=== PATIENT | female | born 1965 | race African-American/Black ===

== ENCOUNTER 2016-04-26 12:46 | Inpatient (IN) | payer BC ==
[2016-04-26 13:29] VITALS: BMI 21.2
--- NOTE | 2016-04-26 14:55 | HP ---
Admission ROS [facility] Chief Complaint: i need help for rehab from alcohol and cocaine Allergies/Adverse Reactions: Allergies Allergy/AdvReac Type Severity Reaction Status Date / Time Latex, Natural Rubber Allergy Intermediate Rash Verified 01/30/16 12:49 Penicillins AdvReac Severe Swelling Verified 01/30/16 12:49 morphine AdvReac Intermediate HALLUCINATI Verified 01/30/16 12:49 ON History of Present Illness: this 50 years old female with alcohol and cocaine dependence,for rehab,last treatment last treatment 01/30/16 to 02/03/16 [facility] asthma,copd weight loss nicotine dependence aortic and mitral valve regurgitation sle ptsd Exam Limitations: No Limitations - Ebola screening Have you traveled outside of the country in the last 21 days: No Have you been sick,other than usual withdrawal symptoms: No - Review of Systems Constitutional: No Symptoms Reported EENT: reports: No Symptoms Reported Respiratory: reports: No Symptoms reported Cardiac: reports: No Symptoms Reported, Other (aortic and mitral valve regurgitation) GI: reports: No Symptoms Reported : reports: No Symptoms Reported Musculoskeletal: reports: No Symptoms Reported Integumentary: reports: No Symptoms Reported Neuro: reports: No Symptoms reported Endocrine: reports: No Symptoms Reported Hematology: reports: No Symptoms Reported Psychiatric: reports: other (ptsd) Patient History - Patient Medical History Hx Anemia: Yes (IRON AND B12 TAKEN IN PAST, patient received vitamin b12 shot monthly, last) Hx Asthma: Yes (on albuterol inhaler) Hx Chronic Obstructive Pulmonary Disease (COPD): Yes Hx Cancer: No Hx Cardiac Disorders: Yes (mitral and aortic valve regurgitation) Hx Congestive Heart Failure: No Hx Hypertension: No Hx Hypercholesterolemia: No Hx Pacemaker: No HX Cerebrovascular Accident: No Hx Seizures: No Hx Dementia: No Hx Diabetes: No Hx Gastrointestinal Disorders: No Hx Liver Disease: No Hx Genitourinary Disorders: No Hx Sexually Transmitted Disorders: Yes (gonorrhea,SYPHILLIS TREATED) Hx Renal Disease (ESRD): No Hx Thyroid Disease: No Hx Human Immunodeficiency Virus (HIV): No (last 10/29 negative) Hx Hepatitis C: No Hx Depression: No Hx Suicide Attempt: No Hx Bipolar Disorder: Yes (PTSD, seroquel) Hx Schizophrenia: Yes (SCHIOAFFECTIVE DISORDER) Other Medical History: sle,no suicidal,no homicidal - Patient Surgical History Past Surgical History: Yes Hx Neurologic Surgery: No Hx Cataract Extraction: No Hx Cardiac Surgery: No Hx Lung Surgery: No Hx Breast Surgery: No Hx Breast Biopsy: No Hx Abdominal Surgery: No Hx Appendectomy: No Hx Cholecystectomy: No Hx Genitourinary Surgery: No Hx Section: Yes (5, patient has 10 children) Hx Orthopedic Surgery: No Hx Hysterectomy: No Other Surgical History: Kidney stones removal 1995 BY LITHOTRIPSY Anesthesia Reaction: No - PPD History Previous Implant?: Yes Documented Results: Negative w/proof Date: 10/29/15 Results: 0 MM PPD to be Administered?: No - Reproductive History Last Menstrual Period: 01/27/16 - Smoking Cessation Smoking history: Current every day smoker Have you smoked in the past 12 months: Yes Aproximately how many cigarettes per day: 5 Cigars Per Day: 0 Hx Chewing Tobacco Use: No Initiated information on smoking cessation: Yes 'Breaking Loose' booklet given: 04/26/16 - Substance & Tx. History Hx Alcohol Use: Yes Hx Substance Use: Yes Substance Use Type: Alcohol, Cocaine Hx Substance Use Treatment: Yes ([facility] 01/29 to 02/03/16) - Substances Abused Alcohol Route: Oral Frequency: 3-6 times per week Amount used: 1 pint rum Age of first use: 33 Date of Last Use: 04/24/16 Cocaine Route: Inhalation Frequency: 3-6 times per week Amount used: 4 bags Age of first use: 33 Date of Last Use: 04/22/16 Family Disease History - Family Disease History Family Disease History: CA: Mother (BLADDER), Other: Father (HEP c, hiv, HEROIN ADDICTION, ) Admission Physical Exam S - Vital Signs Vital Signs: Vital Signs - 24 hr 04/26/16 13:27 Temperature 97.3 F L Pulse Rate 110 H Respiratory 18 Rate Blood Pressure 104/66 - Physical General Appearance: Yes: Within Normal Limits HEENTM: Yes: Within Normal Limits Respiratory: Yes: Lungs Clear Neck: Yes: Within Normal Limits Breast: Yes: Within Normal Limits Cardiology: Yes: Regular Rhythm, Regular Rate, S1, S2, Murmur Abdominal: Yes: Within Normal Limits, Normal Bowel Sounds, Flat, Soft Genitourinary: Yes: Within Normal Limits Back: Yes: Within Normal Limits Musculoskeletal: Yes: Within Normal Limits Extremities: Yes: Within Normal Limits Neurological: Yes: rn delivery II-XII NML intact, Fully Oriented, Alert, Motor Strength 5/5 Integumentary: Yes: Within Normal Limits Lymphatic: Yes: Within Normal Limits - Diagnostic (1) Alcohol dependence Current Visit: No Status: Chronic Qualifiers: Substance use status: uncomplicated Qualified Code(s): F10.20 - Alcohol dependence, uncomplicated (2) Anemia Current Visit: No Status: Chronic Qualifiers: Other causes of anemia: other cause, not classified (3) Asthma Current Visit: No Status: Chronic Qualifiers: Asthma severity: mild intermittent Asthma complication type: uncomplicated Qualified Code(s): J45.20 - Mild intermittent asthma, uncomplicated (4) COPD (chronic obstructive pulmonary disease) Current Visit: No Status: Chronic Qualifiers: COPD type: unspecified COPD Qualified Code(s): J44.9 - Chronic obstructive pulmonary disease, unspecified (5) Cocaine dependence Current Visit: No Status: Chronic (6) Hepatitis C Current Visit: No Status: Chronic Qualifiers: Viral hepatitis chronicity: chronic Hepatic coma status: without hepatic coma Qualified Code(s): B18.2 - Chronic viral hepatitis C (7) Lupus (systemic lupus erythematosus) Current Visit: No Status: Chronic (8) Nicotine dependence Current Visit: No Status: Chronic Qualifiers: Nicotine product type: cigarettes Substance use status: uncomplicated Qualified Code(s): F17.210 - Nicotine dependence, cigarettes, uncomplicated (9) Post traumatic stress disorder (PTSD) Current Visit: No Status: Chronic (10) Schizoaffective disorder Current Visit: No Status: Chronic (11) Weight loss Current Visit: Yes Status: Acute (12) Mitral valve regurgitation Current Visit: Yes Status: Acute (13) Aortic valve regurgitation Current Visit: Yes Status: Acute Cleared for Admission [facility] - Detox or Rehab Claeared for Rehab Admission: Yes (for rehab as protocol) [facility] Breath Alcohol Content Breath Alcohol Content: 0 Urine Pregancy Test - Result Urine Test Results: Negative- NO Line Present Urine Drug Screen - Results Drug Screen Negative: No Urine Drug Screen Results: KAYLI-Cocaine
[2016-04-26] MEDS ORDERED: MAG HYDROX/AL HYDROX/SIMETH 30 ML UNIT-DOSE CUP PO PRN (15:08)
[2016-04-26] MEDS ORDERED: P-EPHED 60MG/TRIPROLIDI 2.5MG TABLET PO PRN (15:08)
[2016-04-26] MEDS ORDERED: hydrOXYzine PAMOATE 25 MG CAPSULE (FP) PO PRN (15:08)
[2016-04-26] MEDS ORDERED: MAGNESIUM HYDROX 2400MG/30ML ORAL SUSPENSION 30 ML CUP PO PRN (15:08)
[2016-04-26] MEDS ORDERED: MENTHOL/PHENOL 1 EACH UD MM PRN (15:08)
[2016-04-26] MEDS ORDERED: MAGNESIUM CITRATE 300 ML BOTTLE PO PRN (15:08)
[2016-04-26] MEDS ORDERED: LOPERAMIDE HCL 2 MG CAPSULE PO PRN (15:08)
[2016-04-26 16:33] LABS: MCH 28.9 pg (25.7-33.7); MEAN CELL VOLUME 90.4 fl (80-96); MEAN PLT VOLUME 10.2 fl (7.5-11.1); PLATELET COUNT 385 K/MM3 (134-434); RDW 16.1 % (11.6-15.6)
[2016-04-26 16:44] LABS: ALBUMIN 3.4 g/dl (3.4-5.0); ANION GAP 5 (8-16); CALCIUM 9.3 mg/dL (8.5-10.1); CO2 31 mmol/L (21-32); GLUCOSE,RANDOM 100 mg/dL (74-106); SGPT/ALT 18 U/L (12-78)
[2016-04-26 16:47] LABS: ALK PHOS 72 U/L (45-117); BILIRUBIN,TOTAL 0.3 mg/dL (0.2-1.0); CREATININE 0.9 mg/dL (0.55-1.02); SGOT/AST 12 U/L (15-37); TOT PROT 7.6 g/dl (6.4-8.2)
[2016-04-26] MEDS: CYPROHEPTADINE HCL 4 MG TABLET PO SCH ×2 (17:10→21:59)
[2016-04-26] MEDS: predniSONE 20 MG TABLET (UD) PO SCH (17:10)
[2016-04-26] MEDS: IBUPROFEN 400 MG TABLET (FP) PO PRN (18:22)
[2016-04-26 19:50] LABS: PH,URINE 6.5 (5.0-8.0); URINE APPEARANCE CLEAR; URINE BILIRUBIN NEGATIVE (NEGATIVE); URINE BLOOD NEGATIVE (NEGATIVE); URINE COLOR LT. YELLOW; URINE GLUCOSE (UA) NEGATIVE (NEGATIVE); URINE KETONE NEGATIVE (NEGATIVE); URINE LEUK ESTERASE NEGATIVE (NEGATIVE); URINE NITRITE NEGATIVE (NEGATIVE); URINE PROTEIN NEGATIVE (NEGATIVE); URINE UROBILINOGEN 0.2 E.U/dl E.U./dl (0.2-1.0)
[2016-04-26] MEDS: THIAMINE HCL 100 MG TABLET (FP) PO SCH (22:00)
[2016-04-27] MEDS: CYPROHEPTADINE HCL 4 MG TABLET PO SCH ×3 (06:19→21:44)
[2016-04-27] MEDS: ASPIRIN COATED 81 MG TABLET.EC PO SCH (09:13)
[2016-04-27] MEDS: PRENATAL VITAMINS W/ FOLIC ACID TABLET (FP) PO SCH (09:13)
[2016-04-27] MEDS: guaiFENesin/D-METHORPHAN HB 10 ML UNIT-DOSE CUPS PO PRN (09:13)
[2016-04-27] MEDS: predniSONE 20 MG TABLET (UD) PO SCH (09:13)
[2016-04-27 11:10] LABS: HIV 1 & 2 AB NEGATIVE; HIV 1 AGp24 NEGATIVE
--- NOTE | 2016-04-27 16:34 | EKG ---
Test Reason : Blood Pressure : / mmHG Vent. Rate : 085 BPM Atrial Rate : 085 BPM P-R Int : 132 ms QRS Dur : 072 ms QT Int : 422 ms P-R-T Axes : 075 077 080 degrees QTc Int : 502 ms NORMAL SINUS RHYTHM VOLTAGE CRITERIA FOR LEFT VENTRICULAR HYPERTROPHY PROLONGED QT ABNORMAL ECG NO PREVIOUS ECGS AVAILABLE Confirmed by GIBRAN SOLIS MD ([id number]) on 04/27/2016 4:34:04 PM Referred By: Confirmed By:GIBRAN SOLIS MD
[2016-04-27] MEDS: IBUPROFEN 400 MG TABLET (FP) PO PRN (17:47)
[2016-04-27] MEDS: THIAMINE HCL 100 MG TABLET (FP) PO SCH (21:39)
[2016-04-27] MEDS: diphenhydrAMINE HCL 50 MG CAPSULE PO PRN (21:39)
[2016-04-28] MEDS: CYPROHEPTADINE HCL 4 MG TABLET PO SCH ×3 (06:54→21:40)
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
[2016-04-28] MEDS: ASPIRIN COATED 81 MG TABLET.EC PO SCH (10:28)
[2016-04-28] MEDS: PRENATAL VITAMINS W/ FOLIC ACID TABLET (FP) PO SCH (10:28)
[2016-04-28] MEDS: predniSONE 10 MG TABLET (UD) PO SCH (10:29)
[2016-04-28] MEDS: guaiFENesin/D-METHORPHAN HB 10 ML UNIT-DOSE CUPS PO PRN (10:30)
[2016-04-28] MEDS: ALBUTEROL SO4 6.7 GM HFA INHALER IH PRN (11:33)
[2016-04-28] MEDS: NICOTINE 7 MG/24 HOURS TOPICAL PATCH TD SCH (15:56)
[2016-04-28] MEDS: THIAMINE HCL 100 MG TABLET (FP) PO SCH (21:40)
[2016-04-28] MEDS: traZODone HCL 50 MG TABLET (FP) PO SCH (21:41)
[2016-04-29] MEDS: CYPROHEPTADINE HCL 4 MG TABLET PO SCH ×3 (06:28→21:30)
[2016-04-29] MEDS: ASPIRIN COATED 81 MG TABLET.EC PO SCH (09:00)
[2016-04-29] MEDS: predniSONE 10 MG TABLET (UD) PO SCH (09:00)
[2016-04-29] MEDS: NICOTINE 7 MG/24 HOURS TOPICAL PATCH TD SCH (09:00)
[2016-04-29] MEDS: PRENATAL VITAMINS W/ FOLIC ACID TABLET (FP) PO SCH (09:00)
[2016-04-29] MEDS: IBUPROFEN 400 MG TABLET (FP) PO PRN (09:01)
[2016-04-29] MEDS: THIAMINE HCL 100 MG TABLET (FP) PO SCH (21:30)
[2016-04-29] MEDS: traZODone HCL 50 MG TABLET (FP) PO SCH (21:30)
[2016-04-30] MEDS: CYPROHEPTADINE HCL 4 MG TABLET PO SCH ×3 (06:32→21:27)
[2016-04-30] MEDS: predniSONE 20 MG TABLET (UD) PO SCH (10:10)
[2016-04-30] MEDS: PRENATAL VITAMINS W/ FOLIC ACID TABLET (FP) PO SCH (10:10)
[2016-04-30] MEDS: ASPIRIN COATED 81 MG TABLET.EC PO SCH (10:10)
[2016-04-30] MEDS: NICOTINE 7 MG/24 HOURS TOPICAL PATCH TD SCH (10:11)
[2016-04-30] MEDS: guaiFENesin/D-METHORPHAN HB 10 ML UNIT-DOSE CUPS PO PRN (10:12)
[2016-04-30] MEDS: THIAMINE HCL 100 MG TABLET (FP) PO SCH (21:27)
[2016-04-30] MEDS: traZODone HCL 50 MG TABLET (FP) PO SCH (21:27)
[2016-05-01] MEDS: CYPROHEPTADINE HCL 4 MG TABLET PO SCH ×3 (05:55→21:42)
[2016-05-01] MEDS: IBUPROFEN 400 MG TABLET (FP) PO PRN (09:40)
[2016-05-01] MEDS: predniSONE 20 MG TABLET (UD) PO SCH (09:40)
[2016-05-01] MEDS: PRENATAL VITAMINS W/ FOLIC ACID TABLET (FP) PO SCH (09:40)
[2016-05-01] MEDS: ASPIRIN COATED 81 MG TABLET.EC PO SCH (09:42)
[2016-05-01] MEDS: NICOTINE 7 MG/24 HOURS TOPICAL PATCH TD SCH (09:43)
[2016-05-01] MEDS: THIAMINE HCL 100 MG TABLET (FP) PO SCH (21:42)
[2016-05-01] MEDS: traZODone HCL 50 MG TABLET (FP) PO SCH (21:42)
[2016-05-02] MEDS: CYPROHEPTADINE HCL 4 MG TABLET PO SCH ×3 (06:23→22:46)
[2016-05-02] MEDS: IBUPROFEN 400 MG TABLET (FP) PO PRN (10:27)
[2016-05-02] MEDS: ASPIRIN COATED 81 MG TABLET.EC PO SCH (10:28)
[2016-05-02] MEDS: predniSONE 10 MG TABLET (UD) PO SCH (10:28)
[2016-05-02] MEDS: PRENATAL VITAMINS W/ FOLIC ACID TABLET (FP) PO SCH (10:28)
[2016-05-02] MEDS: NICOTINE 7 MG/24 HOURS TOPICAL PATCH TD SCH (10:29)
[2016-05-02] MEDS: NICOTINE POLACRILEX 2 MG GUM BUC PRN (10:30)
--- NOTE | 2016-05-02 13:39 | PN ---
[facility] Progress Note Note: WHITISH VAGINAL D/C & TOOTH ACHE DX. : YEAST INFECTION P : MONISTAT 7,MOTRIN & VISCOUS LIDOCAINE
[2016-05-02] MEDS: MICONAZOLE NITRATE 2% VAGINAL CREAM 45 GM TUBE VG SCH (22:45)
[2016-05-02] MEDS: traZODone HCL 50 MG TABLET (FP) PO SCH (22:45)
[2016-05-02] MEDS: THIAMINE HCL 100 MG TABLET (FP) PO SCH (22:46)
[2016-05-02] MEDS: IBUPROFEN 600 MG TABLET (FP) PO PRN (22:46)
[2016-05-03] MEDS: CYPROHEPTADINE HCL 4 MG TABLET PO SCH ×3 (06:10→21:31)
[2016-05-03] MEDS: IBUPROFEN 600 MG TABLET (FP) PO PRN (07:25)
[2016-05-03] MEDS: ALBUTEROL SO4 6.7 GM HFA INHALER IH PRN (09:10)
[2016-05-03] MEDS: predniSONE 10 MG TABLET (UD) PO SCH (09:11)
[2016-05-03] MEDS: PRENATAL VITAMINS W/ FOLIC ACID TABLET (FP) PO SCH (09:11)
[2016-05-03] MEDS: ASPIRIN COATED 81 MG TABLET.EC PO SCH (09:11)
[2016-05-03] MEDS: NICOTINE 7 MG/24 HOURS TOPICAL PATCH TD SCH (09:12)
[2016-05-03] MEDS: NICOTINE POLACRILEX 2 MG GUM BUC PRN (09:12)
[2016-05-03] MEDS: LIDOCAINE VISCOUS 2% ORAL/TOP 20 ML UNIT-DOSE CUP MM PRN (10:23)
[2016-05-03] MEDS: IBUPROFEN 400 MG TABLET (FP) PO PRN (17:07)
[2016-05-03] MEDS: ACETAMINOPHEN 325 MG TABLET (FP) PO PRN (19:26)
[2016-05-03] MEDS: traZODone HCL 50 MG TABLET (FP) PO SCH (21:31)
[2016-05-03] MEDS: THIAMINE HCL 100 MG TABLET (FP) PO SCH (21:31)
[2016-05-03] MEDS: MICONAZOLE NITRATE 2% VAGINAL CREAM 45 GM TUBE VG SCH (21:32)
[2016-05-04] MEDS: IBUPROFEN 400 MG TABLET (FP) PO PRN ×2 (05:40→18:21)
[2016-05-04] MEDS: LIDOCAINE VISCOUS 2% ORAL/TOP 20 ML UNIT-DOSE CUP MM PRN ×2 (05:41→10:29)
[2016-05-04] MEDS: CYPROHEPTADINE HCL 4 MG TABLET PO SCH ×3 (05:41→21:26)
[2016-05-04] MEDS: ACETAMINOPHEN 325 MG TABLET (FP) PO PRN ×2 (08:21→21:27)
[2016-05-04] MEDS: PRENATAL VITAMINS W/ FOLIC ACID TABLET (FP) PO SCH (10:29)
[2016-05-04] MEDS: predniSONE 5 MG TABLET (UD) PO SCH (10:30)
[2016-05-04] MEDS: ASPIRIN COATED 81 MG TABLET.EC PO SCH (10:30)
[2016-05-04] MEDS: NICOTINE POLACRILEX 2 MG GUM BUC PRN (10:30)
[2016-05-04] MEDS: NICOTINE 7 MG/24 HOURS TOPICAL PATCH TD SCH (10:30)
[2016-05-04] MEDS: THIAMINE HCL 100 MG TABLET (FP) PO SCH (21:26)
[2016-05-04] MEDS: traZODone HCL 50 MG TABLET (FP) PO SCH (21:26)
[2016-05-04] MEDS: MICONAZOLE NITRATE 2% VAGINAL CREAM 45 GM TUBE VG SCH (21:55)
[2016-05-05] MEDS: IBUPROFEN 400 MG TABLET (FP) PO PRN ×2 (06:12→18:15)
[2016-05-05] MEDS: CYPROHEPTADINE HCL 4 MG TABLET PO SCH ×3 (06:12→21:26)
[2016-05-05] MEDS ORDERED: PT OWN MED DRAWER 7, Y5N ONE (08:41)
[2016-05-05] MEDS: ASPIRIN COATED 81 MG TABLET.EC PO SCH (10:12)
[2016-05-05] MEDS: PRENATAL VITAMINS W/ FOLIC ACID TABLET (FP) PO SCH (10:12)
[2016-05-05] MEDS: predniSONE 5 MG TABLET (UD) PO SCH (10:12)
[2016-05-05] MEDS: NICOTINE 7 MG/24 HOURS TOPICAL PATCH TD SCH (10:12)
[2016-05-05] MEDS: NICOTINE POLACRILEX 2 MG GUM BUC PRN (10:13)
[2016-05-05] MEDS: LIDOCAINE VISCOUS 2% ORAL/TOP 20 ML UNIT-DOSE CUP MM PRN (10:57)
[2016-05-05] MEDS: ACETAMINOPHEN 325 MG TABLET (FP) PO PRN ×2 (10:57→21:28)
[2016-05-05] MEDS ORDERED: AZITHROMYCIN 250 MG TABLET (FP) PO ONE (13:39)
[2016-05-05] MEDS: THIAMINE HCL 100 MG TABLET (FP) PO SCH (21:26)
[2016-05-05] MEDS: traZODone HCL 50 MG TABLET (FP) PO SCH (21:26)
[2016-05-05] MEDS: MICONAZOLE NITRATE 2% VAGINAL CREAM 45 GM TUBE VG SCH (21:27)
[2016-05-06] MEDS: CYPROHEPTADINE HCL 4 MG TABLET PO SCH ×3 (06:28→21:30)
[2016-05-06] MEDS: IBUPROFEN 400 MG TABLET (FP) PO PRN ×2 (08:12→19:00)
[2016-05-06] MEDS: PRENATAL VITAMINS W/ FOLIC ACID TABLET (FP) PO SCH (10:08)
[2016-05-06] MEDS: NICOTINE 7 MG/24 HOURS TOPICAL PATCH TD SCH (10:08)
[2016-05-06] MEDS: AZITHROMYCIN 250 MG TABLET (FP) PO SCH (10:09)
[2016-05-06] MEDS: ASPIRIN COATED 81 MG TABLET.EC PO SCH (10:09)
[2016-05-06] MEDS: ACETAMINOPHEN 325 MG TABLET (FP) PO PRN ×2 (10:10→21:33)
[2016-05-06] MEDS: NICOTINE POLACRILEX 2 MG GUM BUC PRN (10:11)
[2016-05-06] MEDS: THIAMINE HCL 100 MG TABLET (FP) PO SCH (21:30)
[2016-05-06] MEDS: traZODone HCL 50 MG TABLET (FP) PO SCH (21:30)
[2016-05-06] MEDS: diphenhydrAMINE HCL 50 MG CAPSULE PO PRN (21:30)
[2016-05-06] MEDS: MICONAZOLE NITRATE 2% VAGINAL CREAM 45 GM TUBE VG SCH (21:31)
[2016-05-07] MEDS: IBUPROFEN 400 MG TABLET (FP) PO PRN ×2 (06:53→21:19)
[2016-05-07] MEDS: CYPROHEPTADINE HCL 4 MG TABLET PO SCH ×3 (06:54→21:19)
[2016-05-07] MEDS: NICOTINE POLACRILEX 2 MG GUM BUC PRN (10:37)
[2016-05-07] MEDS: AZITHROMYCIN 250 MG TABLET (FP) PO SCH (10:37)
[2016-05-07] MEDS: PRENATAL VITAMINS W/ FOLIC ACID TABLET (FP) PO SCH (10:37)
[2016-05-07] MEDS: ASPIRIN COATED 81 MG TABLET.EC PO SCH (10:37)
[2016-05-07] MEDS: NICOTINE 7 MG/24 HOURS TOPICAL PATCH TD SCH (10:38)
[2016-05-07] MEDS: ACETAMINOPHEN 325 MG TABLET (FP) PO PRN (11:08)
[2016-05-07] MEDS: traZODone HCL 50 MG TABLET (FP) PO SCH (21:19)
[2016-05-07] MEDS: THIAMINE HCL 100 MG TABLET (FP) PO SCH (21:19)
[2016-05-07] MEDS: diphenhydrAMINE HCL 50 MG CAPSULE PO PRN (21:20)
[2016-05-07] MEDS ORDERED: PT OWN MED DRAWER 7, Y5N ONE (21:22)
[2016-05-07] MEDS: LIDOCAINE VISCOUS 2% ORAL/TOP 20 ML UNIT-DOSE CUP MM PRN (21:22)
[2016-05-07] MEDS: MICONAZOLE NITRATE 2% VAGINAL CREAM 45 GM TUBE VG SCH (22:31)
[2016-05-08] MEDS: IBUPROFEN 400 MG TABLET (FP) PO PRN (06:08)
[2016-05-08] MEDS: CYPROHEPTADINE HCL 4 MG TABLET PO SCH ×3 (06:08→21:40)
[2016-05-08] MEDS: ASPIRIN COATED 81 MG TABLET.EC PO SCH (10:18)
[2016-05-08] MEDS: PRENATAL VITAMINS W/ FOLIC ACID TABLET (FP) PO SCH (10:18)
[2016-05-08] MEDS: NICOTINE 7 MG/24 HOURS TOPICAL PATCH TD SCH (10:18)
[2016-05-08] MEDS: AZITHROMYCIN 250 MG TABLET (FP) PO SCH (10:18)
[2016-05-08] MEDS: NICOTINE POLACRILEX 2 MG GUM BUC PRN (10:19)
[2016-05-08] MEDS: ACETAMINOPHEN 325 MG TABLET (FP) PO PRN (11:31)
--- NOTE | 2016-05-08 11:59 | PN ---
[facility] Progress Note Note: Patient still c/o severe pain left lowermolar at back since admission, pain sharp stabbing radiating to head /, reported some blood from cracked tooth last night unrelievd by antibiotics , motrin, or lidocaine. o/e cracked left lower molar, patient clearly distressed a/p: d/c motrin cont lidocaine, add peridex bid start neurontin 100mg tid and elavil 50mg qHS first dose now for neuopathic pain. co plete course of antibiotics, emergency dental referral made.
[2016-05-08] MEDS ORDERED: AMITRIPTYLINE HCL 25 MG TABLET (FP) PO ONE (12:15)
[2016-05-08] MEDS: NAPROXEN 500 MG TABLET (FP) PO SCH ×2 (12:28→21:40)
[2016-05-08] MEDS: CHLORHEXIDINE GLUCONATE 0.12% 15ML CUP MM SCH ×2 (13:36→21:43)
[2016-05-08] MEDS: GABAPENTIN 100 MG CAPSULE (FP) PO SCH ×2 (13:43→21:40)
--- NOTE | 2016-05-08 16:29 | PN ---
Psychiatric Progress Note Vital Signs: Vital Signs Period Temp Pulse Resp BP Sys/Voss Pulse Ox Last 24 Hr 98.3 F 81 16-18 106/72 Date of Session: 05/08/16 Chief Complaint:: "Andrew still having some craving,anxious about discharge." HPI: Patient addressed Alcohol dependence comorbid with Schizoaffective disorder. ROS: Anemia,BA,Aortic,mitral valve regurgitation. Current Medications: Active Medications Generic Name Dose Route Start Last Admin Trade Name Freq PRN Reason Stop Dose Admin Acamprosate 666 mg 05/08/16 22:00 Campral - PO TID ASHLYN Acetaminophen 650 mg 04/26/16 15:08 05/08/16 11:31 Tylenol - PO 650 mg Q4H PRN Administration PAIN Al Hydroxide/Mg Hydroxide 30 ml 04/26/16 15:08 Mylanta Oral Suspension - PO Q6H PRN DYSPEPSIA Albuterol Sulfate 2 puff 04/26/16 15:11 05/03/16 09:10 Ventolin Hfa Inhaler - IH 2 puff Q4H PRN Administration ASTHMA Amitriptyline HCl 50 mg 05/08/16 22:00 Elavil - PO HS ASHLYN Aspirin 81 mg 04/27/16 10:00 05/08/16 10:18 Ecotrin - PO 81 mg DAILY ASHLYN Administration Azithromycin 250 mg 05/06/16 10:00 05/08/16 10:18 Zithromax - PO 05/09/16 23:00 250 mg DAILY ASHLYN Administration Chlorhexidine Gluconate 15 ml 05/08/16 12:00 05/08/16 13:36 Peridex - MM 15 ml BID ASHLYN Administration Cyproheptadine HCl 4 mg 04/26/16 15:15 05/08/16 13:36 Periactin - PO 4 mg TID ASHLYN Administration Diphenhydramine HCl 50 mg 04/26/16 15:08 05/07/16 21:20 Benadryl - PO 50 mg HSMR1 PRN Administration INSOMNIA Eucalyptus/Menthol/Phenol/Sorbitol 1 each 04/26/16 15:08 05/02/16 06:44 Cepastat Lozenge - MM 1 each Q4H PRN Administration SORE THROAT Gabapentin 100 mg 05/08/16 14:00 05/08/16 13:43 Neurontin - PO 100 mg TID ASHLYN Administration Guaifenesin 10 ml 04/26/16 15:08 04/30/16 10:12 Robitussin Dm - PO 10 ml Q6H PRN Administration COUGH Lidocaine HCl 20 ml 05/02/16 13:36 05/07/16 21:22 Xylocaine 2% Viscous Oral - MM 20 ml Q4HPO PRN Administration ORAL PAIN/MOUTH SORES Loperamide HCl 4 mg 04/26/16 15:08 Imodium - PO Q6H PRN DIARRHEA Magnesium Citrate 300 ml 04/26/16 15:08 Citroma - PO Q48H PRN CONSTIPATION Magnesium Hydroxide 30 ml 04/26/16 15:08 Milk Of Magnesia - PO DAILY PRN CONSTIPATION Miconazole Nitrate 1 applic 05/02/16 22:00 05/07/16 22:31 Monistat-7 Vaginal Cream - VG 05/08/16 22:01 1 applic HS ASHLYN Administration Naproxen 500 mg 05/08/16 12:00 05/08/16 12:28 Naprosyn - PO 500 mg BID ASHLYN Administration Nicotine 7 mg 04/28/16 15:30 05/08/16 10:18 Nicoderm Patch - TD Not Given DAILY ASHLYN Nicotine Polacrilex 2 mg 04/28/16 15:21 05/08/16 10:19 Nicorette Gum - BUC 2 mg Q2H PRN Administration NICOTINE REPLACEMENT RX Multivit/Folic Acid/Iron 1 tab 04/27/16 10:00 05/08/16 10:18 Vitamins (Sjr) - PO 1 tab DAILY ASHLYN Administration Pseudoephedrine/Triprolidine 1 combo 04/26/16 15:08 Actifed - PO TID PRN NASAL CONGESTION Thiamine HCl 100 mg 04/26/16 22:00 05/07/16 21:19 Vitamin B1 - PO 100 mg HS ASHLYN Administration Trazodone HCl 50 mg 04/28/16 22:00 05/07/16 21:19 Desyrel - PO 50 mg HS ASHLYN Administration Current Side Effect: No Lab tests ordered: No Lab tests reviewed: Yes Provider note:: PAtient was evaluated today due to continuois craving for alcohol.She states that she feels how difficult will be for her to stay abstinent when discharged from secure environment.Properties of Campral has been discussed with the patient including side effects and benefitrs.Campral 333 mg po 2 tab po tid will be started today. Supportive therapy provided. Total face to face time:: 30 Mental Status Exam - Mental Status Exam Alert and Oriented to: Time, Place, Person Cognitive Function: Grossly Intact Patient Appearance: Well Groomed Mood: Nervous Affect: Mood Congruent, Labile Patient Behavior: Cooperative Speech Pattern: Clear Voice Loudness: Normal Thought Process: Goal Oriented Thought Disorder: Being Controlled Hallucinations: Denies Suicidal Ideation: Denies Homicidal Ideation: Denies Insight/Judgement: Fair Sleep: Fair Appetite: Fair Muscle strength/Tone: Normal Gait/Station: Normal Psychiatric Treatment Plan - Problem List (1) Aortic valve regurgitation Current Visit: Yes (2) Mitral valve regurgitation Current Visit: Yes (3) Schizoaffective disorder, bipolar type Current Visit: Yes (4) Alcohol dependence Current Visit: Yes Qualifiers: Substance use status: uncomplicated Qualified Code(s): F10.20 - Alcohol dependence, uncomplicated (5) Anemia Current Visit: Yes Qualifiers: Other causes of anemia: other cause, not classified (6) Asthma Current Visit: Yes Qualifiers: Asthma severity: mild intermittent Asthma complication type: uncomplicated Qualified Code(s): J45.20 - Mild intermittent asthma, uncomplicated
[2016-05-08] MEDS: diphenhydrAMINE HCL 50 MG CAPSULE PO PRN (21:40)
[2016-05-08] MEDS: THIAMINE HCL 100 MG TABLET (FP) PO SCH (21:40)
[2016-05-08] MEDS: traZODone HCL 50 MG TABLET (FP) PO SCH (21:40)
[2016-05-08] MEDS: ACAMPROSATE CALCIUM 333 MG TABLET.DR PO SCH (21:42)
[2016-05-08] MEDS: AMITRIPTYLINE HCL 25 MG TABLET (FP) PO SCH (21:42)
[2016-05-08] MEDS: MICONAZOLE NITRATE 2% VAGINAL CREAM 45 GM TUBE VG SCH (21:43)
[2016-05-09] MEDS: GABAPENTIN 100 MG CAPSULE (FP) PO SCH ×3 (06:06→21:01)
[2016-05-09] MEDS: ACAMPROSATE CALCIUM 333 MG TABLET.DR PO SCH ×3 (06:06→21:01)
[2016-05-09] MEDS: CYPROHEPTADINE HCL 4 MG TABLET PO SCH ×3 (06:06→21:00)
[2016-05-09] MEDS: NAPROXEN 500 MG TABLET (FP) PO SCH ×2 (10:17→21:01)
[2016-05-09] MEDS: AZITHROMYCIN 250 MG TABLET (FP) PO SCH (10:17)
[2016-05-09] MEDS: NICOTINE 7 MG/24 HOURS TOPICAL PATCH TD SCH (10:18)
[2016-05-09] MEDS: PRENATAL VITAMINS W/ FOLIC ACID TABLET (FP) PO SCH (10:18)
[2016-05-09] MEDS: ASPIRIN COATED 81 MG TABLET.EC PO SCH (10:18)
[2016-05-09] MEDS: CHLORHEXIDINE GLUCONATE 0.12% 15ML CUP MM SCH ×2 (10:19→20:59)
[2016-05-09] MEDS ORDERED: PT OWN MED DRAWER 7, Y5N ONE ×2 (10:19→20:11)
[2016-05-09] MEDS: NICOTINE POLACRILEX 2 MG GUM BUC PRN (10:20)
[2016-05-09] MEDS: LIDOCAINE VISCOUS 2% ORAL/TOP 20 ML UNIT-DOSE CUP MM PRN (15:54)
[2016-05-09] MEDS: ACETAMINOPHEN 325 MG TABLET (FP) PO PRN (15:54)
[2016-05-09] MEDS: AMITRIPTYLINE HCL 25 MG TABLET (FP) PO SCH (21:00)
[2016-05-09] MEDS: THIAMINE HCL 100 MG TABLET (FP) PO SCH (21:01)
[2016-05-09] MEDS: traZODone HCL 50 MG TABLET (FP) PO SCH (21:01)
[2016-05-10] MEDS: GABAPENTIN 100 MG CAPSULE (FP) PO SCH ×3 (06:35→21:33)
[2016-05-10] MEDS: ACAMPROSATE CALCIUM 333 MG TABLET.DR PO SCH ×3 (06:35→21:33)
[2016-05-10] MEDS: CYPROHEPTADINE HCL 4 MG TABLET PO SCH ×3 (06:35→21:35)
[2016-05-10] MEDS: ACETAMINOPHEN 325 MG TABLET (FP) PO PRN ×3 (06:36→17:56)
[2016-05-10] MEDS: CHLORHEXIDINE GLUCONATE 0.12% 15ML CUP MM SCH ×2 (10:22→22:49)
[2016-05-10] MEDS: NAPROXEN 500 MG TABLET (FP) PO SCH ×2 (10:22→21:33)
[2016-05-10] MEDS: ASPIRIN COATED 81 MG TABLET.EC PO SCH (10:22)
[2016-05-10] MEDS ORDERED: PT OWN MED DRAWER 7, Y5N ONE ×2 (10:22→10:23)
[2016-05-10] MEDS: PRENATAL VITAMINS W/ FOLIC ACID TABLET (FP) PO SCH (10:22)
[2016-05-10] MEDS: ALBUTEROL SO4 6.7 GM HFA INHALER IH PRN (10:23)
[2016-05-10] MEDS: NICOTINE 7 MG/24 HOURS TOPICAL PATCH TD SCH (10:24)
[2016-05-10] MEDS: LIDOCAINE VISCOUS 2% ORAL/TOP 20 ML UNIT-DOSE CUP MM PRN (15:49)
[2016-05-10] MEDS: traZODone HCL 50 MG TABLET (FP) PO SCH (21:33)
[2016-05-10] MEDS: diphenhydrAMINE HCL 50 MG CAPSULE PO PRN (21:33)
[2016-05-10] MEDS: AMITRIPTYLINE HCL 25 MG TABLET (FP) PO SCH (21:33)
[2016-05-10] MEDS: THIAMINE HCL 100 MG TABLET (FP) PO SCH (21:35)
[2016-05-11] MEDS: CYPROHEPTADINE HCL 4 MG TABLET PO SCH ×3 (06:17→21:38)
[2016-05-11] MEDS: GABAPENTIN 100 MG CAPSULE (FP) PO SCH ×3 (06:17→21:38)
[2016-05-11] MEDS: ACETAMINOPHEN 325 MG TABLET (FP) PO PRN ×2 (06:17→18:43)
[2016-05-11] MEDS: ACAMPROSATE CALCIUM 333 MG TABLET.DR PO SCH ×3 (06:17→21:38)
[2016-05-11] MEDS: NICOTINE 7 MG/24 HOURS TOPICAL PATCH TD SCH (10:36)
[2016-05-11] MEDS: NAPROXEN 500 MG TABLET (FP) PO SCH ×2 (10:41→21:38)
[2016-05-11] MEDS: ASPIRIN COATED 81 MG TABLET.EC PO SCH (10:42)
[2016-05-11] MEDS: PRENATAL VITAMINS W/ FOLIC ACID TABLET (FP) PO SCH (10:42)
[2016-05-11] MEDS: CHLORHEXIDINE GLUCONATE 0.12% 15ML CUP MM SCH ×2 (10:42→21:40)
[2016-05-11] MEDS: AMITRIPTYLINE HCL 25 MG TABLET (FP) PO SCH (21:38)
[2016-05-11] MEDS: THIAMINE HCL 100 MG TABLET (FP) PO SCH (21:38)
[2016-05-11] MEDS: diphenhydrAMINE HCL 50 MG CAPSULE PO PRN (21:38)
[2016-05-11] MEDS: traZODone HCL 50 MG TABLET (FP) PO SCH (21:38)
[2016-05-12] MEDS: CYPROHEPTADINE HCL 4 MG TABLET PO SCH ×3 (06:22→21:34)
[2016-05-12] MEDS: ACAMPROSATE CALCIUM 333 MG TABLET.DR PO SCH ×3 (06:22→21:34)
[2016-05-12] MEDS: GABAPENTIN 100 MG CAPSULE (FP) PO SCH (06:23)
[2016-05-12] MEDS ORDERED: PT OWN MED DRAWER 7, Y5N ONE ×2 (08:20→18:58)
[2016-05-12] MEDS: CHLORHEXIDINE GLUCONATE 0.12% 15ML CUP MM SCH ×2 (10:37→22:23)
[2016-05-12] MEDS: ASPIRIN COATED 81 MG TABLET.EC PO SCH (10:38)
[2016-05-12] MEDS: PRENATAL VITAMINS W/ FOLIC ACID TABLET (FP) PO SCH (10:38)
[2016-05-12] MEDS: NAPROXEN 500 MG TABLET (FP) PO SCH ×2 (10:38→21:34)
[2016-05-12] MEDS: NICOTINE 7 MG/24 HOURS TOPICAL PATCH TD SCH (10:38)
--- NOTE | 2016-05-12 12:20 | PN ---
[facility] Progress Note Note: Patient still c/o nerve pain from tooth radiating to forehead temples, saw dentist who recommended clindamycin 300mg q6h x14 dasy and surgery when discharged. will start clindamycan as patient did not imporve after coruse of zithromax last week, increase neuronti and elavil for pain. kenia de dios
[2016-05-12] MEDS: GABAPENTIN 300 MG CAPSULE (FP) PO SCH ×2 (13:23→21:34)
[2016-05-12] MEDS: CLINDAMYCIN HCL 150 MG CAPSULE (FP) PO SCH ×2 (17:05→23:34)
[2016-05-12] MEDS: ACETAMINOPHEN 325 MG TABLET (FP) PO PRN (17:05)
[2016-05-12] MEDS: traZODone HCL 50 MG TABLET (FP) PO SCH (21:34)
[2016-05-12] MEDS: diphenhydrAMINE HCL 50 MG CAPSULE PO PRN (21:36)
[2016-05-12] MEDS: AMITRIPTYLINE HCL 25 MG TABLET (FP) PO SCH (21:37)
[2016-05-12] MEDS: THIAMINE HCL 100 MG TABLET (FP) PO SCH (21:38)
[2016-05-13] MEDS: ACAMPROSATE CALCIUM 333 MG TABLET.DR PO SCH ×3 (06:25→21:01)
[2016-05-13] MEDS: CLINDAMYCIN HCL 150 MG CAPSULE (FP) PO SCH ×4 (06:25→23:29)
[2016-05-13] MEDS: GABAPENTIN 300 MG CAPSULE (FP) PO SCH ×3 (06:26→21:03)
[2016-05-13] MEDS: CYPROHEPTADINE HCL 4 MG TABLET PO SCH ×3 (06:26→21:02)
[2016-05-13] MEDS: CHLORHEXIDINE GLUCONATE 0.12% 15ML CUP MM SCH ×2 (09:44→21:03)
[2016-05-13] MEDS: NAPROXEN 500 MG TABLET (FP) PO SCH ×2 (09:44→21:03)
[2016-05-13] MEDS: ASPIRIN COATED 81 MG TABLET.EC PO SCH (09:44)
[2016-05-13] MEDS: NICOTINE 7 MG/24 HOURS TOPICAL PATCH TD SCH (09:44)
[2016-05-13] MEDS: PRENATAL VITAMINS W/ FOLIC ACID TABLET (FP) PO SCH (09:44)
[2016-05-13] MEDS: ACETAMINOPHEN 325 MG TABLET (FP) PO PRN (17:20)
[2016-05-13] MEDS: LIDOCAINE VISCOUS 2% ORAL/TOP 20 ML UNIT-DOSE CUP MM PRN (17:21)
[2016-05-13] MEDS ORDERED: PT OWN MED DRAWER 7, Y5N ONE (20:23)
[2016-05-13] MEDS: THIAMINE HCL 100 MG TABLET (FP) PO SCH (21:02)
[2016-05-13] MEDS: AMITRIPTYLINE HCL 25 MG TABLET (FP) PO SCH (21:02)
[2016-05-13] MEDS: traZODone HCL 50 MG TABLET (FP) PO SCH (21:03)
[2016-05-14] MEDS: CLINDAMYCIN HCL 150 MG CAPSULE (FP) PO SCH ×4 (06:14→23:18)
[2016-05-14] MEDS: GABAPENTIN 300 MG CAPSULE (FP) PO SCH ×3 (06:14→21:22)
[2016-05-14] MEDS: CYPROHEPTADINE HCL 4 MG TABLET PO SCH ×3 (06:14→21:22)
[2016-05-14] MEDS: ACAMPROSATE CALCIUM 333 MG TABLET.DR PO SCH ×3 (06:14→21:21)
[2016-05-14] MEDS: NAPROXEN 500 MG TABLET (FP) PO SCH ×2 (10:17→21:22)
[2016-05-14] MEDS: PRENATAL VITAMINS W/ FOLIC ACID TABLET (FP) PO SCH (10:17)
[2016-05-14] MEDS: CHLORHEXIDINE GLUCONATE 0.12% 15ML CUP MM SCH ×2 (10:17→21:23)
[2016-05-14] MEDS: ASPIRIN COATED 81 MG TABLET.EC PO SCH (10:17)
[2016-05-14] MEDS: NICOTINE 7 MG/24 HOURS TOPICAL PATCH TD SCH (10:18)
[2016-05-14] MEDS: LIDOCAINE VISCOUS 2% ORAL/TOP 20 ML UNIT-DOSE CUP MM PRN (10:55)
[2016-05-14] MEDS: ACETAMINOPHEN 325 MG TABLET (FP) PO PRN ×2 (11:19→17:01)
[2016-05-14] MEDS: traZODone HCL 50 MG TABLET (FP) PO SCH (21:22)
[2016-05-14] MEDS: AMITRIPTYLINE HCL 25 MG TABLET (FP) PO SCH (21:22)
[2016-05-14] MEDS: THIAMINE HCL 100 MG TABLET (FP) PO SCH (21:23)
[2016-05-15] MEDS: CLINDAMYCIN HCL 150 MG CAPSULE (FP) PO SCH (06:20)
[2016-05-15] MEDS: ACAMPROSATE CALCIUM 333 MG TABLET.DR PO SCH (06:20)
[2016-05-15] MEDS: ACETAMINOPHEN 325 MG TABLET (FP) PO PRN (06:21)
[2016-05-15] MEDS: CYPROHEPTADINE HCL 4 MG TABLET PO SCH (06:21)
[2016-05-15] MEDS: GABAPENTIN 300 MG CAPSULE (FP) PO SCH (06:21)
[2016-05-15 07:42] VITALS: BP 106/76; PULSE 82; TEMP 98.2
--- NOTE | 2016-05-15 09:17 | PN ---
Psychiatric Progress Note Vital Signs: Vital Signs Period Temp Pulse Resp BP Sys/Voss Pulse Ox Last 24 Hr 98.2 F 82 16-18 106/76 Date of Session: 05/15/16 Chief Complaint:: Discharge note. HPI: Patient addressed Alcohol dependence comorbid with Schizoaffective disorder. ROS: Significant for BA,Anemia,Aortic,mitral valve regurgitation. Current Medications: Active Medications Generic Name Dose Route Start Last Admin Trade Name Freq PRN Reason Stop Dose Admin Acamprosate 666 mg 05/08/16 22:00 05/15/16 06:20 Campral - PO 666 mg TID ASHLYN Administration Acetaminophen 650 mg 04/26/16 15:08 05/15/16 06:21 Tylenol - PO 650 mg Q4H PRN Administration PAIN Al Hydroxide/Mg Hydroxide 30 ml 04/26/16 15:08 Mylanta Oral Suspension - PO Q6H PRN DYSPEPSIA Albuterol Sulfate 2 puff 04/26/16 15:11 05/10/16 10:23 Ventolin Hfa Inhaler - IH 2 puff Q4H PRN Administration ASTHMA Amitriptyline HCl 75 mg 05/12/16 22:00 05/14/16 21:22 Elavil - PO 75 mg HS ASHLYN Administration Aspirin 81 mg 04/27/16 10:00 05/14/16 10:17 Ecotrin - PO 81 mg DAILY ASHLYN Administration Chlorhexidine Gluconate 15 ml 05/08/16 12:00 05/14/16 21:23 Peridex - MM 15 ml BID ASHLYN Administration Clindamycin HCl 300 mg 05/12/16 18:00 05/15/16 06:20 Cleocin - PO 300 mg Q6HPO ASHLYN Administration Cyproheptadine HCl 4 mg 04/26/16 15:15 05/15/16 06:21 Periactin - PO 4 mg TID ASHLYN Administration Diphenhydramine HCl 50 mg 04/26/16 15:08 05/12/16 21:36 Benadryl - PO 50 mg HSMR1 PRN Administration INSOMNIA Eucalyptus/Menthol/Phenol/Sorbitol 1 each 04/26/16 15:08 05/02/16 06:44 Cepastat Lozenge - MM 1 each Q4H PRN Administration SORE THROAT Gabapentin 300 mg 05/12/16 14:00 05/15/16 06:21 Neurontin - PO 300 mg TID ASHLYN Administration Guaifenesin 10 ml 04/26/16 15:08 04/30/16 10:12 Robitussin Dm - PO 10 ml Q6H PRN Administration COUGH Lidocaine HCl 20 ml 05/02/16 13:36 05/14/16 10:55 Xylocaine 2% Viscous Oral - MM 20 ml Q4HPO PRN Administration ORAL PAIN/MOUTH SORES Loperamide HCl 4 mg 04/26/16 15:08 Imodium - PO Q6H PRN DIARRHEA Magnesium Citrate 300 ml 04/26/16 15:08 Citroma - PO Q48H PRN CONSTIPATION Magnesium Hydroxide 30 ml 04/26/16 15:08 Milk Of Magnesia - PO DAILY PRN CONSTIPATION Naproxen 500 mg 05/08/16 12:00 05/14/16 21:22 Naprosyn - PO 500 mg BID ASHLYN Administration Nicotine 7 mg 04/28/16 15:30 05/14/16 10:18 Nicoderm Patch - TD Not Given DAILY ASHLYN Nicotine Polacrilex 2 mg 04/28/16 15:21 05/09/16 10:20 Nicorette Gum - BUC 2 mg Q2H PRN Administration NICOTINE REPLACEMENT RX Multivit/Folic Acid/Iron 1 tab 04/27/16 10:00 05/14/16 10:17 Vitamins (Sjr) - PO 1 tab DAILY ASHLYN Administration Pseudoephedrine/Triprolidine 1 combo 04/26/16 15:08 Actifed - PO TID PRN NASAL CONGESTION Thiamine HCl 100 mg 04/26/16 22:00 05/14/16 21:23 Vitamin B1 - PO 100 mg HS ASHLYN Administration Trazodone HCl 50 mg 04/28/16 22:00 05/14/16 21:22 Desyrel - PO 50 mg HS ASHLYN Administration Current Side Effect: No Lab tests ordered: No Lab tests reviewed: Yes Provider note:: Patient completed this program today.She has met her treatment goals and will continue to address her issues on outpatient basis . Patient continues to find that TRazodone 100 mg po hs help to reduce her insomnia,some mood instability.Script for 30 days provided. Patient identifies areas of difficulties and ways ,behaviors she can utilze to reduce her anxiety,improve coping skills.Utilization of support system has been discussed with the patient as well. patient is stable for discharge today. Mental Status Exam - Mental Status Exam Alert and Oriented to: Time, Place, Person Cognitive Function: Grossly Intact Patient Appearance: Well Groomed Mood: Euthymic Affect: Mood Congruent Patient Behavior: Cooperative Speech Pattern: Clear Voice Loudness: Normal Thought Process: Goal Oriented Thought Disorder: Being Controlled Hallucinations: Denies Suicidal Ideation: Denies Homicidal Ideation: Denies Insight/Judgement: Fair Sleep: Fair Appetite: Good Muscle strength/Tone: Normal Gait/Station: Normal Psychiatric Treatment Plan - Problem List (1) Aortic valve regurgitation Current Visit: Yes (2) Mitral valve regurgitation Current Visit: Yes (3) Schizoaffective disorder, bipolar type Current Visit: Yes (4) Alcohol dependence Current Visit: Yes Qualifiers: Substance use status: uncomplicated Qualified Code(s): F10.20 - Alcohol dependence, uncomplicated (5) Anemia Current Visit: Yes Qualifiers: Other causes of anemia: other cause, not classified (6) Asthma Current Visit: Yes Qualifiers: Asthma severity: mild intermittent Asthma complication type: uncomplicated Qualified Code(s): J45.20 - Mild intermittent asthma, uncomplicated
[2016-05-15] MEDS: PRENATAL VITAMINS W/ FOLIC ACID TABLET (FP) PO SCH (09:46)
[2016-05-15] MEDS: NAPROXEN 500 MG TABLET (FP) PO SCH (09:46)
[2016-05-15] MEDS: ASPIRIN COATED 81 MG TABLET.EC PO SCH (09:46)
[2016-05-15] MEDS: NICOTINE 7 MG/24 HOURS TOPICAL PATCH TD SCH (09:47)
[2016-05-15] MEDS: CHLORHEXIDINE GLUCONATE 0.12% 15ML CUP MM SCH (09:47)
[2016-05-15] MEDS ORDERED: PT OWN MED DRAWER 7, Y5N ONE (09:47)
[2016-05-15] MEDS: NICOTINE POLACRILEX 2 MG GUM BUC PRN (10:10)
== END 2016-05-15 10:28 | disposition home or self-care (01) | DRG 772 ==
LOC: YASAS 12:46 → Y3E 15:13
PROVIDERS: ADMIT Psychiatry & Neurology Psychiatry; ATTEND Psychiatry & Neurology Psychiatry
PROC: HZ42ZZZ Group Counseling for Substance Abuse Treatment, Cognitive-Behavioral (ICD-10-PCS; principal; 2016-05-15)
DX: F10.20 Alcohol dependence, uncomplicated (principal); F25.9 Schizoaffective disorder, unspecified; D64.9 Anemia, unspecified; I34.0 Nonrheumatic mitral (valve) insufficiency; I35.1 Nonrheumatic aortic (valve) insufficiency
CPT/HCPCS: 36415; 80053; 81003; 85027; 86593; 86780; 87389; 93005; 93010; 93970-TC

== ENCOUNTER 2016-07-06 09:12 | Inpatient (IN) | payer BC ==
[2016-07-06 10:09] VITALS: BMI 22.8
--- NOTE | 2016-07-06 11:32 | HP ---
CIWA Score - CIWA Score Nausea/Vomitin Muscle Tremors: 4-Moderate,w/Arms Extend Anxiety: 4-Mod. Anxious/Guarded Agitation: 4-Moderately Restless Paroxysmal Sweats: No Perspiration Orientation: 0-Oriented Tacttile Disturbances: 2-Mild Itch/Numbness/Burn Auditory Disturbances: 0-None Visual Disturbances: 0-None Headache: 1-Very Mild CIWA-Ar Total Score: 18 Admission ROS BHS - HPI Chief Complaint: Withdrawal sx. Allergies/Adverse Reactions: Allergies Allergy/AdvReac Type Severity Reaction Status Date / Time Latex, Natural Rubber Allergy Intermediate Rash Verified 07/06/16 09:49 Penicillins AdvReac Severe Swelling Verified 07/06/16 09:49 morphine AdvReac Intermediate HALLUCINATI Verified 07/06/16 09:49 ON History of Present Illness: 51 y/o woman with a long hx. of alcoholism is admitted for detox. pt. has been in previous detox,reports 3 months sobriety. Exam Limitations: No Limitations - Ebola screening Have you traveled outside of the country in the last 21 days: No Have you had contact with anyone from an Ebola affected area: No Have you been sick,other than usual withdrawal symptoms: No Do you have a fever: No - Review of Systems Constitutional: No Symptoms Reported EENT: reports: No Symptoms Reported Respiratory: reports: No Symptoms reported Cardiac: reports: No Symptoms Reported GI: reports: Nausea, Abdominal cramping : reports: No Symptoms Reported Musculoskeletal: reports: Back Pain, Joint Pain Integumentary: reports: Sweating Endocrine: reports: No Symptoms Reported Hematology: reports: No Symptoms Reported Psychiatric: reports: No Sypmtoms Reported Other Systems: Reviewed and Negative Patient History - Patient Medical History Hx Anemia: Yes (IRON AND B12 TAKEN IN PAST, patient received vitamin b12 shot monthly, last) Hx Asthma: Yes Hx Chronic Obstructive Pulmonary Disease (COPD): Yes Hx Cancer: No Hx Cardiac Disorders: Yes (Aortic and mitral valve regurgitation..) Hx Congestive Heart Failure: No Hx Hypertension: No Hx Hypercholesterolemia: No Hx Pacemaker: No HX Cerebrovascular Accident: No Hx Seizures: No Hx Dementia: No Hx Diabetes: No Hx Gastrointestinal Disorders: No Hx Liver Disease: No Hx Genitourinary Disorders: No Hx Sexually Transmitted Disorders: Yes (syphllis at 8 y/o) Hx Renal Disease (ESRD): No Hx Thyroid Disease: No Hx Human Immunodeficiency Virus (HIV): No Hx Hepatitis C: No Hx Depression: Yes Hx Suicide Attempt: No Hx Bipolar Disorder: Yes (PTSD, seroquel) Hx Schizophrenia: No - Patient Surgical History Past Surgical History: Yes Hx Neurologic Surgery: No Hx Cataract Extraction: No Hx Cardiac Surgery: No Hx Lung Surgery: No Hx Breast Surgery: No Hx Breast Biopsy: No Hx Abdominal Surgery: No Hx Appendectomy: No Hx Cholecystectomy: No Hx Genitourinary Surgery: No Hx Section: Yes (5, patient has 10 children) Hx Orthopedic Surgery: No Hx Hysterectomy: No Other Surgical History: Kidney stones removal 1995 BY LITHOTRIPSY Anesthesia Reaction: No - PPD History Previous Implant?: Yes Documented Results: Negative w/proof Implanted On Prior [facility] Admission?: Yes Date: 10/29/15 Results: 0 MM PPD to be Administered?: No - Reproductive History Last Menstrual Period: 07/02/16 Patient : No - Smoking Cessation Smoking history: Current every day smoker Have you smoked in the past 12 months: Yes Aproximately how many cigarettes per day: 5 Cigars Per Day: 0 Hx Chewing Tobacco Use: No Initiated information on smoking cessation: Yes 'Breaking Loose' booklet given: 07/06/16 - Substance & Tx. History Hx Alcohol Use: Yes Hx Substance Use: Yes Substance Use Type: Alcohol, Cocaine Hx Substance Use Treatment: Yes (detox/rehab) - Substances Abused Alcohol Route: Oral Frequency: Daily Amount used: 2 PINTS RUM/4-5 BEERS Age of first use: 33 Date of Last Use: 07/05/16 Cocaine Route: Inhalation Frequency: Daily Amount used: $300 Age of first use: 33 Date of Last Use: 07/03/16 Family Disease History - Family Disease History Family Disease History: CA: Mother (BLADDER), Other: Father (HEP c, hiv, HEROIN ADDICTION, ) Admission Physical Exam BHS - Vital Signs Vital Signs: Vital Signs - 24 hr 07/06/16 09:45 Temperature 97.3 F L Pulse Rate 89 Respiratory 18 Rate Blood Pressure 113/67 - Physical General Appearance: Yes: Tremorous, Sweating, Anxious HEENTM: Yes: Within Normal Limits Respiratory: Yes: Chest Non-Tender, Lungs Clear, Normal Breath Sounds Neck: Yes: Supple Breast: Yes: Breast Exam Deferred Cardiology: Yes: Regular Rhythm, Regular Rate, S1, S2 Abdominal: Yes: Normal Bowel Sounds, Non Tender, Soft Genitourinary: Yes: Within Normal Limits Back: Yes: Within Normal Limits Musculoskeletal: Yes: Within Normal Limits Extremities: Yes: Tremors Neurological: Yes: Fully Oriented, Alert Integumentary: Yes: Diaphoresis Lymphatic: Yes: Within Normal Limits - Diagnostic (1) Alcohol dependence with uncomplicated withdrawal Current Visit: Yes Status: Chronic (2) Asthma Current Visit: Yes Status: Chronic Qualifiers: Asthma severity: mild intermittent Asthma complication type: uncomplicated Qualified Code(s): J45.20 - Mild intermittent asthma, uncomplicated (3) Cocaine dependence Current Visit: Yes Status: Chronic (4) Hepatitis C Current Visit: Yes Status: Chronic Qualifiers: Viral hepatitis chronicity: chronic Hepatic coma status: without hepatic coma Qualified Code(s): B18.2 - Chronic viral hepatitis C Cleared for Admission BHS - Detox or Rehab [facility] Level of Care: Medically Managed Detox Regimen/Protocol: Librium S Breath Alcohol Content Breath Alcohol Content: 0 Urine Pregancy Test - Result Urine Test Results: Negative- NO Line Present Urine Drug Screen - Results Drug Screen Negative: No Urine Drug Screen Results: KAYLI-Cocaine
[2016-07-06] MEDS ORDERED: LOPERAMIDE HCL 2 MG CAPSULE PO PRN (11:41)
[2016-07-06] MEDS ORDERED: hydrOXYzine PAMOATE 50 MG CAPSULE (FP) PO PRN (11:41)
[2016-07-06] MEDS ORDERED: guaiFENesin/D-METHORPHAN HB 10 ML UNIT-DOSE CUPS PO PRN (11:41)
[2016-07-06] MEDS ORDERED: diphenhydrAMINE HCL 50 MG CAPSULE PO PRN (11:41)
[2016-07-06] MEDS ORDERED: MAGNESIUM CITRATE 300 ML BOTTLE PO PRN (11:41)
[2016-07-06] MEDS ORDERED: MENTHOL/PHENOL 1 EACH UD MM PRN (11:41)
[2016-07-06] MEDS ORDERED: IBUPROFEN 400 MG TABLET (FP) PO PRN (11:41)
[2016-07-06] MEDS ORDERED: chlordiazePOXIDE HCL 25 MG CAPSULE PO PRN (11:41)
[2016-07-06] MEDS ORDERED: ACETAMINOPHEN 325 MG TABLET (FP) PO PRN (11:41)
[2016-07-06] MEDS ORDERED: MAGNESIUM HYDROX 2400MG/30ML ORAL SUSPENSION 30 ML CUP PO PRN (11:41)
[2016-07-06] MEDS ORDERED: MAG HYDROX/AL HYDROX/SIMETH 30 ML UNIT-DOSE CUP PO PRN (11:41)
[2016-07-06] MEDS ORDERED: P-EPHED 60MG/TRIPROLIDI 2.5MG TABLET PO PRN (11:41)
[2016-07-06] MEDS ORDERED: NICOTINE POLACRILEX 2 MG GUM BUC PRN (11:41)
[2016-07-06] MEDS ORDERED: ALBUTEROL SO4 6.7 GM HFA INHALER IH PRN (11:43)
[2016-07-06] MEDS ORDERED: chlordiazePOXIDE HCL 25 MG CAPSULE PO ONE (11:52)
[2016-07-06] MEDS: predniSONE 20 MG TABLET (UD) PO SCH (12:21)
[2016-07-06] MEDS: ASPIRIN COATED 81 MG TABLET.EC PO SCH (12:21)
[2016-07-06] MEDS: NICOTINE 14 MG/24 HOURS TOPICAL PATCH TD SCH (12:21)
--- NOTE | 2016-07-06 12:58 | CONSULT ---
[facility] Psychiatric Consult - Data Date of interview: 07/06/16 Admission source: [facility] Identifying data: This is 51 years old female with Schizophrenia intoxicayed with: Cocaine, Alcohol Substance Abuse History: - Smoking Cessation. Smoking history: Current every day smoker. Have you smoked in the past 12 months: Yes. Aproximately how many cigarettes per day: 5. Cigars Per Day: 0. Hx Chewing Tobacco Use: No. Initiated information on smoking cessation: Yes. 'Breaking Loose' booklet given : 07/06/16. - Substance & Tx. History. Hx Alcohol Use: Yes. Hx Substance Use : Yes. Substance Use Type: Alcohol, Cocaine. Hx Substance Use Treatment: Yes ( detox/rehab). - Substances Abused. Alcohol. Route: Oral. Frequency: Daily. Amount used: 2 PINTS RUM/4-5 BEERS. Age of first use: 33. Date of Last Use: 07/05/16. Cocaine. Route: Inhalation. Frequency: Daily. Amount used: $300. Age of first use: 33. Date of Last Use: 07/03/16 Medical History: Asthma, HepC+, Weight loss history, Anemia history, COPD, Lupus history Psychiatric History: Patient reports to carry Paranoid Schizophrenia with most recent psychiatric admission 3 months ago at [facility] due to psychiatic episode, currently reports insomnia, reports taking prior to admission:'. Trazodone 100mg po qhs Physical/Sexual Abuse/Trauma History: Denies Additional Comment: Trazodone 100mg po qhs Mental Status Exam - Mental Status Exam Alert and Oriented to: Person Cognitive Function: Fair Patient Appearance: Unkempt Mood: Anxious Affect: Labile Patient Behavior: Guarded, Impulsive, Talkative Speech Pattern: Excessive Voice Loudness: Mildly Loud Thought Process: Circumstantial Thought Disorder: Being Controlled Hallucinations: Denies Suicidal Ideation: Denies Homicidal Ideation: Denies Insight/Judgement: Fair Sleep: Difficulty falling asleep Appetite: Weight loss Muscle strength/Tone: Normal Gait/Station: Normal Additional Comments: Trazodone 100mg po qhs Psychiatric Findings - Problem List ([place] 1, 2,3) (1) Alcohol dependence with uncomplicated withdrawal Current Visit: Yes Status: Chronic (2) Cocaine dependence Current Visit: Yes Status: Chronic (3) Alcohol dependence Current Visit: No Status: Chronic Qualifiers: Substance use status: uncomplicated Qualified Code(s): F10.20 - Alcohol dependence, uncomplicated (4) Nicotine dependence Current Visit: No Status: Chronic Qualifiers: Nicotine product type: cigarettes Substance use status: uncomplicated Qualified Code(s): F17.210 - Nicotine dependence, cigarettes, uncomplicated (5) Schizoaffective disorder, bipolar type Current Visit: No Status: Chronic - Initial Treatment Plan Initial Treatment Plan: Trazodone 100mg po qhs
[2016-07-06] MEDS: CYPROHEPTADINE HCL 4 MG TABLET PO SCH ×2 (15:56→22:43)
[2016-07-06] MEDS: chlordiazePOXIDE HCL 25 MG CAPSULE PO SCH ×2 (17:35→22:43)
[2016-07-06] MEDS: THIAMINE HCL 100 MG TABLET (FP) PO SCH (22:42)
[2016-07-06] MEDS: traZODone HCL 100 MG TABLET (FP) PO SCH (22:43)
[2016-07-07] MEDS: chlordiazePOXIDE HCL 25 MG CAPSULE PO SCH ×4 (05:56→22:39)
[2016-07-07] MEDS: CYPROHEPTADINE HCL 4 MG TABLET PO SCH ×3 (07:18→22:40)
[2016-07-07 10:08] LABS: MCH 31.1 pg (25.7-33.7); MCHC 32.8 g/dl (32.0-36.0); MEAN CELL VOLUME 94.9 fl (80-96); MEAN PLT VOLUME 10.7 fl (7.5-11.1); PLATELET COUNT 235 K/MM3 (134-434); RDW 15.7 % (11.6-15.6); WHITE BLOOD COUNT 11.6 K/mm3 (4.0-10.0)
--- NOTE | 2016-07-07 10:26 | EKG ---
Test Reason : Blood Pressure : / mmHG Vent. Rate : 087 BPM Atrial Rate : 087 BPM P-R Int : 136 ms QRS Dur : 086 ms QT Int : 380 ms P-R-T Axes : 080 076 075 degrees QTc Int : 457 ms NORMAL SINUS RHYTHM MODERATE VOLTAGE CRITERIA FOR LVH, MAY BE NORMAL VARIANT WHEN COMPARED WITH ECG OF 26-APR-2016 21:09, NO SIGNIFICANT CHANGE WAS FOUND Confirmed by TONO MCCRACKEN, GENEVIEVE ([id number]) on 07/07/2016 10:25:51 AM Referred By: Afshin Lozano Confirmed By:GENEVIEVE POWER MD
[2016-07-07] MEDS: PRENATAL VITAMINS W/ FOLIC ACID TABLET (FP) PO SCH (10:46)
[2016-07-07] MEDS: NICOTINE 14 MG/24 HOURS TOPICAL PATCH TD SCH (10:46)
[2016-07-07] MEDS: ASPIRIN COATED 81 MG TABLET.EC PO SCH (10:46)
[2016-07-07] MEDS: predniSONE 20 MG TABLET (UD) PO SCH (10:46)
[2016-07-07] MEDS ORDERED: CYPROHEPTADINE HCL 4 MG TABLET PO ONE (11:00)
[2016-07-07 12:05] LABS: ALBUMIN 3.6 g/dl (3.4-5.0); ALK PHOS 61 U/L (45-117); ANION GAP 12 (8-16); BILIRUBIN,TOTAL 0.4 mg/dL (0.2-1.0); CALCIUM 9.3 mg/dL (8.5-10.1); CO2 27 mmol/L (21-32); CREATININE 0.8 mg/dL (0.55-1.02); GLUCOSE,RANDOM 84 mg/dL (74-106); SGOT/AST 10 U/L (15-37); SGPT/ALT 14 U/L (12-78); TOT PROT 6.6 g/dl (6.4-8.2)
[2016-07-07 12:09] LABS: HIV 1 & 2 AB NEGATIVE; HIV 1 AGp24 NEGATIVE
[2016-07-07] MEDS ORDERED: POTASSIUM CHLORIDE TABS 20 MEQ TABLET.ER (FP) PO ONE (14:49)
--- NOTE | 2016-07-07 14:49 | PN ---
[facility] CIWA - CIWA Score Nausea/Vomitin Muscle Tremors: 3 Anxiety: 3 Agitation: 2 Paroxysmal Sweats: 1-Minimal Palms Moist Orientation: 0-Oriented Tacttile Disturbances: 1-Very Mild Itch/Numbness Auditory Disturbances: 1-Very Mild Visual Disturbances: 1-Very Mild Sensitivity Headache: 2-Mild CIWA-Ar Total Score: 17 BHS Progress Note (SOAP) Subjective: ALERT,IRRITABLE,ANXIOUS,INTERRUPTED SLEEP,TREMOR,PAIN IN THE BODY Objective: 07/07/16 14:46 Vital Signs Temperature 97.2 F L 07/07/16 10:40 Pulse Rate 112 H 07/07/16 10:40 Respiratory Rate 16 07/07/16 10:40 Blood Pressure 102/64 07/07/16 10:40 O2 Sat by Pulse Oximetry (%) EKG NSR,LVH Laboratory Last Values WBC 11.6 K/mm3 (4.0-10.0) H D 07/07/16 06:00 RBC 3.97 M/mm3 (3.60-5.2) 07/07/16 06:00 Hgb 12.4 GM/dL (10.7-15.3) 07/07/16 06:00 Hct 37.7 % (32.4-45.2) 07/07/16 06:00 MCV 94.9 fl (80-96) 07/07/16 06:00 MCHC 32.8 g/dl (32.0-36.0) 07/07/16 06:00 RDW 15.7 % (11.6-15.6) H 07/07/16 06:00 Plt Count 235 K/MM3 (134-434) D 07/07/16 06:00 MPV 10.7 fl (7.5-11.1) 07/07/16 06:00 Sodium 144 mmol/L (136-145) 07/07/16 06:00 Potassium 3.4 mmol/L (3.5-5.1) L 07/07/16 06:00 Chloride 105 mmol/L (98-107) 07/07/16 06:00 Carbon Dioxide 27 mmol/L (21-32) 07/07/16 06:00 Anion Gap 12 (8-16) 07/07/16 06:00 BUN 10 mg/dL (7-18) D 07/07/16 06:00 Creatinine 0.8 mg/dL (0.55-1.02) 07/07/16 06:00 Creat Clearance w eGFR > 60 (>60) 07/07/16 06:00 Random Glucose 84 mg/dL (74-106) 07/07/16 06:00 Calcium 9.3 mg/dL (8.5-10.1) 07/07/16 06:00 Total Bilirubin 0.4 mg/dL (0.2-1.0) D 07/07/16 06:00 AST 10 U/L (15-37) L 07/07/16 06:00 ALT 14 U/L (12-78) D 07/07/16 06:00 Alkaline Phosphatase 61 U/L (45-117) 07/07/16 06:00 Total Protein 6.6 g/dl (6.4-8.2) 07/07/16 06:00 Albumin 3.6 g/dl (3.4-5.0) 07/07/16 06:00 RPR Titer Reactive 1:1 (NONREACTIVE) H D 07/07/16 06:00 HIV 1&2 Antibody Screen Negative 07/06/16 10:40 HIV P24 Antigen Negative 07/06/16 10:40 07/07/16 14:47 Assessment: 07/07/16 14:47 WITHDRAWAL SYMPTOM Plan: CONTINUE DETOX,ENCOURAGE ORAL FLUID,K DUR 20 MEQ PO NOW THEN DAILY,REPEAT CBC, CMP IN AM
[2016-07-07] MEDS: traZODone HCL 100 MG TABLET (FP) PO SCH (22:38)
[2016-07-07] MEDS: THIAMINE HCL 100 MG TABLET (FP) PO SCH (22:40)
[2016-07-08] MEDS: chlordiazePOXIDE HCL 25 MG CAPSULE PO SCH ×2 (05:41→10:59)
[2016-07-08] MEDS: CYPROHEPTADINE HCL 4 MG TABLET PO SCH ×3 (05:41→22:52)
[2016-07-08 10:35] LABS: MCH 30.2 pg (25.7-33.7); MCHC 32.2 g/dl (32.0-36.0); MEAN CELL VOLUME 93.7 fl (80-96); PLATELET COUNT 227 K/MM3 (134-434); RDW 15.7 % (11.6-15.6); WHITE BLOOD COUNT 12.1 K/mm3 (4.0-10.0)
[2016-07-08 10:45] LABS: ALBUMIN 3.1 g/dl (3.4-5.0); ALK PHOS 55 U/L (45-117); ANION GAP 8 (8-16); BILIRUBIN,TOTAL 0.2 mg/dL (0.2-1.0); CALCIUM 8.7 mg/dL (8.5-10.1); CO2 26 mmol/L (21-32); CREATININE 0.7 mg/dL (0.55-1.02); GLUCOSE,RANDOM 82 mg/dL (74-106); SGOT/AST 8 U/L (15-37); SGPT/ALT 14 U/L (12-78); TOT PROT 6.2 g/dl (6.4-8.2)
[2016-07-08] MEDS: PRENATAL VITAMINS W/ FOLIC ACID TABLET (FP) PO SCH (10:58)
[2016-07-08] MEDS: NICOTINE 14 MG/24 HOURS TOPICAL PATCH TD SCH (10:58)
[2016-07-08] MEDS: predniSONE 20 MG TABLET (UD) PO SCH (10:59)
[2016-07-08] MEDS: POTASSIUM CHLORIDE TABS 20 MEQ TABLET.ER (FP) PO SCH (10:59)
[2016-07-08] MEDS: ASPIRIN COATED 81 MG TABLET.EC PO SCH (10:59)
--- NOTE | 2016-07-08 13:33 | PN ---
[facility] CIWA - CIWA Score Nausea/Vomitin Muscle Tremors: 2 Anxiety: 3 Agitation: 3 Paroxysmal Sweats: 1-Minimal Palms Moist Orientation: 0-Oriented Tacttile Disturbances: 1-Very Mild Itch/Numbness Auditory Disturbances: 1-Very Mild Visual Disturbances: 1-Very Mild Sensitivity Headache: 2-Mild CIWA-Ar Total Score: 17 BHS Progress Note (SOAP) Subjective: ALERT,IRRITABLE,ANXIOUS,INTERRUPTED SLEEP,TREMOR,COUGHING UP YELLOWISH MUCOUS, WHEEZING Objective: 07/08/16 13:29 07/08/16 13:29 Vital Signs Temperature 98.2 F 07/08/16 10:57 Pulse Rate 104 H 07/08/16 10:57 Respiratory Rate 20 07/08/16 10:57 Blood Pressure 103/72 07/08/16 10:57 O2 Sat by Pulse Oximetry (%) Laboratory Last Values WBC 12.1 K/mm3 (4.0-10.0) H 07/08/16 08:00 RBC 3.88 M/mm3 (3.60-5.2) 07/08/16 08:00 Hgb 11.7 GM/dL (10.7-15.3) 07/08/16 08:00 Hct 36.4 % (32.4-45.2) 07/08/16 08:00 MCV 93.7 fl (80-96) 07/08/16 08:00 MCHC 32.2 g/dl (32.0-36.0) 07/08/16 08:00 RDW 15.7 % (11.6-15.6) H 07/08/16 08:00 Plt Count 227 K/MM3 (134-434) 07/08/16 08:00 MPV 10.0 fl (7.5-11.1) 07/08/16 08:00 Sodium 142 mmol/L (136-145) 07/08/16 08:00 Potassium 3.9 mmol/L (3.5-5.1) 07/08/16 08:00 Chloride 108 mmol/L (98-107) H 07/08/16 08:00 Carbon Dioxide 26 mmol/L (21-32) 07/08/16 08:00 Anion Gap 8 (8-16) 07/08/16 08:00 BUN 14 mg/dL (7-18) D 07/08/16 08:00 Creatinine 0.7 mg/dL (0.55-1.02) 07/08/16 08:00 Creat Clearance w eGFR > 60 (>60) 07/08/16 08:00 Random Glucose 82 mg/dL (74-106) 07/08/16 08:00 Calcium 8.7 mg/dL (8.5-10.1) 07/08/16 08:00 Total Bilirubin 0.2 mg/dL (0.2-1.0) D 07/08/16 08:00 AST 8 U/L (15-37) L 07/08/16 08:00 ALT 14 U/L (12-78) 07/08/16 08:00 Alkaline Phosphatase 55 U/L (45-117) 07/08/16 08:00 Total Protein 6.2 g/dl (6.4-8.2) L 07/08/16 08:00 Albumin 3.1 g/dl (3.4-5.0) L 07/08/16 08:00 RPR Titer Reactive 1:1 (NONREACTIVE) H D 07/07/16 06:00 T.pallidum Ab (MHA) Previously reactive (NONREACTIVE) 07/07/16 06:00 HIV 1&2 Antibody Screen Negative 07/06/16 10:40 HIV P24 Antigen Negative 07/06/16 10:40 PATIENT WAS TREATED FOR SYPHILIS IN THE PAST Assessment: 07/08/16 13:31 WITHDRAWAL SYMPTOM ACUTE BRONCHITIS ASTHMA Plan: CONTINUE DETOX,LEVAQUIN 500 MGS PO DAILY FOR 7 DAYS FOR BRONCHITIS,ALBUTEROL INHALER, DUONEB NEMBULIZER TREATMENT
[2016-07-08] MEDS ORDERED: LEVOFLOXACIN 500 MG TABLET (FP) PO ONE (13:45)
[2016-07-08] MEDS ORDERED: ALBUTEROL SO4 2.5/IPRATROPIUM 0.5 INH SOL 3 ML VIAL.NEB. NEB PRN (13:46)
[2016-07-08 15:10] LABS: URINE APPEARANCE SLCLOUDY; URINE BILIRUBIN NEGATIVE (NEGATIVE); URINE COLOR YELLOW; URINE GLUCOSE (UA) NEGATIVE (NEGATIVE); URINE KETONE NEGATIVE (NEGATIVE); URINE NITRITE NEGATIVE (NEGATIVE); URINE PROTEIN NEGATIVE (NEGATIVE); URINE UROBILINOGEN NEGATIVE E.U./dl (0.2-1.0)
[2016-07-08 15:13] LABS: URINE BLOOD 2+ (NEGATIVE); URINE LEUK ESTERASE 2+ (NEGATIVE)
[2016-07-08 15:14] LABS: URINE BACTERIA RARE /hpf (NONE SEEN); URINE MUCUS RARE; URINE RBC 4 /hpf (0-3); URINE WBC 27 /hpf (3-5); YEAST RARE
[2016-07-08] MEDS: chlordiazePOXIDE 5 MG CAPSULE PO SCH ×2 (16:59→22:48)
[2016-07-08] MEDS: THIAMINE HCL 100 MG TABLET (FP) PO SCH (22:48)
[2016-07-08] MEDS: traZODone HCL 100 MG TABLET (FP) PO SCH (22:48)
[2016-07-09] MEDS: LEVOFLOXACIN 500 MG TABLET (FP) PO SCH (06:15)
[2016-07-09] MEDS: CYPROHEPTADINE HCL 4 MG TABLET PO SCH ×3 (06:16→21:44)
[2016-07-09] MEDS: chlordiazePOXIDE 5 MG CAPSULE PO SCH ×2 (06:16→11:01)
[2016-07-09] MEDS: predniSONE 20 MG TABLET (UD) PO SCH (11:10)
[2016-07-09] MEDS: PRENATAL VITAMINS W/ FOLIC ACID TABLET (FP) PO SCH (11:11)
[2016-07-09] MEDS: POTASSIUM CHLORIDE TABS 20 MEQ TABLET.ER (FP) PO SCH (11:12)
[2016-07-09] MEDS: NICOTINE 14 MG/24 HOURS TOPICAL PATCH TD SCH (11:13)
[2016-07-09] MEDS: ASPIRIN COATED 81 MG TABLET.EC PO SCH (11:13)
--- NOTE | 2016-07-09 17:18 | PN ---
BHS Progress Note (SOAP) Subjective: Sweating, nausea, interrupted sleep; patient stated she only drank 3 cups of water and denies feeling anxious (c/o heart racing) Objective: 07/09/16 17:14 Last Vital Signs Temp Pulse Resp BP Pulse Ox 98.1 F 93 H 16 101/60 07/09/16 14:12 07/09/16 14:12 07/09/16 14:12 07/09/16 14:12 PE: Resp: lungs ctab/l, no adventitious breath sounds CV: S1S2+, apical rate 108 bpm, no m/g/r Skin: dry Laboratory Tests 07/06/16 07/07/16 07/07/16 10:40 06:00 06:00 WBC 11.6 H D RBC 3.97 Hgb 12.4 Hct 37.7 MCV 94.9 MCHC 32.8 RDW 15.7 H Plt Count 235 D MPV 10.7 Sodium 144 Potassium 3.4 L Chloride 105 Carbon Dioxide 27 Anion Gap 12 BUN 10 D Creatinine 0.8 Creat Clearance w eGFR > 60 Random Glucose 84 Calcium 9.3 Total Bilirubin 0.4 D AST 10 L ALT 14 D Alkaline Phosphatase 61 Total Protein 6.6 Albumin 3.6 Urine Color Urine Appearance Urine pH Ur Specific [place] Urine Protein Urine Glucose (UA) Urine Ketones Urine Blood Urine Nitrite Urine Bilirubin Urine Urobilinogen Ur Leukocyte Esterase Urine RBC Urine WBC Ur Epithelial Cells Urine Bacteria Urine Mucus Urine Yeast RPR Titer T.pallidum Ab (MHA) HIV 1&2 Antibody Screen Negative HIV P24 Antigen Negative 07/07/16 07/08/16 07/08/16 06:00 08:00 08:00 WBC 12.1 H RBC 3.88 Hgb 11.7 Hct 36.4 MCV 93.7 MCHC 32.2 RDW 15.7 H Plt Count 227 MPV 10.0 Sodium 142 Potassium 3.9 Chloride 108 H Carbon Dioxide 26 Anion Gap 8 BUN 14 D Creatinine 0.7 Creat Clearance w eGFR > 60 Random Glucose 82 Calcium 8.7 Total Bilirubin 0.2 D AST 8 L ALT 14 Alkaline Phosphatase 55 Total Protein 6.2 L Albumin 3.1 L Urine Color Urine Appearance Urine pH Ur Specific [place] Urine Protein Urine Glucose (UA) Urine Ketones Urine Blood Urine Nitrite Urine Bilirubin Urine Urobilinogen Ur Leukocyte Esterase Urine RBC Urine WBC Ur Epithelial Cells Urine Bacteria Urine Mucus Urine Yeast RPR Titer Reactive 1:1 H D T.pallidum Ab (MHA) Previously reactive HIV 1&2 Antibody Screen HIV P24 Antigen 07/08/16 12:30 WBC RBC Hgb Hct MCV MCHC RDW Plt Count MPV Sodium Potassium Chloride Carbon Dioxide Anion Gap BUN Creatinine Creat Clearance w eGFR Random Glucose Calcium Total Bilirubin AST ALT Alkaline Phosphatase Total Protein Albumin Urine Color Yellow Urine Appearance Slcloudy Urine pH 6.0 Ur Specific [place] 1.017 Urine Protein Negative Urine Glucose (UA) Negative Urine Ketones Negative Urine Blood 2+ H Urine Nitrite Negative Urine Bilirubin Negative Urine Urobilinogen Negative Ur Leukocyte Esterase 2+ H Urine RBC 4 Urine WBC 27 Ur Epithelial Cells Moderate Urine Bacteria Rare Urine Mucus Rare Urine Yeast Rare RPR Titer T.pallidum Ab (MHA) HIV 1&2 Antibody Screen HIV P24 Antigen Labs noted Noted with apical rate 108 bpm Assessment: 07/09/16 17:15 Withdrawal symptoms Noted with tachycardia (apical rate 108 bpm) and dry skin most likely r/t dehydration Plan: Continue detox Tachycardia and dry skin secondary to dehydration: encouraged to drink lots of water, continue to monitor
[2016-07-09] MEDS: chlordiazePOXIDE HCL 10 MG CAPSULE PO SCH ×2 (17:23→22:44)
[2016-07-09] MEDS: traZODone HCL 100 MG TABLET (FP) PO SCH (21:44)
[2016-07-09] MEDS: THIAMINE HCL 100 MG TABLET (FP) PO SCH (21:45)
[2016-07-09 22:20] VITALS: TEMP 97.9
[2016-07-10] MEDS: chlordiazePOXIDE HCL 10 MG CAPSULE PO SCH (05:56)
[2016-07-10] MEDS: CYPROHEPTADINE HCL 4 MG TABLET PO SCH (05:57)
[2016-07-10] MEDS: LEVOFLOXACIN 500 MG TABLET (FP) PO SCH (05:57)
[2016-07-10 06:17] VITALS: BP 106/66; PULSE 76
--- NOTE | 2016-07-10 08:49 | DS ---
[facility] Discharge Summary Admission Date: 07/06/16 - History Present History: Alcohol Dependence - Physical Exam Results Vital Signs: Vital Signs Temperature 97.9 F 07/10/16 06:00 Pulse Rate 76 07/10/16 06:00 Respiratory Rate 16 07/10/16 06:00 Blood Pressure 106/66 07/10/16 06:00 O2 Sat by Pulse Oximetry (%) - Treatment Hospital Course: Detox Protocol Followed, Detoxed Safely, Responded well, Discharged Condition Good - Medication Discharge Medications: Ambulatory Orders Cyproheptadine [Periactin -] 4 mg PO TID #90 tablet 02/03/16 Aspirin [Ecotrin] 81 mg PO DAILY #30 tablet. 05/15/16 Trazodone HCl [Desyrel -] 50 mg PO HS #30 tablet 05/15/16 Prednisone [Deltasone -] 60 mg PO DAILY 07/06/16 Trazodone HCl [Desyrel -] 100 mg PO HS #30 tablet 07/06/16 Albuterol Sulfate Inhaler - [Ventolin HFA Inhaler -] 2 inh PO Q4H PRN #1 inhaler 07/10/16 Aspirin Coated [Ecotrin -] 81 mg PO DAILY #30 mg 07/10/16 Cyproheptadine [Periactin -] 4 mg PO BID #30 tablet 07/10/16 Levofloxacin [Levaquin -] 500 mg PO DAILY@0600 #5 tablet 07/10/16 Methylprednisolone [Medrol Dose Jovi] 4 mg PO ASDIR #21 tablet 07/10/16
== END 2016-07-10 09:02 | disposition home or self-care (01) | DRG 774 ==
LOC: YASAS 09:12 → Y6N 10:53
PROVIDERS: ADMIT Internal Medicine Addiction Medicine; ATTEND Internal Medicine Addiction Medicine
PROC: HZ2ZZZZ Detoxification Services for Substance Abuse Treatment (ICD-10-PCS; principal; 2016-07-06)
DX: F10.230 Alcohol dependence with withdrawal, uncomplicated (principal); F14.20 Cocaine dependence, uncomplicated; F17.210 Nicotine dependence, cigarettes, uncomplicated; F25.0 Schizoaffective disorder, bipolar type; F43.10 Post-traumatic stress disorder, unspecified; R00.0 Tachycardia, unspecified; L98.8 Other specified disorders of the skin and subcutaneous tissue; J20.9 Acute bronchitis, unspecified; J45.909 Unspecified asthma, uncomplicated; J44.9 Chronic obstructive pulmonary disease, unspecified; F64.9 Gender identity disorder, unspecified; B18.2 Chronic viral hepatitis C; I08.0 Rheumatic disorders of both mitral and aortic valves; Z87.42 Personal history of other diseases of the female genital tract
CPT/HCPCS: 36415; 80053; 81003; 81015; 85027; 86593; 86780; 87389; 93005; 93010

== ENCOUNTER 2016-09-16 11:06 | Inpatient (IN) | payer BC ==
[2016-09-16 11:23] VITALS: BMI 22.0
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
[2016-09-16] MEDS ORDERED: hydrOXYzine PAMOATE 25 MG CAPSULE (FP) PO PRN (12:01)
[2016-09-16] MEDS ORDERED: MAGNESIUM CITRATE 300 ML BOTTLE PO PRN (12:01)
[2016-09-16] MEDS ORDERED: LOPERAMIDE HCL 2 MG CAPSULE PO PRN (12:01)
[2016-09-16] MEDS ORDERED: MAG HYDROX/AL HYDROX/SIMETH 30 ML UNIT-DOSE CUP PO PRN (12:01)
[2016-09-16] MEDS ORDERED: chlordiazePOXIDE HCL 25 MG CAPSULE PO PRN (12:01)
[2016-09-16] MEDS ORDERED: guaiFENesin/D-METHORPHAN HB 10 ML UNIT-DOSE CUPS PO PRN (12:01)
[2016-09-16] MEDS ORDERED: P-EPHED 60MG/TRIPROLIDI 2.5MG TABLET PO PRN (12:01)
[2016-09-16] MEDS ORDERED: MENTHOL/PHENOL 1 EACH UD MM PRN (12:01)
[2016-09-16] MEDS ORDERED: MAGNESIUM HYDROX 2400MG/30ML ORAL SUSPENSION 30 ML CUP PO PRN (12:01)
[2016-09-16] MEDS ORDERED: ALBUTEROL SO4 6.7 GM HFA INHALER IH PRN (12:04)
[2016-09-16] MEDS ORDERED: chlordiazePOXIDE HCL 25 MG CAPSULE PO ONE (12:30)
[2016-09-16] MEDS: ASPIRIN COATED 81 MG TABLET.EC PO SCH (13:41)
[2016-09-16] MEDS: predniSONE 20 MG TABLET (UD) PO SCH (13:41)
[2016-09-16] MEDS: PANTOPRAZOLE 40 MG TABLET (FP) PO SCH (13:41)
[2016-09-16] MEDS: AMMONIUM LACTATE 12% LOTION 225 GM BOTTLE TP SCH (13:41)
[2016-09-16] MEDS: CYPROHEPTADINE HCL 4 MG TABLET PO SCH ×2 (13:42→22:08)
[2016-09-16] MEDS: ACETAMINOPHEN 325 MG TABLET (FP) PO PRN (13:43)
[2016-09-16] MEDS: chlordiazePOXIDE HCL 25 MG CAPSULE PO SCH ×2 (17:50→22:08)
[2016-09-16 18:26] LABS: URINE APPEARANCE CLEAR; URINE BILIRUBIN NEGATIVE (NEGATIVE); URINE COLOR YELLOW; URINE GLUCOSE (UA) NEGATIVE (NEGATIVE); URINE KETONE 1+ (NEGATIVE); URINE LEUK ESTERASE NEGATIVE (NEGATIVE); URINE NITRITE NEGATIVE (NEGATIVE); URINE PROTEIN NEGATIVE (NEGATIVE); URINE UROBILINOGEN NEGATIVE E.U./dl (0.2-1.0)
[2016-09-16 18:30] LABS: URINE BLOOD 2+ (NEGATIVE)
[2016-09-16 18:32] LABS: URINE MUCUS FEW; URINE RBC <1 /hpf (0-3); URINE WBC 4 /hpf (3-5)
[2016-09-16] MEDS ORDERED: diphenhydrAMINE HCL 50 MG CAPSULE PO PRN (22:00)
[2016-09-16] MEDS: THIAMINE HCL 100 MG TABLET (FP) PO SCH (22:08)
[2016-09-17] MEDS ORDERED: chlordiazePOXIDE HCL 25 MG CAPSULE ONE (02:35)
[2016-09-17] MEDS: chlordiazePOXIDE HCL 25 MG CAPSULE PO SCH ×4 (06:55→22:14)
[2016-09-17] MEDS: ACETAMINOPHEN 325 MG TABLET (FP) PO PRN (06:57)
[2016-09-17] MEDS: CYPROHEPTADINE HCL 4 MG TABLET PO SCH ×3 (06:57→22:14)
[2016-09-17] MEDS: predniSONE 20 MG TABLET (UD) PO SCH (10:07)
[2016-09-17] MEDS: PANTOPRAZOLE 40 MG TABLET (FP) PO SCH (10:08)
[2016-09-17] MEDS: ASPIRIN COATED 81 MG TABLET.EC PO SCH (10:08)
[2016-09-17] MEDS: PRENATAL VITAMINS W/ FOLIC ACID TABLET (FP) PO SCH (10:08)
[2016-09-17] MEDS: AMMONIUM LACTATE 12% LOTION 225 GM BOTTLE TP SCH (10:10)
[2016-09-17 10:51] LABS: MCH 30.2 pg (25.7-33.7); MCHC 33.2 g/dl (32.0-36.0); MEAN CELL VOLUME 91.2 fl (80-96); MEAN PLT VOLUME 10.3 fl (7.5-11.1); PLATELET COUNT 211 K/MM3 (134-434); WHITE BLOOD COUNT 8.1 K/mm3 (4.0-10.0)
[2016-09-17 11:04] LABS: ALBUMIN 3.4 g/dl (3.4-5.0); ALK PHOS 68 U/L (45-117); ANION GAP 8 (8-16); BILIRUBIN,TOTAL 0.3 mg/dL (0.2-1.0); CO2 25 mmol/L (21-32); CREATININE 0.8 mg/dL (0.55-1.02); GLUCOSE,RANDOM 95 mg/dL (74-106); SGOT/AST 14 U/L (15-37); SGPT/ALT 15 U/L (12-78); TOT PROT 6.7 g/dl (6.4-8.2)
--- NOTE | 2016-09-17 11:06 | PN ---
S CIWA - CIWA Score Nausea/Vomitin-No Nausea/No Vomiting Muscle Tremors: 3 Anxiety: 4-Mod. Anxious/Guarded Agitation: 4-Moderately Restless Paroxysmal Sweats: 3 Orientation: 0-Oriented Tacttile Disturbances: 0-None Auditory Disturbances: 0-None Visual Disturbances: 0-None Headache: 0-None Present CIWA-Ar Total Score: 14 BHS Progress Note (SOAP) Subjective: Sweating,anxiety,tremors,interrupted sleep,restless Objective: 09/17/16 11:06 Vital Signs - 8 hr 09/17/16 09/17/16 09/17/16 04:23 06:00 09:44 Temperature 97.9 F 98.2 F Pulse Rate 50 L 69 Respiratory 18 16 16 Rate Blood Pressure 93/54 116/74 Laboratory Tests 09/16/16 09/17/16 09/17/16 17:55 07:45 07:45 WBC 8.1 D RBC 3.74 Hgb 11.3 Hct 34.1 MCV 91.2 MCHC 33.2 RDW 14.0 D Plt Count 211 MPV 10.3 Sodium 144 Potassium 3.5 Chloride 111 H Carbon Dioxide 25 Anion Gap 8 BUN 11 D Creatinine 0.8 Creat Clearance w eGFR > 60 Random Glucose 95 Calcium 9.0 Total Bilirubin 0.3 D AST 14 L D ALT 15 Alkaline Phosphatase 68 D Total Protein 6.7 Albumin 3.4 Urine Color Yellow Urine Appearance Clear Urine pH 5.0 Ur Specific [place] 1.025 Urine Protein Negative Urine Glucose (UA) Negative Urine Ketones 1+ H Urine Blood 2+ H Urine Nitrite Negative Urine Bilirubin Negative Urine Urobilinogen Negative Ur Leukocyte Esterase Negative Urine RBC <1 Urine WBC 4 Ur Epithelial Cells Rare Urine Mucus Few labs noted Assessment: 09/17/16 11:06 Withdrawal sx. Plan: Continue detox
--- NOTE | 2016-09-17 16:37 | EKG ---
Test Reason : Blood Pressure : / mmHG Vent. Rate : 070 BPM Atrial Rate : 070 BPM P-R Int : 140 ms QRS Dur : 082 ms QT Int : 472 ms P-R-T Axes : 078 074 081 degrees QTc Int : 509 ms NORMAL SINUS RHYTHM VOLTAGE CRITERIA FOR LEFT VENTRICULAR HYPERTROPHY PROLONGED QT ABNORMAL ECG WHEN COMPARED WITH ECG OF 06-JUL-2016 11:28, QT HAS LENGTHENED Confirmed by VITALIY MCCRACKEN, SARA ([id number]) on 09/17/2016 4:36:47 PM Referred By: Confirmed By:SARA BURKS MD
[2016-09-17] MEDS: THIAMINE HCL 100 MG TABLET (FP) PO SCH (22:14)
[2016-09-17] MEDS: NICOTINE POLACRILEX 4 MG GUM BUC PRN (22:14)
[2016-09-18] MEDS: chlordiazePOXIDE HCL 25 MG CAPSULE PO SCH ×2 (05:35→10:09)
[2016-09-18] MEDS: CYPROHEPTADINE HCL 4 MG TABLET PO SCH ×3 (06:58→22:07)
--- NOTE | 2016-09-18 09:02 | CONSULT ---
[facility] Psychiatric Consult - Data Date of interview: 09/18/16 Admission source: [facility] Identifying data: This is 51 years old [place] with psychiatric hospitalization history intoxicated with: Alcohol, Cocaine Substance Abuse History: - Smoking Cessation. Smoking history: Current every day smoker. Have you smoked in the past 12 months: Yes. Aproximately how many cigarettes per day: 5. Cigars Per Day: 0. Hx Chewing Tobacco Use: No. Initiated information on smoking cessation: Yes. 'Breaking Loose' booklet given : 09/16/16 (give on floor). - Substance & Tx. History. Hx Alcohol Use: Yes. Hx Substance Use: Yes. Substance Use Type: Alcohol, Cocaine. Hx Substance Use Treatment: Yes (detox, rehab). - Substances Abused. Alcohol. Route: Oral. Frequency: Daily. Amount used: three cases of beer, sometimes 1/5 vodka. Age of first use: 33. Date of Last Use: 09/16/16. Cocaine. Route: Inhalation. Frequency: Daily. Amount used: $150. Age of first use: 33. Date of Last Use: 09/15/16 Medical History: Weight loss, COPD, Syphilis hiodtory, History of Lupus Erimatosis, Asthma, Anemia history, Eating disorder history Psychiatric History: Patient reports history of Schizoaffective disorder, PTSD, DEPRESSION, REPORTS MOST RECENT PSYCHIATRIC ADMISSION ON 1 MONTH AGO AT [facility] DUE TO DEPRESSED MOOD, DENIES SUICIDAL HISTORY, REPORTS TAKIJNG PRIOR TO ADMISSION: Teazodone 50MG. Ambien 10mg po qhs Physical/Sexual Abuse/Trauma History: Denies Additional Comment: Teazodone 50MG. Ambien 10mg po qhs Mental Status Exam - Mental Status Exam Alert and Oriented to: Person Cognitive Function: Fair Patient Appearance: Unkempt Mood: Sad Affect: Mood Congruent Patient Behavior: Cooperative Speech Pattern: Delayed Voice Loudness: Mildly Soft/Quiet Thought Process: Goal Oriented Thought Disorder: Being Controlled Hallucinations: Denies Suicidal Ideation: Denies Homicidal Ideation: Denies Insight/Judgement: Fair Sleep: Difficulty falling asleep Appetite: Weight loss Muscle strength/Tone: Mild Hypotonicity Gait/Station: Shuffling Additional Comments: Teazodone 50MG. Ambien 10mg po qhs Psychiatric Findings - Problem List ([place] 1, 2,3) (1) Alcohol dependence with uncomplicated withdrawal Current Visit: Yes Status: Chronic (2) Nicotine dependence Current Visit: Yes Status: Chronic Qualifiers: Nicotine product type: cigarettes Substance use status: uncomplicated Qualified Code(s): F17.210 - Nicotine dependence, cigarettes, uncomplicated (3) Alcohol dependence Current Visit: No Status: Chronic Qualifiers: Substance use status: uncomplicated Qualified Code(s): F10.20 - Alcohol dependence, uncomplicated (4) Cocaine dependence Current Visit: No Status: Chronic (5) Eating disorder Current Visit: No Status: Chronic (6) Post traumatic stress disorder (PTSD) Current Visit: No Status: Chronic (7) Schizoaffective disorder Current Visit: No Status: Chronic (8) Schizoaffective disorder, depressive type Current Visit: No Status: Suspected - Initial Treatment Plan Initial Treatment Plan: Teazodone 50MG. Ambien 10mg po qhs
--- NOTE | 2016-09-18 09:07 | PN ---
[facility] CIWA - CIWA Score Nausea/Vomitin Muscle Tremors: 3 Anxiety: 3 Agitation: 2 Paroxysmal Sweats: 1-Minimal Palms Moist Orientation: 0-Oriented Tacttile Disturbances: 1-Very Mild Itch/Numbness Auditory Disturbances: 1-Very Mild Visual Disturbances: 1-Very Mild Sensitivity Headache: 2-Mild CIWA-Ar Total Score: 17 BHS Progress Note (SOAP) Subjective: ALERT,IRRITABLE,ANXIOUS,INTERRUPTED SLEEP,TREMOR Objective: 09/18/16 09:06 Vital Signs Temperature 97.7 F 09/18/16 06:33 Pulse Rate 61 09/18/16 06:33 Respiratory Rate 16 09/18/16 06:33 Blood Pressure 115/71 09/18/16 06:33 O2 Sat by Pulse Oximetry (%) Laboratory Last Values WBC 8.1 K/mm3 (4.0-10.0) D 09/17/16 07:45 RBC 3.74 M/mm3 (3.60-5.2) 09/17/16 07:45 Hgb 11.3 GM/dL (10.7-15.3) 09/17/16 07:45 Hct 34.1 % (32.4-45.2) 09/17/16 07:45 MCV 91.2 fl (80-96) 09/17/16 07:45 MCHC 33.2 g/dl (32.0-36.0) 09/17/16 07:45 RDW 14.0 % (11.6-15.6) D 09/17/16 07:45 Plt Count 211 K/MM3 (134-434) 09/17/16 07:45 MPV 10.3 fl (7.5-11.1) 09/17/16 07:45 Sodium 144 mmol/L (136-145) 09/17/16 07:45 Potassium 3.5 mmol/L (3.5-5.1) 09/17/16 07:45 Chloride 111 mmol/L (98-107) H 09/17/16 07:45 Carbon Dioxide 25 mmol/L (21-32) 09/17/16 07:45 Anion Gap 8 (8-16) 09/17/16 07:45 BUN 11 mg/dL (7-18) D 09/17/16 07:45 Creatinine 0.8 mg/dL (0.55-1.02) 09/17/16 07:45 Creat Clearance w eGFR > 60 (>60) 09/17/16 07:45 Random Glucose 95 mg/dL (74-106) 09/17/16 07:45 Calcium 9.0 mg/dL (8.5-10.1) 09/17/16 07:45 Total Bilirubin 0.3 mg/dL (0.2-1.0) D 09/17/16 07:45 AST 14 U/L (15-37) L D 09/17/16 07:45 ALT 15 U/L (12-78) 09/17/16 07:45 Alkaline Phosphatase 68 U/L (45-117) D 09/17/16 07:45 Total Protein 6.7 g/dl (6.4-8.2) 09/17/16 07:45 Albumin 3.4 g/dl (3.4-5.0) 09/17/16 07:45 Urine Color Yellow 09/16/16 17:55 Urine Appearance Clear 09/16/16 17:55 Urine pH 5.0 (5.0-8.0) 09/16/16 17:55 Ur Specific [place] 1.025 (1.005-1.025) 09/16/16 17:55 Urine Protein Negative (NEGATIVE) 09/16/16 17:55 Urine Glucose (UA) Negative (NEGATIVE) 09/16/16 17:55 Urine Ketones 1+ (NEGATIVE) H 09/16/16 17:55 Urine Blood 2+ (NEGATIVE) H 09/16/16 17:55 Urine Nitrite Negative (NEGATIVE) 09/16/16 17:55 Urine Bilirubin Negative (NEGATIVE) 09/16/16 17:55 Urine Urobilinogen Negative E.U./dl (0.2-1.0) 09/16/16 17:55 Ur Leukocyte Esterase Negative (NEGATIVE) 09/16/16 17:55 Urine RBC <1 /hpf (0-3) 09/16/16 17:55 Urine WBC 4 /hpf (3-5) 09/16/16 17:55 Ur Epithelial Cells Rare /hpf (FEW) 09/16/16 17:55 Urine Mucus Few 09/16/16 17:55 RPR Titer Reactive 1:1 (NONREACTIVE) H 09/17/16 07:45 T.pallidum Ab (MHA) Previously reactive (NONREACTIVE) 09/17/16 07:45 PREVIOUSLY TREATED FOR SYPHILIS IN THE PAST Assessment: 09/18/16 09:07 WITHDRAWAL SYMPTOM Plan: CONTINUE DETOX
[2016-09-18] MEDS: ASPIRIN COATED 81 MG TABLET.EC PO SCH (10:09)
[2016-09-18] MEDS: predniSONE 20 MG TABLET (UD) PO SCH (10:10)
[2016-09-18] MEDS: AMMONIUM LACTATE 12% LOTION 225 GM BOTTLE TP SCH (10:10)
[2016-09-18] MEDS: PRENATAL VITAMINS W/ FOLIC ACID TABLET (FP) PO SCH (10:12)
[2016-09-18] MEDS: PANTOPRAZOLE 40 MG TABLET (FP) PO SCH (10:13)
[2016-09-18] MEDS: chlordiazePOXIDE 5 MG CAPSULE PO SCH ×2 (17:03→22:07)
[2016-09-18] MEDS ORDERED: ZOLPIDEM TARTRATE 10 MG TABLET (PARK CARE ONLY) PO PRN (22:00)
[2016-09-18] MEDS: traZODone HCL 50 MG TABLET (FP) PO SCH (22:06)
[2016-09-18] MEDS: THIAMINE HCL 100 MG TABLET (FP) PO SCH (22:07)
[2016-09-19] MEDS: chlordiazePOXIDE 5 MG CAPSULE PO SCH ×2 (05:54→10:24)
[2016-09-19] MEDS: CYPROHEPTADINE HCL 4 MG TABLET PO SCH ×3 (07:10→23:40)
[2016-09-19] MEDS: ASPIRIN COATED 81 MG TABLET.EC PO SCH (10:24)
[2016-09-19] MEDS: PRENATAL VITAMINS W/ FOLIC ACID TABLET (FP) PO SCH (10:24)
[2016-09-19] MEDS: predniSONE 20 MG TABLET (UD) PO SCH (10:24)
[2016-09-19] MEDS: PANTOPRAZOLE 40 MG TABLET (FP) PO SCH (10:24)
[2016-09-19] MEDS: AMMONIUM LACTATE 12% LOTION 225 GM BOTTLE TP SCH (10:25)
[2016-09-19] MEDS: NICOTINE POLACRILEX 4 MG GUM BUC PRN (10:27)
--- NOTE | 2016-09-19 10:28 | PN ---
S Progress Note (SOAP) Subjective: ALERT,IRRITABLE,INTERRUPTED SLEEP Objective: 09/19/16 10:27 Vital Signs Temperature 98.2 F 09/19/16 06:22 Pulse Rate 59 L 09/19/16 06:22 Respiratory Rate 16 09/19/16 06:22 Blood Pressure 117/61 09/19/16 06:22 O2 Sat by Pulse Oximetry (%) Assessment: 09/19/16 10:27 WITHDRAWAL SYMPTOM Plan: CONTINUE DETOX,DISCHARGE IN AM
[2016-09-19] MEDS: chlordiazePOXIDE HCL 10 MG CAPSULE PO SCH ×2 (17:29→23:40)
[2016-09-19] MEDS: traZODone HCL 50 MG TABLET (FP) PO SCH (23:40)
[2016-09-19] MEDS: THIAMINE HCL 100 MG TABLET (FP) PO SCH (23:41)
[2016-09-20] MEDS: chlordiazePOXIDE HCL 10 MG CAPSULE PO SCH (05:45)
[2016-09-20] MEDS: CYPROHEPTADINE HCL 4 MG TABLET PO SCH (06:55)
[2016-09-20] MEDS: PRENATAL VITAMINS W/ FOLIC ACID TABLET (FP) PO SCH (08:59)
[2016-09-20] MEDS: PANTOPRAZOLE 40 MG TABLET (FP) PO SCH (08:59)
[2016-09-20] MEDS: AMMONIUM LACTATE 12% LOTION 225 GM BOTTLE TP SCH (08:59)
[2016-09-20] MEDS: ASPIRIN COATED 81 MG TABLET.EC PO SCH (08:59)
[2016-09-20] MEDS: predniSONE 20 MG TABLET (UD) PO SCH (08:59)
--- NOTE | 2016-09-20 09:11 | PN ---
S Progress Note (SOAP) Subjective: ALERT,INTERRUPTED SLEEP,PAIN IN THE BODY BACK Objective: 09/20/16 09:09 Vital Signs Temperature 97.7 F 09/20/16 06:00 Pulse Rate 56 L 09/20/16 06:00 Respiratory Rate 16 09/20/16 06:00 Blood Pressure 127/76 09/20/16 06:00 O2 Sat by Pulse Oximetry (%) Assessment: 09/20/16 09:09 DETOX COMPLETED NO WITHDRAWAL SYMPTOM Plan: DISCHARGE TODAY,FOLLOW UP WITH AFTER CARE PROGRAM [facility]RANGEMENT
[2016-09-20] MEDS ORDERED: CYCLOBENZAPRINE HCL 10 MG TABLET (FP) PO PRN (09:12)
--- NOTE | 2016-09-20 09:19 | DS ---
[facility] Detox Discharge Summary Admission Date: 09/16/16 Discharge Date: 09/20/16 - History Present History: Alcohol Dependence, Cocaine Dependence Additional Comments: FOLLOW UP WITH AFTER CARE PROGRAM [facility] AND PMD FOR MEDICAL PROBLEM Pertinent Past History: COPD AORTIC VALVE REGURGITATION SLE NICOTINE DEPENDENCE - Physical Exam Results Vital Signs: Vital Signs Temperature 97.7 F 09/20/16 06:00 Pulse Rate 56 L 09/20/16 06:00 Respiratory Rate 16 09/20/16 06:00 Blood Pressure 127/76 09/20/16 06:00 O2 Sat by Pulse Oximetry (%) Pertinent Admission Physical Exam Findings: WITHDRAWAL SYMPTOM - Treatment Hospital Course: Detox Protocol Followed, Detoxed Safely, Responded well, Discharged Condition Good, Rehab Referral Accepted Patient has Accepted a Rehab Referral to: [facility] - Medication Discharge Medications: Ambulatory Orders Cyproheptadine [Periactin -] 4 mg PO TID #90 tablet 02/03/16 Trazodone HCl [Desyrel -] 50 mg PO HS #30 tablet 05/15/16 Prednisone [Deltasone -] 60 mg PO DAILY 07/06/16 Albuterol Sulfate Inhaler - [Ventolin HFA Inhaler -] 2 inh PO Q4H PRN #1 inhaler 07/10/16 Aspirin Coated [Ecotrin -] 81 mg PO DAILY #30 mg 07/10/16 Pantoprazole Sodium [Protonix -] 40 mg PO DAILY 09/16/16 Trazodone HCl [Desyrel -] 50 mg PO HS #30 tablet 09/18/16 Zolpidem Tartrate [Ambien] 10 mg PO HS PRN #14 tablet MDD 10 09/18/16 - Diagnosis (1) Alcohol dependence with uncomplicated withdrawal Current Visit: Yes Status: Chronic (2) Aortic valve regurgitation Current Visit: Yes Status: Chronic Qualifiers: Cardiac valve disease etiology: etiology unspecified Qualified Code( s): I35.1 - Nonrheumatic aortic (valve) insufficiency (3) COPD (chronic obstructive pulmonary disease) Current Visit: Yes Status: Chronic Qualifiers: COPD type: unspecified COPD Qualified Code(s): J44.9 - Chronic obstructive pulmonary disease, unspecified (4) History of syphilis Current Visit: Yes Status: Chronic (5) Lupus (systemic lupus erythematosus) Current Visit: Yes Status: Chronic Qualifiers: Systemic lupus erythematosus type: unspecified Systemic lupus erythematosus organ involvement: unspecified Qualified Code(s): M32.9 - Systemic lupus erythematosus, unspecified (6) Mitral valve regurgitation Current Visit: Yes Status: Chronic Qualifiers: Cardiac valve disease etiology: etiology unspecified Qualified Code( s): I34.0 - Nonrheumatic mitral (valve) insufficiency (7) Nicotine dependence Current Visit: Yes Status: Chronic Qualifiers: Nicotine product type: cigarettes Substance use status: uncomplicated Qualified Code(s): F17.210 - Nicotine dependence, cigarettes, uncomplicated (8) Weight loss Current Visit: No Status: Acute (9) Cocaine dependence Current Visit: No Status: Chronic (10) Schizoaffective disorder Current Visit: No Status: Chronic - AMA Did Patient Leave Against Medical Advice: No
[2016-09-20 10:01] VITALS: BP 111/76; PULSE 72; TEMP 97.5
== END 2016-09-20 09:50 | disposition other institution (70) | DRG 774 ==
LOC: YASAS 11:06 → Y6N 12:11
PROVIDERS: ADMIT Internal Medicine; ATTEND Internal Medicine
PROC: HZ2ZZZZ Detoxification Services for Substance Abuse Treatment (ICD-10-PCS; principal; 2016-09-20)
DX: F10.230 Alcohol dependence with withdrawal, uncomplicated (principal); F14.20 Cocaine dependence, uncomplicated; F17.210 Nicotine dependence, cigarettes, uncomplicated; F25.9 Schizoaffective disorder, unspecified; I34.1 Nonrheumatic mitral (valve) prolapse; I35.1 Nonrheumatic aortic (valve) insufficiency; M32.9 Systemic lupus erythematosus, unspecified; J44.9 Chronic obstructive pulmonary disease, unspecified; Z87.42 Personal history of other diseases of the female genital tract; A53.9 Syphilis, unspecified
CPT/HCPCS: 36415; 80053; 81003; 81015; 85027; 86593; 86780; 93005; 93010

== ENCOUNTER 2016-09-20 09:51 | Inpatient (IN) | payer BC ==
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
[2016-09-20] MEDS ORDERED: guaiFENesin/D-METHORPHAN HB 10 ML UNIT-DOSE CUPS PO PRN (14:56)
[2016-09-20] MEDS ORDERED: MAG HYDROX/AL HYDROX/SIMETH 30 ML UNIT-DOSE CUP PO PRN (14:56)
[2016-09-20] MEDS ORDERED: LOPERAMIDE HCL 2 MG CAPSULE PO PRN (14:56)
[2016-09-20] MEDS ORDERED: MAGNESIUM HYDROX 2400MG/30ML ORAL SUSPENSION 30 ML CUP PO PRN (14:56)
[2016-09-20] MEDS ORDERED: ALBUTEROL SO4 6.7 GM HFA INHALER IH PRN (14:56)
[2016-09-20] MEDS ORDERED: MENTHOL/PHENOL 1 EACH UD MM PRN (14:56)
[2016-09-20] MEDS ORDERED: IBUPROFEN 400 MG TABLET (FP) PO PRN (14:56)
[2016-09-20] MEDS ORDERED: P-EPHED 60MG/TRIPROLIDI 2.5MG TABLET PO PRN (14:56)
[2016-09-20] MEDS ORDERED: MAGNESIUM CITRATE 300 ML BOTTLE PO PRN (14:56)
--- NOTE | 2016-09-20 14:56 | HP ---
MARYCHUY MCCRACKEN Rehab Assess/Revision - Admission History Admitted to Rehab from: [facility] Date of Admission to Rehab: 09/20/16 - Vital signs Vital Signs: Vital Signs Period Temp Pulse Resp BP Sys/Voss Pulse Ox Last 24 Hr 97.5 F 68 16 116/75 - Findings Detox History & Physical reviewed: Yes Concur with findings: Yes
[2016-09-20] MEDS: traZODone HCL 100 MG TABLET (FP) PO SCH (22:20)
[2016-09-20] MEDS: THIAMINE HCL 100 MG TABLET (FP) PO SCH (22:20)
[2016-09-20] MEDS: CYPROHEPTADINE HCL 4 MG TABLET PO SCH (22:20)
[2016-09-21] MEDS: CYPROHEPTADINE HCL 4 MG TABLET PO SCH ×3 (06:20→21:10)
[2016-09-21] MEDS ORDERED: PT OWN MED DRAWER 7, Y5N ONE (08:09)
[2016-09-21] MEDS: predniSONE 20 MG TABLET (UD) PO SCH (09:52)
[2016-09-21] MEDS: PRENATAL VITAMINS W/ FOLIC ACID TABLET (FP) PO SCH (09:52)
[2016-09-21] MEDS: ASPIRIN COATED 81 MG TABLET.EC PO SCH (09:52)
[2016-09-21] MEDS: NICOTINE 14 MG/24 HOURS TOPICAL PATCH TD SCH (09:53)
[2016-09-21] MEDS: PANTOPRAZOLE 40 MG TABLET (FP) PO SCH (09:53)
[2016-09-21] MEDS: NICOTINE POLACRILEX 2 MG GUM BUC PRN (09:54)
[2016-09-21] MEDS: traZODone HCL 100 MG TABLET (FP) PO SCH (21:10)
[2016-09-21] MEDS: THIAMINE HCL 100 MG TABLET (FP) PO SCH (21:11)
[2016-09-22] MEDS: CYPROHEPTADINE HCL 4 MG TABLET PO SCH ×2 (06:23→17:22)
[2016-09-22] MEDS ORDERED: PT OWN MED DRAWER 7, Y5N ONE (08:14)
[2016-09-22] MEDS: NICOTINE 14 MG/24 HOURS TOPICAL PATCH TD SCH (09:43)
[2016-09-22] MEDS: PANTOPRAZOLE 40 MG TABLET (FP) PO SCH (09:43)
[2016-09-22] MEDS: ASPIRIN COATED 81 MG TABLET.EC PO SCH (09:43)
[2016-09-22] MEDS: PRENATAL VITAMINS W/ FOLIC ACID TABLET (FP) PO SCH (09:43)
[2016-09-22] MEDS: predniSONE 20 MG TABLET (UD) PO SCH (09:43)
[2016-09-22] MEDS: NICOTINE POLACRILEX 2 MG GUM BUC PRN (09:44)
--- NOTE | 2016-09-22 11:45 | PN ---
BHS Progress Note Note: C/O feeling weak & blurry vision.Blurry vision has subsided, but still feels weak Vital Signs - 8 hr 09/22/16 09/22/16 06:48 09:06 Temperature 98.1 F 97.2 F L Pulse Rate 79 85 Respiratory 16 20 Rate Blood Pressure 105/73 106/75 Increase PO fluid
[2016-09-22] MEDS: traZODone HCL 100 MG TABLET (FP) PO SCH (21:21)
[2016-09-22] MEDS: THIAMINE HCL 100 MG TABLET (FP) PO SCH (21:22)
[2016-09-23] MEDS: CYPROHEPTADINE HCL 4 MG TABLET PO SCH ×2 (07:08→18:15)
[2016-09-23] MEDS: PANTOPRAZOLE 40 MG TABLET (FP) PO SCH (09:38)
[2016-09-23] MEDS: ASPIRIN COATED 81 MG TABLET.EC PO SCH (09:38)
[2016-09-23] MEDS: PRENATAL VITAMINS W/ FOLIC ACID TABLET (FP) PO SCH (09:38)
[2016-09-23] MEDS: predniSONE 10 MG TABLET (UD) PO SCH (09:38)
[2016-09-23] MEDS: NICOTINE 14 MG/24 HOURS TOPICAL PATCH TD SCH (09:39)
[2016-09-23] MEDS: NICOTINE POLACRILEX 2 MG GUM BUC PRN (09:40)
[2016-09-23] MEDS: diphenhydrAMINE HCL 50 MG CAPSULE PO PRN (21:15)
[2016-09-23] MEDS: traZODone HCL 100 MG TABLET (FP) PO SCH (21:15)
[2016-09-23] MEDS: THIAMINE HCL 100 MG TABLET (FP) PO SCH (21:15)
[2016-09-24] MEDS: CYPROHEPTADINE HCL 4 MG TABLET PO SCH ×2 (07:16→18:20)
[2016-09-24] MEDS: predniSONE 10 MG TABLET (UD) PO SCH (09:47)
[2016-09-24] MEDS: NICOTINE 14 MG/24 HOURS TOPICAL PATCH TD SCH (09:48)
[2016-09-24] MEDS: PRENATAL VITAMINS W/ FOLIC ACID TABLET (FP) PO SCH (09:48)
[2016-09-24] MEDS: PANTOPRAZOLE 40 MG TABLET (FP) PO SCH (09:48)
[2016-09-24] MEDS: ASPIRIN COATED 81 MG TABLET.EC PO SCH (09:48)
[2016-09-24] MEDS: traZODone HCL 100 MG TABLET (FP) PO SCH (21:12)
[2016-09-24] MEDS: diphenhydrAMINE HCL 50 MG CAPSULE PO PRN (21:12)
[2016-09-24] MEDS: THIAMINE HCL 100 MG TABLET (FP) PO SCH (21:12)
[2016-09-25] MEDS: CYPROHEPTADINE HCL 4 MG TABLET PO SCH ×2 (07:17→18:25)
[2016-09-25] MEDS: PRENATAL VITAMINS W/ FOLIC ACID TABLET (FP) PO SCH (10:15)
[2016-09-25] MEDS: PANTOPRAZOLE 40 MG TABLET (FP) PO SCH (10:15)
[2016-09-25] MEDS: NICOTINE 14 MG/24 HOURS TOPICAL PATCH TD SCH (10:15)
[2016-09-25] MEDS: predniSONE 10 MG TABLET (UD) PO SCH (10:15)
[2016-09-25] MEDS: ASPIRIN COATED 81 MG TABLET.EC PO SCH (10:15)
[2016-09-25] MEDS: THIAMINE HCL 100 MG TABLET (FP) PO SCH (21:15)
[2016-09-25] MEDS: diphenhydrAMINE HCL 50 MG CAPSULE PO PRN (21:15)
[2016-09-25] MEDS: traZODone HCL 50 MG TABLET (FP) PO SCH (21:16)
[2016-09-26] MEDS: CYPROHEPTADINE HCL 4 MG TABLET PO SCH ×2 (07:02→17:30)
[2016-09-26] MEDS: ASPIRIN COATED 81 MG TABLET.EC PO SCH (10:11)
[2016-09-26] MEDS: PANTOPRAZOLE 40 MG TABLET (FP) PO SCH (10:11)
[2016-09-26] MEDS: predniSONE 10 MG TABLET (UD) PO SCH (10:11)
[2016-09-26] MEDS: PRENATAL VITAMINS W/ FOLIC ACID TABLET (FP) PO SCH (10:11)
[2016-09-26] MEDS: NICOTINE 14 MG/24 HOURS TOPICAL PATCH TD SCH (10:12)
[2016-09-26] MEDS: NICOTINE POLACRILEX 2 MG GUM BUC PRN ×2 (10:13→21:17)
[2016-09-26] MEDS: traZODone HCL 50 MG TABLET (FP) PO SCH (21:15)
[2016-09-26] MEDS: THIAMINE HCL 100 MG TABLET (FP) PO SCH (21:15)
[2016-09-27] MEDS: CYPROHEPTADINE HCL 4 MG TABLET PO SCH ×2 (07:53→17:40)
[2016-09-27] MEDS: PRENATAL VITAMINS W/ FOLIC ACID TABLET (FP) PO SCH (10:06)
[2016-09-27] MEDS: NICOTINE 14 MG/24 HOURS TOPICAL PATCH TD SCH (10:06)
[2016-09-27] MEDS: PANTOPRAZOLE 40 MG TABLET (FP) PO SCH (10:06)
[2016-09-27] MEDS: ASPIRIN COATED 81 MG TABLET.EC PO SCH (10:06)
[2016-09-27] MEDS: predniSONE 10 MG TABLET (UD) PO SCH (10:06)
[2016-09-27] MEDS ORDERED: ALBUTEROL SO4 2.5/IPRATROPIUM 0.5 INH SOL 3 ML VIAL.NEB. NEB PRN (14:42)
--- NOTE | 2016-09-27 14:45 | PN ---
BHS Progress Note Note: Lungs : Clear to A&P P : taper prednisone add duoneb bid prn
[2016-09-27] MEDS: ALBUTEROL SO4 2.5/IPRATROPIUM 0.5 INH SOL 3 ML VIAL.NEB. NEB SCH (18:30)
[2016-09-27] MEDS: traZODone HCL 50 MG TABLET (FP) PO SCH (21:08)
[2016-09-27] MEDS: THIAMINE HCL 100 MG TABLET (FP) PO SCH (21:09)
[2016-09-27] MEDS: diphenhydrAMINE HCL 50 MG CAPSULE PO PRN (21:09)
[2016-09-27] MEDS ORDERED: PT OWN MED DRAWER 7, Y5N ONE (22:13)
[2016-09-28] MEDS: CYPROHEPTADINE HCL 4 MG TABLET PO SCH ×2 (07:59→17:30)
[2016-09-28] MEDS: PANTOPRAZOLE 40 MG TABLET (FP) PO SCH (10:04)
[2016-09-28] MEDS: PRENATAL VITAMINS W/ FOLIC ACID TABLET (FP) PO SCH (10:04)
[2016-09-28] MEDS: ALBUTEROL SO4 2.5/IPRATROPIUM 0.5 INH SOL 3 ML VIAL.NEB. NEB SCH ×2 (10:05→18:13)
[2016-09-28] MEDS: predniSONE 10 MG TABLET (UD) PO SCH (10:05)
[2016-09-28] MEDS: ASPIRIN COATED 81 MG TABLET.EC PO SCH (10:05)
[2016-09-28] MEDS: NICOTINE POLACRILEX 2 MG GUM BUC PRN (10:07)
[2016-09-28] MEDS: NICOTINE 14 MG/24 HOURS TOPICAL PATCH TD SCH (10:07)
[2016-09-28] MEDS: diphenhydrAMINE HCL 50 MG CAPSULE PO PRN (21:12)
[2016-09-28] MEDS: traZODone HCL 50 MG TABLET (FP) PO SCH (21:12)
[2016-09-28] MEDS: THIAMINE HCL 100 MG TABLET (FP) PO SCH (21:12)
[2016-09-29] MEDS: CYPROHEPTADINE HCL 4 MG TABLET PO SCH ×2 (07:27→18:06)
[2016-09-29] MEDS: PANTOPRAZOLE 40 MG TABLET (FP) PO SCH (10:11)
[2016-09-29] MEDS: PRENATAL VITAMINS W/ FOLIC ACID TABLET (FP) PO SCH (10:11)
[2016-09-29] MEDS: ASPIRIN COATED 81 MG TABLET.EC PO SCH (10:11)
[2016-09-29] MEDS: predniSONE 10 MG TABLET (UD) PO SCH (10:11)
[2016-09-29] MEDS: NICOTINE 14 MG/24 HOURS TOPICAL PATCH TD SCH (10:12)
[2016-09-29] MEDS: ALBUTEROL SO4 2.5/IPRATROPIUM 0.5 INH SOL 3 ML VIAL.NEB. NEB SCH ×2 (10:12→21:16)
[2016-09-29] MEDS: NICOTINE POLACRILEX 2 MG GUM BUC PRN (10:13)
[2016-09-29] MEDS: THIAMINE HCL 100 MG TABLET (FP) PO SCH (21:15)
[2016-09-29] MEDS: traZODone HCL 50 MG TABLET (FP) PO SCH (21:15)
[2016-09-29] MEDS: diphenhydrAMINE HCL 50 MG CAPSULE PO PRN (21:15)
[2016-09-30] MEDS: CYPROHEPTADINE HCL 4 MG TABLET PO SCH ×2 (09:00→17:01)
[2016-09-30] MEDS: predniSONE 10 MG TABLET (UD) PO SCH (09:20)
[2016-09-30] MEDS: ALBUTEROL SO4 2.5/IPRATROPIUM 0.5 INH SOL 3 ML VIAL.NEB. NEB SCH ×2 (09:20→19:55)
[2016-09-30] MEDS: PRENATAL VITAMINS W/ FOLIC ACID TABLET (FP) PO SCH (09:20)
[2016-09-30] MEDS: ASPIRIN COATED 81 MG TABLET.EC PO SCH (09:20)
[2016-09-30] MEDS: PANTOPRAZOLE 40 MG TABLET (FP) PO SCH (09:21)
[2016-09-30] MEDS: NICOTINE 14 MG/24 HOURS TOPICAL PATCH TD SCH (09:21)
[2016-09-30] MEDS: diphenhydrAMINE HCL 50 MG CAPSULE PO PRN (21:08)
[2016-09-30] MEDS: THIAMINE HCL 100 MG TABLET (FP) PO SCH (21:08)
[2016-09-30] MEDS: traZODone HCL 50 MG TABLET (FP) PO SCH (21:08)
[2016-09-30] MEDS: NICOTINE POLACRILEX 2 MG GUM BUC PRN (21:10)
[2016-10-01] MEDS: CYPROHEPTADINE HCL 4 MG TABLET PO SCH ×2 (07:54→17:01)
[2016-10-01] MEDS: ALBUTEROL SO4 2.5/IPRATROPIUM 0.5 INH SOL 3 ML VIAL.NEB. NEB SCH ×2 (09:55→17:23)
[2016-10-01] MEDS: PANTOPRAZOLE 40 MG TABLET (FP) PO SCH (09:56)
[2016-10-01] MEDS: PRENATAL VITAMINS W/ FOLIC ACID TABLET (FP) PO SCH (09:56)
[2016-10-01] MEDS: predniSONE 10 MG TABLET (UD) PO SCH (09:56)
[2016-10-01] MEDS: NICOTINE 14 MG/24 HOURS TOPICAL PATCH TD SCH (09:57)
[2016-10-01] MEDS: NICOTINE POLACRILEX 2 MG GUM BUC PRN ×2 (09:57→21:14)
[2016-10-01] MEDS: ASPIRIN COATED 81 MG TABLET.EC PO SCH (09:57)
[2016-10-01] MEDS: traZODone HCL 50 MG TABLET (FP) PO SCH (21:13)
[2016-10-01] MEDS: diphenhydrAMINE HCL 50 MG CAPSULE PO PRN (21:14)
[2016-10-01] MEDS: THIAMINE HCL 100 MG TABLET (FP) PO SCH (21:14)
[2016-10-02] MEDS: CYPROHEPTADINE HCL 4 MG TABLET PO SCH ×2 (07:13→16:57)
[2016-10-02] MEDS: predniSONE 10 MG TABLET (UD) PO SCH (09:54)
[2016-10-02] MEDS: ASPIRIN COATED 81 MG TABLET.EC PO SCH (09:54)
[2016-10-02] MEDS: PANTOPRAZOLE 40 MG TABLET (FP) PO SCH (09:54)
[2016-10-02] MEDS: PRENATAL VITAMINS W/ FOLIC ACID TABLET (FP) PO SCH (09:54)
[2016-10-02] MEDS: NICOTINE 14 MG/24 HOURS TOPICAL PATCH TD SCH (09:55)
[2016-10-02] MEDS: ALBUTEROL SO4 2.5/IPRATROPIUM 0.5 INH SOL 3 ML VIAL.NEB. NEB SCH ×2 (09:56→18:30)
[2016-10-02] MEDS: NICOTINE POLACRILEX 2 MG GUM BUC PRN ×2 (09:57→21:17)
[2016-10-02] MEDS: ACETAMINOPHEN 325 MG TABLET (FP) PO PRN (09:58)
[2016-10-02] MEDS ORDERED: COLLOIDAL OATMEAL 1 BAR EACH TP PRN (10:29)
[2016-10-02] MEDS: BACITRACIN 0.9 GM PACKET TP SCH ×2 (10:40→21:14)
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
[2016-10-02] MEDS: CLINDAMYCIN HCL 150 MG CAPSULE (FP) PO SCH ×2 (13:21→21:14)
[2016-10-02] MEDS: diphenhydrAMINE HCL 50 MG CAPSULE PO PRN (21:13)
[2016-10-02] MEDS: traZODone HCL 50 MG TABLET (FP) PO SCH (21:13)
[2016-10-02] MEDS: THIAMINE HCL 100 MG TABLET (FP) PO SCH (21:13)
[2016-10-03] MEDS: CLINDAMYCIN HCL 150 MG CAPSULE (FP) PO SCH ×3 (07:43→21:16)
[2016-10-03] MEDS: CYPROHEPTADINE HCL 4 MG TABLET PO SCH ×2 (07:43→16:43)
[2016-10-03] MEDS: BACITRACIN 0.9 GM PACKET TP SCH ×2 (09:44→21:17)
[2016-10-03] MEDS: predniSONE 5 MG TABLET (UD) PO SCH (09:44)
[2016-10-03] MEDS: PANTOPRAZOLE 40 MG TABLET (FP) PO SCH (09:45)
[2016-10-03] MEDS: ASPIRIN COATED 81 MG TABLET.EC PO SCH (09:45)
[2016-10-03] MEDS: PRENATAL VITAMINS W/ FOLIC ACID TABLET (FP) PO SCH (09:45)
[2016-10-03] MEDS: NICOTINE 14 MG/24 HOURS TOPICAL PATCH TD SCH (09:46)
[2016-10-03] MEDS: ALBUTEROL SO4 2.5/IPRATROPIUM 0.5 INH SOL 3 ML VIAL.NEB. NEB SCH ×2 (09:46→18:30)
[2016-10-03] MEDS: NICOTINE POLACRILEX 2 MG GUM BUC PRN ×2 (09:46→13:10)
[2016-10-03] MEDS ORDERED: PT OWN MED DRAWER 7, Y5N ONE (21:13)
[2016-10-03] MEDS: THIAMINE HCL 100 MG TABLET (FP) PO SCH (21:14)
[2016-10-03] MEDS: traZODone HCL 50 MG TABLET (FP) PO SCH (21:15)
[2016-10-03] MEDS: diphenhydrAMINE HCL 50 MG CAPSULE PO PRN (21:16)
[2016-10-04 07:10] VITALS: BP 99/65; PULSE 76; TEMP 97.7
[2016-10-04] MEDS: CYPROHEPTADINE HCL 4 MG TABLET PO SCH (07:31)
[2016-10-04] MEDS: CLINDAMYCIN HCL 150 MG CAPSULE (FP) PO SCH (07:32)
[2016-10-04] MEDS: ACETAMINOPHEN 325 MG TABLET (FP) PO PRN (07:35)
[2016-10-04] MEDS ORDERED: ACETAMINOPHEN 325 MG TABLET (FP) ONE (07:35)
[2016-10-04] MEDS ORDERED: PT OWN MED DRAWER 7, Y5N ONE (09:06)
[2016-10-04] MEDS: ALBUTEROL SO4 2.5/IPRATROPIUM 0.5 INH SOL 3 ML VIAL.NEB. NEB SCH (09:30)
[2016-10-04] MEDS: NICOTINE 14 MG/24 HOURS TOPICAL PATCH TD SCH (09:30)
[2016-10-04] MEDS: PRENATAL VITAMINS W/ FOLIC ACID TABLET (FP) PO SCH (09:30)
[2016-10-04] MEDS: predniSONE 5 MG TABLET (UD) PO SCH (09:30)
[2016-10-04] MEDS: BACITRACIN 0.9 GM PACKET TP SCH (09:31)
[2016-10-04] MEDS: PANTOPRAZOLE 40 MG TABLET (FP) PO SCH (09:31)
[2016-10-04] MEDS: ASPIRIN COATED 81 MG TABLET.EC PO SCH (09:31)
[2016-10-04] MEDS: NICOTINE POLACRILEX 2 MG GUM BUC PRN (09:32)
--- NOTE | 2016-10-04 09:35 | PN ---
Psychiatric Progress Note Vital Signs: Vital Signs Period Temp Pulse Resp BP Sys/Voss Pulse Ox Last 24 Hr 97.7 F 76 18-18 99/65 Date of Session: 10/04/16 Chief Complaint:: Discharge visit HPI: Patient addressed Alcohol dependence comorbid with Schizoaffective dosorder ,PTSD,Alcohol induced mood disorder. ROS: Significant for Aortic valve regurgitation,BA,COPD,Lupus erythematosis, Anemia,. Current Medications: Active Medications Generic Name Dose Route Start Last Admin Trade Name Freq PRN Reason Stop Dose Admin Acetaminophen 650 mg 09/20/16 14:56 10/04/16 07:35 Tylenol - PO 650 mg Q4H PRN Administration FEVER OR PAIN Al Hydroxide/Mg Hydroxide 30 ml 09/20/16 14:56 09/24/16 18:44 Mylanta Oral Suspension - PO 30 ml Q6H PRN Administration DYSPEPSIA Albuterol Sulfate 2 puff 09/20/16 14:56 Ventolin Hfa Inhaler - IH Q4H PRN ASTHMA Albuterol/Ipratropium 1 amp 09/27/16 14:42 Duoneb - NEB Q4H PRN SHORTNESS OF BREATH Albuterol/Ipratropium 1 amp 09/27/16 18:00 10/03/16 18:30 Duoneb - NEB Not Given BID@1000,1800 ASHLYN Aspirin 81 mg 09/21/16 10:00 10/03/16 09:45 Ecotrin - PO 81 mg DAILY ASHLYN Administration Bacitracin 0.9 gm 10/02/16 10:30 10/03/16 21:17 Bacitracin - TP 0.9 gm BID ASHLYN Administration Clindamycin HCl 300 mg 10/02/16 14:00 10/04/16 07:32 Cleocin - PO 300 mg TID ASHLYN Administration Colloidal Oatmeal 1 applic 10/02/16 10:29 10/02/16 10:40 Aveeno Soap - TP 1 applic DAILY PRN Administration HYGEINE Cyproheptadine HCl 4 mg 09/22/16 17:30 10/04/16 07:31 Periactin - PO 4 mg BIDWM ASHLYN Administration Diphenhydramine HCl 50 mg 09/20/16 14:56 10/03/16 21:16 Benadryl - PO 50 mg HSMR1 PRN Administration FOR ITCHING Eucalyptus/Menthol/Phenol/Sorbitol 1 each 09/20/16 14:56 Cepastat Lozenge - MM Q4H PRN SORE THROAT Guaifenesin 10 ml 09/20/16 14:56 Robitussin Dm - PO Q6H PRN COUGH Ibuprofen 400 mg 09/20/16 14:56 Motrin - PO Q6H PRN PAIN Loperamide HCl 4 mg 09/20/16 14:56 Imodium - PO Q6H PRN DIARRHEA Magnesium Hydroxide 30 ml 09/20/16 14:56 Milk Of Magnesia - PO DAILY PRN CONSTIPATION Nicotine 14 mg 09/21/16 10:00 10/03/16 09:46 Nicoderm Patch - TD Not Given DAILY ASHLYN Nicotine Polacrilex 2 mg 09/20/16 14:56 10/03/16 13:10 Nicorette Gum - BUC 2 mg Q2H PRN Administration NICOTINE REPLACEMENT RX Pantoprazole Sodium 40 mg 09/21/16 10:00 10/03/16 09:45 Protonix - PO 40 mg DAILY ASHLYN Administration Prednisone 10 mg 10/06/16 10:00 Deltasone - PO 10/09/16 09:59 DAILY ASHLYN Prednisone 5 mg 10/09/16 10:00 Deltasone - PO 10/12/16 09:59 DAILY ASHLYN Prednisone 15 mg 10/03/16 10:00 10/03/16 09:44 Deltasone - PO 10/06/16 09:59 15 mg DAILY ASHLYN Administration Multivit/Folic Acid/Iron 1 tab 09/21/16 10:00 10/03/16 09:45 Vitamins (Sjr) - PO 1 tab DAILY ASHLYN Administration Pseudoephedrine/Triprolidine 1 combo 09/20/16 14:56 Actifed - PO TID PRN NASAL CONGESTION Thiamine HCl 100 mg 09/20/16 22:00 10/03/16 21:14 Vitamin B1 - PO 100 mg HS ASHLYN Administration Trazodone HCl 150 mg 09/25/16 22:00 10/03/16 21:15 Desyrel - PO 150 mg HS ASHLYN Administration Current Side Effect: No Lab tests ordered: No Lab tests reviewed: Yes Provider note:: Patient completed this program today.She has met her treatment goals and will continue to address her issues on outpatient basis at [facility].Patient continues to find that TRazodone 150 mg po hs helps to cope with depressed mood,sleeping difficulties.Script for 30 days provided. Therapy provided focusing on coping skills ,support system utilization to maintain recovery. Patient is stable for discharge today. Total face to face time:: 25 Mental Status Exam - Mental Status Exam Alert and Oriented to: Time, Place, Person Cognitive Function: Grossly Intact Patient Appearance: Well Groomed Mood: Hopeful, Euthymic Affect: Appropriate, Mood Congruent Patient Behavior: Cooperative Speech Pattern: Clear Voice Loudness: Normal Thought Process: Goal Oriented Thought Disorder: Not Present Hallucinations: Denies Suicidal Ideation: Denies Homicidal Ideation: Denies Insight/Judgement: Fair Sleep: Fair Appetite: Good Muscle strength/Tone: Normal Gait/Station: Normal Psychiatric Treatment Plan - Problem List (1) Alcohol dependence Current Visit: Yes Qualifiers: (2) Anemia Current Visit: Yes (3) Aortic valve regurgitation Current Visit: Yes Qualifiers: (4) Asthma Current Visit: Yes Qualifiers: (5) COPD (chronic obstructive pulmonary disease) Current Visit: Yes Qualifiers: (6) Cocaine dependence Current Visit: Yes (7) Lupus (systemic lupus erythematosus) Current Visit: No Qualifiers: (8) Mitral valve regurgitation Current Visit: Yes Qualifiers: (9) Nicotine dependence Current Visit: Yes Qualifiers: (10) Post traumatic stress disorder (PTSD) Current Visit: Yes (11) Schizoaffective disorder, depressive type Current Visit: Yes (12) Lupus erythematosus Current Visit: Yes (13) Eating disorder Current Visit: Yes
[2016-10-06] MEDS ORDERED: predniSONE 10 MG TABLET (UD) PO SCH (10:00)
[2016-10-09] MEDS ORDERED: predniSONE 5 MG TABLET (UD) PO SCH (10:00)
== END 2016-10-04 10:15 | disposition home or self-care (01) | DRG 772 ==
LOC: YASAS 09:51 → Y3E 09:52
PROVIDERS: ADMIT Psychiatry & Neurology Psychiatry; ATTEND Psychiatry & Neurology Psychiatry
PROC: HZ42ZZZ Group Counseling for Substance Abuse Treatment, Cognitive-Behavioral (ICD-10-PCS; principal; 2016-09-30)
DX: F10.20 Alcohol dependence, uncomplicated (principal); F10.24 Alcohol dependence with alcohol-induced mood disorder; F25.9 Schizoaffective disorder, unspecified; F14.20 Cocaine dependence, uncomplicated; F43.10 Post-traumatic stress disorder, unspecified; I34.0 Nonrheumatic mitral (valve) insufficiency; J45.909 Unspecified asthma, uncomplicated; J44.9 Chronic obstructive pulmonary disease, unspecified; M32.9 Systemic lupus erythematosus, unspecified; D64.9 Anemia, unspecified; F50.9 Eating disorder, unspecified; S50.872A Other superficial bite of left forearm, initial encounter; W50.3XXA Accidental bite by another person, initial encounter; Y93.9 Activity, unspecified; Y92.239 Unspecified place in hospital as the place of occurrence of the external cause
CPT/HCPCS: 94640

== ENCOUNTER 2017-01-22 14:33 | Inpatient (IN) | payer BC ==
[2017-01-22 15:44] VITALS: BMI 23.2
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
[2017-01-22] MEDS ORDERED: MAGNESIUM CITRATE 300 ML BOTTLE PO PRN (19:22)
[2017-01-22] MEDS ORDERED: guaiFENesin/D-METHORPHAN HB 10 ML UNIT-DOSE CUPS PO PRN (19:22)
[2017-01-22] MEDS ORDERED: LOPERAMIDE HCL 2 MG CAPSULE PO PRN (19:22)
[2017-01-22] MEDS ORDERED: hydrOXYzine PAMOATE 50 MG CAPSULE (FP) PO PRN (19:22)
[2017-01-22] MEDS ORDERED: NICOTINE 14 MG/24 HOURS TOPICAL PATCH TD PRN (19:22)
[2017-01-22] MEDS ORDERED: diphenhydrAMINE HCL 50 MG CAPSULE PO PRN (19:22)
[2017-01-22] MEDS ORDERED: P-EPHED 60MG/TRIPROLIDI 2.5MG TABLET PO PRN (19:22)
[2017-01-22] MEDS ORDERED: MAG HYDROX/AL HYDROX/SIMETH 30 ML UNIT-DOSE CUP PO PRN (19:22)
[2017-01-22] MEDS ORDERED: MAGNESIUM HYDROX 2400MG/30ML ORAL SUSPENSION 30 ML CUP PO PRN (19:22)
[2017-01-22] MEDS ORDERED: ACETAMINOPHEN 325 MG TABLET (FP) PO PRN (19:22)
[2017-01-22] MEDS ORDERED: chlordiazePOXIDE HCL 25 MG CAPSULE PO PRN (19:22)
[2017-01-22] MEDS ORDERED: MENTHOL/PHENOL 1 EACH UD MM PRN (19:22)
[2017-01-22] MEDS ORDERED: ALBUTEROL SO4 18 GM HFA INHALER IH PRN (19:24)
[2017-01-22] MEDS ORDERED: ALBUTEROL SO4 2.5/IPRATROPIUM 0.5 INH SOL 3 ML VIAL.NEB. NEB PRN (19:24)
[2017-01-22] MEDS ORDERED: NAPROXEN 500 MG TABLET (FP) PO PRN (19:25)
[2017-01-22] MEDS ORDERED: predniSONE 20 MG TABLET (UD) PO ONE (19:26)
[2017-01-22] MEDS: CYPROHEPTADINE HCL 4 MG TABLET PO SCH (21:29)
[2017-01-22] MEDS: THIAMINE HCL 100 MG TABLET (FP) PO SCH (21:31)
[2017-01-22] MEDS: AMMONIUM LACTATE 12% LOTION 225 GM BOTTLE TP SCH (22:51)
[2017-01-22] MEDS: chlordiazePOXIDE HCL 25 MG CAPSULE PO SCH (22:51)
[2017-01-22 23:10] LABS: URINE APPEARANCE SLCLOUDY; URINE BILIRUBIN NEGATIVE (NEGATIVE); URINE BLOOD NEGATIVE (NEGATIVE); URINE COLOR YELLOW; URINE GLUCOSE (UA) NEGATIVE (NEGATIVE); URINE KETONE NEGATIVE (NEGATIVE); URINE NITRITE NEGATIVE (NEGATIVE); URINE PROTEIN NEGATIVE (NEGATIVE); URINE UROBILINOGEN NEGATIVE mg/dL (0.2-1.0)
[2017-01-23] MEDS: CYPROHEPTADINE HCL 4 MG TABLET PO SCH ×3 (08:02→22:11)
[2017-01-23] MEDS: chlordiazePOXIDE HCL 25 MG CAPSULE PO SCH ×4 (08:40→22:11)
[2017-01-23] MEDS ORDERED: predniSONE 20 MG TABLET (UD) PO ONE (10:00)
[2017-01-23 10:01] LABS: URINE LEUK ESTERASE Negative (NEGATIVE)
[2017-01-23 10:14] LABS: MCH 29.3 pg (25.7-33.7); MCHC 32.2 g/dl (32.0-36.0); MEAN CELL VOLUME 91.2 fl (80-96); MEAN PLT VOLUME 10.5 fl (7.5-11.1); PLATELET COUNT 231 K/MM3 (134-434); RDW 15.5 % (11.6-15.6); WHITE BLOOD COUNT 8.5 K/mm3 (4.0-10.0)
[2017-01-23 10:29] LABS: ALBUMIN 3.5 g/dl (3.4-5.0); ALK PHOS 70 U/L (45-117); ANION GAP 6 (8-16); BILIRUBIN,TOTAL 0.2 mg/dL (0.2-1.0); CALCIUM 9.4 mg/dL (8.5-10.1); CO2 29 mmol/L (21-32); CREATININE 0.6 mg/dL (0.55-1.02); GLUCOSE,RANDOM 120 mg/dL (74-106); SGOT/AST 7 U/L (15-37); SGPT/ALT 19 U/L (12-78)
[2017-01-23] MEDS: PRENATAL VITAMINS W/ FOLIC ACID TABLET (FP) PO SCH (10:31)
[2017-01-23] MEDS: AMMONIUM LACTATE 12% LOTION 225 GM BOTTLE TP SCH ×2 (10:31→22:46)
[2017-01-23] MEDS: ASPIRIN 81 MG CHEWABLE TABLETS PO SCH (10:31)
--- NOTE | 2017-01-23 11:36 | PN ---
S CIWA - CIWA Score Nausea/Vomitin-No Nausea/No Vomiting Muscle Tremors: 4-Moderate,w/Arms Extend Anxiety: 4-Mod. Anxious/Guarded Agitation: 3 Paroxysmal Sweats: 3 Orientation: 0-Oriented Tacttile Disturbances: 2-Mild Itch/Numbness/Burn Auditory Disturbances: 0-None Visual Disturbances: 2-Mild Sensitivity Headache: 2-Mild CIWA-Ar Total Score: 20 BHS Progress Note (SOAP) Subjective: Shakes anxiety Interrupted sleep agitation body aches- h/o lupus Objective: 01/23/17 11:39 Vital Signs Temperature 97.7 F 01/23/17 09:35 Pulse Rate 84 01/23/17 10:37 Respiratory Rate 16 01/23/17 09:35 Blood Pressure 119/64 01/23/17 10:37 O2 Sat by Pulse Oximetry (%) Laboratory Last Values WBC 8.5 K/mm3 (4.0-10.0) 01/23/17 07:00 RBC 4.33 M/mm3 (3.60-5.2) 01/23/17 07:00 Hgb 12.7 GM/dL (10.7-15.3) D 01/23/17 07:00 Hct 39.5 % (32.4-45.2) D 01/23/17 07:00 MCV 91.2 fl (80-96) 01/23/17 07:00 MCH 29.3 pg (25.7-33.7) 01/23/17 07:00 MCHC 32.2 g/dl (32.0-36.0) 01/23/17 07:00 RDW 15.5 % (11.6-15.6) D 01/23/17 07:00 Plt Count 231 K/MM3 (134-434) 01/23/17 07:00 MPV 10.5 fl (7.5-11.1) 01/23/17 07:00 Sodium 142 mmol/L (136-145) 01/23/17 07:00 Potassium 4.4 mmol/L (3.5-5.1) D 01/23/17 07:00 Chloride 107 mmol/L (98-107) 01/23/17 07:00 Carbon Dioxide 29 mmol/L (21-32) 01/23/17 07:00 Anion Gap 6 (8-16) L 01/23/17 07:00 BUN 18 mg/dL (7-18) D 01/23/17 07:00 Creatinine 0.6 mg/dL (0.55-1.02) D 01/23/17 07:00 Creat Clearance w eGFR > 60 (>60) 01/23/17 07:00 Random Glucose 120 mg/dL (74-106) H D 01/23/17 07:00 Calcium 9.4 mg/dL (8.5-10.1) 01/23/17 07:00 Total Bilirubin 0.2 mg/dL (0.2-1.0) D 01/23/17 07:00 AST 7 U/L (15-37) L D 01/23/17 07:00 ALT 19 U/L (12-78) D 01/23/17 07:00 Alkaline Phosphatase 70 U/L (45-117) 01/23/17 07:00 Total Protein 7.0 g/dl (6.4-8.2) 01/23/17 07:00 Albumin 3.5 g/dl (3.4-5.0) 01/23/17 07:00 Urine Color Yellow 01/22/17 23:00 Urine Appearance Slcloudy 01/22/17 23:00 Urine pH 5.0 (5.0-8.0) 01/22/17 23:00 Ur Specific [place] 1.025 (1.005-1.025) 01/22/17 23:00 Urine Protein Negative (NEGATIVE) 01/22/17 23:00 Urine Glucose (UA) Negative (NEGATIVE) 01/22/17 23:00 Urine Ketones Negative (NEGATIVE) 01/22/17 23:00 Urine Blood Negative (NEGATIVE) 01/22/17 23:00 Urine Nitrite Negative (NEGATIVE) 01/22/17 23:00 Urine Bilirubin Negative (NEGATIVE) 01/22/17 23:00 Urine Urobilinogen Negative mg/dL (0.2-1.0) 01/22/17 23:00 Ur Leukocyte Esterase Negative (NEGATIVE) 01/22/17 23:00 Labs noted Assessment: 01/23/17 11:41 Withdrawal sx Plan: Continue detox Naprosyn prn for body aches
[2017-01-23] MEDS ORDERED: NAPROXEN 500 MG TABLET (FP) PO ONE (11:53)
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
[2017-01-23] MEDS ORDERED: NAPROXEN 500 MG TABLET (FP) PO SCH (22:00)
[2017-01-23] MEDS: THIAMINE HCL 100 MG TABLET (FP) PO SCH (22:11)
[2017-01-23] MEDS: NAPROXEN 500 MG TABLET (FP) PO PRN (22:11)
[2017-01-23] MEDS: OLANZapine 10 MG TABLET PO SCH (22:47)
[2017-01-24] MEDS: chlordiazePOXIDE HCL 25 MG CAPSULE PO SCH ×3 (05:49→17:38)
[2017-01-24] MEDS: CYPROHEPTADINE HCL 4 MG TABLET PO SCH ×3 (05:49→22:06)
--- NOTE | 2017-01-24 09:41 | PN ---
[facility] CIWA - CIWA Score Nausea/Vomitin-No Nausea/No Vomiting Muscle Tremors: 4-Moderate,w/Arms Extend Anxiety: 3 Agitation: 2 Paroxysmal Sweats: 2 Orientation: 1-Uncertain about Date Tacttile Disturbances: 0-None Auditory Disturbances: 0-None Visual Disturbances: 1-Very Mild Sensitivity Headache: 2-Mild CIWA-Ar Total Score: 15 S Progress Note (SOAP) Subjective: Anxiety, Tremors, interrupted sleep, restless, muscle aches Objective: 01/24/17 09:38 Vital Signs Vital Signs Temperature 97.0 F L 01/24/17 06:29 Pulse Rate 62 01/24/17 06:29 Respiratory Rate 18 01/24/17 06:29 Blood Pressure 99/67 01/24/17 06:29 O2 Sat by Pulse Oximetry (%) Laboratory Last Values WBC 8.5 K/mm3 (4.0-10.0) 01/23/17 07:00 RBC 4.33 M/mm3 (3.60-5.2) 01/23/17 07:00 Hgb 12.7 GM/dL (10.7-15.3) D 01/23/17 07:00 Hct 39.5 % (32.4-45.2) D 01/23/17 07:00 MCV 91.2 fl (80-96) 01/23/17 07:00 MCH 29.3 pg (25.7-33.7) 01/23/17 07:00 MCHC 32.2 g/dl (32.0-36.0) 01/23/17 07:00 RDW 15.5 % (11.6-15.6) D 01/23/17 07:00 Plt Count 231 K/MM3 (134-434) 01/23/17 07:00 MPV 10.5 fl (7.5-11.1) 01/23/17 07:00 Sodium 142 mmol/L (136-145) 01/23/17 07:00 Potassium 4.4 mmol/L (3.5-5.1) D 01/23/17 07:00 Chloride 107 mmol/L (98-107) 01/23/17 07:00 Carbon Dioxide 29 mmol/L (21-32) 01/23/17 07:00 Anion Gap 6 (8-16) L 01/23/17 07:00 BUN 18 mg/dL (7-18) D 01/23/17 07:00 Creatinine 0.6 mg/dL (0.55-1.02) D 01/23/17 07:00 Creat Clearance w eGFR > 60 (>60) 01/23/17 07:00 Random Glucose 120 mg/dL (74-106) H D 01/23/17 07:00 Calcium 9.4 mg/dL (8.5-10.1) 01/23/17 07:00 Total Bilirubin 0.2 mg/dL (0.2-1.0) D 01/23/17 07:00 AST 7 U/L (15-37) L D 01/23/17 07:00 ALT 19 U/L (12-78) D 01/23/17 07:00 Alkaline Phosphatase 70 U/L (45-117) 01/23/17 07:00 Total Protein 7.0 g/dl (6.4-8.2) 01/23/17 07:00 Albumin 3.5 g/dl (3.4-5.0) 01/23/17 07:00 Urine Color Yellow 01/22/17 23:00 Urine Appearance Slcloudy 01/22/17 23:00 Urine pH 5.0 (5.0-8.0) 01/22/17 23:00 Ur Specific [place] 1.025 (1.005-1.025) 01/22/17 23:00 Urine Protein Negative (NEGATIVE) 01/22/17 23:00 Urine Glucose (UA) Negative (NEGATIVE) 01/22/17 23:00 Urine Ketones Negative (NEGATIVE) 01/22/17 23:00 Urine Blood Negative (NEGATIVE) 01/22/17 23:00 Urine Nitrite Negative (NEGATIVE) 01/22/17 23:00 Urine Bilirubin Negative (NEGATIVE) 01/22/17 23:00 Urine Urobilinogen Negative mg/dL (0.2-1.0) 01/22/17 23:00 Ur Leukocyte Esterase Negative (NEGATIVE) 01/22/17 23:00 RPR Titer Reactive 1:4 (NONREACTIVE) H D 01/23/17 07:00 T.pallidum Ab (MHA) Previously reactive (NONREACTIVE) 01/23/17 07:00 Hepatitis C Antibody <0.1 s/co ratio (0.0-0.9) 01/22/17 07:00 Labs noted. Random glucose 120mg/dl, pt on prednisone therapy. Assessment: 01/24/17 09:43 Withdrawal sx Plan: Continue therapy
[2017-01-24] MEDS ORDERED: predniSONE 20 MG TABLET (UD) PO ONE (10:00)
[2017-01-24] MEDS: PRENATAL VITAMINS W/ FOLIC ACID TABLET (FP) PO SCH (11:03)
[2017-01-24] MEDS: ASPIRIN 81 MG CHEWABLE TABLETS PO SCH (11:03)
[2017-01-24] MEDS: AMMONIUM LACTATE 12% LOTION 225 GM BOTTLE TP SCH ×2 (11:05→23:05)
--- NOTE | 2017-01-24 13:17 | EKG ---
Test Reason : Blood Pressure : / mmHG Vent. Rate : 082 BPM Atrial Rate : 082 BPM P-R Int : 138 ms QRS Dur : 082 ms QT Int : 398 ms P-R-T Axes : 075 076 079 degrees QTc Int : 464 ms NORMAL SINUS RHYTHM VOLTAGE CRITERIA FOR LEFT VENTRICULAR HYPERTROPHY ABNORMAL ECG WHEN COMPARED WITH ECG OF 16-SEP-2016 11:55, T WAVE INVERSION NO LONGER EVIDENT IN ANTERIOR LEADS Confirmed by WINSOME MCCRACKEN, RADHA ([id number]) on 01/24/2017 1:16:31 PM Referred By: Confirmed By:RADHA SCHUMACHER MD
[2017-01-24] MEDS: chlordiazePOXIDE 5 MG CAPSULE PO SCH (22:06)
[2017-01-24] MEDS: THIAMINE HCL 100 MG TABLET (FP) PO SCH (22:06)
[2017-01-24] MEDS: NAPROXEN 500 MG TABLET (FP) PO PRN (22:06)
[2017-01-24] MEDS: NICOTINE POLACRILEX 2 MG GUM BC PRN (22:08)
[2017-01-25] MEDS: CYPROHEPTADINE HCL 4 MG TABLET PO SCH ×3 (05:54→22:17)
[2017-01-25] MEDS: chlordiazePOXIDE 5 MG CAPSULE PO SCH ×3 (07:49→16:34)
[2017-01-25] MEDS ORDERED: predniSONE 20 MG TABLET (UD) PO ONE (10:00)
--- NOTE | 2017-01-25 10:38 | PN ---
BHS Progress Note (SOAP) Subjective: groggy sweats Objective: 01/25/17 10:34 Vital Signs Temperature 97.5 F L 01/25/17 06:00 Pulse Rate 58 L 01/25/17 06:00 Respiratory Rate 18 01/25/17 06:00 Blood Pressure 113/72 01/25/17 06:00 O2 Sat by Pulse Oximetry (%) aaox3 lying in bed no acute distress Assessment: 01/25/17 10:36 withdrawal sx Plan: hold sedating medication increase fluids d/c in am
[2017-01-25] MEDS: PRENATAL VITAMINS W/ FOLIC ACID TABLET (FP) PO SCH (11:00)
[2017-01-25] MEDS: ASPIRIN 81 MG CHEWABLE TABLETS PO SCH (11:00)
[2017-01-25] MEDS: AMMONIUM LACTATE 12% LOTION 225 GM BOTTLE TP SCH ×2 (11:02→22:19)
[2017-01-25] MEDS: NICOTINE POLACRILEX 2 MG GUM BC PRN ×2 (11:42→16:35)
[2017-01-25] MEDS: NAPROXEN 500 MG TABLET (FP) PO PRN (22:16)
[2017-01-25] MEDS: chlordiazePOXIDE HCL 10 MG CAPSULE PO SCH (22:17)
[2017-01-25] MEDS: THIAMINE HCL 100 MG TABLET (FP) PO SCH (22:17)
[2017-01-25] MEDS: OLANZapine 10 MG TABLET PO SCH (22:17)
[2017-01-26] MEDS: CYPROHEPTADINE HCL 4 MG TABLET PO SCH (06:43)
[2017-01-26] MEDS: chlordiazePOXIDE HCL 10 MG CAPSULE PO SCH (06:43)
[2017-01-26] MEDS: ASPIRIN 81 MG CHEWABLE TABLETS PO SCH (09:21)
[2017-01-26] MEDS: AMMONIUM LACTATE 12% LOTION 225 GM BOTTLE TP SCH (09:21)
[2017-01-26] MEDS: PRENATAL VITAMINS W/ FOLIC ACID TABLET (FP) PO SCH (09:22)
--- NOTE | 2017-01-26 09:40 | DS ---
[facility] Detox Discharge Summary Admission Date: 01/22/17 Discharge Date: 01/26/17 - History Present History: Alcohol Dependence, Cocaine Dependence - Physical Exam Results Vital Signs: Vital Signs Temperature 96.8 F L 01/26/17 06:46 Pulse Rate 63 01/26/17 06:46 Respiratory Rate 18 01/26/17 06:46 Blood Pressure 125/72 01/26/17 06:46 O2 Sat by Pulse Oximetry (%) - Treatment Hospital Course: Detox Protocol Followed, Detoxed Safely, Responded well, Discharged Condition Good, Rehab Referral Accepted - Medication Discharge Medications: Ambulatory Orders Cyproheptadine [Periactin -] 4 mg PO TID #90 tablet 02/03/16 Prednisone [Deltasone -] 60 mg PO DAILY 07/06/16 Albuterol Sulfate Inhaler - [Ventolin HFA Inhaler -] 2 inh PO Q4H PRN #1 inhaler 07/10/16 Pantoprazole Sodium [Protonix -] 40 mg PO DAILY 09/16/16 Trazodone HCl [Desyrel -] 50 mg PO HS #30 tablet 09/18/16 Zolpidem Tartrate [Ambien] 10 mg PO HS PRN #14 tablet MDD 10 09/18/16 Ammonium Lactate Lotion [Lac-Hydrin 12] 1 applic TP DAILY 09/20/16 Aspirin Coated [Ecotrin -] 81 mg PO DAILY #30 mg 10/03/16 Clindamycin [Cleocin -] 300 mg PO TID #30 mg 10/03/16 Prednisone [Deltasone -] 5 mg PO DAILY #20 tablet 10/03/16 Trazodone HCl [Desyrel -] 150 mg PO HS #90 tablet 10/04/16 Albuterol Sulfate Inhaler - [Ventolin HFA Inhaler -] 2 puff IH Q4H PRN #100 inhaler 01/26/17 Cyproheptadine [Periactin -] 4 mg PO TID #90 tablet 01/26/17 Methylprednisolone [Medrol Dose Jovi] 4 mg PO ASDIR #21 tablet 01/26/17 - Diagnosis (1) Alcohol dependence with uncomplicated withdrawal Current Visit: Yes Status: Chronic (2) Cocaine dependence Current Visit: Yes Status: Chronic (3) Nicotine dependence Current Visit: Yes Status: Chronic Qualifiers: Nicotine product type: cigarettes Substance use status: uncomplicated Qualified Code(s): F17.210 - Nicotine dependence, cigarettes, uncomplicated; F17.210 - Nicotine dependence, cigarettes, uncomplicated (4) Asthma Current Visit: Yes Status: Chronic Qualifiers: Asthma severity: moderate Asthma persistence: persistent Asthma complication type: with status asthmaticus Qualified Code(s): J45.42 - Moderate persistent asthma with status asthmaticus; J45.42 - Moderate persistent asthma with status asthmaticus; J45.42 - Moderate persistent asthma with status asthmaticus - AMA Did Patient Leave Against Medical Advice: No
[2017-01-26 09:41] VITALS: BP 115/62; PULSE 88; TEMP 97.9
[2017-01-26] MEDS ORDERED: predniSONE 20 MG TABLET (UD) PO ONE (10:00)
== END 2017-01-26 09:51 | disposition home or self-care (01) | DRG 774 ==
LOC: YASAS 14:33 → Y6N 19:23
PROVIDERS: ADMIT Internal Medicine; ATTEND Internal Medicine
PROC: HZ2ZZZZ Detoxification Services for Substance Abuse Treatment (ICD-10-PCS; principal; 2017-01-22)
DX: F10.230 Alcohol dependence with withdrawal, uncomplicated (principal); F14.20 Cocaine dependence, uncomplicated; F17.210 Nicotine dependence, cigarettes, uncomplicated; F25.1 Schizoaffective disorder, depressive type; F43.10 Post-traumatic stress disorder, unspecified; J45.42 Moderate persistent asthma with status asthmaticus; J43.0 Unilateral pulmonary 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]; D51.9 Vitamin B12 deficiency anemia, unspecified; M32.9 Systemic lupus erythematosus, unspecified; I35.1 Nonrheumatic aortic (valve) insufficiency; I34.0 Nonrheumatic mitral (valve) insufficiency; Z87.42 Personal history of other diseases of the female genital tract; Z87.442 Personal history of urinary calculi; Z88.0 Allergy status to penicillin; Z88.6 Allergy status to analgesic agent; Z87.898 Personal history of other specified conditions; Z91.040 Latex allergy status; Z91.5 Personal history of self-harm
CPT/HCPCS: 36415; 80053; 81003; 85027; 86593; 86780; 86803; 93005; 93010; 94640

== ENCOUNTER 2017-04-22 10:08 | Inpatient (IN) | payer BC ==
[2017-04-22 10:21] VITALS: BMI 25.0
--- NOTE | 2017-04-22 10:30 | HP ---
CIWA Score - CIWA Score Nausea/Vomitin Muscle Tremors: 3 Anxiety: 3 Agitation: 3 Paroxysmal Sweats: 1-Minimal Palms Moist Orientation: 0-Oriented Tacttile Disturbances: 2-Mild Itch/Numbness/Burn Auditory Disturbances: 2-Mild Harshness/Frighten Visual Disturbances: 0-None Headache: 2-Mild CIWA-Ar Total Score: 19 Admission ROS BHS - HPI Chief Complaint: i need help to stop drinking alcohol and cocaine Allergies/Adverse Reactions: Allergies Allergy/AdvReac Type Severity Reaction Status Date / Time Penicillins Allergy Severe Swelling Verified 01/23/17 13:50 Latex, Natural Rubber Allergy Intermediate Rash Verified 01/22/17 17:45 morphine AdvReac Intermediate HALLUCINATI Verified 01/22/17 17:45 ON History of Present Illness: this 51 years old black female with alcohol and cocaine dependence,seeking detox ,last treatment in 01/22/17 to 01/26/17 [facility] sle longest period of sobriety 4 years vaginal discharge for 3 days Exam Limitations: No Limitations - Ebola screening Have you traveled outside of the country in the last 21 days: No Have you had contact with anyone from an Ebola affected area: No Have you been sick,other than usual withdrawal symptoms: No Do you have a fever: No - Review of Systems Constitutional: Loss of Appetite, Malaise, Night Sweats, Changes in sleep, Weakness EENT: reports: Nose Congestion Respiratory: reports: No Symptoms reported Cardiac: reports: Palpitations GI: reports: Diarrhea, Nausea, Poor Appetite, Vomiting : reports: No Symptoms Reported Musculoskeletal: reports: Back Pain, Muscle Pain Integumentary: reports: Dryness Neuro: reports: Headache, Tremors Endocrine: reports: Other (bo[place]lined dm) Hematology: reports: No Symptoms Reported, Other (sle) Psychiatric: reports: other (ptsd,insomnia) Patient History - Patient Medical History Hx Anemia: Yes (IRON AND B12 TAKEN IN PAST, patient received vitamin b12 shot monthly, last) Hx Asthma: Yes (on albuteril inhaler) Hx Chronic Obstructive Pulmonary Disease (COPD): Yes (on albuterol inhaler) Hx Cancer: No Hx Cardiac Disorders: Yes (Aortic and mitral valve regurgitation..) Hx Congestive Heart Failure: No Hx Hypertension: No Hx Hypercholesterolemia: No Hx Pacemaker: No HX Cerebrovascular Accident: No Hx Seizures: No Hx Dementia: No Hx Diabetes: No Hx Gastrointestinal Disorders: No Hx Liver Disease: No Hx Genitourinary Disorders: No Hx Sexually Transmitted Disorders: Yes (treated x 2 - oral meds (pcn allergic) treated for syphilis) Hx Renal Disease (ESRD): No Hx Thyroid Disease: No Hx Human Immunodeficiency Virus (HIV): No Hx Hepatitis C: No Hx Depression: Yes Hx Suicide Attempt: Yes (2014 oversode due to the pain from lupus) Hx Bipolar Disorder: No (PTSD, seroquel) Hx Schizophrenia: No Other Medical History: no suicidal,no homiidal - Patient Surgical History Past Surgical History: Yes Hx Neurologic Surgery: No Hx Cataract Extraction: No Hx Cardiac Surgery: No Hx Lung Surgery: No Hx Breast Surgery: No Hx Breast Biopsy: No Hx Abdominal Surgery: No Hx Appendectomy: No Hx Cholecystectomy: No Hx Genitourinary Surgery: No Hx Section: Yes (5, patient has 10 children) Hx Orthopedic Surgery: No Hx Hysterectomy: No Other Surgical History: Kidney stones removal 1995 BY LITHOTRIPSY Anesthesia Reaction: No - PPD History Previous Implant?: Yes Documented Results: Negative w/proof Date: 01/24/17 Results: 0 MM PPD to be Administered?: No - Reproductive History Patient is a Female of Child Bearing Age (11 -55 yrs old): Yes Last Menstrual Period: 11/22/16 Patient : No - Smoking Cessation Smoking history: Current every day smoker Have you smoked in the past 12 months: Yes Aproximately how many cigarettes per day: 5 Cigars Per Day: 0 Hx Chewing Tobacco Use: No Initiated information on smoking cessation: Yes 'Breaking Loose' booklet given: 04/22/17 - Substance & Tx. History Hx Alcohol Use: Yes Hx Substance Use: Yes Substance Use Type: Alcohol, Cocaine Hx Substance Use Treatment: Yes ([facility] 01/22/17 01/26/17 [facility]) - Substances Abused Alcohol Route: Oral Frequency: Daily Amount used: 1/2 pint of bacardi/3 of 6 packs of 12 ozs of beer Age of first use: 33 Date of Last Use: 04/21/17 Cocaine Route: Inhalation Frequency: Daily Amount used: 200$ Age of first use: 33 Date of Last Use: 04/20/17 Family Disease History - Family Disease History Family Disease History: [place]: Mother (, lupus, bladder cancer, ), Sister ( two alive, one sister with breast cancer), Other: Father (, IDU, AIDS), Brother (two alive, no problems), Sister, Son (five - no medical problems), Daughter (five - no problems) Admission Physical Exam [facility] - Vital Signs Vital Signs: Vital Signs - 24 hr 04/22/17 10:18 Temperature 95.5 F L Pulse Rate 89 Respiratory 18 Rate Blood Pressure 131/81 - Physical General Appearance: Yes: Moderate Distress, Tremorous, Irritable, Sweating, Anxious HEENTM: Yes: Normal ENT Inspection, JEFF, Pharynx Normal Respiratory: Yes: No Respiratory Distress (asthma,copd), Wheezing Breast: Yes: Breast Exam Deferred Cardiology: Yes: Within Normal Limits, Regular Rhythm, Regular Rate, S1, S2 Abdominal: Yes: Within Normal Limits, Normal Bowel Sounds, Non Tender, Flat, Soft Genitourinary: Yes: Within Normal Limits, Vaginal Discharge Back: Yes: Muscle Spasm Musculoskeletal: Yes: full range of Motion, Back pain, Muscle Pain Extremities: Yes: Tremors Neurological: Yes: dry cleaner hand II-XII NML intact, Fully Oriented, Alert, Motor Strength 5/5 Integumentary: Yes: Dry Lymphatic: Yes: Within Normal Limits - Diagnostic (1) Alcohol dependence with uncomplicated withdrawal Current Visit: No Status: Chronic (2) Post traumatic stress disorder (PTSD) Current Visit: No Status: Acute (3) Anemia Current Visit: No Status: Chronic (4) Aortic valve regurgitation Current Visit: No Status: Chronic (5) Asthma Current Visit: No Status: Chronic Qualifiers: Asthma severity: moderate Asthma persistence: persistent Asthma complication type: with status asthmaticus Qualified Code(s): J45.42 - Moderate persistent asthma with status asthmaticus (6) COPD (chronic obstructive pulmonary disease) Current Visit: No Status: Chronic Qualifiers: COPD type: emphysema Emphysema type: unilateral Qualified Code(s): J43.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] (7) Cocaine dependence Current Visit: No Status: Chronic (8) History of syphilis Current Visit: No Status: Chronic Comment: treated in past with oral antibiotics (PCN allergic) (9) Insomnia Current Visit: No Status: Chronic (10) Lupus (systemic lupus erythematosus) Current Visit: No Status: Chronic Qualifiers: (11) Nicotine dependence Current Visit: No Status: Chronic Qualifiers: Nicotine product type: cigarettes Substance use status: uncomplicated Qualified Code(s): F17.210 - Nicotine dependence, cigarettes, uncomplicated (12) Schizoaffective disorder Current Visit: No Status: Chronic (13) Weight loss Current Visit: No Status: Chronic (14) Vaginitis Current Visit: Yes Status: Acute Cleared for Admission [facility] - Detox or Rehab [facility] Level of Care: Medically Managed Detox Regimen/Protocol: Librium S Breath Alcohol Content Breath Alcohol Content: 0.018 Urine Pregancy Test - Result Urine Test Results: Negative- NO Line Present Urine Drug Screen - Results Drug Screen Negative: No Urine Drug Screen Results: KAYLI-Cocaine
[2017-04-22] MEDS ORDERED: MAGNESIUM HYDROX 2400MG/30ML ORAL SUSPENSION 30 ML CUP PO PRN (10:48)
[2017-04-22] MEDS ORDERED: MAGNESIUM CITRATE 300 ML BOTTLE PO PRN (10:48)
[2017-04-22] MEDS ORDERED: P-EPHED 60MG/TRIPROLIDI 2.5MG TABLET PO PRN (10:48)
[2017-04-22] MEDS ORDERED: MAG HYDROX/AL HYDROX/SIMETH 30 ML UNIT-DOSE CUP PO PRN (10:48)
[2017-04-22] MEDS ORDERED: LOPERAMIDE HCL 2 MG CAPSULE PO PRN (10:48)
[2017-04-22] MEDS ORDERED: hydrOXYzine PAMOATE 50 MG CAPSULE (FP) PO PRN (10:48)
[2017-04-22] MEDS ORDERED: chlordiazePOXIDE HCL 25 MG CAPSULE PO ONE (10:48)
[2017-04-22] MEDS ORDERED: ACETAMINOPHEN 325 MG TABLET (FP) PO PRN (10:48)
[2017-04-22] MEDS ORDERED: guaiFENesin/D-METHORPHAN HB 10 ML UNIT-DOSE CUPS PO PRN (10:48)
[2017-04-22] MEDS ORDERED: chlordiazePOXIDE HCL 25 MG CAPSULE PO PRN (10:48)
[2017-04-22] MEDS ORDERED: NICOTINE POLACRILEX 2 MG GUM BUC PRN (10:48)
[2017-04-22] MEDS ORDERED: MENTHOL/PHENOL 1 EACH UD MM PRN (10:48)
[2017-04-22] MEDS ORDERED: ALBUTEROL SO4 18 GM HFA INHALER IH PRN (12:17)
[2017-04-22] MEDS ORDERED: FLUCONAZOLE 50 MG TABLET PO ONE (12:18)
[2017-04-22] MEDS: CYPROHEPTADINE HCL 4 MG TABLET PO SCH ×2 (14:37→22:14)
[2017-04-22] MEDS: metroNIDAZOLE 250 MG TABLET PO SCH ×2 (14:37→22:14)
[2017-04-22] MEDS: IBUPROFEN 400 MG TABLET (FP) PO PRN (14:40)
[2017-04-22] MEDS ORDERED: chlordiazePOXIDE HCL 25 MG CAPSULE ONE (14:40)
[2017-04-22] MEDS: chlordiazePOXIDE HCL 25 MG CAPSULE PO SCH ×3 (14:43→22:16)
[2017-04-22 16:23] LABS: URINE APPEARANCE SLCLOUDY; URINE BILIRUBIN NEGATIVE (NEGATIVE); URINE BLOOD NEGATIVE (NEGATIVE); URINE COLOR STRAW; URINE GLUCOSE (UA) NEGATIVE (NEGATIVE); URINE KETONE NEGATIVE (NEGATIVE); URINE LEUK ESTERASE NEGATIVE (NEGATIVE); URINE NITRITE NEGATIVE (NEGATIVE); URINE PROTEIN NEGATIVE (NEGATIVE); URINE UROBILINOGEN NEGATIVE mg/dL (0.2-1.0)
[2017-04-22] MEDS ORDERED: FLUCONAZOLE 150 MG TABLET PO ONE (19:00)
[2017-04-22] MEDS: THIAMINE HCL 100 MG TABLET (FP) PO SCH (22:14)
[2017-04-23] MEDS: chlordiazePOXIDE HCL 25 MG CAPSULE PO SCH (06:31)
[2017-04-23] MEDS: CYPROHEPTADINE HCL 4 MG TABLET PO SCH ×3 (06:32→22:17)
[2017-04-23] MEDS: metroNIDAZOLE 250 MG TABLET PO SCH ×3 (06:38→22:17)
--- NOTE | 2017-04-23 07:50 | CONSULT ---
[facility] Psychiatric Consult - Data Date of interview: 04/23/17 Admission source: [facility] Identifying data: This is 51 years old female with history of Schizoaffectiv e disorder , psychiatiroc hospitalization hbistory, intoixicated with Alcohol, Cocaine and Nicotine Substance Abuse History: Smoking history: Current every day smoker. Have you smoked in the past 12 months: Yes. Aproximately how many cigarettes per day: 5. Cigars Per Day: 0. Hx Chewing Tobacco Use: No. Initiated information on smoking cessation: Yes. 'Breaking Loose' booklet given: 04/22/17. - Substance & Tx. History. Hx Alcohol Use: Yes. Hx Substance Use: Yes. Substance Use Type : Alcohol, Cocaine. Hx Substance Use Treatment: Yes ([facility] 01/22/17 01/26/17 [facility]). - Substances Abused. Alcohol. Route: Oral. Frequency: Daily. Amount used: 1/2 pint of bacardi/3 of 6 packs of 12 ozs of beer. Age of first use: 33. Date of Last Use: 04/21/17. Cocaine. Route: Inhalation. Frequency: Daily. Amount used: 200$. Age of first use: 33. Date of Last Use: 04/20/17 Medical History: Anemia, Aortic regurgitation history, Asthma, COPD,M Hisotury of Syphilis, SLE, Weight loss history, Psychiatric History: [id number] reports history of PTSD, Schizoaffective disorder with most recemt psychiatric admission on [facility] with auditory hallucinations, reports taking prior,to admission: Zyprexa 10mg ppoqhs. Trazodone 50mg po qhs. Amb ien 10mg po qhs Physical/Sexual Abuse/Trauma History: Denies Additional Comment: Zyprexa 10mg ppoqhs. Trazodone 50mg po qhs. Amb ien 10mg po qhs Psychiatric Findings - Problem List ([place] 1, 2,3) (1) Post traumatic stress disorder (PTSD) Current Visit: No Status: Acute (2) Schizoaffective disorder, depressive type Current Visit: No Status: Acute Comment: Long standing history. (3) Alcohol dependence Current Visit: No Status: Chronic Qualifiers: (4) Alcohol dependence with uncomplicated withdrawal Current Visit: No Status: Chronic (5) Cocaine dependence Current Visit: No Status: Chronic (6) Lupus (systemic lupus erythematosus) Current Visit: No Status: Chronic Qualifiers: (7) Nicotine dependence Current Visit: No Status: Chronic Qualifiers: Nicotine product type: cigarettes Substance use status: uncomplicated Qualified Code(s): F17.210 - Nicotine dependence, cigarettes, uncomplicated (8) Schizoaffective disorder Current Visit: No Status: Chronic (9) Schizoaffective disorder, bipolar type Current Visit: No Status: Chronic (10) Weight loss Current Visit: No Status: Chronic - Initial Treatment Plan Initial Treatment Plan: Zyprexa 10mg ppoqhs. Trazodone 50mg po qhs. Amb ien 10mg po qhs
[2017-04-23] MEDS ORDERED: ZOLPIDEM TARTRATE 10 MG TABLET (PARK CARE ONLY) PO PRN (08:21)
--- NOTE | 2017-04-23 09:19 | PN ---
S CIWA - CIWA Score Nausea/Vomitin Muscle Tremors: 3 Anxiety: 3 Agitation: 3 Paroxysmal Sweats: 1-Minimal Palms Moist Orientation: 0-Oriented Tacttile Disturbances: 1-Very Mild Itch/Numbness Auditory Disturbances: 1-Very Mild Visual Disturbances: 1-Very Mild Sensitivity Headache: 2-Mild CIWA-Ar Total Score: 18 BHS Progress Note (SOAP) Subjective: ALERT,IRRITABLE,ANXIOUS,INTERRUPTED SLEEP,TREMOR, Objective: 04/23/17 09:16 Vital Signs Temperature 98.1 F 04/23/17 06:00 Pulse Rate 62 04/23/17 06:00 Respiratory Rate 16 04/23/17 06:00 Blood Pressure 116/73 04/23/17 06:00 O2 Sat by Pulse Oximetry (%) EKG NSR,LVH NO CHEST PAIN,NO SOB,NO DIZZINESS Laboratory Last Values POC Glucometer 100 UNITS (80-120) 04/23/17 06:20 Urine Color Straw 04/22/17 15:30 Urine Appearance Slcloudy 04/22/17 15:30 Urine pH 5.0 (5.0-8.0) 04/22/17 15:30 Ur Specific [place] 1.014 (1.001-1.035) 04/22/17 15:30 Urine Protein Negative (NEGATIVE) 04/22/17 15:30 Urine Glucose (UA) Negative (NEGATIVE) 04/22/17 15:30 Urine Ketones Negative (NEGATIVE) 04/22/17 15:30 Urine Blood Negative (NEGATIVE) 04/22/17 15:30 Urine Nitrite Negative (NEGATIVE) 04/22/17 15:30 Urine Bilirubin Negative (NEGATIVE) 04/22/17 15:30 Urine Urobilinogen Negative mg/dL (0.2-1.0) 04/22/17 15:30 Ur Leukocyte Esterase Negative (NEGATIVE) 04/22/17 15:30 LABS PENDING Assessment: 04/23/17 09:17 WITHDRAWAL SYMPTOM Plan: CONTINUE DETOX,PATIENT WOULD LIKE REGIMENS TO BE CHANGED TO VALIUM INSTEAD OF LIBRIUM, BGM MONITORING
[2017-04-23] MEDS ORDERED: diazePAM 5 MG TABLET PO PRN (09:20)
[2017-04-23] MEDS ORDERED: diazePAM 5 MG TABLET PO ONE (09:45)
[2017-04-23] MEDS: predniSONE 20 MG TABLET (UD) PO SCH (10:09)
[2017-04-23] MEDS: ASPIRIN COATED 81 MG TABLET.EC PO SCH (10:09)
[2017-04-23] MEDS: PRENATAL VITAMINS W/ FOLIC ACID TABLET (FP) PO SCH (10:09)
[2017-04-23] MEDS: PANTOPRAZOLE 40 MG TABLET (FP) PO SCH (10:09)
[2017-04-23 10:12] LABS: CHLORIDE 106 mmol/L (98-107); SODIUM 139 mmol/L (136-145)
[2017-04-23 10:14] LABS: HEMATOCRIT 40.7 % (32.4-45.2); MCHC 31.9 g/dl (32.0-36.0); MEAN CELL VOLUME 90.8 fl (80-96); MEAN PLT VOLUME 9.5 fl (7.5-11.1); PLATELET COUNT 276 K/MM3 (134-434); RBC 4.48 M/mm3 (3.60-5.2); RDW 15.1 % (11.6-15.6)
[2017-04-23 10:17] LABS: ALBUMIN 3.4 g/dl (3.4-5.0); ALK PHOS 77 U/L (45-117); ANION GAP 5 (8-16); BILIRUBIN,TOTAL 0.3 mg/dL (0.2-1.0); BLOOD UREA NITROGEN 15 mg/dL (7-18); CALCIUM 9.1 mg/dL (8.5-10.1); CO2 28 mmol/L (21-32); CREATININE 0.8 mg/dL (0.55-1.02); GLUCOSE,RANDOM 76 mg/dL (74-106); SGOT/AST 12 U/L (15-37); SGPT/ALT 18 U/L (12-78); TOT PROT 7.4 g/dl (6.4-8.2)
[2017-04-23 12:06] LABS: RPR REACTIVE 1:2 (NONREACTIVE)
[2017-04-23 12:07] LABS: TREPONEMA ANTIBODY PREVIOUSLY REACTIVE (NONREACTIVE)
--- NOTE | 2017-04-23 12:46 | EKG ---
Test Reason : Blood Pressure : / mmHG Vent. Rate : 071 BPM Atrial Rate : 071 BPM P-R Int : 150 ms QRS Dur : 076 ms QT Int : 436 ms P-R-T Axes : 074 076 073 degrees QTc Int : 473 ms NORMAL SINUS RHYTHM POSSIBLE LEFT ATRIAL ENLARGEMENT LEFT VENTRICULAR HYPERTROPHY ABNORMAL ECG WHEN COMPARED WITH ECG OF 22-JAN-2017 20:38, NO SIGNIFICANT CHANGE WAS FOUND Confirmed by ADDIE MCCRACKEN, OVIDIO ([id number]) on 04/23/2017 12:46:06 PM Referred By: Confirmed By:OVIDIO REAL MD
[2017-04-23] MEDS: diazePAM 5 MG TABLET PO SCH ×2 (14:04→22:17)
[2017-04-23] MEDS ORDERED: chlordiazePOXIDE HCL 25 MG CAPSULE PO SCH (17:00)
[2017-04-23] MEDS: THIAMINE HCL 100 MG TABLET (FP) PO SCH (22:16)
[2017-04-23] MEDS: OLANZapine 10 MG TABLET PO SCH (22:17)
[2017-04-23] MEDS: traZODone HCL 50 MG TABLET (FP) PO SCH (22:17)
[2017-04-23] MEDS: IBUPROFEN 400 MG TABLET (FP) PO PRN (23:31)
[2017-04-24] MEDS: CYPROHEPTADINE HCL 4 MG TABLET PO SCH ×3 (06:27→22:17)
[2017-04-24] MEDS: diazePAM 5 MG TABLET PO SCH ×3 (06:27→23:33)
[2017-04-24] MEDS: metroNIDAZOLE 250 MG TABLET PO SCH ×3 (06:27→22:17)
[2017-04-24] MEDS: IBUPROFEN 400 MG TABLET (FP) PO PRN ×3 (06:27→22:18)
[2017-04-24] MEDS ORDERED: LIDOCAINE VISCOUS 2% ORAL/TOP 20 ML UNIT-DOSE CUP MM PRN (09:15)
--- NOTE | 2017-04-24 09:22 | PN ---
S CIWA - CIWA Score Nausea/Vomitin Muscle Tremors: 3 Anxiety: 3 Agitation: 2 Paroxysmal Sweats: 1-Minimal Palms Moist Orientation: 0-Oriented Tacttile Disturbances: 1-Very Mild Itch/Numbness Auditory Disturbances: 1-Very Mild Visual Disturbances: 0-None Headache: 2-Mild CIWA-Ar Total Score: 16 BHS Progress Note (SOAP) Subjective: ALERT,IRRITABLE,ANXIOUS,INTERRUPTED SLEEP,TREMOR,TOOTHACHE LEFT LOWER MOLAR WITH CAVITY Objective: 04/24/17 09:19 Vital Signs Temperature 97.7 F 04/24/17 06:00 Pulse Rate 61 04/24/17 06:00 Respiratory Rate 16 04/24/17 06:00 Blood Pressure 111/67 04/24/17 06:00 O2 Sat by Pulse Oximetry (%) Laboratory Last Values WBC 5.0 K/mm3 (4.0-10.0) D 04/23/17 07:00 RBC 4.48 M/mm3 (3.60-5.2) 04/23/17 07:00 Hgb 13.0 GM/dL (10.7-15.3) 04/23/17 07:00 Hct 40.7 % (32.4-45.2) 04/23/17 07:00 MCV 90.8 fl (80-96) 04/23/17 07:00 MCH 29.0 pg (25.7-33.7) 04/23/17 07:00 MCHC 31.9 g/dl (32.0-36.0) L 04/23/17 07:00 RDW 15.1 % (11.6-15.6) 04/23/17 07:00 Plt Count 276 K/MM3 (134-434) 04/23/17 07:00 MPV 9.5 fl (7.5-11.1) 04/23/17 07:00 Sodium 139 mmol/L (136-145) 04/23/17 07:00 Potassium 4.0 mmol/L (3.5-5.1) 04/23/17 07:00 Chloride 106 mmol/L (98-107) 04/23/17 07:00 Carbon Dioxide 28 mmol/L (21-32) 04/23/17 07:00 Anion Gap 5 (8-16) L 04/23/17 07:00 BUN 15 mg/dL (7-18) 04/23/17 07:00 Creatinine 0.8 mg/dL (0.55-1.02) D 04/23/17 07:00 Creat Clearance w eGFR > 60 (>60) 04/23/17 07:00 POC Glucometer 102 UNITS (80-120) 04/24/17 06:25 Random Glucose 76 mg/dL (74-106) D 04/23/17 07:00 Calcium 9.1 mg/dL (8.5-10.1) 04/23/17 07:00 Total Bilirubin 0.3 mg/dL (0.2-1.0) D 04/23/17 07:00 AST 12 U/L (15-37) L D 04/23/17 07:00 ALT 18 U/L (12-78) 04/23/17 07:00 Alkaline Phosphatase 77 U/L (45-117) 04/23/17 07:00 Total Protein 7.4 g/dl (6.4-8.2) 04/23/17 07:00 Albumin 3.4 g/dl (3.4-5.0) 04/23/17 07:00 Urine Color Straw 04/22/17 15:30 Urine Appearance Slcloudy 04/22/17 15:30 Urine pH 5.0 (5.0-8.0) 04/22/17 15:30 Ur Specific [place] 1.014 (1.001-1.035) 04/22/17 15:30 Urine Protein Negative (NEGATIVE) 04/22/17 15:30 Urine Glucose (UA) Negative (NEGATIVE) 04/22/17 15:30 Urine Ketones Negative (NEGATIVE) 04/22/17 15:30 Urine Blood Negative (NEGATIVE) 04/22/17 15:30 Urine Nitrite Negative (NEGATIVE) 04/22/17 15:30 Urine Bilirubin Negative (NEGATIVE) 04/22/17 15:30 Urine Urobilinogen Negative mg/dL (0.2-1.0) 04/22/17 15:30 Ur Leukocyte Esterase Negative (NEGATIVE) 04/22/17 15:30 RPR Titer Reactive 1:2 (NONREACTIVE) H D 04/23/17 07:00 T.pallidum Ab (MHA) Previously reactive (NONREACTIVE) 04/23/17 07:00 HIV 1&2 Antibody Screen Negative 04/23/17 07:00 HIV P24 Antigen Negative 04/23/17 07:00 TREATED FOR SYPHILIS IN THE PAST Assessment: 04/24/17 09:20 WITHDRAWAL SYMPTOM Plan: CONTINUE DETOX,XYLOCAINE VISCOUS FOR TOOTHACHE
[2017-04-24] MEDS: PANTOPRAZOLE 40 MG TABLET (FP) PO SCH (11:00)
[2017-04-24] MEDS: PRENATAL VITAMINS W/ FOLIC ACID TABLET (FP) PO SCH (11:00)
[2017-04-24] MEDS: ASPIRIN COATED 81 MG TABLET.EC PO SCH (11:00)
[2017-04-24] MEDS: predniSONE 20 MG TABLET (UD) PO SCH (11:00)
[2017-04-24] MEDS ORDERED: chlordiazePOXIDE 5 MG CAPSULE PO SCH (17:00)
[2017-04-24] MEDS: THIAMINE HCL 100 MG TABLET (FP) PO SCH (22:17)
[2017-04-24] MEDS: OLANZapine 10 MG TABLET PO SCH (22:17)
[2017-04-24] MEDS: traZODone HCL 50 MG TABLET (FP) PO SCH (22:17)
[2017-04-25] MEDS: metroNIDAZOLE 250 MG TABLET PO SCH ×3 (06:00→22:18)
[2017-04-25] MEDS: CYPROHEPTADINE HCL 4 MG TABLET PO SCH ×3 (06:01→22:18)
--- NOTE | 2017-04-25 09:37 | PN ---
BHS Progress Note (SOAP) Subjective: ALERT,IRRITABLE,ANXIOUS,INTERRUPTED SLEEP,TOOTHACHE Objective: 04/25/17 09:36 Vital Signs Temperature 98.1 F 04/25/17 06:15 Pulse Rate 60 04/25/17 06:15 Respiratory Rate 16 04/25/17 06:15 Blood Pressure 103/59 04/25/17 06:15 O2 Sat by Pulse Oximetry (%) 04/25/17 09:36 BG 114 Assessment: 04/25/17 09:36 WITHDRAWAL SYMPTOM Plan: CONTINUE DETOX,MOTRIN 600 MGS PO Q 6 HRS PRN FOR PAIN,DISCHARGE IN AM
[2017-04-25] MEDS: PRENATAL VITAMINS W/ FOLIC ACID TABLET (FP) PO SCH (10:06)
[2017-04-25] MEDS: predniSONE 20 MG TABLET (UD) PO SCH (10:07)
[2017-04-25] MEDS: ASPIRIN COATED 81 MG TABLET.EC PO SCH (10:07)
[2017-04-25] MEDS: PANTOPRAZOLE 40 MG TABLET (FP) PO SCH (10:07)
[2017-04-25] MEDS: diazePAM 5 MG TABLET PO SCH ×2 (10:07→22:21)
[2017-04-25] MEDS: IBUPROFEN 600 MG TABLET (FP) PO PRN ×2 (10:10→22:22)
[2017-04-25] MEDS ORDERED: chlordiazePOXIDE HCL 10 MG CAPSULE PO SCH (17:00)
[2017-04-25] MEDS: THIAMINE HCL 100 MG TABLET (FP) PO SCH (22:18)
[2017-04-25] MEDS: OLANZapine 10 MG TABLET PO SCH (22:19)
[2017-04-25] MEDS: traZODone HCL 50 MG TABLET (FP) PO SCH (22:19)
[2017-04-26] MEDS: metroNIDAZOLE 250 MG TABLET PO SCH (05:51)
[2017-04-26] MEDS: CYPROHEPTADINE HCL 4 MG TABLET PO SCH (05:52)
--- NOTE | 2017-04-26 08:32 | DS ---
[facility] Detox Discharge Summary Admission Date: 04/22/17 Discharge Date: 04/26/17 - History Present History: Alcohol Dependence, Cocaine Dependence Additional Comments: follow up with after care program as arrangement Pertinent Past History: asthma aortic valve regurgitation copd asthma sle nicotine dependence schizoaffective disorder weight loss vaginitis [place] diabetes mellitus - Physical Exam Results Vital Signs: Vital Signs Temperature 96.8 F L 04/26/17 06:04 Pulse Rate 68 04/26/17 06:04 Respiratory Rate 16 04/26/17 06:04 Blood Pressure 111/70 04/26/17 06:04 O2 Sat by Pulse Oximetry (%) - Treatment Hospital Course: Detox Protocol Followed, Detoxed Safely, Responded well, Discharged Condition Good, Rehab Referral Accepted Patient has Accepted [facility] Referral [facility] - Medication Discharge Medications: Ambulatory Orders Cyproheptadine [Periactin -] 4 mg PO TID #90 tablet 02/03/16 Prednisone [Deltasone -] 60 mg PO DAILY 07/06/16 Albuterol Sulfate Inhaler - [Ventolin HFA Inhaler -] 2 inh PO Q4H PRN #1 inhaler 07/10/16 Pantoprazole Sodium [Protonix -] 40 mg PO DAILY 09/16/16 Zolpidem Tartrate [Ambien] 10 mg PO HS PRN #14 tablet MDD 10 09/18/16 Aspirin Coated [Ecotrin -] 81 mg PO DAILY #30 mg 10/03/16 Clindamycin [Cleocin -] 300 mg PO TID #30 mg 10/03/16 Olanzapine [ZyPREXA -] 10 mg PO HS #30 tablet 04/23/17 Trazodone HCl [Desyrel -] 50 mg PO HS #30 tablet 04/23/17 - Diagnosis (1) Alcohol dependence with uncomplicated withdrawal Current Visit: No Status: Chronic (2) Post traumatic stress disorder (PTSD) Current Visit: No Status: Acute (3) Anemia Current Visit: No Status: Chronic (4) Aortic valve regurgitation Current Visit: No Status: Chronic (5) Asthma Current Visit: No Status: Chronic Qualifiers: Asthma severity: moderate Asthma persistence: persistent Asthma complication type: with status asthmaticus Qualified Code(s): J45.42 - Moderate persistent asthma with status asthmaticus (6) COPD (chronic obstructive pulmonary disease) Current Visit: No Status: Chronic Qualifiers: COPD type: emphysema Emphysema type: unilateral Qualified Code(s): J43.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] (7) Cocaine dependence Current Visit: No Status: Chronic (8) History of syphilis Current Visit: No Status: Chronic (9) Insomnia Current Visit: No Status: Chronic (10) Lupus (systemic lupus erythematosus) Current Visit: No Status: Chronic Qualifiers: (11) Nicotine dependence Current Visit: No Status: Chronic Qualifiers: Nicotine product type: cigarettes Substance use status: uncomplicated Qualified Code(s): F17.210 - Nicotine dependence, cigarettes, uncomplicated (12) Schizoaffective disorder Current Visit: No Status: Chronic (13) Weight loss Current Visit: No Status: Chronic (14) Vaginitis Current Visit: Yes Status: Acute (15) Tooth ache Current Visit: Yes Status: Acute - AMA Did Patient Leave Against Medical Advice: No
[2017-04-26 09:58] VITALS: BP 102/63; PULSE 100; TEMP 98.2
[2017-04-26] MEDS: diazePAM 5 MG TABLET PO SCH (10:16)
[2017-04-26] MEDS: ASPIRIN COATED 81 MG TABLET.EC PO SCH (10:16)
[2017-04-26] MEDS: predniSONE 20 MG TABLET (UD) PO SCH (10:16)
[2017-04-26] MEDS: PRENATAL VITAMINS W/ FOLIC ACID TABLET (FP) PO SCH (10:16)
[2017-04-26] MEDS: PANTOPRAZOLE 40 MG TABLET (FP) PO SCH (10:16)
[2017-04-27] MEDS ORDERED: diazePAM 5 MG TABLET PO SCH (10:00)
== END 2017-04-26 13:36 | disposition home or self-care (01) | DRG 774 ==
LOC: YASAS 10:08 → Y6N 12:18
PROVIDERS: ADMIT Internal Medicine; ATTEND Internal Medicine
PROC: HZ2ZZZZ Detoxification Services for Substance Abuse Treatment (ICD-10-PCS; principal; 2017-04-22)
DX: F10.230 Alcohol dependence with withdrawal, uncomplicated (principal); F14.20 Cocaine dependence, uncomplicated; F17.210 Nicotine dependence, cigarettes, uncomplicated; F25.0 Schizoaffective disorder, bipolar type; F43.10 Post-traumatic stress disorder, unspecified; G47.00 Insomnia, unspecified; I34.0 Nonrheumatic mitral (valve) insufficiency; J44.9 Chronic obstructive pulmonary disease, unspecified; J45.42 Moderate persistent asthma with status asthmaticus; K08.89 Other specified disorders of teeth and supporting structures; D64.9 Anemia, unspecified; M32.8 Other forms of systemic lupus erythematosus; R63.4 Abnormal weight loss; Z68.25 Body mass index [BMI] 25.0-25.9, adult; Z86.19 Personal history of other infectious and parasitic diseases; Z91.5 Personal history of self-harm
CPT/HCPCS: 36415; 80053; 81003; 82962; 85027; 86593; 86780; 87389; 93005; 93010

== ENCOUNTER 2017-05-26 11:10 | Inpatient (IN) | payer BC ==
[2017-05-26 11:49] VITALS: BMI 24.2
--- NOTE | 2017-05-26 12:35 | HP ---
CIWA Score - CIWA Score Nausea/Vomitin-Mild Nausea/No Vomiting Muscle Tremors: 4-Moderate,w/Arms Extend Anxiety: 4-Mod. Anxious/Guarded Agitation: 1-Slight > Activity Paroxysmal Sweats: 1-Minimal Palms Moist Orientation: 0-Oriented Tacttile Disturbances: 1-Very Mild Itch/Numbness Auditory Disturbances: 1-Very Mild Visual Disturbances: 1-Very Mild Sensitivity Headache: 2-Mild CIWA-Ar Total Score: 16 Admission ROS BHS - HPI Chief Complaint: I relapsed, I need detox, I'm tired of using Allergies/Adverse Reactions: Allergies Allergy/AdvReac Type Severity Reaction Status Date / Time Penicillins Allergy Severe Swelling Verified 01/23/17 13:50 Latex, Natural Rubber Allergy Intermediate Rash Verified 01/22/17 17:45 morphine AdvReac Intermediate HALLUCINATI Verified 01/22/17 17:45 ON History of Present Illness: 52 yo woman here for detox from alcohol - no seizures but does have black outs. History of suicide attempt. Exam Limitations: Clinical Condition - Ebola screening Have you traveled outside of the country in the last 21 days: No (N) Have you had contact with anyone from an Ebola affected area: No Have you been sick,other than usual withdrawal symptoms: No Do you have a fever: No - Review of Systems Constitutional: Loss of Appetite, Malaise, Changes in sleep, Weakness EENT: reports: Blurred Vision, Nose Congestion Respiratory: reports: Cough Cardiac: reports: No Symptoms Reported GI: reports: Nausea, Poor Appetite : reports: Frequency Musculoskeletal: reports: Back Pain, Muscle Pain Integumentary: reports: Dryness Neuro: reports: Headache Endocrine: reports: No Symptoms Reported Hematology: reports: No Symptoms Reported Psychiatric: reports: Judgement Intact, Mood/Affect Appropiate, Orientated x3, Anxious Other Systems: Reviewed and Negative (c/o vaginal discharge - thick, white,) Patient History - Patient Medical History Hx Anemia: Yes (history - none now) Hx Asthma: Yes (on albuteril inhaler) Hx Chronic Obstructive Pulmonary Disease (COPD): Yes (on albuterol inhaler) Hx Cancer: No Hx Cardiac Disorders: Yes (Aortic and mitral valve regurgitation..) Hx Congestive Heart Failure: No Hx Hypertension: No Hx Hypercholesterolemia: No Hx Pacemaker: No HX Cerebrovascular Accident: No Hx Seizures: No Hx Dementia: No Hx Diabetes: No Hx Gastrointestinal Disorders: No Hx Liver Disease: No Hx Genitourinary Disorders: No Hx Sexually Transmitted Disorders: Yes (treated with PCN) Hx Renal Disease (ESRD): No Hx Thyroid Disease: No Hx Human Immunodeficiency Virus (HIV): No Hx Hepatitis C: No Hx Depression: Yes (5 months ago hospitalized [facility] x 9 days) Hx Suicide Attempt: Yes (2014 overdose ) Hx Bipolar Disorder: Yes (PTSD, seroquel) Hx Schizophrenia: No Other Medical History: lupus - Patient Surgical History Past Surgical History: Yes Hx Neurologic Surgery: No Hx Cataract Extraction: No Hx Cardiac Surgery: No Hx Lung Surgery: No Hx Breast Surgery: No Hx Breast Biopsy: No Hx Abdominal Surgery: No Hx Appendectomy: No Hx Cholecystectomy: No Hx Genitourinary Surgery: Yes (lithotripsy for renal calculi 1995) Hx Section: Yes (5, patient has 10 children) Hx Orthopedic Surgery: No Hx Hysterectomy: No Anesthesia Reaction: No - PPD History Previous Implant?: Yes Documented Results: Negative w/proof Implanted On Prior [facility] Admission?: Yes Date: 01/24/17 Results: 0 MM PPD to be Administered?: No - Reproductive History Patient is a Female of Child Bearing Age (11 -55 yrs old): Yes Last Menstrual Period: 11/22/16 - Smoking Cessation Smoking history: Current every day smoker Have you smoked in the past 12 months: Yes Aproximately how many cigarettes per day: 4 Cigars Per Day: 0 Hx Chewing Tobacco Use: No Initiated information on smoking cessation: Yes 'Breaking Loose' booklet given: 05/26/17 (give on floor) - Substance & Tx. History Hx Alcohol Use: Yes Hx Substance Use: Yes Substance Use Type: Alcohol, Cocaine Hx Substance Use Treatment: Yes (detox, rehab) - Substances Abused Alcohol Route: Oral Frequency: Daily Amount used: 1/2 rum , 1 case 12 oz beer Age of first use: 33 Date of Last Use: 05/25/17 cocaine Route: Inhalation Frequency: Daily Amount used: $100 Age of first use: 33 Date of Last Use: 05/25/17 Family Disease History - Family Disease History Family Disease History: CA: Mother (, lupus, bladder cancer, ), Sister ( two alive, one sister with breast cancer), Other: Father (, IDU, AIDS), Brother (two alive, no problems), Sister, Son (five - no medical problems), Daughter (five - no problems) Admission Physical Exam BHS - Vital Signs Vital Signs: Vital Signs - 24 hr 05/26/17 11:46 Temperature 96.4 F L Pulse Rate 97 H Respiratory 16 Rate Blood Pressure 123/82 - Physical General Appearance: Yes: Nourished, Appropriately Dressed, Moderate Distress, Thin, Anxious HEENTM: Yes: EOMI, Hearing grossly Normal, Normocephalic, Normal Voice, Pharynx Normal Respiratory: Yes: Normal Breath Sounds, No Respiratory Distress Neck: Yes: No masses,lesions,Nodules, Supple Breast: Yes: Breast Exam Deferred Cardiology: Yes: Regular Rhythm, Regular Rate Abdominal: Yes: Non Tender, Flat, Soft Genitourinary: Yes: Frequency Back: Yes: Normal Inspection Musculoskeletal: Yes: full range of Motion, Gait Steady, Back pain, Muscle Pain Extremities: Yes: Normal Inspection, Non-Tender, Tremors Neurological: Yes: Fully Oriented, Alert, Normal Mood/Affect, Normal Response Integumentary: Yes: Normal Color, Warm Lymphatic: Yes: Within Normal Limits - Diagnostic (1) Alcohol dependence with uncomplicated withdrawal Current Visit: Yes Status: Chronic (2) Cocaine dependence Current Visit: Yes Status: Chronic (3) Vaginal jacqueline Current Visit: Yes Status: Acute (4) Aortic valve regurgitation Current Visit: Yes Status: Chronic Qualifiers: Cardiac valve disease etiology: etiology unspecified Qualified Code(s): I35.1 - Nonrheumatic aortic (valve) insufficiency (5) Asthma Current Visit: Yes Status: Chronic Qualifiers: Asthma severity: moderate Asthma persistence: persistent Asthma complication type: with status asthmaticus Qualified Code(s): J45.42 - Moderate persistent asthma with status asthmaticus (6) COPD (chronic obstructive pulmonary disease) Current Visit: Yes Status: Chronic Qualifiers: COPD type: emphysema Emphysema type: unilateral Qualified Code(s): J43.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] (7) Lupus (systemic lupus erythematosus) Current Visit: Yes Status: Chronic Qualifiers: Systemic lupus erythematosus type: other Systemic lupus erythematosus organ involvement: other Qualified Code(s): M32.19 - Other organ or system involvement in systemic lupus erythematosus (8) Nicotine dependence Current Visit: Yes Status: Chronic Qualifiers: Nicotine product type: cigarettes Substance use status: uncomplicated Qualified Code(s): F17.210 - Nicotine dependence, cigarettes, uncomplicated Cleared for Admission [facility] - Detox or Rehab [facility] Level of Care: Medically Managed Detox Regimen/Protocol: Librium [facility] Breath Alcohol Content Breath Alcohol Content: 0 Urine Pregancy Test - Result Urine Test Results: Negative- NO Line Present Urine Drug Screen - Results Drug Screen Negative: No Urine Drug Screen Results: KAYLI-Cocaine, TCA-Tricyclic Antidepress
[2017-05-26] MEDS ORDERED: MAGNESIUM HYDROX 2400MG/30ML ORAL SUSPENSION 30 ML CUP PO PRN (12:46)
[2017-05-26] MEDS ORDERED: MAGNESIUM CITRATE 300 ML BOTTLE PO PRN (12:46)
[2017-05-26] MEDS ORDERED: LOPERAMIDE HCL 2 MG CAPSULE PO PRN (12:46)
[2017-05-26] MEDS ORDERED: MAG HYDROX/AL HYDROX/SIMETH 30 ML UNIT-DOSE CUP PO PRN (12:46)
[2017-05-26] MEDS ORDERED: guaiFENesin/D-METHORPHAN HB 10 ML UNIT-DOSE CUPS PO PRN (12:46)
[2017-05-26] MEDS ORDERED: MENTHOL/PHENOL 1 EACH UD MM PRN (12:46)
[2017-05-26] MEDS ORDERED: ACETAMINOPHEN 325 MG TABLET (FP) PO PRN (12:46)
[2017-05-26] MEDS ORDERED: chlordiazePOXIDE HCL 25 MG CAPSULE PO PRN (12:46)
[2017-05-26] MEDS ORDERED: P-EPHED 60MG/TRIPROLIDI 2.5MG TABLET PO PRN (12:46)
[2017-05-26] MEDS ORDERED: ALBUTEROL SO4 18 GM HFA INHALER IH PRN ×2 (12:47→22:02)
[2017-05-26] MEDS ORDERED: FLUCONAZOLE 50 MG TABLET PO ONE (13:15)
[2017-05-26] MEDS: predniSONE 20 MG TABLET (UD) PO SCH (13:46)
[2017-05-26] MEDS: CYPROHEPTADINE HCL 4 MG TABLET PO SCH ×2 (13:46→22:39)
[2017-05-26] MEDS: PANTOPRAZOLE 40 MG TABLET (FP) PO SCH (13:46)
[2017-05-26 18:24] LABS: URINE APPEARANCE TURBID; URINE BILIRUBIN NEGATIVE (NEGATIVE); URINE BLOOD 1+ (NEGATIVE); URINE COLOR YELLOW; URINE GLUCOSE (UA) NEGATIVE (NEGATIVE); URINE KETONE 1+ (NEGATIVE); URINE NITRITE NEGATIVE (NEGATIVE); URINE PROTEIN NEGATIVE (NEGATIVE)
[2017-05-26 18:33] LABS: URINE LEUK ESTERASE 1+ (NEGATIVE)
[2017-05-26 18:36] LABS: EPI CELLS FEW /HPF (FEW); URINE BACTERIA FEW /hpf (NONE SEEN); URINE MUCUS MANY
[2017-05-26 18:38] LABS: AMORP URATES MANY /hpf (NONE SEEN)
[2017-05-26] MEDS: chlordiazePOXIDE HCL 25 MG CAPSULE PO SCH ×2 (20:03→22:39)
[2017-05-26] MEDS: THIAMINE HCL 100 MG TABLET (FP) PO SCH (22:38)
[2017-05-27] MEDS: chlordiazePOXIDE HCL 25 MG CAPSULE PO SCH ×4 (06:41→22:19)
[2017-05-27] MEDS: CYPROHEPTADINE HCL 4 MG TABLET PO SCH ×3 (06:42→22:17)
--- NOTE | 2017-05-27 08:39 | EKG ---
Test Reason : Blood Pressure : / mmHG Vent. Rate : 085 BPM Atrial Rate : 085 BPM P-R Int : 138 ms QRS Dur : 078 ms QT Int : 414 ms P-R-T Axes : 076 073 073 degrees QTc Int : 492 ms NORMAL SINUS RHYTHM POSSIBLE LEFT ATRIAL ENLARGEMENT LEFT VENTRICULAR HYPERTROPHY PROLONGED QT ABNORMAL ECG WHEN COMPARED WITH ECG OF 22-APR-2017 13:16, NO SIGNIFICANT CHANGE WAS FOUND Confirmed by WINSOME MCCRACKEN, RADHA ([id number]) on 05/27/2017 8:39:07 AM Referred By: Confirmed By:RADHA SCHUMACHER MD
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
[2017-05-27 10:14] LABS: HEMATOCRIT 35.3 % (32.4-45.2); HEMOGLOBIN 11.5 GM/dL (10.7-15.3); MCH 29.2 pg (25.7-33.7); MCHC 32.5 g/dl (32.0-36.0); MEAN PLT VOLUME 9.8 fl (7.5-11.1); PLATELET COUNT 330 K/MM3 (134-434); RBC 3.93 M/mm3 (3.60-5.2); RDW 15.2 % (11.6-15.6); WHITE BLOOD COUNT 10.8 K/mm3 (4.0-10.0)
[2017-05-27] MEDS: PRENATAL VITAMINS W/ FOLIC ACID TABLET (FP) PO SCH (10:52)
[2017-05-27] MEDS: ASPIRIN COATED 81 MG TABLET.EC PO SCH (10:53)
[2017-05-27] MEDS: predniSONE 20 MG TABLET (UD) PO SCH (10:53)
[2017-05-27] MEDS: NICOTINE POLACRILEX 4 MG GUM BUC PRN (10:53)
[2017-05-27] MEDS: PANTOPRAZOLE 40 MG TABLET (FP) PO SCH (10:53)
[2017-05-27 11:34] LABS: CHLORIDE 111 mmol/L (98-107); POTASSIUM 3.5 mmol/L (3.5-5.1); SODIUM 141 mmol/L (136-145)
[2017-05-27 11:41] LABS: ALBUMIN 3.4 g/dl (3.4-5.0); ALK PHOS 76 U/L (45-117); ANION GAP 6 (8-16); BILIRUBIN,TOTAL 0.2 mg/dL (0.2-1.0); BLOOD UREA NITROGEN 11 mg/dL (7-18); CALCIUM 8.5 mg/dL (8.5-10.1); CO2 24 mmol/L (21-32); CREATININE 0.7 mg/dL (0.55-1.02); GLUCOSE,RANDOM 85 mg/dL (74-106); SGOT/AST 13 U/L (15-37); SGPT/ALT 25 U/L (12-78)
--- NOTE | 2017-05-27 11:50 | PN ---
[facility] CIWA - CIWA Score Nausea/Vomitin-Mild Nausea/No Vomiting Muscle Tremors: 4-Moderate,w/Arms Extend Anxiety: 4-Mod. Anxious/Guarded Agitation: 4-Moderately Restless Paroxysmal Sweats: 1-Minimal Palms Moist Orientation: 0-Oriented Tacttile Disturbances: 0-None Auditory Disturbances: 0-None Visual Disturbances: 0-None Headache: 0-None Present CIWA-Ar Total Score: 14 BHS Progress Note (SOAP) Subjective: sweat irritable agitation tremor anxiety Objective: 05/27/17 11:49 Vital Signs Temperature 98.2 F 05/27/17 10:01 Pulse Rate 82 05/27/17 10:01 Respiratory Rate 16 05/27/17 10:01 Blood Pressure 116/76 05/27/17 10:01 O2 Sat by Pulse Oximetry (%) Laboratory Last Values WBC 10.8 K/mm3 (4.0-10.0) H D 05/27/17 08:00 RBC 3.93 M/mm3 (3.60-5.2) 05/27/17 08:00 Hgb 11.5 GM/dL (10.7-15.3) D 05/27/17 08:00 Hct 35.3 % (32.4-45.2) 05/27/17 08:00 MCV 90.0 fl (80-96) 05/27/17 08:00 MCH 29.2 pg (25.7-33.7) 05/27/17 08:00 MCHC 32.5 g/dl (32.0-36.0) 05/27/17 08:00 RDW 15.2 % (11.6-15.6) 05/27/17 08:00 Plt Count 330 K/MM3 (134-434) 05/27/17 08:00 MPV 9.8 fl (7.5-11.1) 05/27/17 08:00 Sodium 141 mmol/L (136-145) 05/27/17 08:00 Potassium 3.5 mmol/L (3.5-5.1) 05/27/17 08:00 Chloride 111 mmol/L (98-107) H 05/27/17 08:00 Carbon Dioxide 24 mmol/L (21-32) 05/27/17 08:00 Anion Gap 6 (8-16) L 05/27/17 08:00 BUN 11 mg/dL (7-18) 05/27/17 08:00 Creatinine 0.7 mg/dL (0.55-1.02) 05/27/17 08:00 Creat Clearance w eGFR > 60 (>60) 05/27/17 08:00 Random Glucose 85 mg/dL (74-106) 05/27/17 08:00 Calcium 8.5 mg/dL (8.5-10.1) 05/27/17 08:00 Total Bilirubin 0.2 mg/dL (0.2-1.0) D 05/27/17 08:00 AST 13 U/L (15-37) L 05/27/17 08:00 ALT 25 U/L (12-78) 05/27/17 08:00 Alkaline Phosphatase 76 U/L (45-117) 05/27/17 08:00 Total Protein 7.0 g/dl (6.4-8.2) 05/27/17 08:00 Albumin 3.4 g/dl (3.4-5.0) 05/27/17 08:00 Urine Color Yellow 05/26/17 13:45 Urine Appearance Turbid 05/26/17 13:45 Urine pH 5.0 (5.0-8.0) 05/26/17 13:45 Ur Specific [place] 1.021 (1.001-1.035) 05/26/17 13:45 Urine Protein Negative (NEGATIVE) 05/26/17 13:45 Urine Glucose (UA) Negative (NEGATIVE) 05/26/17 13:45 Urine Ketones 1+ (NEGATIVE) H 05/26/17 13:45 Urine Blood 1+ (NEGATIVE) H 05/26/17 13:45 Urine Nitrite Negative (NEGATIVE) 05/26/17 13:45 Urine Bilirubin Negative (NEGATIVE) 05/26/17 13:45 Urine Urobilinogen 2.0 mg/dL (0.2-1.0) H 05/26/17 13:45 Ur Leukocyte Esterase 1+ (NEGATIVE) H 05/26/17 13:45 Urine WBC (Auto) 3 /hpf (3-5) 05/26/17 13:45 Urine RBC (Auto) 3 /hpf (0-3) 05/26/17 13:45 Ur Epithelial Cells Few /HPF (FEW) 05/26/17 13:45 Amorphous Urates Many /hpf (NONE SEEN) 05/26/17 13:45 Urine Bacteria Few /hpf (NONE SEEN) 05/26/17 13:45 Urine Mucus Many 05/26/17 13:45 HIV 1&2 Antibody Screen Negative 05/27/17 08:00 HIV P24 Antigen Negative 05/27/17 08:00 lab noted Assessment: 05/27/17 11:49 withdrawal sx Plan: continue detox
[2017-05-27 13:35] LABS: RPR REACTIVE 1:2 (NONREACTIVE)
[2017-05-27 13:37] LABS: TREPONEMA ANTIBODY PREVIOUSLY REACTIVE (NONREACTIVE)
[2017-05-27] MEDS ORDERED: ZOLPIDEM TARTRATE 5 MG TABLET PO PRN (22:00)
[2017-05-27] MEDS: THIAMINE HCL 100 MG TABLET (FP) PO SCH (22:17)
[2017-05-27] MEDS: traZODone HCL 50 MG TABLET (FP) PO SCH (22:19)
[2017-05-27] MEDS: OLANZapine 10 MG TABLET PO SCH (22:19)
[2017-05-28] MEDS: CYPROHEPTADINE HCL 4 MG TABLET PO SCH ×3 (06:36→22:14)
[2017-05-28] MEDS: chlordiazePOXIDE HCL 25 MG CAPSULE PO SCH ×2 (06:36→10:25)
[2017-05-28] MEDS: ASPIRIN COATED 81 MG TABLET.EC PO SCH (10:25)
[2017-05-28] MEDS: predniSONE 20 MG TABLET (UD) PO SCH (10:25)
[2017-05-28] MEDS: PANTOPRAZOLE 40 MG TABLET (FP) PO SCH (10:25)
[2017-05-28] MEDS: PRENATAL VITAMINS W/ FOLIC ACID TABLET (FP) PO SCH (10:25)
[2017-05-28] MEDS: NICOTINE POLACRILEX 4 MG GUM BUC PRN (10:25)
--- NOTE | 2017-05-28 10:35 | PN ---
S CIWA - CIWA Score Nausea/Vomitin Muscle Tremors: 3 Anxiety: 3 Agitation: 2 Paroxysmal Sweats: 1-Minimal Palms Moist Orientation: 0-Oriented Tacttile Disturbances: 1-Very Mild Itch/Numbness Auditory Disturbances: 1-Very Mild Visual Disturbances: 0-None Headache: 2-Mild CIWA-Ar Total Score: 16 BHS Progress Note (SOAP) Subjective: ALERT,IRRITABLE,ANXIOUS,INTERRUPTED SLEEP,TREMOR Objective: 05/28/17 10:34 Vital Signs Temperature 97.9 F 05/28/17 06:15 Pulse Rate 70 05/28/17 06:15 Respiratory Rate 18 05/28/17 06:15 Blood Pressure 123/64 05/28/17 06:15 O2 Sat by Pulse Oximetry (%) Laboratory Last Values WBC 10.8 K/mm3 (4.0-10.0) H D 05/27/17 08:00 RBC 3.93 M/mm3 (3.60-5.2) 05/27/17 08:00 Hgb 11.5 GM/dL (10.7-15.3) D 05/27/17 08:00 Hct 35.3 % (32.4-45.2) 05/27/17 08:00 MCV 90.0 fl (80-96) 05/27/17 08:00 MCH 29.2 pg (25.7-33.7) 05/27/17 08:00 MCHC 32.5 g/dl (32.0-36.0) 05/27/17 08:00 RDW 15.2 % (11.6-15.6) 05/27/17 08:00 Plt Count 330 K/MM3 (134-434) 05/27/17 08:00 MPV 9.8 fl (7.5-11.1) 05/27/17 08:00 Sodium 141 mmol/L (136-145) 05/27/17 08:00 Potassium 3.5 mmol/L (3.5-5.1) 05/27/17 08:00 Chloride 111 mmol/L (98-107) H 05/27/17 08:00 Carbon Dioxide 24 mmol/L (21-32) 05/27/17 08:00 Anion Gap 6 (8-16) L 05/27/17 08:00 BUN 11 mg/dL (7-18) 05/27/17 08:00 Creatinine 0.7 mg/dL (0.55-1.02) 05/27/17 08:00 Creat Clearance w eGFR > 60 (>60) 05/27/17 08:00 Random Glucose 85 mg/dL (74-106) 05/27/17 08:00 Calcium 8.5 mg/dL (8.5-10.1) 05/27/17 08:00 Total Bilirubin 0.2 mg/dL (0.2-1.0) D 05/27/17 08:00 AST 13 U/L (15-37) L 05/27/17 08:00 ALT 25 U/L (12-78) 05/27/17 08:00 Alkaline Phosphatase 76 U/L (45-117) 05/27/17 08:00 Total Protein 7.0 g/dl (6.4-8.2) 05/27/17 08:00 Albumin 3.4 g/dl (3.4-5.0) 05/27/17 08:00 Urine Color Yellow 05/26/17 13:45 Urine Appearance Turbid 05/26/17 13:45 Urine pH 5.0 (5.0-8.0) 05/26/17 13:45 Ur Specific [place] 1.021 (1.001-1.035) 05/26/17 13:45 Urine Protein Negative (NEGATIVE) 05/26/17 13:45 Urine Glucose (UA) Negative (NEGATIVE) 05/26/17 13:45 Urine Ketones 1+ (NEGATIVE) H 05/26/17 13:45 Urine Blood 1+ (NEGATIVE) H 05/26/17 13:45 Urine Nitrite Negative (NEGATIVE) 05/26/17 13:45 Urine Bilirubin Negative (NEGATIVE) 05/26/17 13:45 Urine Urobilinogen 2.0 mg/dL (0.2-1.0) H 05/26/17 13:45 Ur Leukocyte Esterase 1+ (NEGATIVE) H 05/26/17 13:45 Urine WBC (Auto) 3 /hpf (3-5) 05/26/17 13:45 Urine RBC (Auto) 3 /hpf (0-3) 05/26/17 13:45 Ur Epithelial Cells Few /HPF (FEW) 05/26/17 13:45 Amorphous Urates Many /hpf (NONE SEEN) 05/26/17 13:45 Urine Bacteria Few /hpf (NONE SEEN) 05/26/17 13:45 Urine Mucus Many 05/26/17 13:45 RPR Titer Reactive 1:2 (NONREACTIVE) H 05/27/17 08:00 T.pallidum Ab (MHA) Previously reactive (NONREACTIVE) 05/27/17 08:00 HIV 1&2 Antibody Screen Negative 05/27/17 08:00 HIV P24 Antigen Negative 05/27/17 08:00 05/28/17 10:34 PREVIOUSLY TRETED FOR SYPHILIS BEFORE Assessment: 05/28/17 10:35 WITHDRAWAL SYMPTOM Plan: CONTINUE DETOX
[2017-05-28] MEDS: chlordiazePOXIDE 5 MG CAPSULE PO SCH ×2 (18:41→22:27)
[2017-05-28] MEDS: THIAMINE HCL 100 MG TABLET (FP) PO SCH (22:13)
[2017-05-28] MEDS: OLANZapine 10 MG TABLET PO SCH (22:14)
[2017-05-28] MEDS: traZODone HCL 50 MG TABLET (FP) PO SCH (22:26)
[2017-05-29] MEDS: CYPROHEPTADINE HCL 4 MG TABLET PO SCH ×3 (05:32→22:46)
[2017-05-29] MEDS: chlordiazePOXIDE 5 MG CAPSULE PO SCH ×2 (05:33→10:29)
--- NOTE | 2017-05-29 09:32 | PN ---
S Progress Note (SOAP) Subjective: ALERT,IRRITABLE,INTERRUPTED SLEEP Objective: 05/29/17 09:31 Vital Signs Temperature 97.9 F 05/29/17 06:15 Pulse Rate 76 05/29/17 06:15 Respiratory Rate 16 05/29/17 06:15 Blood Pressure 106/69 05/29/17 06:15 O2 Sat by Pulse Oximetry (%) Assessment: 05/29/17 09:31 WITHDRAWAL SYMPTOM Plan: CONTINUE DETOX,DISCHARGE IN AM
[2017-05-29] MEDS: ASPIRIN COATED 81 MG TABLET.EC PO SCH (10:26)
[2017-05-29] MEDS: PRENATAL VITAMINS W/ FOLIC ACID TABLET (FP) PO SCH (10:26)
[2017-05-29] MEDS: PANTOPRAZOLE 40 MG TABLET (FP) PO SCH (10:27)
[2017-05-29] MEDS: predniSONE 20 MG TABLET (UD) PO SCH (10:27)
[2017-05-29] MEDS: chlordiazePOXIDE HCL 10 MG CAPSULE PO SCH ×2 (18:03→22:45)
[2017-05-29] MEDS: traZODone HCL 50 MG TABLET (FP) PO SCH (22:45)
[2017-05-29] MEDS: OLANZapine 10 MG TABLET PO SCH (22:46)
[2017-05-29] MEDS: THIAMINE HCL 100 MG TABLET (FP) PO SCH (22:46)
[2017-05-30] MEDS: chlordiazePOXIDE HCL 10 MG CAPSULE PO SCH ×2 (06:42→11:39)
[2017-05-30] MEDS: CYPROHEPTADINE HCL 4 MG TABLET PO SCH (06:42)
--- NOTE | 2017-05-30 08:20 | DS ---
[facility] Detox Discharge Summary Admission Date: 05/26/17 - History Present History: Alcohol Dependence, Cocaine Dependence Additional Comments: FOLLOW UP WITH AFTER CARE PROGRAM ARRANGEMENT Pertinent Past History: ASTHMA AORTIC VALVE REGURGITATION COPD SLE NICOTINE DEPENDENCE VAGINITIS - Physical Exam Results Vital Signs: Vital Signs Temperature 93.5 F L 05/30/17 06:58 Pulse Rate 68 05/30/17 06:58 Respiratory Rate 18 05/30/17 06:58 Blood Pressure 115/77 05/30/17 06:58 O2 Sat by Pulse Oximetry (%) Pertinent Admission Physical Exam Findings: WITHDRAWAL SYMPTOM AND FINDING - Treatment Hospital Course: Detox Protocol Followed, Detoxed Safely, Responded well, Discharged Condition Good, Rehab Referral Accepted Patient has Accepted a Rehab Referral to: [facility] - Medication Discharge Medications: Ambulatory Orders Cyproheptadine [Periactin -] 4 mg PO TID #90 tablet 02/03/16 predniSONE [Deltasone -] 60 mg PO DAILY 07/06/16 Albuterol Sulfate Inhaler - [Ventolin HFA Inhaler -] 2 inh PO Q4H PRN #1 inhaler 07/10/16 Zolpidem Tartrate [Ambien] 10 mg PO HS PRN #14 tablet MDD 10 09/18/16 Aspirin Coated [Ecotrin -] 81 mg PO DAILY #30 mg 10/03/16 Olanzapine [ZyPREXA -] 10 mg PO HS #30 tablet 04/23/17 traZODone HCL [Desyrel -] 50 mg PO HS #30 tablet 04/23/17 Pantoprazole Sodium [Protonix -] 40 mg PO DAILY tablet.ec 04/26/17 Olanzapine [ZyPREXA -] 10 mg PO HS #30 tablet 05/27/17 traZODone HCL [Desyrel -] 50 mg PO HS #30 tablet 05/27/17 - Diagnosis (1) Alcohol dependence with uncomplicated withdrawal Current Visit: Yes Status: Acute (2) Cocaine dependence Current Visit: Yes Status: Acute (3) Asthma Current Visit: Yes Status: Chronic Qualifiers: Asthma severity: moderate Asthma persistence: persistent Asthma complication type: with status asthmaticus Qualified Code(s): J45.42 - Moderate persistent asthma with status asthmaticus (4) COPD (chronic obstructive pulmonary disease) Current Visit: Yes Status: Chronic Qualifiers: COPD type: emphysema Emphysema type: unilateral Qualified Code(s): J43.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] (5) Insomnia Current Visit: Yes Status: Chronic (6) Lupus (systemic lupus erythematosus) Current Visit: Yes Status: Chronic Qualifiers: Systemic lupus erythematosus type: other Systemic lupus erythematosus organ involvement: other Qualified Code(s): M32.19 - Other organ or system involvement in systemic lupus erythematosus (7) Nicotine dependence Current Visit: Yes Status: Chronic Qualifiers: Nicotine product type: cigarettes Substance use status: uncomplicated Qualified Code(s): F17.210 - Nicotine dependence, cigarettes, uncomplicated (8) Vaginitis Current Visit: No Status: Acute (9) Substance induced mood disorder Current Visit: Yes Status: Acute (10) Substance-induced sleep disorder Current Visit: Yes Status: Acute (11) Post traumatic stress disorder (PTSD) Current Visit: No Status: Acute (12) History of syphilis Current Visit: No Status: Chronic (13) Schizoaffective disorder, bipolar type Current Visit: No Status: Chronic - AMA Did Patient Leave Against Medical Advice: No
[2017-05-30 10:21] VITALS: BP 114/75; PULSE 95; TEMP 97.1
[2017-05-30] MEDS: ASPIRIN COATED 81 MG TABLET.EC PO SCH (10:49)
[2017-05-30] MEDS: PANTOPRAZOLE 40 MG TABLET (FP) PO SCH (10:49)
[2017-05-30] MEDS: predniSONE 20 MG TABLET (UD) PO SCH (10:49)
[2017-05-30] MEDS: PRENATAL VITAMINS W/ FOLIC ACID TABLET (FP) PO SCH (10:49)
== END 2017-05-30 12:15 | disposition home or self-care (01) | DRG 774 ==
LOC: YASAS 11:10 → Y6N 12:45
PROVIDERS: ADMIT Internal Medicine; ATTEND Internal Medicine
PROC: HZ2ZZZZ Detoxification Services for Substance Abuse Treatment (ICD-10-PCS; principal; 2017-05-26)
DX: F14.20 Cocaine dependence, uncomplicated (principal); F17.210 Nicotine dependence, cigarettes, uncomplicated; F19.24 Other psychoactive substance dependence with psychoactive substance-induced mood disorder; F19.282 Other psychoactive substance dependence with psychoactive substance-induced sleep disorder; F25.0 Schizoaffective disorder, bipolar type; F43.10 Post-traumatic stress disorder, unspecified; M32.19 Other organ or system involvement in systemic lupus erythematosus; J43.0 Unilateral pulmonary 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]; N76.0 Acute vaginitis; B37.3 Candidiasis of vulva and vagina; I35.1 Nonrheumatic aortic (valve) insufficiency; Z86.19 Personal history of other infectious and parasitic diseases
CPT/HCPCS: 36415; 80053; 81003; 81015; 85027; 86593; 86780; 87389; 93005; 93010

== ENCOUNTER 2017-07-30 12:20 | Inpatient (IN) | payer BC ==
[2017-07-30 13:45] VITALS: BMI 24.6
--- NOTE | 2017-07-30 14:04 | HP ---
CIWA Score - CIWA Score Nausea/Vomitin Muscle Tremors: 3 Anxiety: 3 Agitation: 3 Paroxysmal Sweats: 1-Minimal Palms Moist Orientation: 0-Oriented Tacttile Disturbances: 2-Mild Itch/Numbness/Burn Auditory Disturbances: 2-Mild Harshness/Frighten Visual Disturbances: 1-Very Mild Sensitivity Headache: 2-Mild CIWA-Ar Total Score: 20 Admission ROS BHS - HPI Chief Complaint: i need help to stop drinking alcohol and cocaine Allergies/Adverse Reactions: Allergies Allergy/AdvReac Type Severity Reaction Status Date / Time carrot Allergy Severe Itching Verified 07/30/17 14:01 Penicillins Allergy Severe Swelling Verified 07/30/17 14:01 Latex, Natural Rubber Allergy Intermediate Rash Verified 07/30/17 14:01 morphine AdvReac Intermediate HALLUCINATI Verified 07/30/17 14:01 ON History of Present Illness: this 52 years old female with alcohol and cocaine dependence,seking detox, withdrawal symptom,last detox 05/26/17 to 05/30/17 syncope alcohol related sle,protein s deficiency,copd,asthma,mitral valve prolapse,dvt right stop coumadin 1 week ago uti on amoxicillin 500 mgs po tid longest period of sobriety 3 years nicotin dependence - Ebola screening Have you traveled outside of the country in the last 21 days: No Have you had contact with anyone from an Ebola affected area: No Have you been sick,other than usual withdrawal symptoms: No Do you have a fever: No - Review of Systems Constitutional: Loss of Appetite, Malaise, Night Sweats, Changes in sleep, Weakness, Unintentional Wgt. Loss EENT: reports: Nose Congestion Respiratory: reports: No Symptoms reported Cardiac: reports: No Symptoms Reported GI: reports: Nausea, Vomiting, Abdominal cramping : reports: No Symptoms Reported Musculoskeletal: reports: Back Pain, Muscle Pain Integumentary: reports: Dryness Neuro: reports: Headache, Tremors Endocrine: reports: No Symptoms Reported Hematology: reports: No Symptoms Reported, Other (sle) Psychiatric: reports: No Sypmtoms Reported, Judgement Intact, Mood/Affect Appropiate, Depressed, other (schizoaffective disorder) Patient History - Patient Medical History Hx Anemia: Yes (history - none now) Hx Asthma: Yes (on albuteril inhaler) Hx Chronic Obstructive Pulmonary Disease (COPD): Yes (on albuterol inhaler) Hx Cancer: No Hx Cardiac Disorders: Yes (Aortic and mitral valve regurgitation..) Hx Congestive Heart Failure: No Hx Hypertension: No Hx Hypercholesterolemia: No Hx Pacemaker: No HX Cerebrovascular Accident: No Hx Seizures: No Hx Dementia: No Hx Diabetes: No Hx Gastrointestinal Disorders: No Hx Liver Disease: No Hx Genitourinary Disorders: No Hx Sexually Transmitted Disorders: Yes (treated with PCN,syphilis) Hx Renal Disease (ESRD): No Hx Thyroid Disease: No Hx Human Immunodeficiency Virus (HIV): No Hx Hepatitis C: No Hx Depression: Yes (5 months ago hospitalized [place] x 9 days) Hx Suicide Attempt: Yes (2013 overdose ) Hx Bipolar Disorder: Yes (PTSD, seroquel) Hx Schizophrenia: No Other Medical History: no suicidal,no homicidal - Patient Surgical History Past Surgical History: Yes Hx Neurologic Surgery: No Hx Cataract Extraction: No Hx Cardiac Surgery: No Hx Lung Surgery: No Hx Breast Surgery: No Hx Breast Biopsy: No Hx Abdominal Surgery: No Hx Appendectomy: No Hx Cholecystectomy: No Hx Genitourinary Surgery: Yes (lithotripsy for renal calculi 1995) Hx Section: Yes (5, patient has 10 children) Hx Orthopedic Surgery: No Hx Hysterectomy: No Other Surgical History: Kidney stones removal 1995 BY LITHOTRIPSY Anesthesia Reaction: No - PPD History Previous Implant?: Yes Documented Results: Negative w/proof Date: 01/24/17 Results: 0 MM PPD to be Administered?: No - Reproductive History Patient is a Female of Child Bearing Age (11 -55 yrs old): Yes Last Menstrual Period: 06/26/17 Patient : No - Smoking Cessation Smoking history: Current every day smoker Have you smoked in the past 12 months: Yes Aproximately how many cigarettes per day: 4 Cigars Per Day: 0 Hx Chewing Tobacco Use: No Initiated information on smoking cessation: Yes 'Breaking Loose' booklet given: 07/30/17 - Substance & Tx. History Hx Alcohol Use: Yes Hx Substance Use: No Substance Use Type: Alcohol, Cocaine Hx Substance Use Treatment: Yes (last [facility] 05/26/17 to 05/30/17) - Substances Abused Alcohol Route: Oral Frequency: Daily Amount used: 1 PINT RUM/5 BEERS Age of first use: 33 Date of Last Use: 07/28/17 Cocaine Route: Inhalation Frequency: Daily Amount used: $100 Age of first use: 33 Date of Last Use: 07/28/17 Family Disease History - Family Disease History Family Disease History: [place]: Mother (, lupus, bladder cancer, ), Sister ( two alive, one sister with breast cancer), Other: Father (, IDU, AIDS), Brother (two alive, no problems), Sister, Son (five - no medical problems), Daughter (five - no problems) Admission Physical Exam [facility] - Vital Signs Vital Signs: Vital Signs - 24 hr 07/30/17 13:35 Temperature 96.2 F L Pulse Rate 98 H Respiratory 18 Rate Blood Pressure 105/71 - Physical General Appearance: Yes: Moderate Distress, Tremorous, Irritable, Sweating, Anxious HEENTM: Yes: Normal ENT Inspection, JEFF, Pharynx Normal Respiratory: Yes: Lungs Clear, Normal Breath Sounds, No Respiratory Distress Neck: Yes: Within Normal Limits, Supple, Trachea in good position Breast: Yes: Breast Exam Deferred Cardiology: Yes: Within Normal Limits, Regular Rhythm, Regular Rate, S1, S2 Abdominal: Yes: Within Normal Limits, Normal Bowel Sounds, Non Tender, Soft Genitourinary: Yes: Within Normal Limits Back: Yes: Normal Inspection, Muscle Spasm Musculoskeletal: Yes: full range of Motion, Back pain, Muscle Pain Extremities: Yes: Tremors Neurological: Yes: fermentologist II-XII NML intact, Fully Oriented, Alert, Motor Strength 5/5 Integumentary: Yes: Dry Lymphatic: Yes: Within Normal Limits - Diagnostic (1) Alcohol dependence with uncomplicated withdrawal Current Visit: No Status: Acute (2) Cocaine dependence Current Visit: No Status: Acute (3) Schizoaffective disorder, depressive type Current Visit: No Status: Acute Comment: Long standing history. (4) UTI (urinary tract infection) Current Visit: Yes Status: Acute (5) Weight loss Current Visit: Yes Status: Acute (6) Anemia Current Visit: No Status: Chronic (7) Asthma Current Visit: No Status: Chronic Qualifiers: Asthma severity: moderate Asthma persistence: persistent Asthma complication type: with status asthmaticus Qualified Code(s): J45.42 - Moderate persistent asthma with status asthmaticus (8) COPD (chronic obstructive pulmonary disease) Current Visit: No Status: Chronic Qualifiers: COPD type: emphysema Emphysema type: unilateral Qualified Code(s): J43.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] (9) History of syphilis Current Visit: No Status: Chronic Comment: treated in past with oral antibiotics (PCN allergic) (10) Lupus (systemic lupus erythematosus) Current Visit: No Status: Chronic Qualifiers: Systemic lupus erythematosus type: other Systemic lupus erythematosus organ involvement: other Qualified Code(s): M32.19 - Other organ or system involvement in systemic lupus erythematosus (11) Nicotine dependence Current Visit: No Status: Chronic Qualifiers: Nicotine product type: cigarettes Substance use status: uncomplicated Qualified Code(s): F17.210 - Nicotine dependence, cigarettes, uncomplicated (12) DVT of axillary vein, acute right Current Visit: Yes Status: Acute (13) DVT (deep venous thrombosis) Current Visit: Yes Status: Acute Cleared for Admission [facility] - Detox or Rehab [facility] Level of Care: Medically Managed Detox Regimen/Protocol: Librium [facility] Breath Alcohol Content Breath Alcohol Content: 0.004 Urine Pregancy Test - Result Urine Test Results: Negative- NO Line Present Urine Drug Screen - Results Drug Screen Negative: No Urine Drug Screen Results: KAYLI-Cocaine
[2017-07-30] MEDS ORDERED: MAG HYDROX/AL HYDROX/SIMETH 30 ML UNIT-DOSE CUP PO PRN (14:30)
[2017-07-30] MEDS ORDERED: ACETAMINOPHEN 325 MG TABLET (FP) PO PRN (14:30)
[2017-07-30] MEDS ORDERED: MENTHOL/PHENOL 1 EACH UD MM PRN (14:30)
[2017-07-30] MEDS ORDERED: LOPERAMIDE HCL 2 MG CAPSULE PO PRN (14:30)
[2017-07-30] MEDS ORDERED: guaiFENesin/D-METHORPHAN HB 10 ML UNIT-DOSE CUPS PO PRN (14:30)
[2017-07-30] MEDS ORDERED: chlordiazePOXIDE HCL 25 MG CAPSULE PO PRN (14:30)
[2017-07-30] MEDS ORDERED: hydrOXYzine PAMOATE 25 MG CAPSULE (FP) PO PRN (14:30)
[2017-07-30] MEDS ORDERED: MAGNESIUM CITRATE 300 ML BOTTLE PO PRN (14:30)
[2017-07-30] MEDS ORDERED: NICOTINE POLACRILEX 2 MG GUM BUC PRN (14:30)
[2017-07-30] MEDS ORDERED: MAGNESIUM HYDROX 2400MG/30ML ORAL SUSPENSION 30 ML CUP PO PRN (14:30)
[2017-07-30] MEDS ORDERED: P-EPHED 60MG/TRIPROLIDI 2.5MG TABLET PO PRN (14:30)
[2017-07-30] MEDS ORDERED: ALBUTEROL SO4 18 GM HFA INHALER IH PRN (14:36)
[2017-07-30] MEDS ORDERED: chlordiazePOXIDE HCL 25 MG CAPSULE PO ONE (14:55)
--- NOTE | 2017-07-30 15:14 | CONSULT ---
[facility] Psychiatric Consult - Data Date of interview: 07/30/17 Admission source: [facility] Identifying data: This is 52 years old AA female,single mother of five, homeless , unemployed, on SSI, with history of Schizoaffective disorder, PTSD, history of psychiatric hospitalizations, with [facility] medical problems, is here due to alcohol and cocaine dependence,seking detoxfication, reports withdrawal symptoms. Substance Abuse History: Smoking history: Current every day smoker. Have you smoked in the past 12 months: Yes. Aproximately how many cigarettes per day: 4. Cigars Per Day: 0. Hx Chewing Tobacco Use: No. Initiated information on smoking cessation: Yes. 'Breaking Loose' booklet given: 07/30/17. - Substance & Tx. History. Hx Alcohol Use: Yes. Hx Substance Use: No. Substance Use Type : Alcohol, Cocaine. Hx Substance Use Treatment: Yes (last [facility] 05/26/17 to ). - Substances Abused. Alcohol. Route: Oral. Frequency: Daily. Amount used: 1 PINT RUM/5 BEERS. Age of first use: 33. Date of Last Use: 07/28. Cocaine. Route: Inhalation. Frequency: Daily. Amount used: $100. Age of first use: 33. Date of Last Use: 07/28/17 Medical History: Patient reports history of SLE,protein s deficiency,COPD,Asthma ,Mitral valve prolapse,DVT right AXILAR ARERA, Anemia history, Weight loss history, , UTI history Psychiatric History: Patient reports history of Schizoaffective disorder with most recent psychiatric admission on 3 month ago at [facility], taking upon discharge: Zyprexa 10mg po qhs. Trazodone 50mg po qhs. Ambien 10mg po qhs. Patient reports history of suicidal ideations, selfmutilation acts, no scars, mild abrasions visible at this time on forearms, denies suicidal ideation and homicidal ideation at this time. Physical/Sexual Abuse/Trauma History: Denies, unclear Additional Comment: Zyprexa 10mg po qhs. Trazodone 50mg po qhs. Ambien 10mg po qhs Mental Status Exam - Mental Status Exam Alert and Oriented to: Place, Person Cognitive Function: Fair Patient Appearance: Unkempt Mood: Sad Affect: Constricted Patient Behavior: Guarded Speech Pattern: Delayed Voice Loudness: Mildly Soft/Quiet Thought Process: Circumstantial Thought Disorder: Being Controlled Hallucinations: Denies Suicidal Ideation: Denies Homicidal Ideation: Denies Insight/Judgement: Fair Sleep: Difficulty falling asleep Appetite: Weight loss Gait/Station: Normal Additional Comments: Zyprexa 10mg po qhs. Trazodone 50mg po qhs. Ambien 10mg po qhs Psychiatric Findings - Problem List ([place] 1, 2,3) (1) Alcohol dependence with uncomplicated withdrawal Current Visit: No Status: Acute (2) Cocaine dependence Current Visit: No Status: Acute (3) Post traumatic stress disorder (PTSD) Current Visit: No Status: Acute (4) Schizoaffective disorder, depressive type Current Visit: No Status: Acute Comment: Long standing history. (5) Substance induced mood disorder Current Visit: No Status: Acute (6) Substance-induced sleep disorder Current Visit: No Status: Acute (7) Alcohol dependence Current Visit: No Status: Chronic Qualifiers: (8) Nicotine dependence Current Visit: No Status: Chronic Qualifiers: Nicotine product type: cigarettes Substance use status: uncomplicated Qualified Code(s): F17.210 - Nicotine dependence, cigarettes, uncomplicated (9) PTSD (post-traumatic stress disorder) Current Visit: No Status: Chronic (10) Schizoaffective disorder Current Visit: No Status: Chronic (11) Schizoaffective disorder, bipolar type Current Visit: No Status: Chronic - Initial Treatment Plan Initial Treatment Plan: Zyprexa 10mg po qhs. Trazodone 50mg po qhs. Ambien 10mg po qhs
[2017-07-30] MEDS ORDERED: ZOLPIDEM TARTRATE 10 MG TABLET (PARK CARE ONLY) PO PRN (16:02)
[2017-07-30] MEDS: CYPROHEPTADINE HCL 4 MG TABLET PO SCH (17:00)
[2017-07-30] MEDS: chlordiazePOXIDE HCL 25 MG CAPSULE PO SCH ×2 (17:00→22:27)
[2017-07-30] MEDS ORDERED: MELATONIN 5 MG TABLETS PO PRN (22:00)
[2017-07-30] MEDS: OLANZapine 10 MG TABLET PO SCH (22:25)
[2017-07-30] MEDS: traZODone HCL 50 MG TABLET (FP) PO SCH (22:26)
[2017-07-30] MEDS: THIAMINE HCL 100 MG TABLET (FP) PO SCH (22:26)
[2017-07-31 00:32] LABS: URINE APPEARANCE CLOUDY; URINE BILIRUBIN NEGATIVE (<2.0 mg/dL); URINE BLOOD NEGATIVE (NEGATIVE); URINE COLOR YELLOW; URINE GLUCOSE (UA) NEGATIVE (NEGATIVE); URINE KETONE NEGATIVE (NEGATIVE); URINE LEUK ESTERASE TRACE (NEGATIVE); URINE NITRITE NEGATIVE (NEGATIVE); URINE PROTEIN NEGATIVE (NEGATIVE); URINE UROBILINOGEN NEGATIVE mg/dL (0.2-1.0)
[2017-07-31 00:59] LABS: CALCIUM OXALATE CRYSTALS RARE /hpf (NONE SEEN); EPI CELLS MANY /HPF (FEW); URINE BACTERIA RARE /hpf (NONE SEEN); URINE HYALINE CAST 4 /lpf; URINE MUCUS RARE
[2017-07-31] MEDS: chlordiazePOXIDE HCL 25 MG CAPSULE PO SCH ×4 (07:48→22:40)
[2017-07-31] MEDS: CYPROHEPTADINE HCL 4 MG TABLET PO SCH ×3 (08:51→17:46)
[2017-07-31 10:25] LABS: ALBUMIN 3.9 g/dl (3.4-5.0); ANION GAP 11 (8-16); BLOOD UREA NITROGEN 14 mg/dL (7-18); CALCIUM 9.4 mg/dL (8.5-10.1); CHLORIDE 107 mmol/L (98-107); CO2 26 mmol/L (21-32); GLUCOSE,RANDOM 126 mg/dL (74-106); POTASSIUM 3.6 mmol/L (3.5-5.1); SODIUM 144 mmol/L (136-145)
[2017-07-31] MEDS: predniSONE 20 MG TABLET (UD) PO SCH (10:26)
[2017-07-31] MEDS: PANTOPRAZOLE 40 MG TABLET (FP) PO SCH (10:26)
[2017-07-31] MEDS: ASPIRIN COATED 81 MG TABLET.EC PO SCH (10:26)
[2017-07-31] MEDS: PRENATAL VITAMINS W/ FOLIC ACID TABLET (FP) PO SCH (10:26)
[2017-07-31 10:29] LABS: ALK PHOS 69 U/L (45-117); BILIRUBIN,TOTAL 0.2 mg/dL (0.2-1.0); CREATININE 0.9 mg/dL (0.55-1.02); SGOT/AST 13 U/L (15-37); SGPT/ALT 15 U/L (12-78); TOT PROT 7.7 g/dl (6.4-8.2)
[2017-07-31 10:32] LABS: HEMOGLOBIN 13.3 GM/dL (10.7-15.3); MCH 30.3 pg (25.7-33.7); MCHC 33.3 g/dl (32.0-36.0); MEAN CELL VOLUME 90.8 fl (80-96); MEAN PLT VOLUME 10.9 fl (7.5-11.1); PLATELET COUNT 216 K/MM3 (134-434); RDW 15.4 % (11.6-15.6); WHITE BLOOD COUNT 8.8 K/mm3 (4.0-10.0)
--- NOTE | 2017-07-31 11:35 | PN ---
[facility] CIWA - CIWA Score Nausea/Vomitin-Mild Nausea/No Vomiting Muscle Tremors: 4-Moderate,w/Arms Extend Anxiety: 4-Mod. Anxious/Guarded Agitation: 4-Moderately Restless Paroxysmal Sweats: 1-Minimal Palms Moist Orientation: 0-Oriented Tacttile Disturbances: 1-Very Mild Itch/Numbness Auditory Disturbances: 0-None Visual Disturbances: 0-None Headache: 1-Very Mild CIWA-Ar Total Score: 16 BHS Progress Note (SOAP) Subjective: sweat tremor restlessness anxiety gi distress Objective: 07/31/17 11:34 Vital Signs Temperature 98.1 F 07/31/17 10:20 Pulse Rate 73 07/31/17 10:20 Respiratory Rate 16 07/31/17 10:20 Blood Pressure 108/70 07/31/17 10:20 O2 Sat by Pulse Oximetry (%) Laboratory Last Values WBC 8.8 K/mm3 (4.0-10.0) 07/31/17 06:00 RBC 4.40 M/mm3 (3.60-5.2) 07/31/17 06:00 Hgb 13.3 GM/dL (10.7-15.3) D 07/31/17 06:00 Hct 40.0 % (32.4-45.2) 07/31/17 06:00 MCV 90.8 fl (80-96) 07/31/17 06:00 MCH 30.3 pg (25.7-33.7) 07/31/17 06:00 MCHC 33.3 g/dl (32.0-36.0) 07/31/17 06:00 RDW 15.4 % (11.6-15.6) 07/31/17 06:00 Plt Count 216 K/MM3 (134-434) D 07/31/17 06:00 MPV 10.9 fl (7.5-11.1) D 07/31/17 06:00 Sodium 144 mmol/L (136-145) 07/31/17 06:00 Potassium 3.6 mmol/L (3.5-5.1) 07/31/17 06:00 Chloride 107 mmol/L (98-107) 07/31/17 06:00 Carbon Dioxide 26 mmol/L (21-32) 07/31/17 06:00 Anion Gap 11 (8-16) 07/31/17 06:00 BUN 14 mg/dL (7-18) 07/31/17 06:00 Creatinine 0.9 mg/dL (0.55-1.02) 07/31/17 06:00 Creat Clearance w eGFR > 60 (>60) 07/31/17 06:00 Random Glucose 126 mg/dL (74-106) H 07/31/17 06:00 Calcium 9.4 mg/dL (8.5-10.1) 07/31/17 06:00 Total Bilirubin 0.2 mg/dL (0.2-1.0) 07/31/17 06:00 AST 13 U/L (15-37) L 07/31/17 06:00 ALT 15 U/L (12-78) 07/31/17 06:00 Alkaline Phosphatase 69 U/L (45-117) 07/31/17 06:00 Total Protein 7.7 g/dl (6.4-8.2) 07/31/17 06:00 Albumin 3.9 g/dl (3.4-5.0) 07/31/17 06:00 Urine Color Yellow 07/30/17 00:00 Urine Appearance Cloudy 07/30/17 00:00 Urine pH 6.0 (5.0-8.0) 07/30/17 00:00 Ur Specific [place] 1.021 (1.001-1.035) 07/30/17 00:00 Urine Protein Negative (NEGATIVE) 07/30/17 00:00 Urine Glucose (UA) Negative (NEGATIVE) 07/30/17 00:00 Urine Ketones Negative (NEGATIVE) 07/30/17 00:00 Urine Blood Negative (NEGATIVE) 07/30/17 00:00 Urine Nitrite Negative (NEGATIVE) 07/30/17 00:00 Urine Bilirubin Negative (<2.0 mg/dL) 07/30/17 00:00 Urine Urobilinogen Negative mg/dL (0.2-1.0) 07/30/17 00:00 Ur Leukocyte Esterase Trace (NEGATIVE) 07/30/17 00:00 Urine WBC (Auto) 9 /hpf (3-5) 07/30/17 00:00 Urine RBC (Auto) 4 /hpf (0-3) 07/30/17 00:00 Ur Epithelial Cells Many /HPF (FEW) 07/30/17 00:00 Calcium Oxalate Crystal Rare /hpf (NONE SEEN) 07/30/17 00:00 Urine Bacteria Rare /hpf (NONE SEEN) 07/30/17 00:00 Hyaline Casts 4 /lpf 07/30/17 00:00 Urine Mucus Rare 07/30/17 00:00 lab noted Assessment: 07/31/17 11:35 withdrawal sx Plan: continue detox
[2017-07-31 12:03] LABS: RPR REACTIVE 1:1 (NONREACTIVE)
[2017-07-31 12:06] LABS: TREPONEMA ANTIBODY PREVIOUSLY REACTIVE (NONREACTIVE)
--- NOTE | 2017-07-31 17:00 | EKG ---
Test Reason : Blood Pressure : / mmHG Vent. Rate : 077 BPM Atrial Rate : 077 BPM P-R Int : 140 ms QRS Dur : 084 ms QT Int : 404 ms P-R-T Axes : 080 074 067 degrees QTc Int : 457 ms NORMAL SINUS RHYTHM POSSIBLE LEFT ATRIAL ENLARGEMENT LEFT VENTRICULAR HYPERTROPHY ABNORMAL ECG WHEN COMPARED WITH ECG OF 26-MAY-2017 13:50, NO SIGNIFICANT CHANGE WAS FOUND Confirmed by MD Daniel, Bharathi ([id number]) on 07/31/2017 5:00:18 PM Referred By: Confirmed By:Bharathi Sanchez MD
[2017-07-31] MEDS: traZODone HCL 50 MG TABLET (FP) PO SCH (22:40)
[2017-07-31] MEDS: THIAMINE HCL 100 MG TABLET (FP) PO SCH (22:40)
[2017-07-31] MEDS: OLANZapine 10 MG TABLET PO SCH (22:40)
[2017-08-01] MEDS: chlordiazePOXIDE HCL 25 MG CAPSULE PO SCH ×2 (05:30→11:12)
[2017-08-01] MEDS: CYPROHEPTADINE HCL 4 MG TABLET PO SCH ×3 (07:09→17:16)
[2017-08-01] MEDS: predniSONE 20 MG TABLET (UD) PO SCH (11:12)
[2017-08-01] MEDS: PRENATAL VITAMINS W/ FOLIC ACID TABLET (FP) PO SCH (11:12)
[2017-08-01] MEDS: PANTOPRAZOLE 40 MG TABLET (FP) PO SCH (11:12)
[2017-08-01] MEDS: ASPIRIN COATED 81 MG TABLET.EC PO SCH (11:12)
--- NOTE | 2017-08-01 11:58 | PN ---
[facility] CIWA - CIWA Score Nausea/Vomitin-No Nausea/No Vomiting Muscle Tremors: 4-Moderate,w/Arms Extend Anxiety: 3 Agitation: 3 Paroxysmal Sweats: 1-Minimal Palms Moist Orientation: 0-Oriented Tacttile Disturbances: 1-Very Mild Itch/Numbness Auditory Disturbances: 0-None Visual Disturbances: 0-None Headache: 1-Very Mild CIWA-Ar Total Score: 13 BHS Progress Note (SOAP) Subjective: sweat tremor anxiety restlessness irritable Objective: 08/01/17 11:59 Vital Signs Temperature 97.9 F 08/01/17 10:37 Pulse Rate 95 H 08/01/17 10:37 Respiratory Rate 18 08/01/17 10:37 Blood Pressure 112/65 08/01/17 10:37 O2 Sat by Pulse Oximetry (%) Laboratory Last Values WBC 8.8 K/mm3 (4.0-10.0) 07/31/17 06:00 RBC 4.40 M/mm3 (3.60-5.2) 07/31/17 06:00 Hgb 13.3 GM/dL (10.7-15.3) D 07/31/17 06:00 Hct 40.0 % (32.4-45.2) 07/31/17 06:00 MCV 90.8 fl (80-96) 07/31/17 06:00 MCH 30.3 pg (25.7-33.7) 07/31/17 06:00 MCHC 33.3 g/dl (32.0-36.0) 07/31/17 06:00 RDW 15.4 % (11.6-15.6) 07/31/17 06:00 Plt Count 216 K/MM3 (134-434) D 07/31/17 06:00 MPV 10.9 fl (7.5-11.1) D 07/31/17 06:00 Sodium 144 mmol/L (136-145) 07/31/17 06:00 Potassium 3.6 mmol/L (3.5-5.1) 07/31/17 06:00 Chloride 107 mmol/L (98-107) 07/31/17 06:00 Carbon Dioxide 26 mmol/L (21-32) 07/31/17 06:00 Anion Gap 11 (8-16) 07/31/17 06:00 BUN 14 mg/dL (7-18) 07/31/17 06:00 Creatinine 0.9 mg/dL (0.55-1.02) 07/31/17 06:00 Creat Clearance w eGFR > 60 (>60) 07/31/17 06:00 Random Glucose 126 mg/dL (74-106) H 07/31/17 06:00 Calcium 9.4 mg/dL (8.5-10.1) 07/31/17 06:00 Total Bilirubin 0.2 mg/dL (0.2-1.0) 07/31/17 06:00 AST 13 U/L (15-37) L 07/31/17 06:00 ALT 15 U/L (12-78) 07/31/17 06:00 Alkaline Phosphatase 69 U/L (45-117) 07/31/17 06:00 Total Protein 7.7 g/dl (6.4-8.2) 07/31/17 06:00 Albumin 3.9 g/dl (3.4-5.0) 07/31/17 06:00 Urine Color Yellow 07/30/17 00:00 Urine Appearance Cloudy 07/30/17 00:00 Urine pH 6.0 (5.0-8.0) 07/30/17 00:00 Ur Specific [place] 1.021 (1.001-1.035) 07/30/17 00:00 Urine Protein Negative (NEGATIVE) 07/30/17 00:00 Urine Glucose (UA) Negative (NEGATIVE) 07/30/17 00:00 Urine Ketones Negative (NEGATIVE) 07/30/17 00:00 Urine Blood Negative (NEGATIVE) 07/30/17 00:00 Urine Nitrite Negative (NEGATIVE) 07/30/17 00:00 Urine Bilirubin Negative (<2.0 mg/dL) 07/30/17 00:00 Urine Urobilinogen Negative mg/dL (0.2-1.0) 07/30/17 00:00 Ur Leukocyte Esterase Trace (NEGATIVE) 07/30/17 00:00 Urine WBC (Auto) 9 /hpf (3-5) 07/30/17 00:00 Urine RBC (Auto) 4 /hpf (0-3) 07/30/17 00:00 Ur Epithelial Cells Many /HPF (FEW) 07/30/17 00:00 Calcium Oxalate Crystal Rare /hpf (NONE SEEN) 07/30/17 00:00 Urine Bacteria Rare /hpf (NONE SEEN) 07/30/17 00:00 Hyaline Casts 4 /lpf 07/30/17 00:00 Urine Mucus Rare 07/30/17 00:00 RPR Titer Reactive 1:1 (NONREACTIVE) H D 07/31/17 06:00 T.pallidum Ab (MHA) Previously reactive (NONREACTIVE) 07/31/17 06:00 lab noted Assessment: 08/01/17 11:59 withdrawal sx Plan: continue detox
[2017-08-01] MEDS: IBUPROFEN 400 MG TABLET (FP) PO PRN (17:15)
[2017-08-01] MEDS: chlordiazePOXIDE 5 MG CAPSULE PO SCH ×2 (17:27→22:40)
[2017-08-01] MEDS: traZODone HCL 50 MG TABLET (FP) PO SCH (22:40)
[2017-08-01] MEDS: OLANZapine 10 MG TABLET PO SCH (22:40)
[2017-08-01] MEDS: THIAMINE HCL 100 MG TABLET (FP) PO SCH (22:40)
[2017-08-02] MEDS: chlordiazePOXIDE 5 MG CAPSULE PO SCH ×2 (06:09→10:44)
[2017-08-02] MEDS: CYPROHEPTADINE HCL 4 MG TABLET PO SCH ×3 (07:37→17:32)
[2017-08-02] MEDS: PANTOPRAZOLE 40 MG TABLET (FP) PO SCH (10:44)
[2017-08-02] MEDS: predniSONE 20 MG TABLET (UD) PO SCH (10:44)
[2017-08-02] MEDS: PRENATAL VITAMINS W/ FOLIC ACID TABLET (FP) PO SCH (10:45)
[2017-08-02] MEDS: ASPIRIN COATED 81 MG TABLET.EC PO SCH (10:45)
[2017-08-02] MEDS: IBUPROFEN 400 MG TABLET (FP) PO PRN (10:46)
--- NOTE | 2017-08-02 10:49 | PN ---
[facility] Progress Note (SOAP) Subjective: feeling better less alcohol withdrawal sx no tremor little sweat Objective: 08/02/17 10:47 Vital Signs Temperature 100.4 F H 08/02/17 09:58 Pulse Rate 102 H 08/02/17 09:58 Respiratory Rate 20 08/02/17 09:58 Blood Pressure 111/71 08/02/17 09:58 O2 Sat by Pulse Oximetry (%) Laboratory Last Values WBC 8.8 K/mm3 (4.0-10.0) 07/31/17 06:00 RBC 4.40 M/mm3 (3.60-5.2) 07/31/17 06:00 Hgb 13.3 GM/dL (10.7-15.3) D 07/31/17 06:00 Hct 40.0 % (32.4-45.2) 07/31/17 06:00 MCV 90.8 fl (80-96) 07/31/17 06:00 MCH 30.3 pg (25.7-33.7) 07/31/17 06:00 MCHC 33.3 g/dl (32.0-36.0) 07/31/17 06:00 RDW 15.4 % (11.6-15.6) 07/31/17 06:00 Plt Count 216 K/MM3 (134-434) D 07/31/17 06:00 MPV 10.9 fl (7.5-11.1) D 07/31/17 06:00 Sodium 144 mmol/L (136-145) 07/31/17 06:00 Potassium 3.6 mmol/L (3.5-5.1) 07/31/17 06:00 Chloride 107 mmol/L (98-107) 07/31/17 06:00 Carbon Dioxide 26 mmol/L (21-32) 07/31/17 06:00 Anion Gap 11 (8-16) 07/31/17 06:00 BUN 14 mg/dL (7-18) 07/31/17 06:00 Creatinine 0.9 mg/dL (0.55-1.02) 07/31/17 06:00 Creat Clearance w eGFR > 60 (>60) 07/31/17 06:00 Random Glucose 126 mg/dL (74-106) H 07/31/17 06:00 Calcium 9.4 mg/dL (8.5-10.1) 07/31/17 06:00 Total Bilirubin 0.2 mg/dL (0.2-1.0) 07/31/17 06:00 AST 13 U/L (15-37) L 07/31/17 06:00 ALT 15 U/L (12-78) 07/31/17 06:00 Alkaline Phosphatase 69 U/L (45-117) 07/31/17 06:00 Total Protein 7.7 g/dl (6.4-8.2) 07/31/17 06:00 Albumin 3.9 g/dl (3.4-5.0) 07/31/17 06:00 Urine Color Yellow 07/30/17 00:00 Urine Appearance Cloudy 07/30/17 00:00 Urine pH 6.0 (5.0-8.0) 07/30/17 00:00 Ur Specific [place] 1.021 (1.001-1.035) 07/30/17 00:00 Urine Protein Negative (NEGATIVE) 07/30/17 00:00 Urine Glucose (UA) Negative (NEGATIVE) 07/30/17 00:00 Urine Ketones Negative (NEGATIVE) 07/30/17 00:00 Urine Blood Negative (NEGATIVE) 07/30/17 00:00 Urine Nitrite Negative (NEGATIVE) 07/30/17 00:00 Urine Bilirubin Negative (<2.0 mg/dL) 07/30/17 00:00 Urine Urobilinogen Negative mg/dL (0.2-1.0) 07/30/17 00:00 Ur Leukocyte Esterase Trace (NEGATIVE) 07/30/17 00:00 Urine WBC (Auto) 9 /hpf (3-5) 07/30/17 00:00 Urine RBC (Auto) 4 /hpf (0-3) 07/30/17 00:00 Ur Epithelial Cells Many /HPF (FEW) 07/30/17 00:00 Calcium Oxalate Crystal Rare /hpf (NONE SEEN) 07/30/17 00:00 Urine Bacteria Rare /hpf (NONE SEEN) 07/30/17 00:00 Hyaline Casts 4 /lpf 07/30/17 00:00 Urine Mucus Rare 07/30/17 00:00 RPR Titer Reactive 1:1 (NONREACTIVE) H D 07/31/17 06:00 T.pallidum Ab (MHA) Previously reactive (NONREACTIVE) 07/31/17 06:00 lab noted treated for syphilis by history Assessment: 08/02/17 10:48 mild withdrawal sx Plan: medically supervised [facility] health teaching on safe sex
[2017-08-02] MEDS ORDERED: chlordiazePOXIDE HCL 10 MG CAPSULE PO SCH (17:00)
--- NOTE | 2017-08-02 18:17 | DS ---
[facility] Detox Discharge Summary Admission Date: 07/30/17 Discharge Date: 08/02/17 - History Present History: Alcohol Dependence, Cocaine Dependence Pertinent Past History: Schizophrenia UTI DVT Weight Loss Anemia Asthma Lupus COPD - Physical Exam Results Vital Signs: Vital Signs Temperature 97.5 F L 08/02/17 14:25 Pulse Rate 83 08/02/17 14:25 Respiratory Rate 18 08/02/17 14:25 Blood Pressure 120/72 08/02/17 14:25 O2 Sat by Pulse Oximetry (%) Pertinent Admission Physical Exam Findings: Vital Signs Temperature 97.5 F L 08/02/17 14:25 Pulse Rate 83 08/02/17 14:25 Respiratory Rate 18 08/02/17 14:25 Blood Pressure 120/72 08/02/17 14:25 O2 Sat by Pulse Oximetry (%) Laboratory Last Values WBC 8.8 K/mm3 (4.0-10.0) 07/31/17 06:00 RBC 4.40 M/mm3 (3.60-5.2) 07/31/17 06:00 Hgb 13.3 GM/dL (10.7-15.3) D 07/31/17 06:00 Hct 40.0 % (32.4-45.2) 07/31/17 06:00 MCV 90.8 fl (80-96) 07/31/17 06:00 MCH 30.3 pg (25.7-33.7) 07/31/17 06:00 MCHC 33.3 g/dl (32.0-36.0) 07/31/17 06:00 RDW 15.4 % (11.6-15.6) 07/31/17 06:00 Plt Count 216 K/MM3 (134-434) D 07/31/17 06:00 MPV 10.9 fl (7.5-11.1) D 07/31/17 06:00 Sodium 144 mmol/L (136-145) 07/31/17 06:00 Potassium 3.6 mmol/L (3.5-5.1) 07/31/17 06:00 Chloride 107 mmol/L (98-107) 07/31/17 06:00 Carbon Dioxide 26 mmol/L (21-32) 07/31/17 06:00 Anion Gap 11 (8-16) 07/31/17 06:00 BUN 14 mg/dL (7-18) 07/31/17 06:00 Creatinine 0.9 mg/dL (0.55-1.02) 07/31/17 06:00 Creat Clearance w eGFR > 60 (>60) 07/31/17 06:00 Random Glucose 126 mg/dL (74-106) H 07/31/17 06:00 Calcium 9.4 mg/dL (8.5-10.1) 07/31/17 06:00 Total Bilirubin 0.2 mg/dL (0.2-1.0) 07/31/17 06:00 AST 13 U/L (15-37) L 07/31/17 06:00 ALT 15 U/L (12-78) 07/31/17 06:00 Alkaline Phosphatase 69 U/L (45-117) 07/31/17 06:00 Total Protein 7.7 g/dl (6.4-8.2) 07/31/17 06:00 Albumin 3.9 g/dl (3.4-5.0) 07/31/17 06:00 Urine Color Yellow 07/30/17 00:00 Urine Appearance Cloudy 07/30/17 00:00 Urine pH 6.0 (5.0-8.0) 07/30/17 00:00 Ur Specific [place] 1.021 (1.001-1.035) 07/30/17 00:00 Urine Protein Negative (NEGATIVE) 07/30/17 00:00 Urine Glucose (UA) Negative (NEGATIVE) 07/30/17 00:00 Urine Ketones Negative (NEGATIVE) 07/30/17 00:00 Urine Blood Negative (NEGATIVE) 07/30/17 00:00 Urine Nitrite Negative (NEGATIVE) 07/30/17 00:00 Urine Bilirubin Negative (<2.0 mg/dL) 07/30/17 00:00 Urine Urobilinogen Negative mg/dL (0.2-1.0) 07/30/17 00:00 Ur Leukocyte Esterase Trace (NEGATIVE) 07/30/17 00:00 Urine WBC (Auto) 9 /hpf (3-5) 07/30/17 00:00 Urine RBC (Auto) 4 /hpf (0-3) 07/30/17 00:00 Ur Epithelial Cells Many /HPF (FEW) 07/30/17 00:00 Calcium Oxalate Crystal Rare /hpf (NONE SEEN) 07/30/17 00:00 Urine Bacteria Rare /hpf (NONE SEEN) 07/30/17 00:00 Hyaline Casts 4 /lpf 07/30/17 00:00 Urine Mucus Rare 07/30/17 00:00 RPR Titer Reactive 1:1 (NONREACTIVE) H D 07/31/17 06:00 T.pallidum Ab (MHA) Previously reactive (NONREACTIVE) 07/31/17 06:00 - Treatment Hospital Course: Detox Protocol Followed, Detoxed Safely, Responded well, Discharged Condition Good, Rehab Referral Accepted Patient has Accepted a Rehab Referral to: [facility] - Medication Discharge Medications: Ambulatory Orders Aspirin Coated [Ecotrin -] 81 mg PO DAILY #30 mg 05/30/17 Olanzapine [ZyPREXA -] 10 mg PO HS #30 tablet 07/30/17 Zolpidem Tartrate [Ambien] 10 mg PO HS PRN #14 tablet MDD 10 07/30/17 traZODone HCL [Desyrel -] 50 mg PO HS #30 tablet 07/30/17 Albuterol Sulfate Inhaler - [Ventolin HFA Inhaler -] 2 inh PO Q4H PRN #1 inhaler 08/02/17 Cyproheptadine [Periactin -] 4 mg PO TID #90 tablet 08/02/17 Pantoprazole Sodium [Protonix -] 40 mg PO DAILY #30 tablet.ec 08/02/17 predniSONE [Deltasone -] 40 mg PO DAILY #7 tablet 08/02/17 - Diagnosis (1) DVT (deep venous thrombosis) Current Visit: Yes Status: Acute (2) UTI (urinary tract infection) Current Visit: Yes Status: Acute (3) Alcohol dependence with uncomplicated withdrawal Current Visit: Yes Status: Acute (4) Cocaine dependence Current Visit: Yes Status: Acute (5) Schizoaffective disorder, depressive type Current Visit: Yes Status: Acute (6) Anemia Current Visit: Yes Status: Chronic (7) Asthma Current Visit: Yes Status: Chronic Qualifiers: Asthma severity: moderate Asthma persistence: persistent Asthma complication type: with status asthmaticus Qualified Code(s): J45.42 - Moderate persistent asthma with status asthmaticus (8) COPD (chronic obstructive pulmonary disease) Current Visit: Yes Status: Chronic Qualifiers: COPD type: emphysema Emphysema type: unilateral Qualified Code(s): J43.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] (9) Lupus (systemic lupus erythematosus) Current Visit: Yes Status: Chronic Qualifiers: Systemic lupus erythematosus type: other Systemic lupus erythematosus organ involvement: other Qualified Code(s): M32.19 - Other organ or system involvement in systemic lupus erythematosus (10) Nicotine dependence Current Visit: Yes Status: Chronic Qualifiers: Nicotine product type: cigarettes Substance use status: uncomplicated Qualified Code(s): F17.210 - Nicotine dependence, cigarettes, uncomplicated (11) Schizoaffective disorder Current Visit: Yes Status: Chronic (12) Weight loss Current Visit: Yes Status: Chronic - AMA Did Patient Leave Against Medical Advice: No
[2017-08-02 18:24] VITALS: BP 107/64; PULSE 76; TEMP 98.5
== END 2017-08-02 18:57 | disposition other institution (70) | DRG 774 ==
LOC: YASAS 12:20 → Y6N 14:53
PROVIDERS: ADMIT Internal Medicine; ATTEND Internal Medicine
PROC: HZ2ZZZZ Detoxification Services for Substance Abuse Treatment (ICD-10-PCS; principal; 2017-07-30)
DX: F10.230 Alcohol dependence with withdrawal, uncomplicated (principal); F14.20 Cocaine dependence, uncomplicated; F25.0 Schizoaffective disorder, bipolar type; F19.24 Other psychoactive substance dependence with psychoactive substance-induced mood disorder; F19.282 Other psychoactive substance dependence with psychoactive substance-induced sleep disorder; J45.42 Moderate persistent asthma with status asthmaticus; J43.0 Unilateral pulmonary 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]; M32.19 Other organ or system involvement in systemic lupus erythematosus; D64.9 Anemia, unspecified; N39.0 Urinary tract infection, site not specified; Z86.19 Personal history of other infectious and parasitic diseases; Z91.5 Personal history of self-harm; R63.4 Abnormal weight loss; Z68.24 Body mass index [BMI] 24.0-24.9, adult
CPT/HCPCS: 36415; 80053; 81003; 81015; 85027; 86593; 86780; 93005; 93010

== ENCOUNTER 2017-08-02 18:40 | Inpatient (IN) | payer BC ==
[2017-08-02] MEDS ORDERED: IBUPROFEN 400 MG TABLET (FP) PO PRN (19:01)
[2017-08-02] MEDS ORDERED: MAGNESIUM CITRATE 300 ML BOTTLE PO PRN (19:01)
[2017-08-02] MEDS ORDERED: MAG HYDROX/AL HYDROX/SIMETH 30 ML UNIT-DOSE CUP PO PRN (19:01)
[2017-08-02] MEDS ORDERED: P-EPHED 60MG/TRIPROLIDI 2.5MG TABLET PO PRN (19:01)
[2017-08-02] MEDS ORDERED: MAGNESIUM HYDROX 2400MG/30ML ORAL SUSPENSION 30 ML CUP PO PRN (19:01)
[2017-08-02] MEDS ORDERED: guaiFENesin/D-METHORPHAN HB 10 ML UNIT-DOSE CUPS PO PRN (19:01)
[2017-08-02] MEDS ORDERED: MENTHOL/PHENOL 1 EACH UD MM PRN (19:01)
[2017-08-02] MEDS ORDERED: hydrOXYzine PAMOATE 50 MG CAPSULE (FP) PO PRN (19:01)
[2017-08-02] MEDS ORDERED: LOPERAMIDE HCL 2 MG CAPSULE PO PRN (19:01)
[2017-08-02] MEDS ORDERED: ALBUTEROL SO4 18 GM HFA INHALER IH PRN (19:05)
--- NOTE | 2017-08-02 19:07 | HP ---
[facility] Rehab Assess/Revision - Admission History Admitted to Rehab from: [facility] [place] Date of Admission to Rehab: 08/02/17 - Findings Detox History & Physical reviewed: Yes Concur with findings: Yes Inpatient Rehab Admission - Initial Determination Are CD services needed?: Yes Free of communicable disease: Yes Not in need of hospitalization: Yes - Rehab Admission Criteria Previous failed treatment: Yes Poor recovery environment: Yes Comorbidities: Yes Lacks judgement: Yes Patient is meeting Inpatient Rehab admission criteria:: Yes
[2017-08-02] MEDS ORDERED: MELATONIN 5 MG TABLETS PO PRN (22:00)
--- NOTE | 2017-08-02 22:08 | PN ---
S Progress Note Note: As per nureing report patient started on:\Trazodon 50mg po qhs, Zyprexa 10mg po qhs, patient was on above madications during detos at [address] with good response
[2017-08-02] MEDS: traZODone HCL 50 MG TABLET (FP) PO SCH (22:52)
[2017-08-02] MEDS: OLANZapine 10 MG TABLET PO SCH (22:52)
[2017-08-02] MEDS: CYPROHEPTADINE HCL 4 MG TABLET PO SCH (22:52)
[2017-08-02] MEDS: THIAMINE HCL 100 MG TABLET (FP) PO SCH (22:52)
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
[2017-08-03] MEDS: CYPROHEPTADINE HCL 4 MG TABLET PO SCH ×3 (06:54→22:03)
[2017-08-03] MEDS: ASPIRIN COATED 81 MG TABLET.EC PO SCH (09:59)
[2017-08-03] MEDS: PANTOPRAZOLE 40 MG TABLET (FP) PO SCH (09:59)
[2017-08-03] MEDS: PRENATAL VITAMINS W/ FOLIC ACID TABLET (FP) PO SCH (09:59)
[2017-08-03] MEDS: NICOTINE 14 MG/24 HOURS TOPICAL PATCH TD SCH (09:59)
[2017-08-03] MEDS: ACETAMINOPHEN 325 MG TABLET (FP) PO PRN ×2 (11:13→18:37)
--- NOTE | 2017-08-03 12:04 | PN ---
[facility] Progress Note Note: Patient presents with complaint of low back pain. Also requesting Prednisone as she was being treated with medication in detox for Lupus. Pt states back and joint pain, throbbing and level 8/10. Vital Signs Temperature 97.3 F L 08/03/17 07:21 Pulse Rate 59 L 08/03/17 07:21 Respiratory Rate 18 08/03/17 07:21 Blood Pressure 123/82 08/03/17 07:21 O2 Sat by Pulse Oximetry (%) Obj: Skin warm and dry Car: S1S2. RRR Resp: CTA BL MS: + L spine tenderness upon palpation, ambulates without device. Ext without edema. A/P: Lupus LBP Pt treated with Prednisone 40mg daily at detox x 3 days, will start 20mg today daily x 3 days to begin titration off prednisone as medication history does not show recent community prescription. Will add BGM monitoring daily while on medication. Add flexeril 5mg TID prn for back pain and continue to monitor.
[2017-08-03] MEDS: CYCLOBENZAPRINE HCL 5 MG TABLET PO SCH ×2 (13:22→22:03)
[2017-08-03] MEDS: predniSONE 20 MG TABLET (UD) PO SCH (13:23)
[2017-08-03] MEDS: NICOTINE POLACRILEX 2 MG GUM BUC PRN (18:38)
[2017-08-03] MEDS ORDERED: traZODone HCL 50 MG TABLET (FP) PO SCH (22:00)
[2017-08-03] MEDS ORDERED: OLANZapine 10 MG TABLET PO SCH (22:00)
[2017-08-03] MEDS: traZODone HCL 50 MG TABLET (FP) PO SCH (22:03)
[2017-08-03] MEDS: THIAMINE HCL 100 MG TABLET (FP) PO SCH (22:04)
[2017-08-03] MEDS: OLANZapine 10 MG TABLET PO SCH (22:04)
[2017-08-04] MEDS: CYCLOBENZAPRINE HCL 5 MG TABLET PO SCH ×3 (06:46→21:30)
[2017-08-04] MEDS: CYPROHEPTADINE HCL 4 MG TABLET PO SCH ×3 (06:46→21:30)
[2017-08-04] MEDS: PANTOPRAZOLE 40 MG TABLET (FP) PO SCH (10:29)
[2017-08-04] MEDS: ASPIRIN COATED 81 MG TABLET.EC PO SCH (10:29)
[2017-08-04] MEDS: predniSONE 20 MG TABLET (UD) PO SCH (10:29)
[2017-08-04] MEDS: PRENATAL VITAMINS W/ FOLIC ACID TABLET (FP) PO SCH (10:29)
[2017-08-04] MEDS: NICOTINE POLACRILEX 2 MG GUM BUC PRN ×2 (10:30→21:32)
[2017-08-04] MEDS: NICOTINE 14 MG/24 HOURS TOPICAL PATCH TD SCH (10:30)
[2017-08-04] MEDS: traZODone HCL 50 MG TABLET (FP) PO SCH (21:30)
[2017-08-04] MEDS: OLANZapine 10 MG TABLET PO SCH (21:30)
[2017-08-04] MEDS: THIAMINE HCL 100 MG TABLET (FP) PO SCH (21:31)
[2017-08-05] MEDS: CYCLOBENZAPRINE HCL 5 MG TABLET PO SCH (07:25)
[2017-08-05] MEDS: CYPROHEPTADINE HCL 4 MG TABLET PO SCH ×4 (07:25→16:48)
[2017-08-05] MEDS: NICOTINE 14 MG/24 HOURS TOPICAL PATCH TD SCH (10:20)
[2017-08-05] MEDS: ASPIRIN COATED 81 MG TABLET.EC PO SCH (10:20)
[2017-08-05] MEDS: PANTOPRAZOLE 40 MG TABLET (FP) PO SCH (10:20)
[2017-08-05] MEDS: PRENATAL VITAMINS W/ FOLIC ACID TABLET (FP) PO SCH (10:20)
[2017-08-05] MEDS: predniSONE 20 MG TABLET (UD) PO SCH (10:20)
[2017-08-05] MEDS: CYCLOBENZAPRINE HCL 5 MG TABLET PO PRN ×2 (10:22→21:29)
[2017-08-05] MEDS: NICOTINE POLACRILEX 2 MG GUM BUC PRN ×2 (10:22→18:13)
[2017-08-05] MEDS: THIAMINE HCL 100 MG TABLET (FP) PO SCH (21:29)
[2017-08-05] MEDS: OLANZapine 10 MG TABLET PO SCH (21:29)
[2017-08-05] MEDS: traZODone HCL 50 MG TABLET (FP) PO SCH (21:30)
[2017-08-06] MEDS: CYPROHEPTADINE HCL 4 MG TABLET PO SCH ×3 (07:32→17:04)
[2017-08-06] MEDS: NICOTINE POLACRILEX 2 MG GUM BUC PRN ×2 (07:34→10:23)
[2017-08-06] MEDS: predniSONE 20 MG TABLET (UD) PO SCH (10:22)
[2017-08-06] MEDS: NICOTINE 14 MG/24 HOURS TOPICAL PATCH TD SCH (10:22)
[2017-08-06] MEDS: ASPIRIN COATED 81 MG TABLET.EC PO SCH (10:22)
[2017-08-06] MEDS: PRENATAL VITAMINS W/ FOLIC ACID TABLET (FP) PO SCH (10:22)
[2017-08-06] MEDS: PANTOPRAZOLE 40 MG TABLET (FP) PO SCH (10:22)
[2017-08-06] MEDS ORDERED: IBUPROFEN 600 MG TABLET (FP) PO PRN (11:59)
--- NOTE | 2017-08-06 12:15 | PN ---
[facility] Progress Note Note: Patient presents with complaint of pain and foul smelling vaginal discharge/ urine. Denies fever, dysuria and back pain. Upon admission, UA showed trace leukocytes. Laboratory Tests 08/04/17 08/05/17 06:45 07:49 POC Glucometer 79 117 Vital Signs Temperature 98.4 F 08/06/17 07:08 Pulse Rate 91 H 08/06/17 07:08 Respiratory Rate 18 08/06/17 07:08 Blood Pressure 103/71 08/06/17 07:08 O2 Sat by Pulse Oximetry (%) Obj; General: pt alert and oriented x 3. In no acute distress. Complains of generalized joint pain, level 5/10. Skin: warm and dry. GI/: Soft, no distention. No CVAT, no pelvic tenderness. Ext: no edema, full ROM. Ambulates within unit without difficulty/device. A/P: Lupus related pain Malodorous urine/vaginal discharge Will increase Ibuprofen to 600mg TID prn Continue Prednisone titration check UA and C/S continue to monitor clinically
[2017-08-06 17:58] LABS: URINE APPEARANCE SLCLOUDY; URINE BILIRUBIN NEGATIVE (<2.0 mg/dL); URINE BLOOD NEGATIVE (NEGATIVE); URINE COLOR LTYELLOW; URINE GLUCOSE (UA) NEGATIVE (NEGATIVE); URINE KETONE NEGATIVE (NEGATIVE); URINE LEUK ESTERASE NEGATIVE (NEGATIVE); URINE NITRITE NEGATIVE (NEGATIVE); URINE PROTEIN NEGATIVE (NEGATIVE); URINE UROBILINOGEN NEGATIVE mg/dL (0.2-1.0)
[2017-08-06] MEDS: OLANZapine 10 MG TABLET PO SCH (21:17)
[2017-08-06] MEDS: traZODone HCL 50 MG TABLET (FP) PO SCH (21:17)
[2017-08-06] MEDS: THIAMINE HCL 100 MG TABLET (FP) PO SCH (21:17)
[2017-08-07] MEDS: CYPROHEPTADINE HCL 4 MG TABLET PO SCH ×3 (06:53→16:45)
[2017-08-07] MEDS ORDERED: predniSONE 10 MG TABLET (UD) PO SCH (10:00)
[2017-08-07] MEDS: NICOTINE 14 MG/24 HOURS TOPICAL PATCH TD SCH (10:40)
[2017-08-07] MEDS: PANTOPRAZOLE 40 MG TABLET (FP) PO SCH (10:40)
[2017-08-07] MEDS: ASPIRIN COATED 81 MG TABLET.EC PO SCH (10:40)
[2017-08-07] MEDS: PRENATAL VITAMINS W/ FOLIC ACID TABLET (FP) PO SCH (10:40)
[2017-08-07] MEDS: NICOTINE POLACRILEX 2 MG GUM BUC PRN ×2 (10:42→19:26)
[2017-08-07 11:37] VITALS: BP 106/72; PULSE 85; TEMP 97.6
[2017-08-07] MEDS ORDERED: ALBUTEROL SO4 2.5/IPRATROPIUM 0.5 INH SOL 3 ML VIAL.NEB. NEB PRN (13:52)
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
[2017-08-07] MEDS: ACETAMINOPHEN 325 MG TABLET (FP) PO PRN (20:39)
== END 2017-08-07 20:45 | disposition left against medical advice (07) | DRG 770 ==
LOC: YASAS 18:40 → Y3E 18:41
PROVIDERS: ADMIT Psychiatry & Neurology Psychiatry; ATTEND Psychiatry & Neurology Psychiatry
PROC: HZ42ZZZ Group Counseling for Substance Abuse Treatment, Cognitive-Behavioral (ICD-10-PCS; principal; 2017-08-02)
DX: F10.20 Alcohol dependence, uncomplicated (principal); F14.20 Cocaine dependence, uncomplicated; F17.210 Nicotine dependence, cigarettes, uncomplicated; F43.10 Post-traumatic stress disorder, unspecified; F25.9 Schizoaffective disorder, unspecified; F19.24 Other psychoactive substance dependence with psychoactive substance-induced mood disorder; F19.282 Other psychoactive substance dependence with psychoactive substance-induced sleep disorder; M32.19 Other organ or system involvement in systemic lupus erythematosus; Z86.79 Personal history of other diseases of the circulatory system; R82.90 Unspecified abnormal findings in urine; Z86.19 Personal history of other infectious and parasitic diseases
CPT/HCPCS: 81003; 82962; 87086

== ENCOUNTER 2018-08-09 08:19 | Inpatient (IN) | payer BC ==
[2018-08-09 09:03] VITALS: BMI 22.2
--- NOTE | 2018-08-09 09:48 | HP ---
CIWA Score Nausea/Vomitin Muscle Tremors: 2 Anxiety: 2 Agitation: 2 Paroxysmal Sweats: 1-Minimal Palms Moist Orientation: 0-Oriented Tacttile Disturbances: 1-Very Mild Itch/Numbness Auditory Disturbances: 1-Very Mild Visual Disturbances: 0-None Headache: 2-Mild CIWA-Ar Total Score: 13 - Admission Criteria OASAS Guidelines: Admission for Medically Managed Detox: Requires at least one of the followin. CIWA greater than 12 2. Seizures within the past 24 hours 3. Delirium tremens within the past 24 hours 4. Hallucinations within the past 24 hours 5. Acute intervention needed for co occurring medical disorder 6. Acute intervention needed for co occurring psychiatric disorder 7. Severe withdrawal that cannot be handled at a lower level of care (continued vomiting, continued diarrhea, abnormal vital signs) requiring intravenous medication and/or fluids 8. Admission ROS [facility]HS - HPI Chief Complaint: i need help to stop drinking alcohol and cocaine Allergies/Adverse Reactions: Allergies Allergy/AdvReac Type Severity Reaction Status Date / Time carrot Allergy Severe Itching Verified 08/09/18 08:40 Penicillins Allergy Severe Swelling Verified 08/09/18 08:40 Latex, Natural Rubber Allergy Intermediate Rash Verified 08/09/18 08:40 morphine AdvReac Intermediate HALLUCINATI Verified 08/09/18 08:40 ON History of Present Illness: this 53 years old female with alcohol and cocine dependence,seeking detox, withdrawal symptom, multiple admissions in detox but keep relapsing withdrawal symptom last detox [facility] 11/28/17 to 12/02/17 history of sle on prednisone weight loss nicotine dependence 4 cigarette/day, requesting nicotine gum anxiety,depression,insomnia longest period of sobriety 3 years plan for rehab after detox also has copd Exam Limitations: No Limitations - Ebola screening Have you traveled outside of the country in the last 21 days: No Have you had contact with anyone from an Ebola affected area: No Do you have a fever: No - Review of Systems Constitutional: Loss of Appetite, Malaise, Night Sweats, Changes in sleep, Weakness, Unintentional Wgt. Loss EENT: reports: Nose Congestion Respiratory: reports: Other (copd) Cardiac: reports: No Symptoms Reported GI: reports: Diarrhea, Nausea, Poor Appetite, Abdominal cramping : reports: No Symptoms Reported Musculoskeletal: reports: Back Pain, Muscle Pain Integumentary: reports: Dryness Neuro: reports: Headache, Tremors Endocrine: reports: No Symptoms Reported Hematology: reports: No Symptoms Reported, Other (sle on prednisone) Psychiatric: reports: No Sypmtoms Reported, Judgement Intact, Mood/Affect Appropiate, Orientated x3, Agitated, Depressed, other (insomnia) Other Systems: Reviewed and Negative Patient History - Patient Medical History Hx Anemia: Yes (history - none now) Hx Asthma: Yes (ON MDI) Hx Chronic Obstructive Pulmonary Disease (COPD): Yes (on albuterol inhaler) Hx Cancer: No Hx Cardiac Disorders: No Hx Congestive Heart Failure: No Hx Hypertension: No Hx Hypercholesterolemia: No Hx Pacemaker: No HX Cerebrovascular Accident: No Hx Seizures: No Hx Dementia: No Hx Diabetes: No Hx Gastrointestinal Disorders: Yes (GERD) Hx Liver Disease: No Hx Genitourinary Disorders: No Hx Sexually Transmitted Disorders: No Hx Renal Disease (ESRD): Yes (RENAL CALCULI) Hx Thyroid Disease: No Hx Human Immunodeficiency Virus (HIV): No (2018 negative) Hx Hepatitis C: No Hx Depression: Yes Hx Suicide Attempt: Yes (try to jump from window) Hx Bipolar Disorder: Yes (PTSD, seroquel) Hx Schizophrenia: Yes Other Medical History: no suicidal,no homicidal,sle on prednisone - Patient Surgical History Past Surgical History: Yes Hx Neurologic Surgery: No Hx Cataract Extraction: No Hx Cardiac Surgery: No Hx Lung Surgery: No Hx Breast Surgery: No Hx Breast Biopsy: No Hx Abdominal Surgery: No Hx Appendectomy: No Hx Cholecystectomy: No Hx Genitourinary Surgery: Yes (lithotripsy for renal calculi 1995) Hx Section: Yes (5, patient has 10 children) Hx Orthopedic Surgery: No Hx Hysterectomy: No Other Surgical History: Kidney stones removal 1995 BY LITHOTRIPSY Anesthesia Reaction: No - PPD History Previous Implant?: Yes Documented Results: Negative w/o proof Date: 01/24/17 Results: 0MM PPD to be Administered?: Yes - Reproductive History Patient is a Female of Child Bearing Age (11 -55 yrs old): Yes Last Menstrual Period: 06/26/17 Patient : No - Smoking Cessation Smoking history: Current every day smoker Have you smoked in the past 12 months: Yes Aproximately how many cigarettes per day: 4 Cigars Per Day: 0 Hx Chewing Tobacco Use: No Initiated information on smoking cessation: Yes 'Breaking Loose' booklet given: 08/09/18 - Substance & Tx. History Hx Alcohol Use: Yes Hx Substance Use: Yes Substance Use Type: Alcohol, Cocaine Hx Substance Use Treatment: Yes ([facility] 11/28/17 to 12/02/17) - Substances abused Alcohol Substance route: Oral Frequency: Daily Amount used: 2 of 6 packs , half pint Bacardi Age of first use: 33 Date of last use: 08/08/18 Cocaine Substance route: Oral Frequency: 1-2 times per week Amount used: 150 dollars Age of first use: 33 Date of last use: 08/08/18 Family Disease History - Family Disease History Family Disease History: [place]: Mother (, lupus, bladder cancer, ), Sister ( two alive, one sister with breast cancer), Other: Father (, IDU, AIDS), Brother (two alive, no problems), Sister, Son (five - no medical problems), Daughter (five - no problems) Admission Physical Exam S - Vital Signs Vital Signs: Vital Signs - 24 hr 08/09/18 08/09/18 08/09/18 08:39 09:01 09:08 Temperature 98 F 98 F 98 F Pulse Rate 80 80 80 Respiratory 16 16 16 Rate Blood Pressure 89/58 L 89/58 L 89/58 L - Physical General Appearance: Yes: Moderate Distress, Tremorous, Irritable, Sweating, Anxious HEENTM: Yes: Normal ENT Inspection, JEFF, Pharynx Normal Respiratory: Yes: Within Normal Limits, Lungs Clear, Normal Breath Sounds Neck: Yes: Within Normal Limits, Supple, Trachea in good position Breast: Yes: Breast Exam Deferred Cardiology: Yes: Within Normal Limits, Regular Rhythm, Regular Rate, S1, S2 Abdominal: Yes: Within Normal Limits, Normal Bowel Sounds, Non Tender, Flat, Soft Genitourinary: Yes: Within Normal Limits Back: Yes: Muscle Spasm Musculoskeletal: Yes: Back pain, Muscle Pain Extremities: Yes: Tremors Neurological: Yes: quarrying manager II-XII NML intact, Fully Oriented, Alert, Motor Strength 5/5 Integumentary: Yes: Dry Lymphatic: Yes: Within Normal Limits - Diagnostic (1) History of deep venous thrombosis (DVT) of distal vein of right lower extremity Current Visit: Yes Status: Acute (2) Alcohol dependence with uncomplicated withdrawal Current Visit: No Status: Acute (3) Back pain Current Visit: No Status: Acute Qualifiers: Back pain location: low back pain Sciatica laterality: sciatica laterality unspecified (4) Weight loss Current Visit: No Status: Acute (5) Aortic valve regurgitation Current Visit: No Status: Chronic Qualifiers: Cardiac valve disease etiology: etiology unspecified Qualified Code(s): I35.1 - Nonrheumatic aortic (valve) insufficiency (6) Asthma Current Visit: No Status: Chronic Qualifiers: Asthma severity: moderate Asthma persistence: persistent Asthma complication type: with status asthmaticus Qualified Code(s): J45.42 - Moderate persistent asthma with status asthmaticus (7) COPD (chronic obstructive pulmonary disease) Current Visit: No Status: Chronic Qualifiers: COPD type: emphysema Emphysema type: unilateral Qualified Code(s): J43.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] (8) Cocaine dependence Current Visit: No Status: Chronic (9) Insomnia Current Visit: No Status: Chronic (10) Lupus (systemic lupus erythematosus) Current Visit: No Status: Chronic Qualifiers: Systemic lupus erythematosus type: other Systemic lupus erythematosus organ involvement: other Qualified Code(s): M32.19 - Other organ or system involvement in systemic lupus erythematosus (11) PTSD (post-traumatic stress disorder) Current Visit: No Status: Chronic (12) Post traumatic stress disorder (PTSD) Current Visit: No Status: Chronic (13) Weight loss Current Visit: No Status: Chronic (14) History of lithotripsy Current Visit: No Status: Resolved (15) History of syphilis Current Visit: No Status: Resolved Comment: treated in past with oral antibiotics (PCN allergic) (16) History of DVT of lower extremity Current Visit: Yes Status: Acute Cleared for Admission S - Detox or Rehab [facility] Level of Care: Medically Managed Detox Regimen/Protocol: Librium Breathalyzer - Breathalyzer Breathalyzer: 0 POC Urine test - Test device test lot number: [id number] Expiration date: 12/15/19 - Control test control: Yes - Result Urine Test Results: Negative - NO line present Urine Drug Screen - Test Device Lot number: [id number] Expiration date: 03/15/20 - Control Is test valid?: Yes - Results Drug screen NEGATIVE: No Urine drug screen results: KAYLI-Cocaine, MOP-Opiates Inpatient Rehab Admission - Rehab Decision to Admit Inpatient rehab admission?: No
[2018-08-09] MEDS ORDERED: MENTHOL/PHENOL 1 EACH UD MM PRN (10:00)
[2018-08-09] MEDS ORDERED: MAG HYDROX/AL HYDROX/SIMETH 30 ML UNIT-DOSE CUP PO PRN (10:00)
[2018-08-09] MEDS ORDERED: IBUPROFEN 400 MG TABLET (FP) PO PRN (10:00)
[2018-08-09] MEDS ORDERED: hydrOXYzine PAMOATE 25 MG CAPSULE (FP) PO PRN (10:00)
[2018-08-09] MEDS ORDERED: MAGNESIUM HYDROX 2400MG/30ML ORAL SUSPENSION 30 ML CUP PO PRN (10:00)
[2018-08-09] MEDS ORDERED: ACETAMINOPHEN 325 MG TABLET (FP) PO PRN ×2 (10:00)
[2018-08-09] MEDS ORDERED: METHOCARBAMOL 500 MG TABLET PO PRN (10:00)
[2018-08-09] MEDS ORDERED: chlordiazePOXIDE HCL 25 MG CAPSULE PO PRN (10:00)
[2018-08-09] MEDS ORDERED: MAGNESIUM CITRATE 300 ML BOTTLE PO PRN (10:00)
[2018-08-09] MEDS ORDERED: MELATONIN 5 MG TABLETS PO PRN (10:00)
[2018-08-09] MEDS ORDERED: BISMUTH SUBSALICYLATE 262 MG/15 ML BTL PO PRN (10:00)
[2018-08-09] MEDS: PRENATAL VITAMINS W/ FOLIC ACID TABLET (FP) PO SCH (11:05)
[2018-08-09] MEDS: chlordiazePOXIDE HCL 25 MG CAPSULE PO SCH ×3 (11:06→22:15)
[2018-08-09] MEDS: AMMONIUM LACTATE 12% LOTION 225 GM BOTTLE TP SCH ×2 (11:36→22:15)
[2018-08-09] MEDS: CYPROHEPTADINE HCL 4 MG TABLET PO SCH ×2 (11:36→16:38)
[2018-08-09 12:19] LABS: HEMATOCRIT 38.3 % (32.4-45.2); HEMOGLOBIN 12.7 GM/dL (10.7-15.3); MCH 30.2 pg (25.7-33.7); MCHC 33.3 g/dl (32.0-36.0); MEAN CELL VOLUME 90.9 fl (80-96); MEAN PLT VOLUME 10.2 fl (7.5-11.1); PLATELET COUNT 239 K/MM3 (134-434); RBC 4.21 M/mm3 (3.60-5.2); RDW 14.6 % (11.6-15.6); WHITE BLOOD COUNT 7.3 K/mm3 (4.0-10.0)
[2018-08-09 12:30] LABS: ALBUMIN 3.9 g/dl (3.4-5.0); ALK PHOS 136 U/L (45-117); ANION GAP 7 MMOL/L (8-16); BILIRUBIN,TOTAL 0.3 mg/dL (0.2-1); BLOOD UREA NITROGEN 20 mg/dL (7-18); CALCIUM 9.6 mg/dL (8.5-10.1); CHLORIDE 103 mmol/L (98-107); CO2 29 mmol/L (21-32); CREATININE 0.8 mg/dL (0.55-1.3); GLUCOSE,RANDOM 135 mg/dL (74-106); POTASSIUM 3.4 mmol/L (3.5-5.1); SGOT/AST 13 U/L (15-37); SGPT/ALT 16 U/L (13-61); SODIUM 138 mmol/L (136-145)
[2018-08-09 15:54] LABS: RPR REACTIVE 1:1 (NONREACTIVE)
[2018-08-09 15:55] LABS: TREPONEMA ANTIBODY PREVIOUSLY REACTIVE (NONREACTIVE)
[2018-08-09] MEDS: THIAMINE HCL 100 MG TABLET (FP) PO SCH (22:15)
[2018-08-10 00:05] LABS: PH,URINE 5.5 (5.0-8.0); URINE APPEARANCE CLEAR; URINE BILIRUBIN NEGATIVE (NEGATIVE); URINE COLOR YELLOW; URINE GLUCOSE (UA) NEGATIVE (NEGATIVE); URINE KETONE TRACE (NEGATIVE); URINE LEUK ESTERASE NEGATIVE (NEGATIVE); URINE NITRITE NEGATIVE (NEGATIVE); URINE PROTEIN NEGATIVE (NEGATIVE)
[2018-08-10] MEDS: chlordiazePOXIDE HCL 25 MG CAPSULE PO SCH ×4 (07:04→22:52)
[2018-08-10] MEDS: CYPROHEPTADINE HCL 4 MG TABLET PO SCH ×3 (07:05→17:27)
[2018-08-10] MEDS: ASPIRIN COATED 81 MG TABLET.EC PO SCH (10:19)
[2018-08-10] MEDS: PRENATAL VITAMINS W/ FOLIC ACID TABLET (FP) PO SCH (10:19)
[2018-08-10] MEDS: AMMONIUM LACTATE 12% LOTION 225 GM BOTTLE TP SCH ×2 (10:20→22:52)
[2018-08-10] MEDS: predniSONE 20 MG TABLET (UD) PO SCH (10:20)
--- NOTE | 2018-08-10 16:27 | PN ---
S CIWA - CIWA Score Nausea/Vomitin-No Nausea/No Vomiting Muscle Tremors: 2 Anxiety: 2 Agitation: 1-Slight > Activity Paroxysmal Sweats: 2 Orientation: 0-Oriented Tacttile Disturbances: 2-Mild Itch/Numbness/Burn Auditory Disturbances: 0-None Visual Disturbances: 2-Mild Sensitivity Headache: 3-Moderate CIWA-Ar Total Score: 14 [facility] Progress Note (SOAP) Subjective: Fatigue, Anxious, Tremors, Sweating, H/A. Objective: PATIENT A & O X 3. IN NO ACUTE DISTRESS. 08/10/18 16:27 Vital Signs Temperature 97.4 F L 08/10/18 10:38 Pulse Rate 96 H 08/10/18 10:38 Respiratory Rate 16 08/10/18 10:38 Blood Pressure 94/65 08/10/18 10:38 O2 Sat by Pulse Oximetry (%) Laboratory Tests 08/09/18 08/09/18 08/09/18 09:50 09:50 09:50 WBC 7.3 RBC 4.21 Hgb 12.7 Hct 38.3 MCV 90.9 MCH 30.2 MCHC 33.3 RDW 14.6 Plt Count 239 MPV 10.2 Sodium 138 Potassium 3.4 L Chloride 103 Carbon Dioxide 29 Anion Gap 7 L BUN 20 H Creatinine 0.8 Creat Clearance w eGFR 75.32 Random Glucose 135 H Calcium 9.6 Total Bilirubin 0.3 AST 13 L ALT 16 Alkaline Phosphatase 136 H Total Protein 8.0 Albumin 3.9 Urine Color Urine Appearance Urine pH Ur Specific [place] Urine Protein Urine Glucose (UA) Urine Ketones Urine Blood Urine Nitrite Urine Bilirubin Urine Urobilinogen Ur Leukocyte Esterase RPR Titer Reactive 1:1 H T.pallidum Ab (MHA) Previously reactive HIV 1&2 Antibody Screen HIV P24 Antigen 08/09/18 08/09/18 09:50 18:38 WBC RBC Hgb Hct MCV MCH MCHC RDW Plt Count MPV Sodium Potassium Chloride Carbon Dioxide Anion Gap BUN Creatinine Creat Clearance w eGFR Random Glucose Calcium Total Bilirubin AST ALT Alkaline Phosphatase Total Protein Albumin Urine Color Yellow Urine Appearance Clear Urine pH 5.5 Ur Specific [place] 1.026 Urine Protein Negative Urine Glucose (UA) Negative Urine Ketones Trace H Urine Blood Negative Urine Nitrite Negative Urine Bilirubin Negative Urine Urobilinogen 1.0 Ur Leukocyte Esterase Negative RPR Titer T.pallidum Ab (MHA) HIV 1&2 Antibody Screen Negative HIV P24 Antigen Negative LABS NOTED. ADMISSION RPR RESULT NOTED: REACTIVE 1:1; MHATP: PREVIOUSLY REACTIVE. PATIENT PREVIOUSLY REPORTED THAT SHE HAS COMPLETED A COURSE OF ANTIBIOTIC TREATMENT FOR SYPHILIS IN THE PAST. 08/10/18 16:30 Assessment: 08/10/18 16:30 WITHDRAWAL SYMPTOMS. HYPOKALEMIA. 08/10/18 16:32 Plan: CONTINUE DETOX. INCREAE DAILY PO FLUID INTAKE. K-DUR, 20 MEQ PO BID. RE-CHECK K LEVEL ON 08/12/2018.
[2018-08-10] MEDS: POTASSIUM CHLORIDE TABS 20 MEQ TABLET.ER (FP) PO SCH (17:27)
[2018-08-10] MEDS: ALBUTEROL SO4 8 GM HFA INHALER IH PRN ×2 (17:29→22:54)
[2018-08-10] MEDS: THIAMINE HCL 100 MG TABLET (FP) PO SCH (22:43)
[2018-08-11] MEDS: chlordiazePOXIDE HCL 25 MG CAPSULE PO SCH (06:29)
[2018-08-11] MEDS: CYPROHEPTADINE HCL 4 MG TABLET PO SCH ×3 (07:29→16:54)
[2018-08-11] MEDS: ASPIRIN COATED 81 MG TABLET.EC PO SCH (10:32)
[2018-08-11] MEDS: chlordiazePOXIDE HCL 10 MG CAPSULE PO SCH ×3 (10:33→22:21)
[2018-08-11] MEDS: AMMONIUM LACTATE 12% LOTION 225 GM BOTTLE TP SCH ×2 (10:33→22:21)
[2018-08-11] MEDS: predniSONE 20 MG TABLET (UD) PO SCH (10:33)
[2018-08-11] MEDS: POTASSIUM CHLORIDE TABS 20 MEQ TABLET.ER (FP) PO SCH ×2 (10:33→17:53)
[2018-08-11] MEDS: PRENATAL VITAMINS W/ FOLIC ACID TABLET (FP) PO SCH (10:33)
[2018-08-11] MEDS ORDERED: chlordiazePOXIDE HCL 10 MG CAPSULE PO PRN (11:00)
--- NOTE | 2018-08-11 12:17 | PN ---
[facility] CIWA - CIWA Score Nausea/Vomitin-Mild Nausea/No Vomiting Muscle Tremors: 2 Anxiety: 2 Agitation: 2 Paroxysmal Sweats: 1-Minimal Palms Moist Orientation: 1-Uncertain about Date Tacttile Disturbances: 0-None Auditory Disturbances: 0-None Visual Disturbances: 0-None Headache: 1-Very Mild CIWA-Ar Total Score: 10 [facility] Progress Note (SOAP) Subjective: feeling ok today mild tremor ambulating on hallway Objective: 08/11/18 12:17 Vital Signs Temperature 96.1 F L 08/11/18 09:36 Pulse Rate 71 08/11/18 09:36 Respiratory Rate 18 08/11/18 09:36 Blood Pressure 107/71 08/11/18 09:36 O2 Sat by Pulse Oximetry (%) Laboratory Last Values WBC 7.3 K/mm3 (4.0-10.0) 08/09/18 09:50 RBC 4.21 M/mm3 (3.60-5.2) 08/09/18 09:50 Hgb 12.7 GM/dL (10.7-15.3) 08/09/18 09:50 Hct 38.3 % (32.4-45.2) 08/09/18 09:50 MCV 90.9 fl (80-96) 08/09/18 09:50 MCH 30.2 pg (25.7-33.7) 08/09/18 09:50 MCHC 33.3 g/dl (32.0-36.0) 08/09/18 09:50 RDW 14.6 % (11.6-15.6) 08/09/18 09:50 Plt Count 239 K/MM3 (134-434) 08/09/18 09:50 MPV 10.2 fl (7.5-11.1) 08/09/18 09:50 Sodium 138 mmol/L (136-145) 08/09/18 09:50 Potassium 3.4 mmol/L (3.5-5.1) L 08/09/18 09:50 Chloride 103 mmol/L (98-107) 08/09/18 09:50 Carbon Dioxide 29 mmol/L (21-32) 08/09/18 09:50 Anion Gap 7 MMOL/L (8-16) L 08/09/18 09:50 BUN 20 mg/dL (7-18) H 08/09/18 09:50 Creatinine 0.8 mg/dL (0.55-1.3) 08/09/18 09:50 Creat Clearance w eGFR 75.32 (>60) 08/09/18 09:50 Random Glucose 135 mg/dL (74-106) H 08/09/18 09:50 Calcium 9.6 mg/dL (8.5-10.1) 08/09/18 09:50 Total Bilirubin 0.3 mg/dL (0.2-1) 08/09/18 09:50 AST 13 U/L (15-37) L 08/09/18 09:50 ALT 16 U/L (13-61) 08/09/18 09:50 Alkaline Phosphatase 136 U/L (45-117) H 08/09/18 09:50 Total Protein 8.0 g/dl (6.4-8.2) 08/09/18 09:50 Albumin 3.9 g/dl (3.4-5.0) 08/09/18 09:50 Urine Color Yellow 08/09/18 18:38 Urine Appearance Clear 08/09/18 18:38 Urine pH 5.5 (5.0-8.0) 08/09/18 18:38 Ur Specific [place] 1.026 (1.010-1.035) 08/09/18 18:38 Urine Protein Negative (NEGATIVE) 08/09/18 18:38 Urine Glucose (UA) Negative (NEGATIVE) 08/09/18 18:38 Urine Ketones Trace (NEGATIVE) H 08/09/18 18:38 Urine Blood Negative (NEGATIVE) 08/09/18 18:38 Urine Nitrite Negative (NEGATIVE) 08/09/18 18:38 Urine Bilirubin Negative (NEGATIVE) 08/09/18 18:38 Urine Urobilinogen 1.0 mg/dL (0.2-1.0) 08/09/18 18:38 Ur Leukocyte Esterase Negative (NEGATIVE) 08/09/18 18:38 RPR Titer Reactive 1:1 (NONREACTIVE) H 08/09/18 09:50 T.pallidum Ab (MHA) Previously reactive (NONREACTIVE) 08/09/18 09:50 HIV 1&2 Antibody Screen Negative 08/09/18 09:50 HIV P24 Antigen Negative 08/09/18 09:50 lab noted repeat K+ continue K+ supplement 08/11/18 12:18 Assessment: 08/11/18 12:19 withdrawal sx Plan: continue detox
[2018-08-11] MEDS: THIAMINE HCL 100 MG TABLET (FP) PO SCH (22:22)
[2018-08-12] MEDS: chlordiazePOXIDE HCL 10 MG CAPSULE PO SCH (06:35)
[2018-08-12] MEDS: CYPROHEPTADINE HCL 4 MG TABLET PO SCH ×3 (07:48→17:20)
[2018-08-12] MEDS: POTASSIUM CHLORIDE TABS 20 MEQ TABLET.ER (FP) PO SCH ×2 (10:29→17:25)
[2018-08-12] MEDS: predniSONE 20 MG TABLET (UD) PO SCH (10:29)
[2018-08-12] MEDS: ASPIRIN COATED 81 MG TABLET.EC PO SCH (10:29)
[2018-08-12] MEDS: PRENATAL VITAMINS W/ FOLIC ACID TABLET (FP) PO SCH (10:29)
[2018-08-12] MEDS: AMMONIUM LACTATE 12% LOTION 225 GM BOTTLE TP SCH (10:30)
--- NOTE | 2018-08-12 10:41 | DS ---
[facility] Detox Discharge Summary Admission Date: 08/09/18 Discharge Date: 08/12/18 - History Present History: Alcohol Dependence Additional Comments: 53 years old female admitted on 08/09/18 for alcohol withdrawal stabilization feeling better today perferring to go to alcohol rehab today after[facility] - Physical Exam Results Vital Signs: Vital Signs Temperature 98.0 F 08/12/18 09:04 Pulse Rate 108 H 08/12/18 09:04 Respiratory Rate 20 08/12/18 09:04 Blood Pressure 91/61 08/12/18 09:04 O2 Sat by Pulse Oximetry (%) Pertinent Admission Physical Exam Findings: alcohol withdrawal sx Laboratory Last Values WBC 7.3 K/mm3 (4.0-10.0) 08/09/18 09:50 RBC 4.21 M/mm3 (3.60-5.2) 08/09/18 09:50 Hgb 12.7 GM/dL (10.7-15.3) 08/09/18 09:50 Hct 38.3 % (32.4-45.2) 08/09/18 09:50 MCV 90.9 fl (80-96) 08/09/18 09:50 MCH 30.2 pg (25.7-33.7) 08/09/18 09:50 MCHC 33.3 g/dl (32.0-36.0) 08/09/18 09:50 RDW 14.6 % (11.6-15.6) 08/09/18 09:50 Plt Count 239 K/MM3 (134-434) 08/09/18 09:50 MPV 10.2 fl (7.5-11.1) 08/09/18 09:50 Sodium 138 mmol/L (136-145) 08/09/18 09:50 Potassium 3.4 mmol/L (3.5-5.1) L 08/09/18 09:50 Chloride 103 mmol/L (98-107) 08/09/18 09:50 Carbon Dioxide 29 mmol/L (21-32) 08/09/18 09:50 Anion Gap 7 MMOL/L (8-16) L 08/09/18 09:50 BUN 20 mg/dL (7-18) H 08/09/18 09:50 Creatinine 0.8 mg/dL (0.55-1.3) 08/09/18 09:50 Creat Clearance w eGFR 75.32 (>60) 08/09/18 09:50 Random Glucose 135 mg/dL (74-106) H 08/09/18 09:50 Calcium 9.6 mg/dL (8.5-10.1) 08/09/18 09:50 Total Bilirubin 0.3 mg/dL (0.2-1) 08/09/18 09:50 AST 13 U/L (15-37) L 08/09/18 09:50 ALT 16 U/L (13-61) 08/09/18 09:50 Alkaline Phosphatase 136 U/L (45-117) H 08/09/18 09:50 Total Protein 8.0 g/dl (6.4-8.2) 08/09/18 09:50 Albumin 3.9 g/dl (3.4-5.0) 08/09/18 09:50 Urine Color Yellow 08/09/18 18:38 Urine Appearance Clear 08/09/18 18:38 Urine pH 5.5 (5.0-8.0) 08/09/18 18:38 Ur Specific [place] 1.026 (1.010-1.035) 08/09/18 18:38 Urine Protein Negative (NEGATIVE) 08/09/18 18:38 Urine Glucose (UA) Negative (NEGATIVE) 08/09/18 18:38 Urine Ketones Trace (NEGATIVE) H 08/09/18 18:38 Urine Blood Negative (NEGATIVE) 08/09/18 18:38 Urine Nitrite Negative (NEGATIVE) 08/09/18 18:38 Urine Bilirubin Negative (NEGATIVE) 08/09/18 18:38 Urine Urobilinogen 1.0 mg/dL (0.2-1.0) 08/09/18 18:38 Ur Leukocyte Esterase Negative (NEGATIVE) 08/09/18 18:38 RPR Titer Reactive 1:1 (NONREACTIVE) H 08/09/18 09:50 T.pallidum Ab (MHA) Previously reactive (NONREACTIVE) 08/09/18 09:50 HIV 1&2 Antibody Screen Negative 08/09/18 09:50 HIV P24 Antigen Negative 08/09/18 09:50 lab noted K+ repeat pending - Treatment Hospital Course: Detox Protocol Followed, Detoxed Safely, Responded well, Discharged Condition Good, Rehab Referral Accepted Patient has Accepted [facility] Referral [facility] - Medication Discharge Medications: Ambulatory Orders Aspirin Coated [Ecotrin -] 81 mg PO DAILY #30 mg 05/30/17 Olanzapine [ZyPREXA -] 10 mg PO HS #30 tablet 07/30/17 Albuterol Sulfate Inhaler - [Ventolin HFA Inhaler -] 2 inh PO Q4H PRN #1 inhaler 08/02/17 Cyproheptadine [Periactin -] 4 mg PO TID #90 tablet 08/02/17 predniSONE [Deltasone -] 60 mg PO DAILY 11/28/17 Bupropion HCl [Wellbutrin Xl -] 150 mg PO DAILY 11/29/17 Clonazepam [Klonopin] 2 mg PO DAILY 08/09/18 - Diagnosis (1) Alcohol dependence with uncomplicated withdrawal Current Visit: Yes Status: Acute (2) Substance induced mood disorder Current Visit: Yes Status: Suspected (3) Asthma Current Visit: Yes Status: Chronic Qualifiers: Asthma severity: mild Asthma persistence: intermittent Asthma complication type: with status asthmaticus Qualified Code(s): J45.22 - Mild intermittent asthma with status asthmaticus (4) COPD (chronic obstructive pulmonary disease) Current Visit: Yes Status: Chronic Qualifiers: COPD type: emphysema Emphysema type: unilateral Qualified Code(s): J43.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] (5) Nicotine dependence Current Visit: Yes Status: Acute Qualifiers: Nicotine product type: cigarettes Substance use status: in withdrawal Qualified Code(s): F17.213 - Nicotine dependence, cigarettes, with withdrawal (6) Weight loss Current Visit: Yes Status: Acute (7) History of syphilis Current Visit: Yes Status: Chronic - AMA Did Patient Leave Against Medical Advice: No
[2018-08-12] MEDS ORDERED: chlordiazePOXIDE HCL 10 MG CAPSULE PO SCH (11:00)
[2018-08-12 13:23] VITALS: BP 126/83; PULSE 67; TEMP 96.6
== END 2018-08-12 17:49 | disposition home or self-care (01) | DRG 774 ==
LOC: YASAS 08:19 → Y3N 10:10
PROVIDERS: ADMIT Surgery; ATTEND Surgery
PROC: HZ2ZZZZ Detoxification Services for Substance Abuse Treatment (ICD-10-PCS; principal; 2018-08-09)
DX: F10.230 Alcohol dependence with withdrawal, uncomplicated (principal); F14.20 Cocaine dependence, uncomplicated; F17.213 Nicotine dependence, cigarettes, with withdrawal; F19.24 Other psychoactive substance dependence with psychoactive substance-induced mood disorder; F43.10 Post-traumatic stress disorder, unspecified; K21.9 Gastro-esophageal reflux disease without esophagitis; J45.22 Mild intermittent asthma with status asthmaticus; J43.0 Unilateral pulmonary 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]; I35.1 Nonrheumatic aortic (valve) insufficiency; G47.00 Insomnia, unspecified; E87.6 Hypokalemia; M54.5 Low back pain; M32.19 Other organ or system involvement in systemic lupus erythematosus; R63.4 Abnormal weight loss; Z68.22 Body mass index [BMI] 22.0-22.9, adult; Z86.19 Personal history of other infectious and parasitic diseases; Z91.5 Personal history of self-harm; Z91.040 Latex allergy status; Z88.5 Allergy status to narcotic agent; Z91.018 Allergy to other foods
CPT/HCPCS: 36415; 80053; 81003; 84132; 85027; 86593; 86780; 87389

== ENCOUNTER 2018-09-26 09:19 | Inpatient (IN) | payer BC ==
[2018-09-26 10:16] VITALS: BMI 22.2
--- NOTE | 2018-09-26 10:58 | HP ---
CIWA Score Nausea/Vomitin Muscle Tremors: 2 Anxiety: 2 Agitation: 2 Paroxysmal Sweats: 1-Minimal Palms Moist Orientation: 0-Oriented Tacttile Disturbances: 1-Very Mild Itch/Numbness Auditory Disturbances: 1-Very Mild Visual Disturbances: 0-None Headache: 2-Mild CIWA-Ar Total Score: 13 - Admission Criteria OASAS Guidelines: Admission for Medically Managed Detox: Requires at least one of the followin. CIWA greater than 12 2. Seizures within the past 24 hours 3. Delirium tremens within the past 24 hours 4. Hallucinations within the past 24 hours 5. Acute intervention needed for co occurring medical disorder 6. Acute intervention needed for co occurring psychiatric disorder 7. Severe withdrawal that cannot be handled at a lower level of care (continued vomiting, continued diarrhea, abnormal vital signs) requiring intravenous medication and/or fluids 8. Admission ROS S - HPI Chief Complaint: i need help to stop drinking alcohol and cocaine abused Allergies/Adverse Reactions: Allergies Allergy/AdvReac Type Severity Reaction Status Date / Time carrot Allergy Severe Itching Verified 09/26/18 10:06 Penicillins Allergy Severe Swelling Verified 09/26/18 10:06 Latex, Natural Rubber Allergy Intermediate Rash Verified 09/26/18 10:06 morphine AdvReac Intermediate HALLUCINATI Verified 09/26/18 10:06 ON History of Present Illness: this 53 years old female with alcohol dependence and cocaine abused,seeking detox,withdrawal symptom, multiple admissions in detox,last treatment [facility] 08/09/18 to 08/02/18 syncope alcohol related weight loss nicotine dependence 4 cigarette,would like to have the gum longest sobriety 3 years plan for rehab after detox history of sle,asthma, history of bipolar disorder Exam Limitations: No Limitations - Ebola screening Have you traveled outside of the country in the last 21 days: No (N) Have you had contact with anyone from an Ebola affected area: No Do you have a fever: No - Review of Systems Constitutional: Loss of Appetite, Malaise, Night Sweats, Changes in sleep, Weakness, Unintentional Wgt. Loss EENT: reports: Nose Congestion Respiratory: reports: No Symptoms reported Cardiac: reports: No Symptoms Reported GI: reports: Nausea, Vomiting, Abdominal cramping : reports: No Symptoms Reported Musculoskeletal: reports: Back Pain, Muscle Pain Integumentary: reports: Dryness Neuro: reports: Headache, Tremors Endocrine: reports: No Symptoms Reported Hematology: reports: No Symptoms Reported, Other (history of sle) Psychiatric: reports: No Sypmtoms Reported, Judgement Intact, Mood/Affect Appropiate, Orientated x3 Other Systems: Reviewed and Negative Patient History - Patient Medical History Hx Anemia: Yes (history - none now) Hx Asthma: Yes (ON MDI) Hx Chronic Obstructive Pulmonary Disease (COPD): Yes (on albuterol inhaler) Hx Cancer: No Hx Cardiac Disorders: No Hx Congestive Heart Failure: No Hx Hypertension: No Hx Hypercholesterolemia: No Hx Pacemaker: No HX Cerebrovascular Accident: No Hx Seizures: No Hx Dementia: No Hx Diabetes: No Hx Gastrointestinal Disorders: Yes (GERD) Hx Liver Disease: No Hx Genitourinary Disorders: No Hx Sexually Transmitted Disorders: No Hx Renal Disease (ESRD): Yes (RENAL CALCULI) Hx Thyroid Disease: No Hx Human Immunodeficiency Virus (HIV): No (2018 negative) Hx Hepatitis C: No Hx Depression: Yes Hx Suicide Attempt: Yes (try to jump from window at age 19 years) Hx Bipolar Disorder: Yes (PTSD, seroquel) Hx Schizophrenia: Yes Other Medical History: no suicidal,no homicidal,sle - Patient Surgical History Past Surgical History: Yes Hx Neurologic Surgery: No Hx Cataract Extraction: No Hx Cardiac Surgery: No Hx Lung Surgery: No Hx Breast Surgery: No Hx Breast Biopsy: No Hx Abdominal Surgery: No Hx Appendectomy: No Hx Cholecystectomy: No Hx Genitourinary Surgery: Yes (lithotripsy for renal calculi 1995) Hx Section: Yes (5, patient has 10 children) Hx Orthopedic Surgery: No Hx Hysterectomy: No Other Surgical History: Kidney stones removal 1995 BY LITHOTRIPSY Anesthesia Reaction: No - PPD History Documented Results: Negative w/o proof Date: 01/24/17 Results: 0MM PPD to be Administered?: Yes - Reproductive History Patient is a Female of Child Bearing Age (11 -55 yrs old): Yes Last Menstrual Period: 06/26/17 Patient : No - Smoking Cessation Smoking history: Current every day smoker Have you smoked in the past 12 months: Yes Aproximately how many cigarettes per day: 4 Cigars Per Day: 0 Hx Chewing Tobacco Use: No Initiated information on smoking cessation: Yes 'Breaking Loose' booklet given: 09/26/18 - Substance & Tx. History Hx Alcohol Use: Yes Hx Substance Use: Yes Substance Use Type: Alcohol, Cocaine Hx Substance Use Treatment: Yes ([facility] 08/09/18 to 08/12/18) - Substances abused Alcohol Substance route: Oral Frequency: Daily Amount used: 2cases of beer 12 ozs Age of first use: 33 Date of last use: 09/25/18 Cocaine Substance route: Inhalation Frequency: 1-2 times per week Amount used: 150 dollars Age of first use: 33 Date of last use: 08/08/18 Family Disease History - Family Disease History Family Disease History: [place]: Mother (, lupus, bladder cancer, ), Sister ( two alive, one sister with breast cancer), Other: Father (, IDU, AIDS), Brother (two alive, no problems), Sister, Son (five - no medical problems), Daughter (five - no problems) Admission Physical Exam S - Vital Signs Vital Signs: Vital Signs - 24 hr 09/26/18 09/26/18 09:56 10:14 Temperature 96.8 F L 96.8 F L Pulse Rate 76 76 Respiratory 16 16 Rate Blood Pressure 103/68 103/68 - Physical General Appearance: Yes: Moderate Distress, Tremorous, Irritable, Sweating, Anxious HEENTM: Yes: Normal ENT Inspection, JEFF, Pharynx Normal Respiratory: Yes: Lungs Clear, Normal Breath Sounds, No Respiratory Distress Neck: Yes: Within Normal Limits, Supple, Trachea in good position Breast: Yes: Breast Exam Deferred Cardiology: Yes: Within Normal Limits, Regular Rhythm, Regular Rate, S1, S2 Abdominal: Yes: Within Normal Limits, Normal Bowel Sounds, Non Tender, Flat, Soft Genitourinary: Yes: Within Normal Limits Back: Yes: Within Normal Limits, Normal Inspection, Muscle Spasm Musculoskeletal: Yes: full range of Motion, Back pain, Muscle Pain Extremities: Yes: Within Normal Limits, Normal Range of Motion, Tremors Neurological: Yes: qa analyst II-XII NML intact, Fully Oriented, Alert, Motor Strength 5/5 Integumentary: Yes: Dry Lymphatic: Yes: Within Normal Limits - Diagnostic (1) Alcohol dependence with uncomplicated withdrawal Current Visit: No Status: Acute (2) History of DVT of lower extremity Current Visit: No Status: Acute (3) Nicotine dependence Current Visit: No Status: Acute Qualifiers: Nicotine product type: cigarettes Substance use status: in withdrawal Qualified Code(s): F17.213 - Nicotine dependence, cigarettes, with withdrawal (4) Aortic valve regurgitation Current Visit: No Status: Chronic Qualifiers: Cardiac valve disease etiology: etiology unspecified Qualified Code(s): I35.1 - Nonrheumatic aortic (valve) insufficiency (5) Asthma Current Visit: No Status: Chronic Qualifiers: Asthma severity: mild Asthma persistence: intermittent Asthma complication type: with status asthmaticus Qualified Code(s): J45.22 - Mild intermittent asthma with status asthmaticus (6) History of syphilis Current Visit: No Status: Chronic Comment: treated in past with oral antibiotics (PCN allergic) (7) Lupus (systemic lupus erythematosus) Current Visit: No Status: Chronic Qualifiers: Systemic lupus erythematosus type: other Systemic lupus erythematosus organ involvement: other Qualified Code(s): M32.19 - Other organ or system involvement in systemic lupus erythematosus (8) Nicotine dependence Current Visit: No Status: Chronic (9) History of lithotripsy Current Visit: No Status: Resolved (10) Syncope Current Visit: No Status: Acute (11) Weight loss Current Visit: No Status: Acute Cleared for Admission [facility] - Detox or Rehab S Level of Care: Medically Managed Detox Regimen/Protocol: Librium Breathalyzer - Breathalyzer Breathalyzer: 0 POC Urine test - Test device test lot number: [id number] Expiration date: 12/15/19 - Control test control: Yes Urine Drug Screen - Test Device Lot number: [id number] Expiration date: 06/13/20 - Control Is test valid?: No - Results Drug screen NEGATIVE: No Urine drug screen results: KAYLI-Cocaine Inpatient Rehab Admission - Rehab Decision to Admit Inpatient rehab admission?: No
[2018-09-26] MEDS ORDERED: MAGNESIUM HYDROX 2400MG/30ML ORAL SUSPENSION 30 ML CUP PO PRN (11:08)
[2018-09-26] MEDS ORDERED: chlordiazePOXIDE HCL 25 MG CAPSULE PO PRN (11:08)
[2018-09-26] MEDS ORDERED: MAGNESIUM CITRATE 300 ML BOTTLE PO PRN (11:08)
[2018-09-26] MEDS ORDERED: MENTHOL/PHENOL 1 EACH UD MM PRN (11:08)
[2018-09-26] MEDS ORDERED: ACETAMINOPHEN 325 MG TABLET (FP) PO PRN ×2 (11:08)
[2018-09-26] MEDS ORDERED: hydrOXYzine PAMOATE 25 MG CAPSULE (FP) PO PRN (11:08)
[2018-09-26] MEDS ORDERED: METHOCARBAMOL 500 MG TABLET PO PRN (11:08)
[2018-09-26] MEDS ORDERED: IBUPROFEN 400 MG TABLET (FP) PO PRN (11:08)
[2018-09-26] MEDS ORDERED: BISMUTH SUBSALICYLATE 262 MG/15 ML BTL PO PRN (11:08)
[2018-09-26] MEDS ORDERED: MELATONIN 5 MG TABLETS PO PRN (11:08)
[2018-09-26] MEDS ORDERED: MAG HYDROX/AL HYDROX/SIMETH 30 ML UNIT-DOSE CUP PO PRN (11:08)
[2018-09-26] MEDS ORDERED: ALBUTEROL SO4 8 GM HFA INHALER IH PRN (11:11)
[2018-09-26 14:18] LABS: ALBUMIN 3.8 g/dl (3.4-5.0); BILIRUBIN,TOTAL 0.3 mg/dL (0.2-1); BLOOD UREA NITROGEN 17.5 mg/dL (7-18); CALCIUM 9.3 mg/dL (8.5-10.1); CREATININE 0.7 mg/dL (0.55-1.3); POTASSIUM 3.5 mmol/L (3.5-5.1); TOT PROT 7.6 g/dl (6.4-8.2)
[2018-09-26 14:33] LABS: RPR REACTIVE 1:1 (NONREACTIVE)
[2018-09-26 14:34] LABS: TREPONEMA ANTIBODY PREVIOUSLY REACTIVE (NONREACTIVE)
[2018-09-26 14:43] LABS: HEMATOCRIT 38.1 % (32.4-45.2); HEMOGLOBIN 12.3 GM/dL (10.7-15.3); MCH 29.5 pg (25.7-33.7); MCHC 32.4 g/dl (32.0-36.0); MEAN PLT VOLUME 9.9 fl (7.5-11.1); RBC 4.18 M/mm3 (3.60-5.2); RDW 14.7 % (11.6-15.6); WHITE BLOOD COUNT 7.3 K/mm3 (4.0-10.0)
[2018-09-26 15:07] LABS: PLATELET COUNT 243 K/MM3 (134-434)
[2018-09-26] MEDS: chlordiazePOXIDE HCL 25 MG CAPSULE PO SCH ×4 (17:41→22:43)
[2018-09-26] MEDS: CYPROHEPTADINE HCL 4 MG TABLET PO SCH (17:56)
[2018-09-26 19:35] LABS: URINE APPEARANCE CLEAR; URINE BILIRUBIN NEGATIVE (NEGATIVE); URINE COLOR YELLOW; URINE GLUCOSE (UA) NEGATIVE (NEGATIVE); URINE KETONE NEGATIVE (NEGATIVE)
[2018-09-26 19:36] LABS: URINE LEUK ESTERASE TRACE (NEGATIVE); URINE NITRITE NEGATIVE (NEGATIVE); URINE PROTEIN NEGATIVE (NEGATIVE); URINE UROBILINOGEN 0.2 mg/dL (0.2-1.0)
[2018-09-26 21:06] LABS: EPI CELLS FEW /HPF; URINE BACTERIA RARE /hpf (NEGATIVE); URINE WBC 0-4 (NEGATIVE)
[2018-09-26] MEDS: THIAMINE HCL 100 MG TABLET (FP) PO SCH (22:33)
[2018-09-27] MEDS: chlordiazePOXIDE HCL 25 MG CAPSULE PO SCH ×4 (06:21→22:24)
[2018-09-27] MEDS: CYPROHEPTADINE HCL 4 MG TABLET PO SCH ×3 (07:06→17:27)
[2018-09-27] MEDS: ASPIRIN COATED 81 MG TABLET.EC PO SCH (10:19)
[2018-09-27] MEDS: PRENATAL VITAMINS W/ FOLIC ACID TABLET (FP) PO SCH (10:19)
[2018-09-27] MEDS: predniSONE 20 MG TABLET (UD) PO SCH (10:19)
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
--- NOTE | 2018-09-27 11:51 | PN ---
S CIWA - CIWA Score Nausea/Vomitin-No Nausea/No Vomiting Muscle Tremors: 3 Anxiety: 3 Agitation: 4-Moderately Restless Paroxysmal Sweats: 3 Orientation: 0-Oriented Tacttile Disturbances: 0-None Auditory Disturbances: 0-None Visual Disturbances: 0-None Headache: 0-None Present CIWA-Ar Total Score: 13 [facility] Progress Note (SOAP) Subjective: sweats shakes interrupted sleep body aches Objective: 09/27/18 11:48 Vital Signs Temperature 97.6 F 09/27/18 09:56 Pulse Rate 81 09/27/18 09:56 Respiratory Rate 18 09/27/18 09:56 Blood Pressure 130/79 09/27/18 09:56 O2 Sat by Pulse Oximetry (%) Laboratory Tests 09/26/18 09/26/18 09/26/18 11:25 11:25 11:25 WBC 7.3 RBC 4.18 Hgb 12.3 Hct 38.1 MCV 91.0 MCH 29.5 MCHC 32.4 RDW 14.7 Plt Count 243 MPV 9.9 Sodium 143 Potassium 3.5 Chloride 109 H Carbon Dioxide 29 Anion Gap 5 L BUN 17.5 Creatinine 0.7 Est GFR (CKD-EPI)AfAm 115.45 Est GFR (CKD-EPI)NonAf 99.62 Random Glucose 89 Calcium 9.3 Total Bilirubin 0.3 AST 11 L ALT 18 Alkaline Phosphatase 119 H Total Protein 7.6 Albumin 3.8 Urine Color Urine Appearance Urine pH Ur Specific [place] Urine Protein Urine Glucose (UA) Urine Ketones Urine Blood Urine Nitrite Urine Bilirubin Urine Urobilinogen Ur Leukocyte Esterase Urine WBC (Auto) Urine RBC (Auto) U Epithel Cells (Auto) Urine Bacteria (Auto) RPR Titer Reactive 1:1 H T.pallidum Ab (MHA) Previously reactive 09/26/18 13:00 WBC RBC Hgb Hct MCV MCH MCHC RDW Plt Count MPV Sodium Potassium Chloride Carbon Dioxide Anion Gap BUN Creatinine Est GFR (CKD-EPI)AfAm Est GFR (CKD-EPI)NonAf Random Glucose Calcium Total Bilirubin AST ALT Alkaline Phosphatase Total Protein Albumin Urine Color Yellow Urine Appearance Clear Urine pH 5.0 Ur Specific [place] 1.021 Urine Protein Negative Urine Glucose (UA) Negative Urine Ketones Negative Urine Blood Negative Urine Nitrite Negative Urine Bilirubin Negative Urine Urobilinogen 0.2 Ur Leukocyte Esterase Trace Urine WBC (Auto) 0-4 Urine RBC (Auto) 2-5 U Epithel Cells (Auto) Few Urine Bacteria (Auto) Rare RPR Titer T.pallidum Ab (A) aaox3 ambulating no acute distress Assessment: 09/27/18 11:51 withdrawal sx Plan: continue detox increase fluids
[2018-09-27] MEDS: traZODone HCL 50 MG TABLET (FP) PO SCH (22:24)
[2018-09-27] MEDS: THIAMINE HCL 100 MG TABLET (FP) PO SCH (22:24)
[2018-09-27] MEDS: OLANZapine 5 MG TABLET PO SCH (22:24)
[2018-09-28] MEDS: chlordiazePOXIDE HCL 25 MG CAPSULE PO SCH ×2 (05:38→11:24)
[2018-09-28] MEDS: NICOTINE POLACRILEX 2 MG GUM BUC PRN (05:41)
[2018-09-28] MEDS: CYPROHEPTADINE HCL 4 MG TABLET PO SCH ×3 (07:35→18:23)
[2018-09-28] MEDS: predniSONE 20 MG TABLET (UD) PO SCH (11:23)
[2018-09-28] MEDS: PRENATAL VITAMINS W/ FOLIC ACID TABLET (FP) PO SCH (11:23)
[2018-09-28] MEDS: ASPIRIN COATED 81 MG TABLET.EC PO SCH (11:23)
--- NOTE | 2018-09-28 11:55 | PN ---
S CIWA - CIWA Score Nausea/Vomitin-Mild Nausea/No Vomiting Muscle Tremors: 3 Anxiety: 1-Mildly Anxious Agitation: 0-Normal Activity Paroxysmal Sweats: 3 Orientation: 0-Oriented Tacttile Disturbances: 0-None Auditory Disturbances: 0-None Visual Disturbances: 0-None Headache: 0-None Present CIWA-Ar Total Score: 8 BHS Progress Note (SOAP) Subjective: Lower back pain swats Objective: 09/28/18 11:53 A & O x 3 No acute distress gait steady Vital Signs Temperature 97.2 F L 09/28/18 10:00 Pulse Rate 72 09/28/18 10:00 Respiratory Rate 18 09/28/18 10:00 Blood Pressure 110/75 09/28/18 10:00 O2 Sat by Pulse Oximetry (%) Assessment: 09/28/18 11:54 withdrawal sx Plan: Continue detox Increase hydration pain med prn for lower back pain
[2018-09-28] MEDS ORDERED: chlordiazePOXIDE HCL 10 MG CAPSULE PO PRN (17:00)
[2018-09-28] MEDS: chlordiazePOXIDE HCL 10 MG CAPSULE PO SCH ×2 (18:34→22:49)
[2018-09-28] MEDS: THIAMINE HCL 100 MG TABLET (FP) PO SCH (22:48)
[2018-09-28] MEDS: traZODone HCL 50 MG TABLET (FP) PO SCH (22:48)
[2018-09-28] MEDS: OLANZapine 5 MG TABLET PO SCH (22:49)
[2018-09-29] MEDS: chlordiazePOXIDE HCL 10 MG CAPSULE PO SCH ×3 (06:15→16:53)
[2018-09-29] MEDS: CYPROHEPTADINE HCL 4 MG TABLET PO SCH ×3 (06:15→16:53)
[2018-09-29] MEDS: ASPIRIN COATED 81 MG TABLET.EC PO SCH (10:17)
[2018-09-29] MEDS: predniSONE 20 MG TABLET (UD) PO SCH (10:17)
[2018-09-29] MEDS: PRENATAL VITAMINS W/ FOLIC ACID TABLET (FP) PO SCH (10:17)
--- NOTE | 2018-09-29 15:18 | PN ---
[facility] CIWA - CIWA Score Nausea/Vomitin-No Nausea/No Vomiting Muscle Tremors: 2 Anxiety: 1-Mildly Anxious Agitation: 2 Paroxysmal Sweats: 2 Orientation: 0-Oriented Tacttile Disturbances: 0-None Auditory Disturbances: 0-None Visual Disturbances: 0-None Headache: 0-None Present CIWA-Ar Total Score: 7 BHS Progress Note (SOAP) Subjective: sweats little sleepy Objective: 09/29/18 15:18 Vital Signs Temperature 97.1 F L 09/29/18 14:21 Pulse Rate 94 H 09/29/18 14:21 Respiratory Rate 18 09/29/18 14:21 Blood Pressure 103/61 09/29/18 14:21 O2 Sat by Pulse Oximetry (%) aaox3 ambulating no acute distress Assessment: 09/29/18 15:18 mild withdrawal sx Plan: continue detox increase fluids d/c in am
[2018-09-29] MEDS: traZODone HCL 50 MG TABLET (FP) PO SCH (23:38)
[2018-09-29] MEDS: OLANZapine 5 MG TABLET PO SCH (23:38)
[2018-09-29] MEDS: THIAMINE HCL 100 MG TABLET (FP) PO SCH (23:38)
[2018-09-30] MEDS: CYPROHEPTADINE HCL 4 MG TABLET PO SCH ×2 (06:03→10:00)
[2018-09-30] MEDS: chlordiazePOXIDE HCL 10 MG CAPSULE PO SCH (06:03)
--- NOTE | 2018-09-30 08:48 | DS ---
[facility] Detox Discharge Summary Admission Date: 09/26/18 Discharge Date: 09/30/18 - History Present History: Alcohol Dependence - Physical Exam Results Vital Signs: Vital Signs Temperature 97.7 F 09/30/18 06:25 Pulse Rate 69 09/30/18 06:25 Respiratory Rate 18 09/30/18 06:25 Blood Pressure 99/66 09/30/18 06:25 O2 Sat by Pulse Oximetry (%) - Treatment Hospital Course: Detox Protocol Followed, Detoxed Safely, Responded well, Discharged Condition Good, Rehab Referral Accepted - Medication Discharge Medications: Ambulatory Orders Aspirin Coated [Ecotrin -] 81 mg PO DAILY #30 mg 05/30/17 Albuterol Sulfate Inhaler - [Ventolin HFA Inhaler -] 2 inh PO Q4H PRN #1 inhaler 08/02/17 Cyproheptadine [Periactin -] 4 mg PO TID #90 tablet 08/02/17 Bupropion HCl [Wellbutrin Xl -] 150 mg PO DAILY 11/29/17 - Diagnosis (1) Alcohol dependence with uncomplicated withdrawal Current Visit: Yes Status: Chronic (2) Substance-induced sleep disorder Current Visit: Yes Status: Acute (3) PTSD (post-traumatic stress disorder) Current Visit: Yes Status: Chronic (4) Schizoaffective disorder Current Visit: Yes Status: Chronic (5) Back pain Current Visit: No Status: Acute Qualifiers: Back pain location: low back pain Sciatica laterality: sciatica laterality unspecified (6) History of deep venous thrombosis (DVT) of distal vein of right lower extremity Current Visit: No Status: Resolved (7) Nicotine dependence Current Visit: Yes Status: Chronic Qualifiers: Nicotine product type: cigarettes Substance use status: uncomplicated Qualified Code(s): F17.210 - Nicotine dependence, cigarettes, uncomplicated (8) Substance induced mood disorder Current Visit: No Status: Acute (9) Syncope Current Visit: No Status: Acute (10) Aortic valve regurgitation Current Visit: No Status: Resolved Qualifiers: Cardiac valve disease etiology: etiology unspecified Qualified Code(s): I35.1 - Nonrheumatic aortic (valve) insufficiency (11) Asthma Current Visit: Yes Status: Chronic Qualifiers: Asthma severity: mild Asthma persistence: intermittent Asthma complication type: with status asthmaticus Qualified Code(s): J45.22 - Mild intermittent asthma with status asthmaticus (12) COPD (chronic obstructive pulmonary disease) Current Visit: No Status: Chronic Qualifiers: COPD type: emphysema Emphysema type: unilateral Qualified Code(s): J43.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] (13) Cocaine dependence Current Visit: No Status: Chronic (14) Insomnia Current Visit: No Status: Chronic (15) Lupus erythematosus Current Visit: No Status: Chronic Qualifiers: Lupus erythematosus form: systemic Systemic lupus erythematosus type: unspecified Systemic lupus erythematosus organ involvement: unspecified Qualified Code(s): M32.9 - Systemic lupus erythematosus, unspecified (16) Mitral valve regurgitation Current Visit: No Status: Chronic Qualifiers: (17) Substance induced mood disorder Current Visit: No Status: Suspected (18) DVT of axillary vein, acute right Current Visit: No Status: Resolved - AMA Did Patient Leave Against Medical Advice: No (referred to [facility] inpatient rehab)
[2018-09-30] MEDS: ASPIRIN COATED 81 MG TABLET.EC PO SCH (09:26)
[2018-09-30] MEDS: PRENATAL VITAMINS W/ FOLIC ACID TABLET (FP) PO SCH (09:26)
[2018-09-30] MEDS: predniSONE 20 MG TABLET (UD) PO SCH (09:26)
[2018-09-30 09:27] VITALS: BP 105/64; PULSE 100; TEMP 98.4
[2018-09-30] MEDS: NICOTINE POLACRILEX 2 MG GUM BUC PRN (09:27)
--- NOTE | 2018-09-30 10:49 | PN ---
[facility] Progress Note Note: Patient is scheduled for discharged today. Scripts for 30 days supply of medications(Zyprexa 5 mg/hs, Trazdone 50 g/hs) are electronically transmitted to [facility] at [address] [id number]
== END 2018-09-30 12:00 | disposition home or self-care (01) | DRG 774 ==
LOC: YASAS 09:19 → Y6N 11:09
PROVIDERS: ADMIT Surgery; ATTEND Surgery
PROC: HZ2ZZZZ Detoxification Services for Substance Abuse Treatment (ICD-10-PCS; principal; 2018-09-26)
DX: F10.230 Alcohol dependence with withdrawal, uncomplicated (principal); F14.20 Cocaine dependence, uncomplicated; F17.210 Nicotine dependence, cigarettes, uncomplicated; F19.282 Other psychoactive substance dependence with psychoactive substance-induced sleep disorder; F19.24 Other psychoactive substance dependence with psychoactive substance-induced mood disorder; F25.9 Schizoaffective disorder, unspecified; F43.10 Post-traumatic stress disorder, unspecified; I35.1 Nonrheumatic aortic (valve) insufficiency; J45.22 Mild intermittent asthma with status asthmaticus; Z86.718 Personal history of other venous thrombosis and embolism
CPT/HCPCS: 36415; 80053; 81003; 85027; 86593; 86780

== ENCOUNTER 2019-04-23 09:20 | Inpatient (IN) | payer BC ==
[2019-04-23 09:57] VITALS: BMI 22.2
--- NOTE | 2019-04-23 10:32 | HP ---
CIWA Score Nausea/Vomitin-No Nausea/No Vomiting Muscle Tremors: 3 Anxiety: 4-Mod. Anxious/Guarded Agitation: 4-Moderately Restless Paroxysmal Sweats: 4-Forehead w/Sweat Beads Orientation: 1-Uncertain about Date Tacttile Disturbances: 2-Mild Itch/Numbness/Burn Auditory Disturbances: 0-None Visual Disturbances: 0-None Headache: 0-None Present CIWA-Ar Total Score: 18 - Admission Criteria [facility] Guidelines: Admission for Medically Managed Detox: Requires at least one of the followin. CIWA greater than 12 2. Seizures within the past 24 hours 3. Delirium tremens within the past 24 hours 4. Hallucinations within the past 24 hours 5. Acute intervention needed for co occurring medical disorder 6. Acute intervention needed for co occurring psychiatric disorder 7. Severe withdrawal that cannot be handled at a lower level of care (continued vomiting, continued diarrhea, abnormal vital signs) requiring intravenous medication and/or fluids 8. Admitting History and Physical - Admission Chief Complaint: "I want to stop using alcohol and cocaine I am tired of using. I get into a state of depression when I start using again." History of Present Illness: 53 years old female with alcohol dependence and cocaine abused,seeking detox, withdrawal symptom. She drinks 1 pint of vodka and 3 6pk of beer daily, last drink was yesterday at 9:00AM She is snorting cocaine $300 every two weeks. She denies other substances of abuse. She has had multiple admissions in detox,last treatment in 09/2018. syncope alcohol related weight loss nicotine dependence 4 cigarette,would like to have the gum longest sobriety 3 years plan for rehab after detox history of sle,asthma, COPD history of bipolar disorder, PTSD - Past Medical History ...LMP: 06/26/17 - Smoking History Smoking history: Current every day smoker Have you smoked in the past 12 months: Yes Aproximately how many cigarettes per day: 4 - Alcohol/Substance Use Hx Alcohol Use: Yes Admission ROS BHS - HPI Allergies/Adverse Reactions: Allergies Allergy/AdvReac Type Severity Reaction Status Date / Time carrot Allergy Severe Itching Verified 04/23/19 09:50 Penicillins Allergy Severe Swelling Verified 04/23/19 09:50 Latex, Natural Rubber Allergy Intermediate Rash Verified 04/23/19 09:50 morphine AdvReac Intermediate HALLUCINATI Verified 04/23/19 09:50 ON - Ebola screening Have you traveled outside of the country in the last 21 days: No (N) Have you had contact with anyone from an Ebola affected area: No Have you been sick,other than usual withdrawal symptoms: No Do you have a fever: No - Review of Systems Constitutional: Chills, Diaphoresis, Unintentional Wgt. Loss EENT: reports: No Symptoms Reported Respiratory: reports: No Symptoms reported Cardiac: reports: No Symptoms Reported GI: reports: No Symptoms Reported : reports: Dysuria, Discharge (yellowish and foul smelling), Frequency Musculoskeletal: reports: Back Pain Integumentary: reports: No Symptoms Reported Neuro: reports: No Symptoms reported Endocrine: reports: No Symptoms Reported Hematology: reports: No Symptoms Reported Psychiatric: reports: Judgement Intact, Mood/Affect Appropiate, Orientated x3 Other Systems: Reviewed and Negative Patient History - Patient Medical History Hx Anemia: Yes (history - none now) Hx Asthma: Yes (ON MDI) Hx Chronic Obstructive Pulmonary Disease (COPD): Yes (on albuterol inhaler) Hx Cancer: No Hx Cardiac Disorders: No Hx Congestive Heart Failure: No Hx Hypertension: No Hx Hypercholesterolemia: No Hx Pacemaker: No HX Cerebrovascular Accident: No Hx Seizures: No Hx Dementia: No Hx Diabetes: No Hx Gastrointestinal Disorders: Yes (GERD) Hx Liver Disease: No Hx Genitourinary Disorders: No Hx Sexually Transmitted Disorders: No Hx Renal Disease (ESRD): Yes (RENAL CALCULI) Hx Thyroid Disease: No Hx Human Immunodeficiency Virus (HIV): No (2018 negative) Hx Hepatitis C: No Hx Depression: Yes Hx Suicide Attempt: Yes (try to jump from window at age 19 years) Hx Bipolar Disorder: Yes (PTSD, seroquel) Hx Schizophrenia: Yes - Patient Surgical History Past Surgical History: Yes Hx Neurologic Surgery: No Hx Cataract Extraction: No Hx Cardiac Surgery: No Hx Lung Surgery: No Hx Breast Surgery: No Hx Breast Biopsy: No Hx Abdominal Surgery: No Hx Appendectomy: No Hx Cholecystectomy: No Hx Genitourinary Surgery: Yes (lithotripsy for renal calculi 1995) Hx Section: Yes (5, patient has 10 children) Hx Orthopedic Surgery: No Hx Hysterectomy: No Other Surgical History: Kidney stones removal 1995 BY LITHOTRIPSY Anesthesia Reaction: No - PPD History Previous Implant?: Yes Documented Results: Negative w/proof Implanted On Prior [facility] Admission?: Yes Date: 09/28/18 Results: 0MM PPD to be Administered?: No - Reproductive History Last Menstrual Period: 06/26/17 - Smoking Cessation Smoking history: Current every day smoker Have you smoked in the past 12 months: Yes Aproximately how many cigarettes per day: 4 Cigars Per Day: 0 Hx Chewing Tobacco Use: No Initiated information on smoking cessation: Yes 'Breaking Loose' booklet given: 04/23/19 - Substances abused Alcohol Substance route: Oral Frequency: Daily Amount used: 3/6packs of beer 12 ozs, 1/2 pint of bacardi Age of first use: 33 Date of last use: 04/22/19 Cocaine Substance route: Inhalation Frequency: 1-3 times last 30 days Amount used: $200-$300 Age of first use: 33 Date of last use: 04/16/19 Admission Physical Exam [facility] - Vital Signs Vital Signs: Vital Signs - 24 hr 04/23/19 09:43 Temperature 98.1 F Pulse Rate 113 H Respiratory 18 Rate Blood Pressure 99/73 - Physical General Appearance: Yes: Mild Distress, Irritable, Sweating, Anxious HEENTM: Yes: EOMI, Hearing grossly Normal, Normocephalic, Normal Voice, JEFF, Pharynx Normal, Tm's normal Respiratory: Yes: Chest Non-Tender, Lungs Clear, Normal Breath Sounds Neck: Yes: No masses,lesions,Nodules, Supple, Trachea in good position Breast: Yes: Breast Exam Deferred Cardiology: Yes: Regular Rhythm, S1, S2, Tachycardia Abdominal: Yes: Flat, Soft, Increased Bowel Sounds, Tenderness (suprapubic) Genitourinary: Yes: Frequency, Vaginal Discharge Back: Yes: Normal Inspection Musculoskeletal: Yes: full range of Motion, Gait Steady, Pelvis Stable Extremities: Yes: Normal Capillary Refill, Normal Inspection, Normal Range of Motion, Non-Tender Neurological: Yes: delicatessen clerk II-XII NML intact, Fully Oriented, Alert, Motor Strength 5/5, Normal Mood/Affect, Normal Response Integumentary: Yes: Normal Color, Warm Lymphatic: Yes: Within Normal Limits Cleared for Admission [facility] - Detox or Rehab [facility] Level of Care: Medically Managed Detox Regimen/Protocol: Librium Claeared for Rehab Admission: No Screened but not Admitted - Documentation of Visit Screened but not Admitted: No Breathalyzer - Breathalyzer Breathalyzer: 0 (drank last yesterday) POC Urine test - Test device test lot number: [id number] Expiration date: 12/15/19 - Control test control: Yes Urine Drug Screen - Test Device Lot number: [id number] Expiration date: 11/13/20 - Control Is test valid?: Yes - Results Drug screen NEGATIVE: No Urine drug screen results: [facility]-Cocaine Inpatient Rehab Admission - Rehab Decision to Admit Inpatient rehab admission?: No
[2019-04-23] MEDS ORDERED: hydrOXYzine PAMOATE 25 MG CAPSULE (FP) PO PRN (10:39)
[2019-04-23] MEDS ORDERED: METHOCARBAMOL 500 MG TABLET PO PRN (10:39)
[2019-04-23] MEDS ORDERED: ACETAMINOPHEN 325 MG TABLET (FP) PO PRN ×2 (10:39)
[2019-04-23] MEDS ORDERED: MENTHOL/PHENOL 1 EACH UD MM PRN (10:39)
[2019-04-23] MEDS ORDERED: BISMUTH SUBSALICYLATE 262 MG/15 ML BTL PO PRN (10:39)
[2019-04-23] MEDS ORDERED: MAGNESIUM CITRATE 300 ML BOTTLE PO PRN (10:39)
[2019-04-23] MEDS ORDERED: chlordiazePOXIDE HCL 25 MG CAPSULE PO PRN (10:39)
[2019-04-23] MEDS ORDERED: MAG HYDROX/AL HYDROX/SIMETH 30 ML UNIT-DOSE CUP PO PRN (10:39)
[2019-04-23] MEDS ORDERED: MAGNESIUM HYDROX 2400MG/30ML ORAL SUSPENSION 30 ML CUP PO PRN (10:39)
[2019-04-23] MEDS: chlordiazePOXIDE HCL 25 MG CAPSULE PO SCH ×3 (11:24→22:16)
[2019-04-23] MEDS: metroNIDAZOLE 250 MG TABLET PO SCH ×2 (11:28→22:15)
[2019-04-23 15:43] LABS: HEMATOCRIT 39.2 % (32.4-45.2); HEMOGLOBIN 12.6 GM/dL (10.7-15.3); MCH 29.3 pg (25.7-33.7); MCHC 32.3 g/dl (32.0-36.0); MEAN CELL VOLUME 90.8 fl (80-96); MEAN PLT VOLUME 9.7 fl (7.5-11.1); PLATELET COUNT 354 K/MM3 (134-434); RBC 4.32 M/mm3 (3.60-5.2); RDW 14.8 % (11.6-15.6); WHITE BLOOD COUNT 16.9 K/mm3 (4.0-10.0)
[2019-04-23 16:15] LABS: ALBUMIN 3.4 g/dl (3.4-5.0); BILIRUBIN,TOTAL 0.3 mg/dL (0.2-1); BLOOD UREA NITROGEN 10.7 mg/dL (7-18); CALCIUM 9.2 mg/dL (8.5-10.1); CREATININE 0.9 mg/dL (0.55-1.3); POTASSIUM 3.3 mmol/L (3.5-5.1); TOT PROT 7.7 g/dl (6.4-8.2)
[2019-04-23] MEDS ORDERED: SUVOREXANT 10 MG TABLET PO PRN (22:00)
[2019-04-23] MEDS: THIAMINE HCL 100 MG TABLET (FP) PO SCH (22:16)
[2019-04-24] MEDS: chlordiazePOXIDE HCL 25 MG CAPSULE PO SCH ×4 (05:51→22:22)
[2019-04-24] MEDS: ALBUTEROL SO4 8 GM HFA INHALER IH PRN (06:19)
--- NOTE | 2019-04-24 07:07 | PN ---
[facility] Progress Note Note: Patient reported that she fell in the bathroom and reports lower back pain. She denies loss of consciousness, head injury, weakness and incontinence. Fall was not witnessed by anyone. Fall protocol #1 initiated. Patient is to be transferred to emergency room for further evaluation. Tylenol 650mg tablet oral given for pain. Endorsed to Dr. Hickey. Vital Signs Temperature 98.2 F 04/23/19 21:40 Pulse Rate 113 H 04/24/19 06:34 Respiratory Rate 04/24/19 06:34 Blood Pressure 83/61 L 04/24/19 06:34 O2 Sat by Pulse Oximetry (%) Awaiting ambulance to Emergency room
[2019-04-24 10:09] LABS: RPR REACTIVE 1:2 (NONREACTIVE)
[2019-04-24 10:10] LABS: TREPONEMA ANTIBODY PREVIOUSLY REACTIVE (NONREACTIVE)
[2019-04-24] MEDS: ASPIRIN COATED 81 MG TABLET.EC PO SCH (10:40)
[2019-04-24] MEDS: predniSONE 20 MG TABLET (UD) PO SCH (10:40)
[2019-04-24] MEDS: CYPROHEPTADINE HCL 4 MG TABLET PO SCH (10:41)
[2019-04-24] MEDS: PRENATAL VITAMINS W/ FOLIC ACID TABLET (FP) PO SCH (10:41)
[2019-04-24] MEDS: metroNIDAZOLE 250 MG TABLET PO SCH ×2 (10:41→22:15)
[2019-04-24] MEDS: NICOTINE 7 MG/24 HOURS TOPICAL PATCH TD SCH (10:41)
[2019-04-24] MEDS ORDERED: predniSONE 20 MG TABLET (UD) PO ONE (16:48)
[2019-04-24] MEDS: MELATONIN 5 MG TABLETS PO PRN (22:15)
[2019-04-24] MEDS: THIAMINE HCL 100 MG TABLET (FP) PO SCH (22:16)
[2019-04-25] MEDS: chlordiazePOXIDE HCL 25 MG CAPSULE PO SCH ×4 (06:04→22:30)
[2019-04-25] MEDS ORDERED: ALBUTEROL SO4 2.5/IPRATROPIUM 0.5 INH SOL 3 ML VIAL.NEB. NEB PRN (09:34)
[2019-04-25] MEDS: IBUPROFEN 400 MG TABLET (FP) PO PRN (09:36)
[2019-04-25] MEDS: ALBUTEROL SO4 8 GM HFA INHALER IH PRN (09:36)
[2019-04-25] MEDS ORDERED: levoFLOXacin 750 MG TABLET PO SCH (10:00)
[2019-04-25] MEDS: metroNIDAZOLE 250 MG TABLET PO SCH ×2 (10:29→22:29)
[2019-04-25] MEDS: ASPIRIN COATED 81 MG TABLET.EC PO SCH (10:29)
[2019-04-25] MEDS: predniSONE 20 MG TABLET (UD) PO SCH (10:29)
[2019-04-25] MEDS: PRENATAL VITAMINS W/ FOLIC ACID TABLET (FP) PO SCH (10:29)
[2019-04-25] MEDS: NICOTINE 7 MG/24 HOURS TOPICAL PATCH TD SCH (10:30)
[2019-04-25] MEDS: CYPROHEPTADINE HCL 4 MG TABLET PO SCH (10:53)
--- NOTE | 2019-04-25 12:15 | PN ---
[facility] CIWA - CIWA Score Nausea/Vomitin-No Nausea/No Vomiting Muscle Tremors: 3 Anxiety: 1-Mildly Anxious Agitation: 2 Paroxysmal Sweats: 2 Orientation: 0-Oriented Tacttile Disturbances: 0-None Auditory Disturbances: 0-None Visual Disturbances: 0-None Headache: 0-None Present CIWA-Ar Total Score: 8 BHS Progress Note (SOAP) Subjective: sweats chest congestions body aches irritable Objective: 04/25/19 12:13 Vital Signs Temperature 98.2 F 04/25/19 10:20 Pulse Rate 91 H 04/25/19 10:20 Respiratory Rate 18 04/25/19 10:20 Blood Pressure 100/62 04/25/19 10:20 O2 Sat by Pulse Oximetry (%) Laboratory Tests 04/23/19 04/23/19 04/23/19 10:12 10:50 10:50 WBC 16.9 H RBC 4.32 Hgb 12.6 Hct 39.2 MCV 90.8 MCH 29.3 MCHC 32.3 RDW 14.8 Plt Count 354 D MPV 9.7 Sodium 139 Potassium 3.3 L Chloride 102 Carbon Dioxide 26 Anion Gap 10 BUN 10.7 Creatinine 0.9 Est GFR (CKD-EPI)AfAm 85.20 Est GFR (CKD-EPI)NonAf 73.51 Random Glucose 91 Calcium 9.2 Total Bilirubin 0.3 AST 12 L ALT 20 Alkaline Phosphatase 130 H Total Protein 7.7 Albumin 3.4 RPR Titer T.pallidum Ab (MHA) HIV 1&2 Antibody Screen Negative HIV P24 Antigen Negative 04/23/19 10:50 WBC RBC Hgb Hct MCV MCH MCHC RDW Plt Count MPV Sodium Potassium Chloride Carbon Dioxide Anion Gap BUN Creatinine Est GFR (CKD-EPI)AfAm Est GFR (CKD-EPI)NonAf Random Glucose Calcium Total Bilirubin AST ALT Alkaline Phosphatase Total Protein Albumin RPR Titer Reactive 1:2 H D T.pallidum Ab (MHA) Previously reactive HIV 1&2 Antibody Screen HIV P24 Antigen mild hypokalemia; will replenish aaox3 ambulating no acute distress Assessment: 04/25/19 12:14 withdrawals Plan: continue detox visitril d/c d/t note from at [facility] cause prolong QT order levaquin 750mg x 3 days for PNA as per Dr. Ngo from [facility] ED
[2019-04-25] MEDS: POTASSIUM CHLORIDE TABS 20 MEQ TABLET.ER (FP) PO SCH (12:53)
[2019-04-25] MEDS: THIAMINE HCL 100 MG TABLET (FP) PO SCH (22:29)
[2019-04-26] MEDS ORDERED: chlordiazePOXIDE HCL 10 MG CAPSULE PO PRN
[2019-04-26] MEDS: chlordiazePOXIDE HCL 10 MG CAPSULE PO SCH ×4 (06:06→22:20)
[2019-04-26] MEDS: PRENATAL VITAMINS W/ FOLIC ACID TABLET (FP) PO SCH (10:40)
[2019-04-26] MEDS: metroNIDAZOLE 250 MG TABLET PO SCH ×2 (10:40→22:20)
[2019-04-26] MEDS: predniSONE 20 MG TABLET (UD) PO SCH (10:40)
[2019-04-26] MEDS: ASPIRIN COATED 81 MG TABLET.EC PO SCH (10:40)
[2019-04-26] MEDS: POTASSIUM CHLORIDE TABS 20 MEQ TABLET.ER (FP) PO SCH (10:40)
[2019-04-26] MEDS: CYPROHEPTADINE HCL 4 MG TABLET PO SCH (10:40)
[2019-04-26] MEDS: NICOTINE 7 MG/24 HOURS TOPICAL PATCH TD SCH (10:43)
--- NOTE | 2019-04-26 13:16 | PN ---
S CIWA - CIWA Score Nausea/Vomitin-No Nausea/No Vomiting Muscle Tremors: 2 Anxiety: 2 Agitation: 2 Paroxysmal Sweats: 2 Orientation: 0-Oriented Tacttile Disturbances: 0-None Auditory Disturbances: 0-None Visual Disturbances: 0-None Headache: 0-None Present CIWA-Ar Total Score: 8 BHS Progress Note (SOAP) Subjective: sweats shakes body aches nasal congestion Objective: 04/26/19 13:15 Vital Signs Temperature 98.4 F 04/26/19 09:39 Pulse Rate 83 04/26/19 09:39 Respiratory Rate 18 04/26/19 09:39 Blood Pressure 111/80 04/26/19 09:39 O2 Sat by Pulse Oximetry (%) Laboratory Tests 04/23/19 04/23/19 04/23/19 10:12 10:50 10:50 WBC 16.9 H RBC 4.32 Hgb 12.6 Hct 39.2 MCV 90.8 MCH 29.3 MCHC 32.3 RDW 14.8 Plt Count 354 D MPV 9.7 Sodium 139 Potassium 3.3 L Chloride 102 Carbon Dioxide 26 Anion Gap 10 BUN 10.7 Creatinine 0.9 Est GFR (CKD-EPI)AfAm 85.20 Est GFR (CKD-EPI)NonAf 73.51 Random Glucose 91 Calcium 9.2 Total Bilirubin 0.3 AST 12 L ALT 20 Alkaline Phosphatase 130 H Total Protein 7.7 Albumin 3.4 RPR Titer T.pallidum Ab (MHA) HIV 1&2 Antibody Screen Negative HIV P24 Antigen Negative 04/23/19 10:50 WBC RBC Hgb Hct MCV MCH MCHC RDW Plt Count MPV Sodium Potassium Chloride Carbon Dioxide Anion Gap BUN Creatinine Est GFR (CKD-EPI)AfAm Est GFR (CKD-EPI)NonAf Random Glucose Calcium Total Bilirubin AST ALT Alkaline Phosphatase Total Protein Albumin RPR Titer Reactive 1:2 H D T.pallidum Ab (MHA) Previously reactive HIV 1&2 Antibody Screen HIV P24 Antigen aaox3 ambulating no acute distress Assessment: 04/26/19 13:15 mild withdrawals Plan: continue detox duoneb prn
[2019-04-26] MEDS: THIAMINE HCL 100 MG TABLET (FP) PO SCH (22:21)
[2019-04-27] MEDS: chlordiazePOXIDE HCL 10 MG CAPSULE PO SCH ×2 (06:17→17:45)
[2019-04-27] MEDS: PRENATAL VITAMINS W/ FOLIC ACID TABLET (FP) PO SCH (10:43)
[2019-04-27] MEDS: POTASSIUM CHLORIDE TABS 20 MEQ TABLET.ER (FP) PO SCH (10:43)
[2019-04-27] MEDS: ASPIRIN COATED 81 MG TABLET.EC PO SCH (10:43)
[2019-04-27] MEDS: CYPROHEPTADINE HCL 4 MG TABLET PO SCH (10:43)
[2019-04-27] MEDS: predniSONE 20 MG TABLET (UD) PO SCH (10:44)
[2019-04-27] MEDS: metroNIDAZOLE 250 MG TABLET PO SCH ×2 (10:44→22:27)
[2019-04-27] MEDS: NICOTINE 7 MG/24 HOURS TOPICAL PATCH TD SCH (10:47)
--- NOTE | 2019-04-27 16:33 | PN ---
S CIWA - CIWA Score Nausea/Vomitin-No Nausea/No Vomiting Muscle Tremors: None Anxiety: 2 Agitation: 2 Paroxysmal Sweats: 2 Orientation: 0-Oriented Tacttile Disturbances: 0-None Auditory Disturbances: 0-None Visual Disturbances: 0-None Headache: 0-None Present CIWA-Ar Total Score: 6 BHS Progress Note (SOAP) Subjective: Anxious, sweating, interrupted sleep Objective: 04/27/19 16:30 Last Vital Signs Temp Pulse Resp BP Pulse Ox 97.2 F L 102 H 18 102/70 04/27/19 15:55 04/27/19 15:55 04/27/19 15:55 04/27/19 15:55 Laboratory Tests 04/23/19 04/23/19 04/23/19 10:12 10:50 10:50 WBC 16.9 H RBC 4.32 Hgb 12.6 Hct 39.2 MCV 90.8 MCH 29.3 MCHC 32.3 RDW 14.8 Plt Count 354 D MPV 9.7 Sodium 139 Potassium 3.3 L Chloride 102 Carbon Dioxide 26 Anion Gap 10 BUN 10.7 Creatinine 0.9 Est GFR (CKD-EPI)AfAm 85.20 Est GFR (CKD-EPI)NonAf 73.51 Random Glucose 91 Calcium 9.2 Total Bilirubin 0.3 AST 12 L ALT 20 Alkaline Phosphatase 130 H Total Protein 7.7 Albumin 3.4 RPR Titer T.pallidum Ab (MHA) HIV 1&2 Antibody Screen Negative HIV P24 Antigen Negative 04/23/19 10:50 WBC RBC Hgb Hct MCV MCH MCHC RDW Plt Count MPV Sodium Potassium Chloride Carbon Dioxide Anion Gap BUN Creatinine Est GFR (CKD-EPI)AfAm Est GFR (CKD-EPI)NonAf Random Glucose Calcium Total Bilirubin AST ALT Alkaline Phosphatase Total Protein Albumin RPR Titer Reactive 1:2 H D T.pallidum Ab (MHA) Previously reactive HIV 1&2 Antibody Screen HIV P24 Antigen Labs reviewed: wbc 16.9 (high), K 3.3 (low) Assessment: 04/27/19 16:31 Withdrawal sxs Noted with hypokalemia and leukocytosis Plan: Continue detox Encouraged PO water intake Hold discharge until leukocytosis resolved or source identified and treated Hypokalemia: replenished, repeat serum K level Leukocytosis: repeat CBC, consider chest xray (after negative serum HCG)
[2019-04-27] MEDS: THIAMINE HCL 100 MG TABLET (FP) PO SCH (22:27)
[2019-04-27] MEDS: IBUPROFEN 400 MG TABLET (FP) PO PRN (23:11)
[2019-04-27] MEDS: MELATONIN 5 MG TABLETS PO PRN (23:12)
[2019-04-28] MEDS ORDERED: chlordiazePOXIDE HCL 10 MG CAPSULE PO ONE (05:00)
[2019-04-28 09:12] VITALS: BP 101/77; PULSE 86; TEMP 98.2
--- NOTE | 2019-04-28 10:31 | DS ---
[facility] Detox Discharge Summary Admission Date: 04/23/19 Discharge Date: 04/28/19 - History Present History: Alcohol Dependence, Cocaine Dependence - Physical Exam Results Vital Signs: Vital Signs Temperature 98.2 F 04/28/19 05:30 Pulse Rate 86 04/28/19 05:30 Respiratory Rate 18 04/28/19 05:30 Blood Pressure 101/77 04/28/19 05:30 O2 Sat by Pulse Oximetry (%) Pertinent Admission Physical Exam Findings: Vital Signs Temperature 98.2 F 04/28/19 05:30 Pulse Rate 86 04/28/19 05:30 Respiratory Rate 18 04/28/19 05:30 Blood Pressure 101/77 04/28/19 05:30 O2 Sat by Pulse Oximetry (%) Laboratory Tests 04/23/19 04/23/19 04/23/19 10:12 10:50 10:50 WBC 16.9 H RBC 4.32 Hgb 12.6 Hct 39.2 MCV 90.8 MCH 29.3 MCHC 32.3 RDW 14.8 Plt Count 354 D MPV 9.7 Sodium 139 Potassium 3.3 L Chloride 102 Carbon Dioxide 26 Anion Gap 10 BUN 10.7 Creatinine 0.9 Est GFR (CKD-EPI)AfAm 85.20 Est GFR (CKD-EPI)NonAf 73.51 Random Glucose 91 Calcium 9.2 Total Bilirubin 0.3 AST 12 L ALT 20 Alkaline Phosphatase 130 H Total Protein 7.7 Albumin 3.4 RPR Titer T.pallidum Ab (MHA) HIV 1&2 Antibody Screen Negative HIV P24 Antigen Negative 04/23/19 10:50 WBC RBC Hgb Hct MCV MCH MCHC RDW Plt Count MPV Sodium Potassium Chloride Carbon Dioxide Anion Gap BUN Creatinine Est GFR (CKD-EPI)AfAm Est GFR (CKD-EPI)NonAf Random Glucose Calcium Total Bilirubin AST ALT Alkaline Phosphatase Total Protein Albumin RPR Titer Reactive 1:2 H D T.pallidum Ab (MHA) Previously reactive HIV 1&2 Antibody Screen HIV P24 Antigen aaox3 ambulating no acute distress - Treatment Hospital Course: Detox Protocol Followed, Detoxed Safely, Responded well, Discharged Condition Good, Rehab Referral Accepted Patient has Accepted a Rehab Referral to: pt referred to [facility] - Medication Discharge Medications: Ambulatory Orders Aspirin Coated [Ecotrin -] 81 mg PO DAILY #30 mg 05/30/17 Albuterol Sulfate Inhaler - [Ventolin HFA Inhaler -] 2 inh PO Q4H PRN #1 inhaler 08/02/17 traZODone HCL [Desyrel -] 50 mg PO HS #30 tablet 09/30/18 Cyproheptadine [Periactin -] 4 mg PO DAILY 04/23/19 Zolpidem Tartrate [Ambien] 10 mg PO HS 04/23/19 predniSONE [Deltasone -] 40 mg PO DAILY 04/23/19 - Diagnosis (1) Alcohol dependence with uncomplicated withdrawal Status: Chronic (2) Back pain Status: Acute Qualifiers: Back pain location: low back pain Chronicity: acute Back pain laterality : right Sciatica presence: without sciatica Qualified Code(s): M54.5 - Low back pain (3) Substance induced mood disorder Status: Acute (4) Substance-induced sleep disorder Status: Acute (5) Syncope Status: Acute (6) Asthma Status: Chronic Qualifiers: Asthma severity: mild Asthma persistence: intermittent Asthma complication type: with status asthmaticus Qualified Code(s): J45.22 - Mild intermittent asthma with status asthmaticus (7) COPD (chronic obstructive pulmonary disease) Status: Chronic Qualifiers: COPD type: emphysema Emphysema type: unilateral Qualified Code(s): J43.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] (8) Cocaine dependence Status: Chronic (9) Insomnia Status: Chronic (10) Lupus erythematosus Status: Chronic Qualifiers: Lupus erythematosus form: systemic Systemic lupus erythematosus type: unspecified Systemic lupus erythematosus organ involvement: unspecified Qualified Code(s): M32.9 - Systemic lupus erythematosus, unspecified (11) Mitral valve regurgitation Status: Chronic Qualifiers: (12) Nicotine dependence Status: Chronic Qualifiers: Nicotine product type: cigarettes Substance use status: uncomplicated Qualified Code(s): F17.210 - Nicotine dependence, cigarettes, uncomplicated (13) PTSD (post-traumatic stress disorder) Status: Chronic (14) Schizoaffective disorder Status: Chronic (15) Substance induced mood disorder Status: Suspected (16) Aortic valve regurgitation Status: Resolved Qualifiers: Cardiac valve disease etiology: etiology unspecified Qualified Code(s): I35.1 - Nonrheumatic aortic (valve) insufficiency (17) DVT of axillary vein, acute right Status: Resolved (18) History of deep venous thrombosis (DVT) of distal vein of right lower extremity Status: Resolved - AMA Did Patient Leave Against Medical Advice: No
== END 2019-04-28 08:58 | disposition home or self-care (01) | DRG 774 ==
LOC: YASAS 09:20 → Y6N 10:47
PROVIDERS: ADMIT Allergy & Immunology; ATTEND Allergy & Immunology
PROC: HZ2ZZZZ Detoxification Services for Substance Abuse Treatment (ICD-10-PCS; principal; 2019-04-23)
DX: F10.230 Alcohol dependence with withdrawal, uncomplicated (principal); F14.20 Cocaine dependence, uncomplicated; F17.210 Nicotine dependence, cigarettes, uncomplicated; F19.24 Other psychoactive substance dependence with psychoactive substance-induced mood disorder; F19.282 Other psychoactive substance dependence with psychoactive substance-induced sleep disorder; F43.10 Post-traumatic stress disorder, unspecified; F25.9 Schizoaffective disorder, unspecified; R00.0 Tachycardia, unspecified; E87.6 Hypokalemia; D72.829 Elevated white blood cell count, unspecified; J43.0 Unilateral pulmonary 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]; J45.22 Mild intermittent asthma with status asthmaticus; M54.5 Low back pain; G47.00 Insomnia, unspecified; M32.9 Systemic lupus erythematosus, unspecified; I34.0 Nonrheumatic mitral (valve) insufficiency; I35.1 Nonrheumatic aortic (valve) insufficiency; K21.9 Gastro-esophageal reflux disease without esophagitis; R63.4 Abnormal weight loss; Z86.718 Personal history of other venous thrombosis and embolism; Z88.0 Allergy status to penicillin; Z88.6 Allergy status to analgesic agent; Z91.018 Allergy to other foods; W18.30XA Fall on same level, unspecified, initial encounter; Y93.9 Activity, unspecified; Y92.231 Patient bathroom in hospital as the place of occurrence of the external cause; Z91.5 Personal history of self-harm
CPT/HCPCS: 36415; 80053; 85027; 86593; 86780; 87389

== ENCOUNTER 2019-05-29 11:32 | Inpatient (IN) | payer BC ==
--- NOTE | 2019-05-29 11:58 | BHS.RME ---
Substance Use & Tx History - Substance Use History Alcohol Substance amount: 1 pint of geeta, 2 cases of beer daily Frequency of use: Daily Substance route: Oral Date of Last Use: 05/28/19 (one beer only) Cocaine (Powder) Substance amount: $70 Frequency of use: Less than 3 times per week Substance route: Inhalation (ex: sniffing or snorting) Physical/Psych/Mental Status - Behavior General Behavior: Increased activity (restlessness, agitation) - Cooperativeness Cooperativeness: Cooperative - Thinking Thought Processes: Tight, Logical, Goal Directed Thought content: Future oriented - Physical Health Problems Is patient presently having any pain?: No Does patient presently have any injuries (include location): No Does patient currently have a fever: No Is patient : No CIWA Nausea/Vomitin-No Nausea/No Vomiting Muscle Tremors: 3 Anxiety: 4-Mod. Anxious/Guarded Agitation: 4-Moderately Restless Paroxysmal Sweats: 4-Forehead w/Sweat Beads Orientation: 3-Disoriented Date>2 days Tacttile Disturbances: 3-Moderate Itch/Numb/Burn Auditory Disturbances: 0-None Visual Disturbances: 0-None Headache: 3-Moderate CIWA-Ar Total Score: 24
--- NOTE | 2019-05-29 12:20 | HP ---
CIWA Score Nausea/Vomitin-No Nausea/No Vomiting Muscle Tremors: 3 Anxiety: 4-Mod. Anxious/Guarded Agitation: 4-Moderately Restless Paroxysmal Sweats: 4-Forehead w/Sweat Beads Orientation: 3-Disoriented Date>2 days Tacttile Disturbances: 3-Moderate Itch/Numb/Burn Auditory Disturbances: 0-None Visual Disturbances: 0-None Headache: 3-Moderate CIWA-Ar Total Score: 24 - Admission Criteria OASAS Guidelines: Admission for Medically Managed Detox: Requires at least one of the followin. CIWA greater than 12 2. Seizures within the past 24 hours 3. Delirium tremens within the past 24 hours 4. Hallucinations within the past 24 hours 5. Acute intervention needed for co occurring medical disorder 6. Acute intervention needed for co occurring psychiatric disorder 7. Severe withdrawal that cannot be handled at a lower level of care (continued vomiting, continued diarrhea, abnormal vital signs) requiring intravenous medication and/or fluids 8. Admitting History and Physical - Admission Chief Complaint: Ms. Mckeon is a 54 yo woman who presents to [facility] requesting admission to detox for alcohol use disorder. History of Present Illness: Ms. Mckeon is a 54 yo woman who presents to [facility] requesting admission to detox for alcohol use disorder. She was here in April and completed a detox. She relapsed to drinking two weeks post discharge PMH: lupus, COPD, asthma, leaky valves, Protein C/S deficiency dx 5 y ago with DVT in right leg on Coumadin PSH": 5 c sections, lithotripsy Psych: schizophrenic on Zyprexa Substance use history Alcohol: one half pint Vodka dialy, 3 x 6 pack 12 ounce beer. Blackout 4 days ago/went to [facility], no seizures. first use at the age of 33 y, last use yesterday. Cocaine: first use age 33y, last use 2 days ago, sniff, $70 2 times per week Cigs: 4 per day - Past Medical History ...LMP: 06/26/17 - Past Surgical History Past Surgical History: Yes: - Smoking History Smoking history: Current every day smoker Have you smoked in the past 12 months: Yes Aproximately how many cigarettes per day: 4 - Alcohol/Substance Use Hx Alcohol Use: Yes - Social History Usual Living Arrangement: Yes: Other (Undomiciled) Admission ROS S - [facility] Allergies/Adverse Reactions: Allergies Allergy/AdvReac Type Severity Reaction Status Date / Time carrot Allergy Severe Itching Verified 04/24/19 08:34 Penicillins Allergy Severe Swelling Verified 04/24/19 08:34 Latex, Natural Rubber Allergy Intermediate Rash Verified 04/24/19 08:34 morphine AdvReac Intermediate HALLUCINATI Verified 04/24/19 08:34 ON Exam Limitations: No Limitations - Ebola screening Have you traveled outside of the country in the last 21 days: No Have you had contact with anyone from an Ebola affected area: No Have you been sick,other than usual withdrawal symptoms: No Do you have a fever: No - Review of Systems Constitutional: Chills (at home 100.2), Fever, Unintentional Wgt. Loss (20 lbs over past 10 days) EENT: reports: Blurred Vision, Mouth Pain (tooth ache) Respiratory: reports: No Symptoms reported Cardiac: reports: No Symptoms Reported GI: reports: Diarrhea : reports: No Symptoms Reported Musculoskeletal: reports: Joint Pain Integumentary: reports: Pruritus Neuro: reports: Headache Endocrine: reports: No Symptoms Reported Hematology: reports: Blood Clots (schizophrenia) Patient History - Patient Medical History Hx Anemia: Yes (history - none now) Hx Asthma: Yes Hx Chronic Obstructive Pulmonary Disease (COPD): Yes Hx Cancer: No Hx Cardiac Disorders: Yes (aortic valve regurgitation) Hx Congestive Heart Failure: No Hx Hypertension: No Hx Hypercholesterolemia: No Hx Pacemaker: No HX Cerebrovascular Accident: No Hx Seizures: No Hx Dementia: No Hx Diabetes: No Hx Gastrointestinal Disorders: No Hx Liver Disease: No Hx Genitourinary Disorders: No Hx Sexually Transmitted Disorders: No Hx Renal Disease (ESRD): No Hx Thyroid Disease: No Hx Human Immunodeficiency Virus (HIV): No (2018 negative) Hx Hepatitis C: No Hx Depression: Yes Hx Suicide Attempt: No Hx Bipolar Disorder: Yes (PTSD, seroquel) Hx Schizophrenia: Yes Other Medical History: Lupus, Protein C and S deficiency - Patient Surgical History Past Surgical History: Yes Hx Neurologic Surgery: No Hx Cataract Extraction: No Hx Cardiac Surgery: No Hx Lung Surgery: No Hx Breast Surgery: No Hx Breast Biopsy: No Hx Abdominal Surgery: No Hx Appendectomy: No Hx Cholecystectomy: No Hx Genitourinary Surgery: Yes (lithotripsy for renal calculi 1995) Hx Section: Yes (5, patient has 10 children) Hx Orthopedic Surgery: No Hx Hysterectomy: No Other Surgical History: Kidney stones removal 1995 BY LITHOTRIPSY Anesthesia Reaction: No - PPD History Date: 09/28/18 Results: 0MM - Reproductive History Last Menstrual Period: 06/26/17 - Smoking Cessation Smoking history: Current every day smoker Have you smoked in the past 12 months: Yes Aproximately how many cigarettes per day: 4 Cigars Per Day: 0 Hx Chewing Tobacco Use: No Initiated information on smoking cessation: Yes 'Breaking Loose' booklet given: 05/29/19 - Substances abused Alcohol Substance route: Oral Frequency: Daily Amount used: .5-1 pint Vodka Age of first use: 38 Date of last use: 05/28/19 Cocaine Substance route: Inhalation Amount used: $70 twice per week Age of first use: 38 Date of last use: 05/27/19 Admission Physical Exam S - Physical General Appearance: Yes: No Apparent Distress, Thin, Anxious HEENTM: Yes: Hearing grossly Normal, Normocephalic, Normal Voice, Other (left lower molar decay, adjacent missing molar as well) Respiratory: Yes: Lungs Clear, Normal Breath Sounds Neck: Yes: Within Normal Limits Breast: Yes: Breast Exam Deferred Cardiology: Yes: Regular Rate, S1, S2 (? diastolic murmur) Abdominal: Yes: Tenderness (bilateral lower quadrant) Back: Yes: Normal Inspection Musculoskeletal: Yes: Within Normal Limits Extremities: Yes: Within Normal Limits Neurological: Yes: Alert, Normal Mood/Affect Lymphatic: Yes: Within Normal Limits - Diagnostic (1) Alcohol dependence with uncomplicated withdrawal Current Visit: Yes Status: Acute (2) Asthma Current Visit: Yes Status: Chronic Qualifiers: Asthma severity: mild Asthma persistence: intermittent Asthma complication type: with status asthmaticus Qualified Code(s): J45.22 - Mild intermittent asthma with status asthmaticus (3) COPD (chronic obstructive pulmonary disease) Current Visit: Yes Status: Chronic Qualifiers: COPD type: emphysema Emphysema type: unilateral Qualified Code(s): J43.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] (4) Cocaine dependence Current Visit: Yes Status: Chronic (5) Lupus erythematosus Current Visit: No Status: Chronic Qualifiers: Lupus erythematosus form: systemic Systemic lupus erythematosus type: unspecified Systemic lupus erythematosus organ involvement: unspecified Qualified Code(s): M32.9 - Systemic lupus erythematosus, unspecified (6) Mitral valve regurgitation Current Visit: No Status: Chronic Qualifiers: (7) Nicotine dependence Current Visit: Yes Status: Chronic Qualifiers: Nicotine product type: cigarettes Substance use status: uncomplicated Qualified Code(s): F17.210 - Nicotine dependence, cigarettes, uncomplicated (8) Schizoaffective disorder Current Visit: No Status: Chronic Cleared for Admission S - Detox or Rehab [facility] Level of Care: Medically Managed Breathalyzer - Breathalyzer Breathalyzer: 0 POC Urine test - Test device test lot number: [id number] Expiration date: 12/15/19 - Control test control: Yes Urine Drug Screen - Test Device Lot number: [id number] Expiration date: 03/10/21 - Control Is test valid?: Yes - Results Drug screen NEGATIVE: No Urine drug screen results: [facility]-Cocaine Inpatient Rehab Admission - Rehab Decision to Admit Inpatient rehab admission?: No
[2019-05-29] MEDS ORDERED: chlordiazePOXIDE HCL 25 MG CAPSULE PO PRN (12:29)
[2019-05-29] MEDS ORDERED: MAGNESIUM HYDROX 2400MG/30ML ORAL SUSPENSION 30 ML CUP PO PRN (12:29)
[2019-05-29] MEDS ORDERED: hydrOXYzine PAMOATE 25 MG CAPSULE (FP) PO PRN (12:29)
[2019-05-29] MEDS ORDERED: MENTHOL/PHENOL 1 EACH UD MM PRN (12:29)
[2019-05-29] MEDS ORDERED: MAGNESIUM CITRATE 300 ML BOTTLE PO PRN (12:29)
[2019-05-29] MEDS ORDERED: MELATONIN 5 MG TABLETS PO PRN (12:29)
[2019-05-29] MEDS ORDERED: MAG HYDROX/AL HYDROX/SIMETH 30 ML UNIT-DOSE CUP PO PRN (12:29)
[2019-05-29] MEDS ORDERED: METHOCARBAMOL 500 MG TABLET PO PRN (12:29)
[2019-05-29] MEDS ORDERED: ACETAMINOPHEN 325 MG TABLET (FP) PO PRN ×2 (12:29)
[2019-05-29] MEDS ORDERED: BISMUTH SUBSALICYLATE 524 MG/30 ML UD PO PRN (12:29)
[2019-05-29] MEDS ORDERED: ALBUTEROL SO4 HFA INHALER IH PRN (12:31)
[2019-05-29 12:53] VITALS: BMI 22.2
[2019-05-29] MEDS ORDERED: FLUCONAZOLE 50 MG TABLET PO ONE (13:30)
[2019-05-29] MEDS: predniSONE 20 MG TABLET (UD) PO SCH (13:49)
[2019-05-29] MEDS: ASPIRIN COATED 81 MG TABLET.EC PO SCH (13:49)
[2019-05-29] MEDS ORDERED: FLUCONAZOLE 150 MG TABLET PO ONE (14:00)
[2019-05-29] MEDS: chlordiazePOXIDE HCL 25 MG CAPSULE PO SCH (18:07)
[2019-05-29] MEDS: THIAMINE HCL 100 MG TABLET (FP) PO SCH (22:32)
[2019-05-30] MEDS: chlordiazePOXIDE HCL 25 MG CAPSULE PO SCH ×5 (00:13→22:58)
[2019-05-30] MEDS: CYPROHEPTADINE HCL 4 MG TABLET PO SCH (06:22)
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
[2019-05-30 09:50] LABS: HEMATOCRIT 35.6 % (32.4-45.2); HEMOGLOBIN 11.9 GM/dL (10.7-15.3); MCH 30.3 pg (25.7-33.7); MCHC 33.5 g/dl (32.0-36.0); MEAN CELL VOLUME 90.7 fl (80-96); MEAN PLT VOLUME 10.3 fl (7.5-11.1); PLATELET COUNT 248 K/MM3 (134-434); RBC 3.93 M/mm3 (3.60-5.2); RDW 15.7 % (11.6-15.6); WHITE BLOOD COUNT 6.1 K/mm3 (4.0-10.0)
[2019-05-30 10:11] LABS: ALBUMIN 3.4 g/dl (3.4-5.0); BILIRUBIN,TOTAL 0.4 mg/dL (0.2-1); BLOOD UREA NITROGEN 9.9 mg/dL (7-18); CALCIUM 9.6 mg/dL (8.5-10.1); CREATININE 0.6 mg/dL (0.55-1.3); POTASSIUM 3.9 mmol/L (3.5-5.1); TOT PROT 7.2 g/dl (6.4-8.2)
[2019-05-30] MEDS: PRENATAL VITAMINS W/ FOLIC ACID TABLET (FP) PO SCH (10:44)
[2019-05-30] MEDS: predniSONE 20 MG TABLET (UD) PO SCH (10:44)
[2019-05-30] MEDS: ASPIRIN COATED 81 MG TABLET.EC PO SCH (10:44)
[2019-05-30 14:03] LABS: RPR REACTIVE 1:2 (NONREACTIVE)
[2019-05-30 14:04] LABS: TREPONEMA ANTIBODY PREVIOUSLY REACTIVE (NONREACTIVE)
--- NOTE | 2019-05-30 14:20 | PN ---
S CIWA - CIWA Score Nausea/Vomitin Muscle Tremors: 2 Anxiety: 2 Agitation: 2 Paroxysmal Sweats: No Perspiration Orientation: 0-Oriented Tacttile Disturbances: 1-Very Mild Itch/Numbness Auditory Disturbances: 0-None Visual Disturbances: 0-None Headache: 2-Mild CIWA-Ar Total Score: 11 S Progress Note (SOAP) Subjective: alert,irritable,anxious,interrupted sleep,tremor Objective: 05/30/19 14:19 Vital Signs Temperature 97.6 F 05/30/19 13:11 Pulse Rate 70 05/30/19 13:11 Respiratory Rate 18 05/30/19 13:11 Blood Pressure 91/57 L 05/30/19 13:11 O2 Sat by Pulse Oximetry (%) Laboratory Last Values WBC 6.1 K/mm3 (4.0-10.0) 05/30/19 07:25 RBC 3.93 M/mm3 (3.60-5.2) 05/30/19 07:25 Hgb 11.9 GM/dL (10.7-15.3) 05/30/19 07:25 Hct 35.6 % (32.4-45.2) 05/30/19 07:25 MCV 90.7 fl (80-96) 05/30/19 07:25 MCH 30.3 pg (25.7-33.7) 05/30/19 07:25 MCHC 33.5 g/dl (32.0-36.0) 05/30/19 07:25 RDW 15.7 % (11.6-15.6) H 05/30/19 07:25 Plt Count 248 K/MM3 (134-434) D 05/30/19 07:25 MPV 10.3 fl (7.5-11.1) 05/30/19 07:25 Sodium 143 mmol/L (136-145) 05/30/19 07:25 Potassium 3.9 mmol/L (3.5-5.1) 05/30/19 07:25 Chloride 110 mmol/L (98-107) H 05/30/19 07:25 Carbon Dioxide 25 mmol/L (21-32) 05/30/19 07:25 Anion Gap 7 MMOL/L (8-16) L 05/30/19 07:25 BUN 9.9 mg/dL (7-18) 05/30/19 07:25 Creatinine 0.6 mg/dL (0.55-1.3) 05/30/19 07:25 Est GFR (CKD-EPI)AfAm 120.61 05/30/19 07:25 Est GFR (CKD-EPI)NonAf 104.06 05/30/19 07:25 Random Glucose 89 mg/dL (74-106) 05/30/19 07:25 Calcium 9.6 mg/dL (8.5-10.1) 05/30/19 07:25 Total Bilirubin 0.4 mg/dL (0.2-1) 05/30/19 07:25 AST 13 U/L (15-37) L 05/30/19 07:25 ALT 17 U/L (13-61) 05/30/19 07:25 Alkaline Phosphatase 113 U/L (45-117) 05/30/19 07:25 Total Protein 7.2 g/dl (6.4-8.2) 05/30/19 07:25 Albumin 3.4 g/dl (3.4-5.0) 05/30/19 07:25 RPR Titer Reactive 1:2 (NONREACTIVE) H 05/30/19 07:25 T.pallidum Ab (MHA) Previously reactive (NONREACTIVE) 05/30/19 07:25 05/30/19 14:25 history of syphilis in the past Assessment: 05/30/19 14:25 withdrawal symptom Plan: continue detox librium regimen
[2019-05-30] MEDS: THIAMINE HCL 100 MG TABLET (FP) PO SCH (22:57)
[2019-05-30] MEDS: traZODone HCL 50 MG TABLET (FP) PO SCH (22:57)
[2019-05-30] MEDS: OLANZapine 5 MG TABLET PO SCH (22:58)
[2019-05-31] MEDS: CYPROHEPTADINE HCL 4 MG TABLET PO SCH (06:08)
[2019-05-31] MEDS: chlordiazePOXIDE HCL 25 MG CAPSULE PO SCH ×4 (06:08→22:35)
[2019-05-31] MEDS: IBUPROFEN 400 MG TABLET (FP) PO PRN (09:47)
[2019-05-31] MEDS: predniSONE 20 MG TABLET (UD) PO SCH (10:16)
[2019-05-31] MEDS: ASPIRIN COATED 81 MG TABLET.EC PO SCH (10:16)
[2019-05-31] MEDS: PRENATAL VITAMINS W/ FOLIC ACID TABLET (FP) PO SCH (10:16)
--- NOTE | 2019-05-31 11:38 | PN ---
[facility] CIWA - CIWA Score Nausea/Vomitin-No Nausea/No Vomiting Muscle Tremors: None Anxiety: 3 Agitation: 2 Paroxysmal Sweats: 3 Orientation: 0-Oriented Tacttile Disturbances: 0-None Auditory Disturbances: 0-None Visual Disturbances: 0-None Headache: 1-Very Mild CIWA-Ar Total Score: 9 S Progress Note (SOAP) Subjective: c/o headache, sweats, and anxiety. Objective: 05/31/19 11:33 Vital Signs 05/31/19 05/31/19 05/31/19 05:33 07:48 09:10 Temperature 97.5 F L 97.5 F L 98.3 F Pulse Rate 69 64 80 Respiratory 18 18 18 Rate Blood Pressure 87/51 L 101/64 97/58 L Laboratory Last Values WBC 6.1 K/mm3 (4.0-10.0) 05/30/19 07:25 RBC 3.93 M/mm3 (3.60-5.2) 05/30/19 07:25 Hgb 11.9 GM/dL (10.7-15.3) 05/30/19 07:25 Hct 35.6 % (32.4-45.2) 05/30/19 07:25 MCV 90.7 fl (80-96) 05/30/19 07:25 MCH 30.3 pg (25.7-33.7) 05/30/19 07:25 MCHC 33.5 g/dl (32.0-36.0) 05/30/19 07:25 RDW 15.7 % (11.6-15.6) H 05/30/19 07:25 Plt Count 248 K/MM3 (134-434) D 05/30/19 07:25 MPV 10.3 fl (7.5-11.1) 05/30/19 07:25 Sodium 143 mmol/L (136-145) 05/30/19 07:25 Potassium 3.9 mmol/L (3.5-5.1) 05/30/19 07:25 Chloride 110 mmol/L (98-107) H 05/30/19 07:25 Carbon Dioxide 25 mmol/L (21-32) 05/30/19 07:25 Anion Gap 7 MMOL/L (8-16) L 05/30/19 07:25 BUN 9.9 mg/dL (7-18) 05/30/19 07:25 Creatinine 0.6 mg/dL (0.55-1.3) 05/30/19 07:25 Est GFR (CKD-EPI)AfAm 120.61 05/30/19 07:25 Est GFR (CKD-EPI)NonAf 104.06 05/30/19 07:25 Random Glucose 89 mg/dL (74-106) 05/30/19 07:25 Calcium 9.6 mg/dL (8.5-10.1) 05/30/19 07:25 Total Bilirubin 0.4 mg/dL (0.2-1) 05/30/19 07:25 AST 13 U/L (15-37) L 05/30/19 07:25 ALT 17 U/L (13-61) 05/30/19 07:25 Alkaline Phosphatase 113 U/L (45-117) 05/30/19 07:25 Total Protein 7.2 g/dl (6.4-8.2) 05/30/19 07:25 Albumin 3.4 g/dl (3.4-5.0) 05/30/19 07:25 RPR Titer Reactive 1:2 (NONREACTIVE) H 05/30/19 07:25 T.pallidum Ab (MHA) Previously reactive (NONREACTIVE) 05/30/19 07:25 Labs noted. Assessment: 05/31/19 11:34 AOX3, in no acute respiratory distress. Full ROM, ambulating in the unit. Withdrawal symptoms. Plan: continue detox. Increase fluids.
[2019-05-31] MEDS: OLANZapine 5 MG TABLET PO SCH (22:35)
[2019-05-31] MEDS: THIAMINE HCL 100 MG TABLET (FP) PO SCH (22:35)
[2019-05-31] MEDS: traZODone HCL 50 MG TABLET (FP) PO SCH (22:35)
[2019-06-01] MEDS ORDERED: chlordiazePOXIDE HCL 10 MG CAPSULE PO PRN
[2019-06-01] MEDS: chlordiazePOXIDE HCL 10 MG CAPSULE PO SCH ×4 (05:34→23:39)
[2019-06-01] MEDS: CYPROHEPTADINE HCL 4 MG TABLET PO SCH (06:23)
[2019-06-01] MEDS: PRENATAL VITAMINS W/ FOLIC ACID TABLET (FP) PO SCH (11:40)
[2019-06-01] MEDS: ASPIRIN COATED 81 MG TABLET.EC PO SCH (11:40)
[2019-06-01] MEDS: predniSONE 20 MG TABLET (UD) PO SCH (11:40)
--- NOTE | 2019-06-01 12:50 | PN ---
[facility] CIWA - CIWA Score Nausea/Vomitin-Mild Nausea/No Vomiting Muscle Tremors: 2 Anxiety: 2 Agitation: 0-Normal Activity Paroxysmal Sweats: 2 Orientation: 0-Oriented Tacttile Disturbances: 0-None Auditory Disturbances: 0-None Visual Disturbances: 0-None Headache: 0-None Present CIWA-Ar Total Score: 7 S Progress Note (SOAP) Subjective: 54 years old female admitted on 05/29/19 for alcohol withdrawal sx management treating with librium detox regiment feeling ok today encourage the patient to attend behavior and psychosocial therapies groups and meetings while in detox Objective: 06/01/19 12:52 Vital Signs Temperature 98.2 F 06/01/19 08:50 Pulse Rate 93 H 06/01/19 08:50 Respiratory Rate 16 06/01/19 08:50 Blood Pressure 111/75 06/01/19 08:50 O2 Sat by Pulse Oximetry (%) Laboratory Last Values WBC 6.1 K/mm3 (4.0-10.0) 05/30/19 07:25 RBC 3.93 M/mm3 (3.60-5.2) 05/30/19 07:25 Hgb 11.9 GM/dL (10.7-15.3) 05/30/19 07:25 Hct 35.6 % (32.4-45.2) 05/30/19 07:25 MCV 90.7 fl (80-96) 05/30/19 07:25 MCH 30.3 pg (25.7-33.7) 05/30/19 07:25 MCHC 33.5 g/dl (32.0-36.0) 05/30/19 07:25 RDW 15.7 % (11.6-15.6) H 05/30/19 07:25 Plt Count 248 K/MM3 (134-434) D 05/30/19 07:25 MPV 10.3 fl (7.5-11.1) 05/30/19 07:25 Sodium 143 mmol/L (136-145) 05/30/19 07:25 Potassium 3.9 mmol/L (3.5-5.1) 05/30/19 07:25 Chloride 110 mmol/L (98-107) H 05/30/19 07:25 Carbon Dioxide 25 mmol/L (21-32) 05/30/19 07:25 Anion Gap 7 MMOL/L (8-16) L 05/30/19 07:25 BUN 9.9 mg/dL (7-18) 05/30/19 07:25 Creatinine 0.6 mg/dL (0.55-1.3) 05/30/19 07:25 Est GFR (CKD-EPI)AfAm 120.61 05/30/19 07:25 Est GFR (CKD-EPI)NonAf 104.06 05/30/19 07:25 Random Glucose 89 mg/dL (74-106) 05/30/19 07:25 Calcium 9.6 mg/dL (8.5-10.1) 05/30/19 07:25 Total Bilirubin 0.4 mg/dL (0.2-1) 05/30/19 07:25 AST 13 U/L (15-37) L 05/30/19 07:25 ALT 17 U/L (13-61) 05/30/19 07:25 Alkaline Phosphatase 113 U/L (45-117) 05/30/19 07:25 Total Protein 7.2 g/dl (6.4-8.2) 05/30/19 07:25 Albumin 3.4 g/dl (3.4-5.0) 05/30/19 07:25 RPR Titer Reactive 1:2 (NONREACTIVE) H 05/30/19 07:25 T.pallidum Ab (MHA) Previously reactive (NONREACTIVE) 05/30/19 07:25 lab noted 06/01/19 12:53 positive rpr by history treated with "medication by mouth" Assessment: 06/01/19 12:54 alcohol withdrawal Plan: librium regiment
[2019-06-01] MEDS: THIAMINE HCL 100 MG TABLET (FP) PO SCH (21:30)
[2019-06-01] MEDS: IBUPROFEN 400 MG TABLET (FP) PO PRN (21:30)
[2019-06-01] MEDS: traZODone HCL 50 MG TABLET (FP) PO SCH (23:39)
[2019-06-01] MEDS: OLANZapine 5 MG TABLET PO SCH (23:39)
[2019-06-02] MEDS: chlordiazePOXIDE HCL 10 MG CAPSULE PO SCH ×2 (06:09→18:09)
[2019-06-02] MEDS: CYPROHEPTADINE HCL 4 MG TABLET PO SCH (06:10)
[2019-06-02] MEDS ORDERED: ACETAMINOPHEN 325 MG TABLET (FP) PO ONE (08:42)
--- NOTE | 2019-06-02 08:50 | PN ---
S CIWA - CIWA Score Nausea/Vomitin-No Nausea/No Vomiting Muscle Tremors: 1-None Visible, but [place] Anxiety: 1-Mildly Anxious Agitation: 0-Normal Activity Paroxysmal Sweats: No Perspiration Orientation: 0-Oriented Tacttile Disturbances: 0-None Auditory Disturbances: 0-None Visual Disturbances: 0-None Headache: 3-Moderate CIWA-Ar Total Score: 5 BHS Progress Note (SOAP) Subjective: 54 years old female admitted on 05/29/19 for alcohol withdrawal sx management treating with librium detox regiment patient presents somatic symptomatology of low bp weakness low energy poor personal hygiene ate meals in own room not participate in groups or meetings lying on bed most of the day limited conversation with staff guarded poor eye contact multiple holding psychotropic medications as well as detox librium regiment psychiatric referral to rule out schizo encourage prednison administration as scheduled Objective: 06/02/19 08:57 Vital Signs Temperature 98.8 F 06/02/19 05:23 Pulse Rate 67 06/02/19 05:23 Respiratory Rate 18 06/02/19 05:23 Blood Pressure 111/71 06/02/19 05:23 O2 Sat by Pulse Oximetry (%) Laboratory Last Values WBC 6.1 K/mm3 (4.0-10.0) 05/30/19 07:25 RBC 3.93 M/mm3 (3.60-5.2) 05/30/19 07:25 Hgb 11.9 GM/dL (10.7-15.3) 05/30/19 07:25 Hct 35.6 % (32.4-45.2) 05/30/19 07:25 MCV 90.7 fl (80-96) 05/30/19 07:25 MCH 30.3 pg (25.7-33.7) 05/30/19 07:25 MCHC 33.5 g/dl (32.0-36.0) 05/30/19 07:25 RDW 15.7 % (11.6-15.6) H 05/30/19 07:25 Plt Count 248 K/MM3 (134-434) D 05/30/19 07:25 MPV 10.3 fl (7.5-11.1) 05/30/19 07:25 Sodium 143 mmol/L (136-145) 05/30/19 07:25 Potassium 3.9 mmol/L (3.5-5.1) 05/30/19 07:25 Chloride 110 mmol/L (98-107) H 05/30/19 07:25 Carbon Dioxide 25 mmol/L (21-32) 05/30/19 07:25 Anion Gap 7 MMOL/L (8-16) L 05/30/19 07:25 BUN 9.9 mg/dL (7-18) 05/30/19 07:25 Creatinine 0.6 mg/dL (0.55-1.3) 05/30/19 07:25 Est GFR (CKD-EPI)AfAm 120.61 05/30/19 07:25 Est GFR (CKD-EPI)NonAf 104.06 05/30/19 07:25 Random Glucose 89 mg/dL (74-106) 05/30/19 07:25 Calcium 9.6 mg/dL (8.5-10.1) 05/30/19 07:25 Total Bilirubin 0.4 mg/dL (0.2-1) 05/30/19 07:25 AST 13 U/L (15-37) L 05/30/19 07:25 ALT 17 U/L (13-61) 05/30/19 07:25 Alkaline Phosphatase 113 U/L (45-117) 05/30/19 07:25 Total Protein 7.2 g/dl (6.4-8.2) 05/30/19 07:25 Albumin 3.4 g/dl (3.4-5.0) 05/30/19 07:25 RPR Titer Reactive 1:2 (NONREACTIVE) H 05/30/19 07:25 T.pallidum Ab (MHA) Previously reactive (NONREACTIVE) 05/30/19 07:25 lab noted Assessment: 06/02/19 08:58 alcohol withdrawal Plan: librium regiment
[2019-06-02] MEDS: predniSONE 20 MG TABLET (UD) PO SCH (10:08)
[2019-06-02] MEDS: ASPIRIN COATED 81 MG TABLET.EC PO SCH (10:08)
[2019-06-02] MEDS: PRENATAL VITAMINS W/ FOLIC ACID TABLET (FP) PO SCH (10:09)
[2019-06-02] MEDS ORDERED: LIDOCAINE VISCOUS 2% ORAL/TOP 20 ML UNIT-DOSE CUP MM PRN (11:30)
--- NOTE | 2019-06-02 16:07 | PN ---
Psychiatric Progress Note Vital Signs: Vital Signs Period Temp Pulse Resp BP Sys/Voss Pulse Ox Last 24 Hr 97.2 F-98.8 F 67-100 16-18 88-111/60-71 Date of Session: 06/02/19 Chief Complaint:: " I am fine. I had difficulty sleeping yesterday." HPI: Day 5 of detoxification treatment. Psychiatric follow-up is requested to address patient's complaints of anxiety and dysphoria. Hospital course is otherwise unremarkable. ROS: Patient is alert, cooperative, alert and fully oriented. Feels anxious. Ambulatory. Current Medications: Active Medications Generic Name Dose Route Start Last Admin Trade Name Freq PRN Reason Stop Dose Admin Acetaminophen 650 mg 05/29/19 12:29 06/02/19 09:53 Tylenol - PO 650 mg Q6H PRN Administration PAIN LEVEL 4 - 6 Acetaminophen 650 mg 05/29/19 12:29 Tylenol - PO Q6H PRN FEVER Al Hydroxide/Mg Hydroxide 30 ml 05/29/19 12:29 Mylanta Oral Suspension - PO Q6H PRN DYSPEPSIA Albuterol Sulfate 2 puff 05/29/19 12:31 Ventolin Hfa Inhaler - IH Q4H PRN ASTHMA Aspirin 81 mg 05/29/19 13:30 06/02/19 10:08 Ecotrin - PO 81 mg DAILY ASHLYN Administration Bismuth Subsalicylate 524 mg 05/29/19 12:29 Pepto-Bismol - PO Q1H PRN DIARRHEA Chlordiazepoxide HCl 10 mg 06/02/19 05:00 06/02/19 06:09 Librium - PO 06/02/19 17:01 Not Given Q12H ASHLYN Chlordiazepoxide HCl 10 mg 06/03/19 05:00 Librium - PO 06/03/19 05:01 ONCE@0500 ONE Cyproheptadine HCl 4 mg 05/30/19 07:00 06/02/19 06:10 Periactin - PO 4 mg ACBK ASHLYN Administration Eucalyptus/Menthol/Phenol/Sorbitol 1 each 05/29/19 12:29 Cepastat Lozenge - MM 06/04/19 12:29 Q4H PRN SORE THROAT Hydroxyzine Pamoate 25 mg 05/29/19 12:29 Vistaril - PO 02/19/20 12:29 Q6H PRN For Anxiety Ibuprofen 400 mg 05/29/19 12:29 06/01/19 21:30 Motrin - PO 400 mg Q6H PRN Administration PAIN LEVEL 1 - 3 Lidocaine HCl 20 ml 06/02/19 11:30 Xylocaine 2% Viscous Oral - MM TID PRN ORAL PAIN/MOUTH SORES Magnesium Citrate 300 ml 05/29/19 12:29 Citroma - PO Q48H PRN CONSTIPATION Magnesium Hydroxide 30 ml 05/29/19 12:29 Milk Of Magnesia - PO PRN PRN CONSTIPATION Melatonin 5 mg 05/29/19 12:29 Melatonin PO HS PRN INSOMNIA Methocarbamol 500 mg 05/29/19 12:29 Robaxin - PO 06/04/19 12:29 Q6H PRN MUSCLE SPASMS Olanzapine 5 mg 05/30/19 22:00 06/01/19 23:39 Zyprexa - PO Not Given HS ASHLYN Prednisone 40 mg 05/29/19 13:30 06/02/19 10:08 Deltasone - PO 40 mg DAILY ASHLYN Administration Multivit/Folic Acid/Iron 1 tab 05/30/19 10:00 06/02/19 10:09 Vitamins (Sjr) - PO 1 tab DAILY ASHLYN Administration Thiamine HCl 100 mg 05/29/19 22:00 06/01/19 21:30 Vitamin B1 - PO 100 mg HS ASHLYN Administration Trazodone HCl 50 mg 05/30/19 22:00 06/01/19 23:39 Desyrel - PO Not Given HS ASHLYN Medication(s) Change(s): Zyprexa is raised to 10 mg po hs. Added to regimen : wellbutrin XL 150 mg po daily. Side effects/benefits discussed with patient. Consent (verbal) given to . [employer] spoke to pharmacist at [facility] ) for verification of medications. Findings as follows : refills for wellbutrin SR 200 mg/bid + topiramate 200 mg/bid + gabapentin 300 mg/bid + zyprexa 20 mg/hs + geodon 40 mg/day (filled on 05/13/19). Regimen is reduced in view of patient's self-report of non-compliance with medications for ONE MONTH prior to this [facility] visit + hypotensive trend + low body weight. Attempt made to also contact the prescriber, Dr Wooten, psychiatrist at [facility] ([phone]) : no success (clinic closed on holidays). Current Side Effect: No Lab tests ordered: No Lab tests reviewed: Yes Provider note:: Chart reviewed. Consult note (06/01/19) by senior c software engineer Jed Weiss : read and appreciated. Met with the patient. Ms Mckeon is noted as depressed, sad and anxious. She reports feeling " ashamed " of having relapsed into substance use. It appears that she is under some pressure from her relatives, which adds on to her anxiety level (observed as tearful after a telephone conversation with family members). Patient is cooperative and receptive to supportive counseling. Open to spirituality. Willing to incorperate spiritual assets into her struggle with ANNE issues with the hope to achieve maintenance of recovery. She expresses motivation for rehabilitative care but she worries about availability of beds. Fearful of relapse. Patient is not psychotic. She denies suicidal or homicidal ideation, intent or plan. She is future-oriented (focused on detoxification/rehabilitation, eager to stay sober for prevention of medical complications + enhancement of self-esteem). Mental status is stable. See MSE report for details. Will continue to monitor clinical progress. Total face to face time:: 35 Mental Status Exam - Mental Status Exam Alert and Oriented to: Time, Place, Person Cognitive Function: Good Patient Appearance: Well Groomed (thin, frail habitus) Mood: Sad, Withdrawn, Anxious Affect: Mood Congruent, Constricted Patient Behavior: Fatigued, Appropriate, Cooperative Speech Pattern: Clear, Appropriate Voice Loudness: Normal Thought Process: Goal Oriented Thought Disorder: Not Present Hallucinations: Denies Suicidal Ideation: Denies Homicidal Ideation: Denies Insight/Judgement: Fair Sleep: Fair Appetite: Poor, Weight loss Gait/Station: Normal Psychiatric Treatment Plan - Problem List (1) Alcohol dependence with uncomplicated withdrawal Current Visit: Yes Comment: . (2) Cocaine dependence Current Visit: Yes Comment: . (3) Nicotine dependence Current Visit: Yes Qualifiers: Nicotine product type: cigarettes Substance use status: uncomplicated Qualified Code(s): F17.210 - Nicotine dependence, cigarettes, uncomplicated Comment: . (4) Substance induced mood disorder Current Visit: Yes Comment: . (5) PTSD (post-traumatic stress disorder) Current Visit: Yes Comment: . (6) Schizoaffective disorder Current Visit: Yes Comment: . (7) Insomnia Current Visit: Yes
[2019-06-02] MEDS: IBUPROFEN 400 MG TABLET (FP) PO PRN (17:17)
[2019-06-02] MEDS ORDERED: OLANZapine 10 MG TABLET PO SCH (22:00)
[2019-06-02] MEDS: THIAMINE HCL 100 MG TABLET (FP) PO SCH (22:38)
[2019-06-02] MEDS: traZODone HCL 50 MG TABLET (FP) PO SCH (22:52)
[2019-06-03] MEDS ORDERED: chlordiazePOXIDE HCL 10 MG CAPSULE PO ONE (05:00)
[2019-06-03] MEDS: CYPROHEPTADINE HCL 4 MG TABLET PO SCH (07:22)
[2019-06-03 09:33] VITALS: BP 97/68; PULSE 94; TEMP 97.3
[2019-06-03] MEDS: PRENATAL VITAMINS W/ FOLIC ACID TABLET (FP) PO SCH (10:18)
[2019-06-03] MEDS: ASPIRIN COATED 81 MG TABLET.EC PO SCH (10:18)
[2019-06-03] MEDS: predniSONE 20 MG TABLET (UD) PO SCH (10:18)
--- NOTE | 2019-06-03 10:22 | DS ---
[facility] Detox Discharge Summary Admission Date: 05/29/19 Discharge Date: 06/03/19 - History Present History: Alcohol Dependence Additional Comments: 54 years old female admitted on 05/29/19 for alcohol withdrawal sx management treated with librium detox regiment Ms Mckeon has completed the librium regiment and tolerated well seen by psychiatrist resume zprexa and trazadone alert oriented x 3 cardiac s1s2 regular rate rhythm ekg indicated left ventricular hypertrophy Ms Mckeon is asymptomatic denies chest pain no dizziness no shortness of breath respiratory clear lungs bilaterally on auscultation extremities full range of motion Pertinent Past History: time for discharge 48 minutes - Physical Exam Results Vital Signs: Vital Signs Temperature 97.3 F L 06/03/19 08:31 Pulse Rate 94 H 06/03/19 08:31 Respiratory Rate 20 06/03/19 08:31 Blood Pressure 97/68 06/03/19 08:31 O2 Sat by Pulse Oximetry (%) Pertinent Admission Physical Exam Findings: alcohol withdrawal Vital Signs Temperature 97.3 F L 06/03/19 08:31 Pulse Rate 94 H 06/03/19 08:31 Respiratory Rate 20 06/03/19 08:31 Blood Pressure 97/68 06/03/19 08:31 O2 Sat by Pulse Oximetry (%) Laboratory Last Values WBC 6.1 K/mm3 (4.0-10.0) 05/30/19 07:25 RBC 3.93 M/mm3 (3.60-5.2) 05/30/19 07:25 Hgb 11.9 GM/dL (10.7-15.3) 05/30/19 07:25 Hct 35.6 % (32.4-45.2) 05/30/19 07:25 MCV 90.7 fl (80-96) 05/30/19 07:25 MCH 30.3 pg (25.7-33.7) 05/30/19 07:25 MCHC 33.5 g/dl (32.0-36.0) 05/30/19 07:25 RDW 15.7 % (11.6-15.6) H 05/30/19 07:25 Plt Count 248 K/MM3 (134-434) D 05/30/19 07:25 MPV 10.3 fl (7.5-11.1) 05/30/19 07:25 Sodium 143 mmol/L (136-145) 05/30/19 07:25 Potassium 3.9 mmol/L (3.5-5.1) 05/30/19 07:25 Chloride 110 mmol/L (98-107) H 05/30/19 07:25 Carbon Dioxide 25 mmol/L (21-32) 05/30/19 07:25 Anion Gap 7 MMOL/L (8-16) L 05/30/19 07:25 BUN 9.9 mg/dL (7-18) 05/30/19 07:25 Creatinine 0.6 mg/dL (0.55-1.3) 05/30/19 07:25 Est GFR (CKD-EPI)AfAm 120.61 05/30/19 07:25 Est GFR (CKD-EPI)NonAf 104.06 05/30/19 07:25 Random Glucose 89 mg/dL (74-106) 05/30/19 07:25 Calcium 9.6 mg/dL (8.5-10.1) 05/30/19 07:25 Total Bilirubin 0.4 mg/dL (0.2-1) 05/30/19 07:25 AST 13 U/L (15-37) L 05/30/19 07:25 ALT 17 U/L (13-61) 05/30/19 07:25 Alkaline Phosphatase 113 U/L (45-117) 05/30/19 07:25 Total Protein 7.2 g/dl (6.4-8.2) 05/30/19 07:25 Albumin 3.4 g/dl (3.4-5.0) 05/30/19 07:25 POC Urine HCG, Qual Negative 05/29/19 12:10 RPR Titer Reactive 1:2 (NONREACTIVE) H 05/30/19 07:25 T.pallidum Ab (MHA) Previously reactive (NONREACTIVE) 05/30/19 07:25 lab noted - Treatment Hospital Course: Detox Protocol Followed, Detoxed Safely, Responded well, Discharged Condition Good, Rehab Referral Accepted Patient has Accepted a Rehab Referral to: [facility] - Medication Discharge Medications: Ambulatory Orders Aspirin Coated [Ecotrin -] 81 mg PO DAILY #30 mg 05/30/17 Albuterol Sulfate Inhaler - [Ventolin HFA Inhaler -] 2 inh PO Q4H PRN #1 inhaler 08/02/17 traZODone HCL [Desyrel -] 50 mg PO HS #30 tablet 09/30/18 Cyproheptadine [Periactin -] 4 mg PO DAILY 04/23/19 predniSONE [Deltasone -] 40 mg PO DAILY 04/23/19 Olanzapine [Zyprexa] 5 mg PO HS 05/30/19 - Diagnosis (1) Alcohol dependence with uncomplicated withdrawal Status: Acute (2) Substance induced mood disorder Status: Suspected (3) Syphilis Status: Chronic (4) Asthma Status: Chronic Qualifiers: Asthma severity: mild Asthma persistence: intermittent Asthma complication type: with status asthmaticus Qualified Code(s): J45.22 - Mild intermittent asthma with status asthmaticus (5) COPD (chronic obstructive pulmonary disease) Status: Chronic Qualifiers: COPD type: emphysema Emphysema type: unilateral Qualified Code(s): J43.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] (6) Nicotine dependence Status: Acute Qualifiers: Nicotine product type: cigarettes Substance use status: in withdrawal Qualified Code(s): F17.213 - Nicotine dependence, cigarettes, with withdrawal (7) Substance induced mood disorder Status: Suspected (8) Aortic valve regurgitation Status: Chronic Qualifiers: Cardiac valve disease etiology: etiology unspecified Qualified Code(s): I35.1 - Nonrheumatic aortic (valve) insufficiency - AMA Did Patient Leave Against Medical Advice: No CIWA Score - CIWA Score Nausea/Vomitin-No Nausea/No Vomiting Muscle Tremors: 1-None Visible, but [place] Anxiety: 1-Mildly Anxious Agitation: 0-Normal Activity Paroxysmal Sweats: No Perspiration Orientation: 0-Oriented Tacttile Disturbances: 0-None Auditory Disturbances: 0-None Visual Disturbances: 0-None Headache: 1-Very Mild CIWA-Ar Total Score: 3
== END 2019-06-03 11:45 | disposition home or self-care (01) | DRG 774 ==
LOC: YASAS 11:32 → Y3N 12:45
PROVIDERS: ADMIT Allergy & Immunology; ATTEND Allergy & Immunology
PROC: HZ2ZZZZ Detoxification Services for Substance Abuse Treatment (ICD-10-PCS; principal; 2019-05-29)
DX: F10.230 Alcohol dependence with withdrawal, uncomplicated (principal); F14.20 Cocaine dependence, uncomplicated; F17.213 Nicotine dependence, cigarettes, with withdrawal; F19.24 Other psychoactive substance dependence with psychoactive substance-induced mood disorder; F43.10 Post-traumatic stress disorder, unspecified; F25.9 Schizoaffective disorder, unspecified; J45.22 Mild intermittent asthma with status asthmaticus; J43.0 Unilateral pulmonary 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]; I35.1 Nonrheumatic aortic (valve) insufficiency; G47.00 Insomnia, unspecified; D53.0 Protein deficiency anemia; D68.51 Activated protein C resistance; Z86.718 Personal history of other venous thrombosis and embolism; Z87.42 Personal history of other diseases of the female genital tract; Z79.01 Long term (current) use of anticoagulants; Z88.0 Allergy status to penicillin; Z88.6 Allergy status to analgesic agent; Z91.018 Allergy to other foods; Z91.040 Latex allergy status
CPT/HCPCS: 36415; 80053; 81025; 85027; 86593; 86780

== ENCOUNTER 2019-10-07 13:07 | Inpatient (IN) | payer BC ==
[2019-10-07] MEDS ORDERED: ALBUTEROL SO4 HFA INHALER IH PRN (15:33)
[2019-10-07] MEDS ORDERED: MAG HYDROX/AL HYDROX/SIMETH 30 ML UNIT-DOSE CUP PO PRN (15:40)
[2019-10-07] MEDS ORDERED: MAGNESIUM CITRATE 300 ML BOTTLE PO PRN (15:40)
[2019-10-07] MEDS ORDERED: ONDANSETRON *ODT* 4 MG TABLET SL PRN (15:40)
[2019-10-07] MEDS ORDERED: NICOTINE POLACRILEX 2 MG GUM BUC PRN (15:40)
[2019-10-07] MEDS ORDERED: MAGNESIUM HYDROX 2400MG/30ML ORAL SUSPENSION 30 ML CUP PO PRN (15:40)
[2019-10-07] MEDS ORDERED: IBUPROFEN 400 MG TABLET (FP) PO PRN (15:40)
[2019-10-07] MEDS ORDERED: BISMUTH SUBSALICYLATE 524 MG/30 ML UD PO PRN (15:40)
[2019-10-07] MEDS ORDERED: chlordiazePOXIDE HCL 25 MG CAPSULE PO PRN (15:40)
[2019-10-07] MEDS ORDERED: MENTHOL/PHENOL 1 EACH UD MM PRN (15:40)
[2019-10-07] MEDS ORDERED: ACETAMINOPHEN 325 MG TABLET (FP) PO PRN ×2 (15:40)
[2019-10-07] MEDS ORDERED: METHOCARBAMOL 500 MG TABLET PO PRN (15:40)
[2019-10-07] MEDS ORDERED: predniSONE 20 MG TABLET (UD) PO ONE (15:45)
[2019-10-07 17:23] VITALS: BMI 24.4
[2019-10-07] MEDS: chlordiazePOXIDE HCL 25 MG CAPSULE PO SCH ×2 (19:32→22:51)
[2019-10-07] MEDS: PRENATAL VITAMINS W/ FOLIC ACID TABLET (FP) PO SCH (19:32)
[2019-10-07] MEDS: hydrOXYzine PAMOATE 25 MG CAPSULE (FP) PO SCH ×2 (19:33→22:51)
[2019-10-07] MEDS: CYPROHEPTADINE HCL 4 MG TABLET PO SCH (19:54)
[2019-10-07] MEDS: MELATONIN 5 MG TABLETS PO SCH (22:51)
[2019-10-07] MEDS: THIAMINE HCL 100 MG TABLET (FP) PO SCH (22:56)
[2019-10-08] MEDS: chlordiazePOXIDE HCL 25 MG CAPSULE PO SCH ×4 (06:20→22:16)
[2019-10-08] MEDS: hydrOXYzine PAMOATE 25 MG CAPSULE (FP) PO SCH ×2 (06:20→10:33)
[2019-10-08] MEDS: CYPROHEPTADINE HCL 4 MG TABLET PO SCH ×3 (06:20→17:10)
[2019-10-08] MEDS: PRENATAL VITAMINS W/ FOLIC ACID TABLET (FP) PO SCH (10:32)
[2019-10-08 10:37] LABS: HEMATOCRIT 38.5 % (32.4-45.2); HEMOGLOBIN 12.4 GM/dL (10.7-15.3); MCH 29.1 pg (25.7-33.7); MCHC 32.2 g/dl (32.0-36.0); MEAN CELL VOLUME 90.4 fl (80-96); MEAN PLT VOLUME 9.5 fl (7.5-11.1); PLATELET COUNT 289 K/MM3 (134-434); RBC 4.25 M/mm3 (3.60-5.2); RDW 14.5 % (11.6-15.6); WHITE BLOOD COUNT 5.4 K/mm3 (4.0-10.0)
[2019-10-08 10:43] LABS: ALBUMIN 3.5 g/dl (3.4-5.0); BILIRUBIN,TOTAL 0.4 mg/dL (0.2-1); BLOOD UREA NITROGEN 12.2 mg/dL (7-18); CALCIUM 9.6 mg/dL (8.5-10.1); CREATININE 0.6 mg/dL (0.55-1.3); TOT PROT 7.5 g/dl (6.4-8.2)
[2019-10-08] MEDS ORDERED: hydrOXYzine PAMOATE 25 MG CAPSULE (FP) PO PRN (12:30)
[2019-10-08] MEDS: THIAMINE HCL 100 MG TABLET (FP) PO SCH (22:15)
[2019-10-08] MEDS: MELATONIN 5 MG TABLETS PO SCH (22:15)
[2019-10-09] MEDS: chlordiazePOXIDE HCL 25 MG CAPSULE PO SCH ×4 (06:33→22:53)
[2019-10-09] MEDS: CYPROHEPTADINE HCL 4 MG TABLET PO SCH ×3 (06:34→18:20)
[2019-10-09] MEDS: PRENATAL VITAMINS W/ FOLIC ACID TABLET (FP) PO SCH (10:19)
[2019-10-09 14:56] LABS: PH,URINE 6.5 (5.0-8.0); URINE APPEARANCE CLEAR; URINE BILIRUBIN NEGATIVE (NEGATIVE); URINE COLOR YELLOW; URINE GLUCOSE (UA) NEGATIVE (NEGATIVE); URINE KETONE NEGATIVE (NEGATIVE); URINE LEUK ESTERASE NEGATIVE (NEGATIVE); URINE NITRITE NEGATIVE (NEGATIVE); URINE PROTEIN NEGATIVE (NEGATIVE); URINE UROBILINOGEN 0.2 mg/dL (0.2-1.0)
[2019-10-09] MEDS ORDERED: OLANZapine 5 MG TABLET PO SCH (22:00)
[2019-10-09] MEDS: MELATONIN 5 MG TABLETS PO SCH (22:51)
[2019-10-09] MEDS: THIAMINE HCL 100 MG TABLET (FP) PO SCH (22:51)
[2019-10-10] MEDS ORDERED: chlordiazePOXIDE HCL 10 MG CAPSULE PO PRN
[2019-10-10] MEDS: CYPROHEPTADINE HCL 4 MG TABLET PO SCH ×2 (06:41→11:15)
[2019-10-10] MEDS: chlordiazePOXIDE HCL 10 MG CAPSULE PO SCH ×2 (06:41→10:09)
[2019-10-10] MEDS: PRENATAL VITAMINS W/ FOLIC ACID TABLET (FP) PO SCH (10:09)
[2019-10-10 17:55] VITALS: BP 92/59; PULSE 98; TEMP 98
[2019-10-10] MEDS ORDERED: OLANZapine 10 MG TABLET PO SCH (22:00)
[2019-10-10 22:43] LABS: URINE APPEARANCE CLEAR; URINE BILIRUBIN NEGATIVE (NEGATIVE); URINE COLOR YELLOW; URINE GLUCOSE (UA) NEGATIVE (NEGATIVE); URINE KETONE NEGATIVE (NEGATIVE); URINE LEUK ESTERASE NEGATIVE (NEGATIVE); URINE NITRITE NEGATIVE (NEGATIVE); URINE PROTEIN NEGATIVE (NEGATIVE); URINE UROBILINOGEN 0.2 mg/dL (0.2-1.0)
[2019-10-11] MEDS ORDERED: chlordiazePOXIDE HCL 10 MG CAPSULE PO SCH (05:00)
[2019-10-12] MEDS ORDERED: chlordiazePOXIDE HCL 10 MG CAPSULE PO ONE (05:00)
== END 2019-10-10 17:55 | disposition home or self-care (01) | DRG 774 ==
LOC: YASAS 13:07 → Y5N DETOX 17:24
PROVIDERS: ADMIT Allergy & Immunology; ATTEND Allergy & Immunology
PROC: HZ2ZZZZ Detoxification Services for Substance Abuse Treatment (ICD-10-PCS; principal; 2019-10-07)
DX: F10.230 Alcohol dependence with withdrawal, uncomplicated (principal); F14.20 Cocaine dependence, uncomplicated; F17.210 Nicotine dependence, cigarettes, uncomplicated; F43.10 Post-traumatic stress disorder, unspecified; F25.9 Schizoaffective disorder, unspecified; I34.0 Nonrheumatic mitral (valve) insufficiency; I35.1 Nonrheumatic aortic (valve) insufficiency; J45.22 Mild intermittent asthma with status asthmaticus; J43.0 Unilateral pulmonary 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]; G47.00 Insomnia, unspecified; M32.9 Systemic lupus erythematosus, unspecified; Z79.01 Long term (current) use of anticoagulants; Z86.718 Personal history of other venous thrombosis and embolism; Z88.5 Allergy status to narcotic agent; Z86.19 Personal history of other infectious and parasitic diseases; Z62.810 Personal history of physical and sexual abuse in childhood; Z88.0 Allergy status to penicillin; Z91.040 Latex allergy status
CPT/HCPCS: 36415; 80053; 81003; 82962; 85027; 86593; 86780; U0003

== ENCOUNTER 2020-01-26 12:30 | Inpatient (IN) | payer BC ==
--- NOTE | 2020-01-26 12:55 | BHS.RME ---
Substance Use & Tx History - Substance Use History Alcohol Substance amount: 1.5 pints vodka _ six pack beers Frequency of use: Daily Substance route: Oral Date of Last Use: 01/25/20 (started age 33) Cocaine- Powder Substance amount: 1 gram Frequency of use: Daily Substance route: Inhalation (ex: sniffing or snorting) Date of Last Use: 01/25/20 (started age 33) Nicotine Substance amount: 4 ciggs Frequency of use: Daily Substance route: Smoking Date of Last Use: 01/26/20 (started age 33) Physical/Psych/Mental Status - Behavior General Behavior: Increased activity (restlessness, agitation) Eye Contact: Normal - Cooperativeness Cooperativeness: Cooperative - Thinking Thought Processes: Tight, Logical, Goal Directed - Physical Health Problems Is patient presently having any pain?: No Does patient presently have any injuries (include location): No Does patient currently have a fever: No Is patient : No CIWA Nausea/Vomitin Muscle Tremors: 4-Moderate,w/Arms Extend Anxiety: 4-Mod. Anxious/Guarded Agitation: 4-Moderately Restless Paroxysmal Sweats: 4-Forehead w/Sweat Beads Orientation: 0-Oriented Tacttile Disturbances: 0-None Auditory Disturbances: 0-None Visual Disturbances: 0-None Headache: 0-None Present CIWA-Ar Total Score: 19
[2020-01-26 13:31] VITALS: BMI 21.9
--- NOTE | 2020-01-26 14:23 | HP ---
CIWA Score Nausea/Vomitin Muscle Tremors: 4-Moderate,w/Arms Extend Anxiety: 4-Mod. Anxious/Guarded Agitation: 4-Moderately Restless Paroxysmal Sweats: 4-Forehead w/Sweat Beads Orientation: 0-Oriented Tacttile Disturbances: 0-None Auditory Disturbances: 0-None Visual Disturbances: 0-None Headache: 0-None Present CIWA-Ar Total Score: 19 - Admission Criteria OASAS Guidelines: Admission for Medically Managed Detox: Requires at least one of the followin. CIWA greater than 12 2. Seizures within the past 24 hours 3. Delirium tremens within the past 24 hours 4. Hallucinations within the past 24 hours 5. Acute intervention needed for co occurring medical disorder 6. Acute intervention needed for co occurring psychiatric disorder 7. Severe withdrawal that cannot be handled at a lower level of care (continued vomiting, continued diarrhea, abnormal vital signs) requiring intravenous medication and/or fluids 8. Admitting History and Physical - Admission Chief Complaint: Ms. Mckeon is a 54 yo woman who presents to [facility] requesting admission to detox for alcohol use disorder. History of Present Illness: Ms. Mckeon is a 54 yo woman who presents to [facility] requesting admission to detox for alcohol use disorder. PMH: Lupus, COPD, asthma, h/o nephrolithiasis, DVT on Eliquis PSH: C section, lithotripsy Left side Psych: insomnia SOC: lives iwth sister int he Chloride Legal: none Substance Use History Alcohol Substance amount: 1.5 pints vodka _ six pack beers Frequency of use: Daily Substance route: Oral Date of Last Use: 01/25/20 (started age 33) No hx of withdrawal seizures Has had multiple blackouts, last one one month ago Admits to [facility] Cocaine- Powder Substance amount: 1 gram Frequency of use: Daily Substance route: Inhalation (ex: sniffing or snorting) Date of Last Use: 01/25/20 (started age 33) Nicotine Substance amount: 4 ciggs Frequency of use: Daily Substance route: Smoking Date of Last Use: 01/26/20 (started age 33) History Source: Patient Limitations to Obtaining History: No Limitations - Past Medical History ...LMP: 06/26/17 - Past Surgical History Past Surgical History: Yes: - Smoking History Smoking history: Current every day smoker Have you smoked in the past 12 months: Yes Aproximately how many cigarettes per day: 4 - Alcohol/Substance Use Hx Alcohol Use: Yes Admission [facility] Allergies/Adverse Reactions: Allergies Allergy/AdvReac Type Severity Reaction Status Date / Time carrot Allergy Severe Itching Verified 01/26/20 14:26 Penicillins Allergy Severe Swelling Verified 01/26/20 14:26 Latex, Natural Rubber Allergy Intermediate Rash Verified 01/26/20 14:26 morphine AdvReac Intermediate HALLUCINATI Verified 01/26/20 14:26 ON Exam Limitations: No Limitations - Ebola screening Have you traveled outside of the country in the last 21 days: No Have you been sick,other than usual withdrawal symptoms: No Do you have a fever: No - Review of Systems Constitutional: Changes in sleep (trouble falling asleep), Unintentional Wgt. Loss (lsot 13 lbs in the past week) EENT: reports: No Symptoms Reported Respiratory: reports: No Symptoms reported Cardiac: reports: No Symptoms Reported GI: reports: Nausea : reports: No Symptoms Reported Musculoskeletal: reports: Joint Pain (attributes to lupus) Integumentary: reports: No Symptoms Reported Neuro: reports: No Symptoms reported Endocrine: reports: No Symptoms Reported Hematology: reports: No Symptoms Reported Psychiatric: reports: Anxious Patient History - Patient Medical History Hx Anemia: Yes (history - none now) Hx Asthma: Yes Hx Chronic Obstructive Pulmonary Disease (COPD): Yes Hx Cancer: No Hx Cardiac Disorders: No Hx Congestive Heart Failure: No Hx Hypertension: No Hx Hypercholesterolemia: No Hx Pacemaker: No HX Cerebrovascular Accident: No Hx Seizures: No Hx Dementia: No Hx Diabetes: No Hx Gastrointestinal Disorders: No Hx Liver Disease: No Hx Genitourinary Disorders: No Hx Sexually Transmitted Disorders: No Hx Renal Disease (ESRD): No Hx Thyroid Disease: No Hx Human Immunodeficiency Virus (HIV): No (2018 negative) Hx Hepatitis C: No Hx Depression: Yes Hx Suicide Attempt: Yes Hx Bipolar Disorder: Yes (PTSD, seroquel) Hx Schizophrenia: Yes - Patient Surgical History Past Surgical History: Yes Hx Neurologic Surgery: No Hx Cataract Extraction: No Hx Cardiac Surgery: No Hx Lung Surgery: No Hx Breast Surgery: No Hx Breast Biopsy: No Hx Abdominal Surgery: No Hx Appendectomy: No Hx Cholecystectomy: No Hx Genitourinary Surgery: Yes (lithotripsy for renal calculi 1995) Hx Section: Yes (5, patient has 10 children) Hx Orthopedic Surgery: No Hx Hysterectomy: No Other Surgical History: Kidney stones removal 1995 BY LITHOTRIPSY Anesthesia Reaction: No - PPD History Date: 09/28/18 Results: 0MM - Reproductive History Last Menstrual Period: 06/26/17 - Smoking Cessation Smoking history: Current every day smoker Have you smoked in the past 12 months: Yes Aproximately how many cigarettes per day: 4 Cigars Per Day: 0 Hx Chewing Tobacco Use: No Initiated information on smoking cessation: Yes 'Breaking Loose' booklet given: 01/26/20 Admission Physical Exam [facility] - Vital Signs Vital Signs: Vital Signs - 24 hr 01/26/20 13:29 Temperature 96.1 F L Pulse Rate 95 H Respiratory 18 Rate Blood Pressure 119/82 - Physical General Appearance: Yes: No Apparent Distress, Nourished, Appropriately Dressed, Anxious HEENTM: Yes: EOMI, Hearing grossly Normal, Normocephalic, Normal Voice Respiratory: Yes: Lungs Clear, No Respiratory Distress, No Accessory Muscle Use Neck: Yes: Within Normal Limits, Supple Breast: Yes: Breast Exam Deferred Cardiology: Yes: Regular Rhythm, Regular Rate Abdominal: Yes: Normal Bowel Sounds, Non Tender, Flat, Soft Genitourinary: Yes: Other (deferred) Back: Yes: Normal Inspection Musculoskeletal: Yes: Joint Stiffness (hands) Extremities: Yes: Normal Inspection, Non-Tender Neurological: Yes: Alert, Normal Response Integumentary: Yes: Normal Color, Dry, Warm (few hyperpigmented circular skin) - Diagnostic (1) Lupus Current Visit: Yes Status: Acute (2) Alcohol dependence with uncomplicated withdrawal Current Visit: No Status: Chronic Comment: . (3) Asthma Current Visit: No Status: Chronic Qualifiers: Asthma severity: mild Asthma persistence: intermittent Asthma complication type: with status asthmaticus Qualified Code(s): J45.22 - Mild intermittent asthma with status asthmaticus (4) COPD (chronic obstructive pulmonary disease) Current Visit: No Status: Chronic Qualifiers: COPD type: emphysema Emphysema type: unilateral Qualified Code(s): J43.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] (5) Cocaine dependence Current Visit: Yes Status: Acute Comment: . 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 (9) Syphilis Current Visit: No Status: Chronic Comment: treated 2017 Cleared for Admission S - [facility] Care: Medically Managed Detox Regimen/Protocol: Librium Breathalyzer - Breathalyzer Breathalyzer: 0 POC Urine test - Test device test lot number: [id number] Expiration date: 12/15/19 - Control test control: Yes Urine Drug Screen - Test Device Lot number: [id number] Expiration date: 07/22/21 - Control Is test valid?: Yes - Results Drug screen NEGATIVE: No Urine drug screen results: [facility]AYLI-Cocaine Inpatient Rehab Admission - Rehab Decision to Admit Inpatient rehab admission?: No
[2020-01-26] MEDS ORDERED: IBUPROFEN 400 MG TABLET (FP) PO PRN (14:29)
[2020-01-26] MEDS ORDERED: MAGNESIUM HYDROX 2400MG/30ML ORAL SUSPENSION 30 ML CUP PO PRN (14:29)
[2020-01-26] MEDS ORDERED: NICOTINE POLACRILEX 2 MG GUM BUC PRN (14:29)
[2020-01-26] MEDS ORDERED: MENTHOL/PHENOL 1 EACH UD MM PRN (14:29)
[2020-01-26] MEDS ORDERED: BISMUTH SUBSALICYLATE 524 MG/30 ML UD PO PRN (14:29)
[2020-01-26] MEDS ORDERED: chlordiazePOXIDE HCL 25 MG CAPSULE PO PRN (14:29)
[2020-01-26] MEDS ORDERED: MAGNESIUM CITRATE 300 ML BOTTLE PO PRN (14:29)
[2020-01-26] MEDS ORDERED: ACETAMINOPHEN 325 MG TABLET (FP) PO PRN ×2 (14:29)
[2020-01-26] MEDS ORDERED: ONDANSETRON *ODT* 4 MG TABLET SL PRN (14:29)
[2020-01-26] MEDS ORDERED: METHOCARBAMOL 500 MG TABLET PO PRN (14:29)
[2020-01-26] MEDS ORDERED: MAG HYDROX/AL HYDROX/SIMETH 30 ML UNIT-DOSE CUP PO PRN (14:29)
[2020-01-26] MEDS ORDERED: ALBUTEROL SO4 HFA INHALER IH PRN (14:53)
--- OUTSIDE RECORDS SUMMARY | 2020-01-26 14:55 | XMS ---
:1965 Author Organization [facility] Care Team Providers Name Role Phone [id number], [id number] Unavailable Unavailable CESAR GLASER MD Unavailable Unavailable Joe, C Unavailable Unavailable Joe, C Unavailable Unavailable Hooper, C Unavailable Unavailable Hooper, C Unavailable Unavailable Re-disclosure Warning The records that you are about to access may contain information from federally- assisted alcohol or drug abuse programs. If such information is present, then the following federally mandated warning applies: This information has been disclosed to you from records protected by federal confidentiality rules (42 CFR part 2). The federal rules prohibit you from making any further disclosure of this information unless further disclosure is expressly permitted by the written consent of the person to whom it pertains or as otherwise permitted by 42 CFR part 2. A general authorization for the release of medical or other information is NOT sufficient for this purpose. The Federal rules restrict any use of the information to criminally investigate or prosecute any alcohol or drug abuse patient.The records that you are about to access may contain highly sensitive health information, the redisclosure of which is protected by Article 27-F of the [facility] Public Health law. If you continue you may haveaccess to information: Regarding HIV / AIDS; Provided by facilities licensed or operated by the [facility] Office of Mental Health; or Provided by the [facility] Office for People With Developmental Disabilities. If such information is present, then the following [place] State mandated warning applies: This information has been disclosed to you from confidential records which are protected by state law. State law prohibits you from making any further disclosure of this information without the specific written consent of the person to whom it pertains, or as otherwise permitted by law. Any unauthorized further disclosure in violation of state law may result in a fine or longterm sentence or both. A general authorization for the release of medical or other information is NOT sufficient authorization for further disclosure. Encounters Encounter Providers Location Date Indications Data Source(s ) Inpatient Attender: CESAR RANDALL-1D 06/03/2019 [facility] Jay ingram SURBNSHANYANAdmitter 02:05:00 PM EST Hospital : [facility] 06/06/2019 12:12:00 PM EST Patient discharged. Attender: 06/03/2019 [facility] [id number] 02:05:00 PM [id number] 06/03/2019 [facility] 12:14:00 PM EST - Hospita l 06/03/2019 04:17:00 PM EST Patient discharged. Attender: [id number] 2019 12:14:00 [facility] Hospital Medications Medication Brand Start Product Dose Route Administrative Pharmacy [facility] Indications Reaction Description Data Name Date Form Instructions Instructions Source(s) Prednisone predni ORAL complet [facility] 20 MG Oral SONE - 2019 [facility] ed [facility] MG ORAL [facility] 12:[facility] t [facility] ORAL 00 AM Tablet EST Cyproheptad Cyproh ORAL complet [facility]ptadi [facility] ept[facility] 2019 Table ed ne HCl - 4 [facility] hydrochlori ne HCl 12:00: t MG ORAL H [facility]spital de 4 MG - 4 MG 00 AM Tablet Oral Tablet ORAL EST Tablet Trazodone traZOD ORAL complet traZODon e [facility] Hydrochlori one 2019 Table ed hydrochlorid [facility] de 50 MG hydroc 12:00: t e - 50 [facility] Ho spital Oral Tablet hlorid 00 AM ORAL Table t e - 50 EST MG ORAL Tablet olanzapine ZyPREX 02/21/ 1 ORAL complet ZyPREXA - 5 [facility] 5 MG Oral A - 5 2019 Table ed MG ORAL [facility] n[facility] Tablet MG 12:00: t [facility]t Hospital [Zyprexa] ORAL 00 AM Tablet EST Insurance Providers Payer name Policy type Policy ID Covered Covered constitution party's Policy P lidia / Coverage constitution party ID relationship to Solorio Inf ormation type solorio EMPIRE BC BS [id number] SP [id number] HEALTHPLUS 38 MMC EMPIRE [id number] Self [id number] HEALTH PLUS 38 SELF PAY 0000 Self 0000 MEDICAID INP [id number] Self [id number] P REHAB MMC EMPIRE [id number] Self [id number] HEALTH PLUS 8 Results ID Date Data Source [id number] 12/18/2019 10:18:00 AM EDT [facility] Name Value Range Interpretation Description Data Sup porting Code Source(s) Document(s ) SARS [facility] coronavirus 2 RNA This lab was ordered by [address] [place] [address] [facility] and reported by [facility]. ID Date Data Source [id number] 10/07/2019 05:45:00 PM EDT [facility] Name Value Range Interpretation Description Data Sup porting Code Source(s) Document(s ) SARS [facility] CORONAVIRUS 2 RNA This lab was ordered by [facility] rogelio Simms and reported by [facility]. ID Date Data Source [id number] 09/19/2019 12:00:00 AM EDT [facility] Name Value Range Interpretation Code Description Data Danielle rce(s) Supporting Document(s ) 2019-nCoV [facility] RNA XXX JENNIFER+probe- Imp This lab was ordered by [facility] and reported by [employer] Procedure Vital Signs ID Date Data Source UNK Name Value Range Interpretation Code Description Data Source(s) Diastolic blood 72 mmHg 72 mmHg [facility] Systolic blood 120 mmHg 120 mmHg [facility] Respiratory rate 18 bpm 18 bpm [facility] Heart rate 78 bpm 78 bpm [facility] Body temperature 97.5 Fahrenheit 97.5 Fahrenhei t [facility] Diastolic blood 62 mmHg 62 mmHg [facility] Systolic blood 118 mmHg 118 mmHg [facility] Respiratory rate 18 bpm 18 bpm [facility] Heart rate 89 bpm 89 bpm [facility] Diastolic blood 68 mmHg 68 mmHg [facility] Systolic blood 107 mmHg 107 mmHg [facility] Respiratory rate 18 bpm 18 bpm [facility] Heart rate 70 bpm 70 bpm [facility] Body temperature 97.6 Fahrenheit 97.6 Fahrenhei t [facility] ID Date Data Source [id number] 06/13/2019 11:26:21 AM EST [facility] Name Value Range Interpretation Code Description Data Source(s) Body weight Measured 132 lb 132 lb [facility] ID Date Data Source [id number] 07/31/2019 04:17:41 PM EDT [facility] Name Value Range Interpretation Code Description Data Source(s) Body weight Measured 132 lb 132 lb [facility]
[2020-01-26] MEDS ORDERED: predniSONE 20 MG TABLET (UD) PO SCH (15:00)
--- NOTE | 2020-01-26 17:21 | PN ---
S Progress Note Note: Called patient pharmacy ([facility]) and current medications prescribed are: Zyprexa 20 mg PO Daily Wellbutrin ER 300 mg PO Daily Geodon 40 mg PO BID x 30 days Topamax 200 mg PO BID x 30 days Ambien 10 mg PO HS PRN Periactin 4 mg PO Last rx for Eliquis was October 2019. Last prednisone September 2019 No current rx for ASA
[2020-01-26 17:49] LABS: HEMATOCRIT 40.1 % (32.4-45.2); HEMOGLOBIN 13.5 GM/dL (10.7-15.3); MCH 30.6 pg (25.7-33.7); MCHC 33.5 g/dl (32.0-36.0); MEAN CELL VOLUME 91.3 fl (80-96); MEAN PLT VOLUME 9.9 fl (7.5-11.1); PLATELET COUNT 226 K/MM3 (134-434); RBC 4.39 M/mm3 (3.60-5.2); WHITE BLOOD COUNT 7.5 K/mm3 (4.0-10.0)
[2020-01-26] MEDS ORDERED: hydrOXYzine PAMOATE 25 MG CAPSULE (FP) PO SCH (18:00)
[2020-01-26 18:09] LABS: CALCIUM 9.3 mg/dL (8.5-10.1)
[2020-01-26] MEDS: chlordiazePOXIDE HCL 25 MG CAPSULE PO SCH ×2 (18:14→23:11)
[2020-01-26 18:21] LABS: ALBUMIN 3.7 g/dl (3.4-5.0); BILIRUBIN,TOTAL 0.5 mg/dL (0.2-1); BLOOD UREA NITROGEN 21.8 mg/dL (7-18); CREATININE 0.9 mg/dL (0.55-1.3); TOT PROT 7.9 g/dl (6.4-8.2)
[2020-01-26] MEDS ORDERED: THIAMINE HCL 100 MG TABLET (FP) PO SCH (22:00)
[2020-01-26] MEDS ORDERED: MELATONIN 5 MG TABLETS PO SCH (22:00)
[2020-01-27] MEDS: chlordiazePOXIDE HCL 25 MG CAPSULE PO SCH ×2 (06:35→11:00)
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
--- NOTE | 2020-01-27 09:51 | PN ---
S CIWA - CIWA Score Nausea/Vomitin-Mild Nausea/No Vomiting Muscle Tremors: 3 Anxiety: 4-Mod. Anxious/Guarded Agitation: 1-Slight > Activity Paroxysmal Sweats: No Perspiration Orientation: 1-Uncertain about Date (day of week) Tacttile Disturbances: 0-None Auditory Disturbances: 0-None Visual Disturbances: 2-Mild Sensitivity Headache: 2-Mild CIWA-Ar Total Score: 14 [facility] Progress Note (SOAP) Subjective: 54 years old female was admitted on 01/26/20 for alcohol withdrawal sx management treting with librium detox regiment bmi 21.9 ensure 120 ml po tid with meals feels tired resting in bed prefers to sleep longer this morning limited conversation with staff Objective: 01/27/20 09:50 Vital Signs - 24 hr 01/26/20 01/26/20 01/26/20 13:29 15:34 16:52 Temperature 96.1 F L 96.8 F L 97.4 F L Pulse Rate 95 H 75 81 Respiratory 18 18 18 Rate Blood Pressure 119/82 109/81 92/48 L O2 Sat by Pulse 100 Oximetry (%) 01/26/20 01/27/20 01/27/20 21:22 06:36 08:54 Temperature 96.9 F L 98.1 F 96.9 F L Pulse Rate 76 72 77 Respiratory 18 18 18 Rate Blood Pressure 97/66 87/61 L 100/60 O2 Sat by Pulse 99 97 97 Oximetry (%) Laboratory Tests 01/26/20 01/26/20 01/26/20 14:25 14:25 14:25 WBC 7.5 RBC 4.39 Hgb 13.5 Hct 40.1 MCV 91.3 MCH 30.6 MCHC 33.5 RDW 14.0 Plt Count 226 D MPV 9.9 Sodium 141 Potassium 4.0 Chloride 106 Carbon Dioxide 29 Anion Gap 6 L BUN 21.8 H Creatinine 0.9 Est GFR (CKD-EPI)AfAm 84.61 Est GFR (CKD-EPI)NonAf 73.00 Random Glucose 80 Calcium 9.3 Total Bilirubin 0.5 AST 12 L ALT 21 Alkaline Phosphatase 126 H Total Protein 7.9 Albumin 3.7 Syphilis Serology Reactive A* COVID-19 (JENNIFER) 01/26/20 14:30 WBC RBC Hgb Hct MCV MCH MCHC RDW Plt Count MPV Sodium Potassium Chloride Carbon Dioxide Anion Gap BUN Creatinine Est GFR (CKD-EPI)AfAm Est GFR (CKD-EPI)NonAf Random Glucose Calcium Total Bilirubin AST ALT Alkaline Phosphatase Total Protein Albumin Syphilis Serology COVID-19 (JENNIFER) Not detected 01/27/20 09:52 syphilis contacted treated Assessment: 01/27/20 09:52 alcohol withdrawal Plan: librium regiment
[2020-01-27] MEDS ORDERED: predniSONE 20 MG TABLET (UD) PO SCH (10:00)
[2020-01-27] MEDS ORDERED: PRENATAL VITAMINS W/ FOLIC ACID TABLET (FP) PO SCH (10:00)
[2020-01-27] MEDS ORDERED: ASPIRIN COATED 81 MG TABLET.EC PO SCH (10:00)
[2020-01-27] MEDS ORDERED: NICOTINE 7 MG/24 HOURS TOPICAL PATCH TD SCH (10:00)
[2020-01-27 14:03] VITALS: BP 111/62; PULSE 67; TEMP 96.7
--- NOTE | 2020-01-27 17:23 | DS ---
[facility] Detox Discharge Summary Admission Date: 01/26/20 - History Additional Comments: 54 y.o. female admitted 01/26/2020 , stating she is leaving as she does not like her counselor " I've had the same counselor 3 times and she does nothing for me " , stating she is planning to return to her family and that arrangements have been made for her to go to [facility] tomorrow due to her PMHx of lupus . Pt declines medical complaints and further assistance from this rfp writer . Risks of leaving prior to completion of treatment explained at length , including risk of coma, , seizures , relapse . Pt thanked rfp writer profusely , and states she wanted to proceed with discharge . Nursing staff aware . Pt observed ambulating freely on the unit, NAD . Vital Signs - 24 hr 01/26/20 01/27/20 01/27/20 21:22 06:36 08:54 Temperature 96.9 F L 98.1 F 96.9 F L Pulse Rate 76 72 77 Respiratory 18 18 18 Rate Blood Pressure 97/66 87/61 L 100/60 O2 Sat by Pulse 99 97 97 Oximetry (%) 01/27/20 14:02 Temperature 96.7 F L Pulse Rate 67 Respiratory 18 Rate Blood Pressure 111/62 O2 Sat by Pulse 97 Oximetry (%) - Physical Exam Results Vital Signs: Vital Signs Temperature 96.7 F L 01/27/20 14:02 Pulse Rate 67 01/27/20 14:02 Respiratory Rate 18 01/27/20 14:02 Blood Pressure 111/62 01/27/20 14:02 O2 Sat by Pulse Oximetry (%) 97 01/27/20 14:02 - Medication Discharge Medications: Ambulatory Orders Aspirin Coated [Ecotrin -] 81 mg PO DAILY #30 mg 05/30/17 Albuterol Sulfate Inhaler - [Ventolin HFA Inhaler -] 2 inh PO Q4H PRN #1 inhaler 08/02/17 traZODone HCL [Desyrel -] 50 mg PO HS #30 tablet 09/30/18 Cyproheptadine [Periactin -] 4 mg PO DAILY 04/23/19 predniSONE [Deltasone -] 60 mg PO DAILY 04/23/19 Olanzapine [Zyprexa] 20 mg PO HS 05/30/19 - AMA Did Patient Leave Against Medical Advice: Yes
[2020-01-27] MEDS ORDERED: traZODone HCL 50 MG TABLET (FP) PO SCH (22:00)
[2020-01-27] MEDS ORDERED: OLANZapine 5 MG TABLET PO SCH (22:00)
[2020-01-27] MEDS ORDERED: OLANZapine 10 MG TABLET PO SCH (22:00)
[2020-01-28] MEDS ORDERED: chlordiazePOXIDE HCL 25 MG CAPSULE PO SCH (05:00)
[2020-01-29] MEDS ORDERED: chlordiazePOXIDE HCL 10 MG CAPSULE PO PRN
[2020-01-29] MEDS ORDERED: chlordiazePOXIDE HCL 10 MG CAPSULE PO SCH (05:00)
[2020-01-30] MEDS ORDERED: chlordiazePOXIDE HCL 10 MG CAPSULE PO SCH (05:00)
[2020-01-31] MEDS ORDERED: chlordiazePOXIDE HCL 10 MG CAPSULE PO ONE (05:00)
== END 2020-01-27 17:40 | disposition left against medical advice (07) | DRG 770 ==
LOC: YASAS 12:30 → Y3N 14:52
PROVIDERS: ADMIT Allergy & Immunology; ATTEND Allergy & Immunology
PROC: HZ2ZZZZ Detoxification Services for Substance Abuse Treatment (ICD-10-PCS; principal; 2020-01-26)
DX: F10.230 Alcohol dependence with withdrawal, uncomplicated (principal); F14.20 Cocaine dependence, uncomplicated; F17.210 Nicotine dependence, cigarettes, uncomplicated; F25.9 Schizoaffective disorder, unspecified; F43.10 Post-traumatic stress disorder, unspecified; F32.9 Major depressive disorder, single episode, unspecified; D68.59 Other primary thrombophilia; M32.9 Systemic lupus erythematosus, unspecified; Z86.2 Personal history of diseases of the blood and blood-forming organs and certain disorders involving the immune mechanism; Z86.718 Personal history of other venous thrombosis and embolism; Z79.01 Long term (current) use of anticoagulants; Z87.442 Personal history of urinary calculi; R63.4 Abnormal weight loss; Z68.21 Body mass index [BMI] 21.0-21.9, adult; Z91.5 Personal history of self-harm; Z62.810 Personal history of physical and sexual abuse in childhood; Z91.410 Personal history of adult physical and sexual abuse
CPT/HCPCS: 36415; 80053; 85027; 86593; 86780; C9803; U0003

== ENCOUNTER 2021-03-08 11:00 | Inpatient (IN) | payer BC ==
[2021-03-08] MEDS ORDERED: MAGNESIUM HYDROX 2400MG/30ML ORAL SUSPENSION 30 ML CUP PO PRN (12:05)
[2021-03-08] MEDS ORDERED: MAGNESIUM CITRATE 300 ML BOTTLE PO PRN (12:05)
[2021-03-08] MEDS ORDERED: BISMUTH SUBSALICYLATE 262 MG/15 ML BTL PO PRN (12:05)
[2021-03-08] MEDS ORDERED: METHOCARBAMOL 500 MG TABLET PO PRN (12:05)
[2021-03-08] MEDS ORDERED: ONDANSETRON *ODT* 4 MG TABLET SL PRN (12:05)
[2021-03-08] MEDS ORDERED: MAG HYDROX/AL HYDROX/SIMETH 30 ML UNIT-DOSE CUP PO PRN (12:05)
[2021-03-08] MEDS ORDERED: ACETAMINOPHEN 325 MG TABLET (FP) PO PRN ×2 (12:05)
[2021-03-08] MEDS ORDERED: MENTHOL/PHENOL 1 EACH UD MM PRN (12:05)
[2021-03-08 12:17] VITALS: BMI 20.6
[2021-03-08] MEDS ORDERED: ALBUTEROL SO4 HFA INHALER IH PRN (13:29)
[2021-03-08] MEDS: IBUPROFEN 400 MG TABLET (FP) PO PRN (13:53)
[2021-03-08] MEDS: ASPIRIN COATED 81 MG TABLET.EC PO SCH (13:53)
[2021-03-08] MEDS: hydrOXYzine PAMOATE 25 MG CAPSULE (FP) PO SCH ×3 (13:53→22:46)
[2021-03-08] MEDS ORDERED: LORazepam 2 MG TABLET PO ONE (14:23)
[2021-03-08] MEDS ORDERED: LORazepam 1 MG TABLET PO PRN (14:23)
[2021-03-08] MEDS: predniSONE 20 MG TABLET (UD) PO SCH (14:44)
[2021-03-08 18:15] LABS: HEMATOCRIT 36.7 % (32.4-45.2); HEMOGLOBIN 12.5 GM/dL (10.7-15.3); MCH 30.7 pg (25.7-33.7); MCHC 34.1 g/dl (32.0-36.0); MEAN PLT VOLUME 9.8 fl (7.5-11.1); PLATELET COUNT 283 10^3/uL (134-434); RBC 4.07 M/mm3 (3.60-5.2); RDW 15.5 % (11.6-15.6)
[2021-03-08] MEDS: CYPROHEPTADINE HCL 4 MG TABLET PO SCH (18:19)
[2021-03-08] MEDS: LORazepam 2 MG TABLET PO SCH ×2 (18:19→23:00)
[2021-03-08 18:59] LABS: ALBUMIN 3.8 g/dl (3.4-5.0); BILIRUBIN,TOTAL 0.2 mg/dL (0.2-1); BLOOD UREA NITROGEN 26.5 mg/dL (7-18); CALCIUM 9.4 mg/dL (8.5-10.1); CREATININE 1.1 mg/dL (0.55-1.3); TOT PROT 7.6 g/dl (6.4-8.2)
[2021-03-08] MEDS ORDERED: TOPIRAMATE 100 MG TABLET PO SCH (22:00)
[2021-03-08] MEDS ORDERED: MELATONIN 5 MG TABLETS PO SCH (22:00)
[2021-03-08] MEDS ORDERED: OLANZapine 10 MG TABLET PO SCH (22:00)
[2021-03-08] MEDS: THIAMINE HCL 100 MG TABLET (FP) PO SCH (22:46)
[2021-03-08] MEDS: OLANZapine 10 MG TABLET PO SCH (22:48)
[2021-03-08] MEDS: traZODone HCL 50 MG TABLET (FP) PO SCH (22:50)
[2021-03-08] MEDS: TOPIRAMATE 200 MG TABLET PO SCH (23:00)
[2021-03-09] MEDS: LORazepam 2 MG TABLET PO SCH ×2 (06:00→11:00)
[2021-03-09] MEDS: CYPROHEPTADINE HCL 4 MG TABLET PO SCH (06:56)
[2021-03-09] MEDS: hydrOXYzine PAMOATE 25 MG CAPSULE (FP) PO SCH (06:58)
[2021-03-09] MEDS: TOPIRAMATE 200 MG TABLET PO SCH (10:58)
[2021-03-09] MEDS: predniSONE 20 MG TABLET (UD) PO SCH (10:59)
[2021-03-09] MEDS: ASPIRIN COATED 81 MG TABLET.EC PO SCH (10:59)
[2021-03-09] MEDS: PRENATAL VITAMINS W/ FOLIC ACID TABLET (FP) PO SCH (10:59)
[2021-03-09] MEDS ORDERED: LORazepam 0.5 MG TABLET PO PRN (14:23)
[2021-03-09] MEDS ORDERED: LORazepam 0.5 MG TABLET PO SCH (18:00)
[2021-03-09] MEDS: THIAMINE HCL 100 MG TABLET (FP) PO SCH (22:41)
[2021-03-09] MEDS: TOPIRAMATE 100 MG TABLET PO SCH (22:41)
[2021-03-09] MEDS: OLANZapine 10 MG TABLET PO SCH (22:42)
[2021-03-09] MEDS: traZODone HCL 50 MG TABLET (FP) PO SCH (22:42)
[2021-03-10] MEDS ORDERED: LORazepam 1 MG TABLET PO SCH (05:00)
[2021-03-10] MEDS: LORazepam 1 MG TABLET PO SCH ×3 (07:41→23:10)
[2021-03-10] MEDS: CYPROHEPTADINE HCL 4 MG TABLET PO SCH (07:42)
[2021-03-10] MEDS ORDERED: predniSONE 20 MG TABLET (UD) PO ONE (10:00)
[2021-03-10] MEDS: ASPIRIN COATED 81 MG TABLET.EC PO SCH (11:42)
[2021-03-10] MEDS: PRENATAL VITAMINS W/ FOLIC ACID TABLET (FP) PO SCH (11:43)
[2021-03-10] MEDS: TOPIRAMATE 100 MG TABLET PO SCH (11:48)
[2021-03-10] MEDS: traZODone HCL 50 MG TABLET (FP) PO SCH (23:10)
[2021-03-10] MEDS: THIAMINE HCL 100 MG TABLET (FP) PO SCH (23:11)
[2021-03-10] MEDS: OLANZapine 10 MG TABLET PO SCH (23:11)
[2021-03-11] MEDS ORDERED: LORazepam 0.5 MG TABLET PO PRN ×2
[2021-03-11] MEDS ORDERED: LORazepam 0.5 MG TABLET PO SCH (05:00)
[2021-03-11] MEDS: LORazepam 0.5 MG TABLET PO SCH ×2 (06:00→17:51)
[2021-03-11] MEDS: CYPROHEPTADINE HCL 4 MG TABLET PO SCH (06:12)
[2021-03-11] MEDS ORDERED: predniSONE 20 MG TABLET (UD) PO ONE (10:00)
[2021-03-11] MEDS: PRENATAL VITAMINS W/ FOLIC ACID TABLET (FP) PO SCH (10:32)
[2021-03-11] MEDS: ASPIRIN COATED 81 MG TABLET.EC PO SCH (10:33)
[2021-03-11] MEDS: IBUPROFEN 400 MG TABLET (FP) PO PRN (17:55)
[2021-03-11] MEDS: traZODone HCL 50 MG TABLET (FP) PO SCH (22:32)
[2021-03-11] MEDS: THIAMINE HCL 100 MG TABLET (FP) PO SCH (22:33)
[2021-03-11] MEDS: OLANZapine 10 MG TABLET PO SCH (22:33)
[2021-03-12] MEDS ORDERED: LORazepam 0.5 MG TABLET PO ONE (05:00)
[2021-03-12] MEDS: CYPROHEPTADINE HCL 4 MG TABLET PO SCH (06:55)
[2021-03-12 07:18] VITALS: BP 113/71; PULSE 69; TEMP 96.8
[2021-03-12] MEDS: PRENATAL VITAMINS W/ FOLIC ACID TABLET (FP) PO SCH (10:37)
[2021-03-12] MEDS: ASPIRIN COATED 81 MG TABLET.EC PO SCH (10:37)
[2021-03-12] MEDS: NICOTINE 10 MG CARTRIDGE (INHALER) IH PRN ×2 (11:15→15:33)
[2021-03-12 17:07] LABS: HIV INTERPRETATION NEGATIVE (NEGATIVE)
== END 2021-03-12 15:59 | disposition other institution (70) | DRG 774 ==
LOC: YASAS 11:00 → Y6N 12:34
PROVIDERS: ADMIT Allergy & Immunology; ATTEND Allergy & Immunology
PROC: HZ2ZZZZ Detoxification Services for Substance Abuse Treatment (ICD-10-PCS; principal; 2021-03-08)
DX: F10.230 Alcohol dependence with withdrawal, uncomplicated (principal); F14.20 Cocaine dependence, uncomplicated; F17.210 Nicotine dependence, cigarettes, uncomplicated; F25.9 Schizoaffective disorder, unspecified; F19.282 Other psychoactive substance dependence with psychoactive substance-induced sleep disorder; F43.10 Post-traumatic stress disorder, unspecified; I10 Essential (primary) hypertension; J43.0 Unilateral pulmonary 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]; J45.20 Mild intermittent asthma, uncomplicated; B18.2 Chronic viral hepatitis C; B19.10 Unspecified viral hepatitis B without hepatic coma; Z62.810 Personal history of physical and sexual abuse in childhood; W19.XXXA Unspecified fall, initial encounter; Y92.230 Patient room in hospital as the place of occurrence of the external cause; Z56.0 Unemployment, unspecified; Z91.410 Personal history of adult physical and sexual abuse; Z88.0 Allergy status to penicillin; Z91.018 Allergy to other foods
CPT/HCPCS: 36415; 80053; 81025; 85027; 86593; 86780; 87389; C9803; U0003; U0005

== ENCOUNTER 2021-03-12 16:09 | Inpatient (IN) | payer BC ==
[2021-03-12] MEDS ORDERED: LOPERAMIDE HCL 2 MG CAPSULE PO PRN (17:50)
[2021-03-12] MEDS ORDERED: ACETAMINOPHEN 325 MG TABLET (FP) PO PRN (17:50)
[2021-03-12] MEDS ORDERED: MAGNESIUM HYDROX 2400MG/30ML ORAL SUSPENSION 30 ML CUP PO PRN (17:50)
[2021-03-12] MEDS ORDERED: MENTHOL/PHENOL 1 EACH UD MM PRN (17:50)
[2021-03-12] MEDS ORDERED: MAGNESIUM CITRATE 300 ML BOTTLE PO PRN (17:50)
[2021-03-12] MEDS ORDERED: MAG HYDROX/AL HYDROX/SIMETH 30 ML UNIT-DOSE CUP PO PRN (17:50)
[2021-03-12] MEDS ORDERED: IBUPROFEN 400 MG TABLET (FP) PO PRN (17:50)
[2021-03-12] MEDS: THIAMINE HCL 100 MG TABLET (FP) PO SCH (22:07)
[2021-03-12] MEDS: NICOTINE 10 MG CARTRIDGE (INHALER) IH PRN (22:07)
[2021-03-12] MEDS: MELATONIN 5 MG TABLETS PO SCH (22:07)
[2021-03-12] MEDS: hydrOXYzine PAMOATE 25 MG CAPSULE (FP) PO PRN (22:09)
[2021-03-13] MEDS ORDERED: PT OWN MED DRAWER 7, Y5N ONE (06:46)
[2021-03-13] MEDS: CYPROHEPTADINE HCL 4 MG TABLET PO SCH ×2 (07:22→10:34)
[2021-03-13] MEDS: NICOTINE 10 MG CARTRIDGE (INHALER) IH PRN ×2 (10:34→16:59)
[2021-03-13] MEDS: PRENATAL VITAMINS W/ FOLIC ACID TABLET (FP) PO SCH (10:34)
[2021-03-13] MEDS: ASPIRIN COATED 81 MG TABLET.EC PO SCH (10:34)
[2021-03-13] MEDS: MELATONIN 5 MG TABLETS PO SCH (22:42)
[2021-03-13] MEDS: ALBUTEROL SO4 HFA INHALER IH PRN (22:42)
[2021-03-13] MEDS: THIAMINE HCL 100 MG TABLET (FP) PO SCH (22:42)
[2021-03-13] MEDS: hydrOXYzine PAMOATE 25 MG CAPSULE (FP) PO PRN (22:44)
[2021-03-14] MEDS ORDERED: PT OWN MED DRAWER 7, Y5N ONE (03:22)
[2021-03-14] MEDS: CYPROHEPTADINE HCL 4 MG TABLET PO SCH ×2 (06:21→18:36)
[2021-03-14] MEDS: ALBUTEROL SO4 HFA INHALER IH PRN ×2 (09:44→17:04)
[2021-03-14] MEDS: PRENATAL VITAMINS W/ FOLIC ACID TABLET (FP) PO SCH (09:45)
[2021-03-14] MEDS: ASPIRIN COATED 81 MG TABLET.EC PO SCH (09:45)
[2021-03-14] MEDS: TOLNAFTATE 1% CREAM 15 GM TUBE TP SCH ×2 (10:57→21:14)
[2021-03-14] MEDS: THIAMINE HCL 100 MG TABLET (FP) PO SCH (21:12)
[2021-03-14] MEDS: MELATONIN 5 MG TABLETS PO SCH (21:12)
[2021-03-14] MEDS: hydrOXYzine PAMOATE 25 MG CAPSULE (FP) PO PRN (21:13)
[2021-03-14] MEDS: NICOTINE 10 MG CARTRIDGE (INHALER) IH PRN (21:15)
[2021-03-15] MEDS ORDERED: PT OWN MED DRAWER 7, Y5N ONE (05:59)
[2021-03-15] MEDS: CYPROHEPTADINE HCL 4 MG TABLET PO SCH ×2 (07:15→17:34)
[2021-03-15] MEDS: PRENATAL VITAMINS W/ FOLIC ACID TABLET (FP) PO SCH (10:05)
[2021-03-15] MEDS: ALBUTEROL SO4 HFA INHALER IH PRN (10:06)
[2021-03-15] MEDS: ASPIRIN COATED 81 MG TABLET.EC PO SCH (10:06)
[2021-03-15] MEDS: TOLNAFTATE 1% CREAM 15 GM TUBE TP SCH ×2 (10:06→22:14)
[2021-03-15] MEDS: NICOTINE 10 MG CARTRIDGE (INHALER) IH PRN (10:07)
[2021-03-15] MEDS ORDERED: OLANZapine 10 MG TABLET PO SCH (22:00)
[2021-03-15] MEDS ORDERED: SUVOREXANT 10 MG TABLET PO PRN (22:00)
[2021-03-15] MEDS: THIAMINE HCL 100 MG TABLET (FP) PO SCH (22:14)
[2021-03-16 07:02] VITALS: BP 107/69; PULSE 77; TEMP 97.8
[2021-03-16] MEDS: CYPROHEPTADINE HCL 4 MG TABLET PO SCH (07:40)
[2021-03-16] MEDS: TOLNAFTATE 1% CREAM 15 GM TUBE TP SCH (10:00)
[2021-03-16] MEDS: ASPIRIN COATED 81 MG TABLET.EC PO SCH (10:00)
[2021-03-16] MEDS: PRENATAL VITAMINS W/ FOLIC ACID TABLET (FP) PO SCH (10:00)
== END 2021-03-16 10:05 | disposition home or self-care (01) | DRG 772 ==
LOC: YASAS 16:09 → Y5N 16:11
PROVIDERS: ADMIT Allergy & Immunology; ATTEND Allergy & Immunology
PROC: HZ42ZZZ Group Counseling for Substance Abuse Treatment, Cognitive-Behavioral (ICD-10-PCS; principal; 2021-03-12)
DX: F10.20 Alcohol dependence, uncomplicated (principal); F14.20 Cocaine dependence, uncomplicated; F17.210 Nicotine dependence, cigarettes, uncomplicated; J44.9 Chronic obstructive pulmonary disease, unspecified; M32.10 Systemic lupus erythematosus, organ or system involvement unspecified

== ENCOUNTER 2021-11-08 12:29 | Inpatient (IN) | payer BC ==
[2021-11-08 12:56] VITALS: BMI 17.9
[2021-11-08] MEDS ORDERED: LOPERAMIDE HCL 2 MG CAPSULE PO PRN (14:37)
[2021-11-08] MEDS ORDERED: BISMUTH SUBSALICYLATE 524 MG/30 ML PO PRN (14:37)
[2021-11-08] MEDS ORDERED: MAGNESIUM HYDROX 2400MG/30ML ORAL SUSPENSION 30 ML CUP PO PRN (14:37)
[2021-11-08] MEDS ORDERED: DICYCLOMINE HCL 10 MG CAPSULE PO PRN (14:37)
[2021-11-08] MEDS ORDERED: ONDANSETRON *ODT* 4 MG TABLET SL PRN (14:37)
[2021-11-08] MEDS ORDERED: NICOTINE 10 MG CARTRIDGE (INHALER) IH PRN (14:37)
[2021-11-08] MEDS ORDERED: ACETAMINOPHEN 325 MG TABLET (FP) PO PRN (14:37)
[2021-11-08] MEDS ORDERED: MAG HYDROX/AL HYDROX/SIMETH 30 ML UNIT-DOSE CUP PO PRN (14:37)
[2021-11-08] MEDS ORDERED: METHOCARBAMOL 500 MG TABLET PO PRN (14:37)
[2021-11-08] MEDS ORDERED: MAGNESIUM CITRATE 300 ML BOTTLE PO PRN (14:37)
[2021-11-08] MEDS ORDERED: BENZOCAINE/MENTHOL (CHLORASEPTIC ) LOZENGE MM PRN (14:37)
[2021-11-08] MEDS ORDERED: chlordiazePOXIDE HCL 25 MG CAPSULE PO PRN (14:37)
[2021-11-08] MEDS ORDERED: ALBUTEROL SO4 HFA INHALER IH PRN (14:50)
[2021-11-08] MEDS ORDERED: CYPROHEPTADINE HCL 4 MG TABLET PO SCH ×2 (14:56→22:00)
[2021-11-08 16:58] LABS: HEMATOCRIT 38.5 % (32.4-45.2); HEMOGLOBIN 12.7 GM/dL (10.7-15.3); MCH 29.6 pg (25.7-33.7); MCHC 32.9 g/dl (32.0-36.0); MEAN PLT VOLUME 9.9 fl (7.5-11.1); PLATELET COUNT 239 10^3/uL (134-434); RBC 4.28 M/mm3 (3.60-5.2); RDW 14.7 % (11.6-15.6); WHITE BLOOD COUNT 5.6 K/mm3 (4.0-10.0)
[2021-11-08 17:05] LABS: ALBUMIN 3.4 g/dl (3.4-5.0); BLOOD UREA NITROGEN 15.6 mg/dL (7-18); CALCIUM 9.3 mg/dL (8.5-10.1)
[2021-11-08 17:08] LABS: CREATININE 0.8 mg/dL (0.55-1.3)
[2021-11-08 17:10] LABS: BILIRUBIN,TOTAL 0.2 mg/dL (0.2-1); TOT PROT 7.2 g/dl (6.4-8.2)
[2021-11-08] MEDS: chlordiazePOXIDE HCL 25 MG CAPSULE PO SCH ×2 (18:27→22:52)
[2021-11-08] MEDS: hydrOXYzine PAMOATE 25 MG CAPSULE (FP) PO SCH ×2 (18:27→22:51)
[2021-11-08] MEDS: CYPROHEPTADINE HCL 4 MG TABLET PO SCH (22:51)
[2021-11-08] MEDS: THIAMINE HCL 100 MG TABLET (FP) PO SCH (22:51)
[2021-11-08] MEDS: MELATONIN 5 MG TABLETS PO SCH (22:51)
[2021-11-09] MEDS: hydrOXYzine PAMOATE 25 MG CAPSULE (FP) PO SCH ×3 (06:19→13:14)
[2021-11-09] MEDS: chlordiazePOXIDE HCL 25 MG CAPSULE PO SCH ×2 (06:19→10:47)
[2021-11-09] MEDS: CYPROHEPTADINE HCL 4 MG TABLET PO SCH (08:00)
[2021-11-09] MEDS: PRENATAL VITAMINS W/ FOLIC ACID TABLET (FP) PO SCH (10:46)
[2021-11-09] MEDS: ASPIRIN COATED 81 MG TABLET.EC PO SCH (10:46)
[2021-11-09] MEDS: ACETAMINOPHEN 325 MG TABLET (FP) PO PRN (10:47)
[2021-11-10] MEDS: chlordiazePOXIDE HCL 25 MG CAPSULE PO SCH ×4 (00:14→17:49)
[2021-11-10] MEDS: CYPROHEPTADINE HCL 4 MG TABLET PO SCH ×2 (00:15→08:14)
[2021-11-10] MEDS: THIAMINE HCL 100 MG TABLET (FP) PO SCH (00:15)
[2021-11-10] MEDS: hydrOXYzine PAMOATE 25 MG CAPSULE (FP) PO SCH ×2 (00:15→07:13)
[2021-11-10] MEDS: MELATONIN 5 MG TABLETS PO SCH (00:15)
[2021-11-10] MEDS ORDERED: hydrOXYzine PAMOATE 25 MG CAPSULE (FP) PO PRN (09:41)
[2021-11-10] MEDS: PRENATAL VITAMINS W/ FOLIC ACID TABLET (FP) PO SCH (11:02)
[2021-11-10] MEDS: ASPIRIN COATED 81 MG TABLET.EC PO SCH (11:02)
[2021-11-10 14:51] LABS: HIV INTERPRETATION NEGATIVE (NEGATIVE)
[2021-11-11] MEDS ORDERED: chlordiazePOXIDE HCL 10 MG CAPSULE PO PRN
[2021-11-11] MEDS: chlordiazePOXIDE HCL 25 MG CAPSULE PO SCH (00:36)
[2021-11-11] MEDS: MELATONIN 5 MG TABLETS PO SCH (00:36)
[2021-11-11] MEDS: THIAMINE HCL 100 MG TABLET (FP) PO SCH (00:37)
[2021-11-11] MEDS: chlordiazePOXIDE HCL 10 MG CAPSULE PO SCH ×2 (05:54→13:10)
[2021-11-11] MEDS: ASPIRIN COATED 81 MG TABLET.EC PO SCH (10:29)
[2021-11-11] MEDS: PRENATAL VITAMINS W/ FOLIC ACID TABLET (FP) PO SCH (10:29)
[2021-11-11] MEDS: ACETAMINOPHEN 325 MG TABLET (FP) PO PRN (10:30)
[2021-11-11 12:50] VITALS: BP 89/56; PULSE 80; RESP 18; TEMP 98.4
[2021-11-12] MEDS ORDERED: chlordiazePOXIDE HCL 10 MG CAPSULE PO SCH (05:00)
[2021-11-13] MEDS ORDERED: chlordiazePOXIDE HCL 10 MG CAPSULE PO ONE (05:00)
== END 2021-11-11 13:50 | disposition left against medical advice (07) | DRG 770 ==
LOC: YASAS 12:29 → Y6N 17:32
PROVIDERS: ADMIT Allergy & Immunology; ATTEND Surgery
PROC: HZ2ZZZZ Detoxification Services for Substance Abuse Treatment (ICD-10-PCS; principal; 2021-11-08)
DX: F10.230 Alcohol dependence with withdrawal, uncomplicated (principal); F14.20 Cocaine dependence, uncomplicated; F17.210 Nicotine dependence, cigarettes, uncomplicated; F25.9 Schizoaffective disorder, unspecified; F19.24 Other psychoactive substance dependence with psychoactive substance-induced mood disorder; F43.10 Post-traumatic stress disorder, unspecified; F19.282 Other psychoactive substance dependence with psychoactive substance-induced sleep disorder; I10 Essential (primary) hypertension; J44.9 Chronic obstructive pulmonary disease, unspecified; M32.9 Systemic lupus erythematosus, unspecified; R01.1 Cardiac murmur, unspecified; I35.1 Nonrheumatic aortic (valve) insufficiency; Z28.310 Unvaccinated for COVID-19; Z88.8 Allergy status to other drugs, medicaments and biological substances; Z88.6 Allergy status to analgesic agent; Z91.018 Allergy to other foods; Z91.040 Latex allergy status; Z86.718 Personal history of other venous thrombosis and embolism; Z62.810 Personal history of physical and sexual abuse in childhood; Z86.19 Personal history of other infectious and parasitic diseases; Z56.0 Unemployment, unspecified
CPT/HCPCS: 36415; 80053; 81025; 85027; 86593; 86780; 87389; C9803-CS; U0003; U0005

== ENCOUNTER 2021-12-31 12:00 | Inpatient (IN) | payer BC ==
[2021-12-31 12:32] VITALS: BMI 19.3
[2021-12-31] MEDS ORDERED: IBUPROFEN 400 MG TABLET (FP) PO PRN (13:21)
[2021-12-31] MEDS ORDERED: P-EPHED 60MG/TRIPROLIDI 2.5MG TABLET PO PRN (13:21)
[2021-12-31] MEDS ORDERED: MAGNESIUM HYDROX 2400MG/30ML ORAL SUSPENSION 30 ML CUP PO PRN (13:21)
[2021-12-31] MEDS ORDERED: MAGNESIUM CITRATE 300 ML BOTTLE PO PRN (13:21)
[2021-12-31] MEDS ORDERED: guaiFENesin 200 MG/10 ML 10 ML UNIT-DOSE CUPS PO PRN (13:21)
[2021-12-31] MEDS ORDERED: LOPERAMIDE HCL 2 MG CAPSULE PO PRN (13:21)
[2021-12-31] MEDS ORDERED: MAG HYDROX/AL HYDROX/SIMETH 30 ML UNIT-DOSE CUP PO PRN (13:21)
[2021-12-31] MEDS ORDERED: ASPIRIN COATED 81 MG TABLET.EC PO SCH (13:30)
[2021-12-31] MEDS: hydrOXYzine PAMOATE 25 MG CAPSULE (FP) PO SCH ×3 (18:59→22:17)
[2021-12-31] MEDS: NICOTINE 21 MG/24 HOURS TOPICAL PATCH TD SCH (18:59)
[2021-12-31] MEDS: PRENATAL VITAMINS W/ FOLIC ACID TABLET (FP) PO SCH (18:59)
[2021-12-31] MEDS: ALBUTEROL SO4 HFA INHALER IH PRN (19:03)
[2021-12-31] MEDS: ACETAMINOPHEN 325 MG TABLET (FP) PO PRN (20:05)
[2021-12-31] MEDS: MELATONIN 5 MG TABLETS PO SCH (22:17)
[2021-12-31] MEDS: THIAMINE HCL 100 MG TABLET (FP) PO SCH (22:17)
[2022-01-01] MEDS: hydrOXYzine PAMOATE 25 MG CAPSULE (FP) PO SCH ×5 (06:48→22:30)
[2022-01-01] MEDS: PRENATAL VITAMINS W/ FOLIC ACID TABLET (FP) PO SCH (10:38)
[2022-01-01] MEDS: NICOTINE 21 MG/24 HOURS TOPICAL PATCH TD SCH (10:38)
[2022-01-01] MEDS: busPIRone HCL 10 MG TABLET (FP) PO SCH ×2 (14:29→22:30)
[2022-01-01] MEDS ORDERED: SUVOREXANT 10 MG TABLET PO PRN (22:00)
[2022-01-01] MEDS: OLANZapine 10 MG TABLET PO SCH (22:30)
[2022-01-01] MEDS: THIAMINE HCL 100 MG TABLET (FP) PO SCH (22:30)
[2022-01-01] MEDS: MELATONIN 5 MG TABLETS PO SCH (22:30)
[2022-01-02] MEDS: hydrOXYzine PAMOATE 25 MG CAPSULE (FP) PO SCH ×5 (06:18→22:45)
[2022-01-02] MEDS: NICOTINE POLACRILEX 2 MG GUM BC PRN (06:19)
[2022-01-02] MEDS: PRENATAL VITAMINS W/ FOLIC ACID TABLET (FP) PO SCH (11:03)
[2022-01-02] MEDS: NICOTINE 21 MG/24 HOURS TOPICAL PATCH TD SCH (11:04)
[2022-01-02] MEDS: busPIRone HCL 10 MG TABLET (FP) PO SCH ×2 (11:04→22:45)
[2022-01-02 13:24] LABS: HEMATOCRIT 37.4 % (32.4-45.2); HEMOGLOBIN 12.2 GM/dL (10.7-15.3); MCH 29.5 pg (25.7-33.7); MCHC 32.5 g/dl (32.0-36.0); MEAN CELL VOLUME 90.8 fl (80-96); MEAN PLT VOLUME 9.6 fl (7.5-11.1); PLATELET COUNT 321 10^3/uL (134-434); RBC 4.12 M/mm3 (3.60-5.2); RDW 16.1 % (11.6-15.6); WHITE BLOOD COUNT 5.8 K/mm3 (4.0-10.0)
[2022-01-02 13:30] LABS: ALBUMIN 3.4 g/dl (3.4-5.0); CALCIUM 9.2 mg/dL (8.5-10.1)
[2022-01-02 13:31] LABS: BLOOD UREA NITROGEN 19.2 mg/dL (7-18)
[2022-01-02 13:33] LABS: CREATININE 0.7 mg/dL (0.55-1.3)
[2022-01-02 13:35] LABS: BILIRUBIN,TOTAL 0.2 mg/dL (0.2-1); TOT PROT 7.2 g/dl (6.4-8.2)
[2022-01-02 13:36] LABS: EPI CELLS >36 /uL (0-25.1); HYALINE CASTS 4 /uL (0-3.1); PH,URINE 5.5 (5.0-8.0); URINE APPEARANCE CLOUDY; URINE BACTERIA >9,000 /uL (0-1359); URINE BILIRUBIN NEGATIVE (NEGATIVE); URINE COLOR YELLOW; URINE GLUCOSE (UA) NEGATIVE (NEGATIVE); URINE KETONE NEGATIVE (NEGATIVE); URINE LEUK ESTERASE 1+ (NEGATIVE); URINE NITRITE NEGATIVE (NEGATIVE); URINE PROTEIN NEGATIVE (NEGATIVE); URINE RBC 4 /uL (0-23.9); URINE UROBILINOGEN 0.2 mg/dL (0.2-1.0); URINE WBC 119 /uL (0-25.8)
[2022-01-02 14:43] LABS: SYPHILIS W/ RPR CONF REACTIVE (NONREACTIVE)
[2022-01-02] MEDS: ACETAMINOPHEN 325 MG TABLET (FP) PO PRN (19:05)
[2022-01-02] MEDS: CYPROHEPTADINE HCL 4 MG TABLET PO SCH (22:45)
[2022-01-02] MEDS: MELATONIN 5 MG TABLETS PO SCH (22:45)
[2022-01-02] MEDS: THIAMINE HCL 100 MG TABLET (FP) PO SCH (22:46)
[2022-01-02] MEDS: OLANZapine 10 MG TABLET PO SCH (22:46)
[2022-01-03] MEDS: CYPROHEPTADINE HCL 4 MG TABLET PO SCH ×2 (07:17→17:39)
[2022-01-03] MEDS: hydrOXYzine PAMOATE 25 MG CAPSULE (FP) PO SCH ×5 (07:17→21:38)
[2022-01-03] MEDS: PRENATAL VITAMINS W/ FOLIC ACID TABLET (FP) PO SCH (10:41)
[2022-01-03] MEDS: NICOTINE POLACRILEX 2 MG GUM BC PRN ×2 (10:42→17:40)
[2022-01-03] MEDS: busPIRone HCL 10 MG TABLET (FP) PO SCH ×2 (10:42→21:15)
[2022-01-03] MEDS: NICOTINE 21 MG/24 HOURS TOPICAL PATCH TD SCH (10:43)
[2022-01-03] MEDS: THIAMINE HCL 100 MG TABLET (FP) PO SCH (21:15)
[2022-01-03] MEDS: OLANZapine 10 MG TABLET PO SCH (21:15)
[2022-01-03] MEDS: MELATONIN 5 MG TABLETS PO SCH (21:37)
[2022-01-04] MEDS: hydrOXYzine PAMOATE 25 MG CAPSULE (FP) PO SCH ×5 (07:22→23:45)
[2022-01-04] MEDS: CYPROHEPTADINE HCL 4 MG TABLET PO SCH ×2 (07:23→17:22)
[2022-01-04] MEDS: NICOTINE 21 MG/24 HOURS TOPICAL PATCH TD SCH (10:44)
[2022-01-04] MEDS: busPIRone HCL 10 MG TABLET (FP) PO SCH ×2 (10:44→23:45)
[2022-01-04] MEDS: PRENATAL VITAMINS W/ FOLIC ACID TABLET (FP) PO SCH (10:45)
[2022-01-04 14:00] LABS: HIV INTERPRETATION NEGATIVE (NEGATIVE)
[2022-01-04] MEDS: THIAMINE HCL 100 MG TABLET (FP) PO SCH (23:45)
[2022-01-04] MEDS: MELATONIN 5 MG TABLETS PO SCH (23:45)
[2022-01-04] MEDS: OLANZapine 10 MG TABLET PO SCH (23:46)
[2022-01-05] MEDS: hydrOXYzine PAMOATE 25 MG CAPSULE (FP) PO SCH ×5 (06:39→22:13)
[2022-01-05] MEDS: CYPROHEPTADINE HCL 4 MG TABLET PO SCH ×3 (06:39→22:35)
[2022-01-05] MEDS: busPIRone HCL 10 MG TABLET (FP) PO SCH ×3 (10:37→22:36)
[2022-01-05] MEDS: PRENATAL VITAMINS W/ FOLIC ACID TABLET (FP) PO SCH (10:37)
[2022-01-05] MEDS: NICOTINE 21 MG/24 HOURS TOPICAL PATCH TD SCH (10:38)
[2022-01-05] MEDS ORDERED: SULFAMETHOXAZOLE/TRIMETHOPRIM 800MG/160MG D.S. TABLET PO ONE (12:00)
[2022-01-05] MEDS: THIAMINE HCL 100 MG TABLET (FP) PO SCH ×2 (22:13→22:35)
[2022-01-05] MEDS: MELATONIN 5 MG TABLETS PO SCH ×2 (22:13→22:26)
[2022-01-05] MEDS: SULFAMETHOXAZOLE/TRIMETHOPRIM 800MG/160MG D.S. TABLET PO SCH ×2 (22:13→22:23)
[2022-01-05] MEDS: OLANZapine 10 MG TABLET PO SCH (22:21)
[2022-01-06] MEDS: CYPROHEPTADINE HCL 4 MG TABLET PO SCH ×2 (06:55→17:19)
[2022-01-06] MEDS: hydrOXYzine PAMOATE 25 MG CAPSULE (FP) PO SCH ×2 (06:55→10:31)
[2022-01-06] MEDS: SULFAMETHOXAZOLE/TRIMETHOPRIM 800MG/160MG D.S. TABLET PO SCH ×2 (10:31→21:13)
[2022-01-06] MEDS: busPIRone HCL 10 MG TABLET (FP) PO SCH ×2 (10:31→21:13)
[2022-01-06] MEDS: PRENATAL VITAMINS W/ FOLIC ACID TABLET (FP) PO SCH (10:31)
[2022-01-06] MEDS: NICOTINE 21 MG/24 HOURS TOPICAL PATCH TD SCH (10:31)
[2022-01-06] MEDS: NICOTINE POLACRILEX 2 MG GUM BC PRN ×2 (10:33→20:19)
[2022-01-06] MEDS ORDERED: hydrOXYzine PAMOATE 25 MG CAPSULE (FP) PO PRN (11:59)
[2022-01-06] MEDS: OLANZapine 10 MG TABLET PO SCH (21:13)
[2022-01-06] MEDS: THIAMINE HCL 100 MG TABLET (FP) PO SCH (21:13)
[2022-01-06] MEDS: MELATONIN 5 MG TABLETS PO SCH (21:14)
[2022-01-06] MEDS: SUVOREXANT 10 MG TABLET PO PRN (21:15)
[2022-01-07] MEDS: CYPROHEPTADINE HCL 4 MG TABLET PO SCH ×2 (07:02→17:19)
[2022-01-07] MEDS: PRENATAL VITAMINS W/ FOLIC ACID TABLET (FP) PO SCH (10:26)
[2022-01-07] MEDS: busPIRone HCL 10 MG TABLET (FP) PO SCH ×2 (10:27→21:30)
[2022-01-07] MEDS: NICOTINE 21 MG/24 HOURS TOPICAL PATCH TD SCH (10:27)
[2022-01-07] MEDS: NICOTINE 10 MG CARTRIDGE (INHALER) IH PRN (10:27)
[2022-01-07] MEDS: SULFAMETHOXAZOLE/TRIMETHOPRIM 800MG/160MG D.S. TABLET PO SCH ×2 (10:27→21:30)
[2022-01-07] MEDS: ACETAMINOPHEN 325 MG TABLET (FP) PO PRN (19:57)
[2022-01-07] MEDS: SUVOREXANT 10 MG TABLET PO PRN (21:30)
[2022-01-07] MEDS: THIAMINE HCL 100 MG TABLET (FP) PO SCH (21:30)
[2022-01-07] MEDS: MELATONIN 5 MG TABLETS PO SCH (21:30)
[2022-01-07] MEDS: OLANZapine 10 MG TABLET PO SCH (22:56)
[2022-01-08] MEDS: CYPROHEPTADINE HCL 4 MG TABLET PO SCH ×2 (06:52→16:57)
[2022-01-08] MEDS: ACETAMINOPHEN 325 MG TABLET (FP) PO PRN (06:52)
[2022-01-08] MEDS: busPIRone HCL 10 MG TABLET (FP) PO SCH ×2 (10:48→21:19)
[2022-01-08] MEDS: SULFAMETHOXAZOLE/TRIMETHOPRIM 800MG/160MG D.S. TABLET PO SCH ×2 (10:48→21:19)
[2022-01-08] MEDS: PRENATAL VITAMINS W/ FOLIC ACID TABLET (FP) PO SCH (10:48)
[2022-01-08] MEDS: NICOTINE 21 MG/24 HOURS TOPICAL PATCH TD SCH (10:49)
[2022-01-08] MEDS: NICOTINE POLACRILEX 2 MG GUM BC PRN (10:50)
[2022-01-08] MEDS: ALBUTEROL SO4 HFA INHALER IH PRN ×2 (11:27→21:19)
[2022-01-08] MEDS ORDERED: predniSONE 20 MG TABLET (UD) PO ONE (15:55)
[2022-01-08] MEDS: NICOTINE 10 MG CARTRIDGE (INHALER) IH PRN (16:57)
[2022-01-08] MEDS: THIAMINE HCL 100 MG TABLET (FP) PO SCH (21:19)
[2022-01-08] MEDS: SUVOREXANT 10 MG TABLET PO PRN (21:20)
[2022-01-08] MEDS: MELATONIN 5 MG TABLETS PO SCH (21:20)
[2022-01-08] MEDS: OLANZapine 10 MG TABLET PO SCH (21:24)
[2022-01-09] MEDS: CYPROHEPTADINE HCL 4 MG TABLET PO SCH ×2 (06:00→17:11)
[2022-01-09] MEDS: ALBUTEROL SO4 HFA INHALER IH PRN (08:13)
[2022-01-09] MEDS ORDERED: predniSONE 10 MG TABLET (UD) PO ONE (10:00)
[2022-01-09] MEDS: NICOTINE 10 MG CARTRIDGE (INHALER) IH PRN ×2 (10:32→21:44)
[2022-01-09] MEDS: SULFAMETHOXAZOLE/TRIMETHOPRIM 800MG/160MG D.S. TABLET PO SCH ×2 (10:32→21:42)
[2022-01-09] MEDS: busPIRone HCL 10 MG TABLET (FP) PO SCH ×2 (10:32→21:43)
[2022-01-09] MEDS: PRENATAL VITAMINS W/ FOLIC ACID TABLET (FP) PO SCH (10:32)
[2022-01-09] MEDS: NICOTINE 21 MG/24 HOURS TOPICAL PATCH TD SCH (10:34)
[2022-01-09] MEDS: THIAMINE HCL 100 MG TABLET (FP) PO SCH (21:43)
[2022-01-09] MEDS: MELATONIN 5 MG TABLETS PO SCH (21:43)
[2022-01-09] MEDS: OLANZapine 10 MG TABLET PO SCH (23:30)
[2022-01-10] MEDS: ALBUTEROL SO4 HFA INHALER IH PRN (03:22)
[2022-01-10] MEDS: CYPROHEPTADINE HCL 4 MG TABLET PO SCH ×2 (07:02→16:45)
[2022-01-10 07:14] VITALS: RESP 16
[2022-01-10] MEDS ORDERED: predniSONE 20 MG TABLET (UD) PO ONE (10:00)
[2022-01-10] MEDS: PRENATAL VITAMINS W/ FOLIC ACID TABLET (FP) PO SCH (10:29)
[2022-01-10] MEDS: NICOTINE 10 MG CARTRIDGE (INHALER) IH PRN ×2 (10:30→19:35)
[2022-01-10] MEDS: SULFAMETHOXAZOLE/TRIMETHOPRIM 800MG/160MG D.S. TABLET PO SCH ×2 (10:30→21:16)
[2022-01-10] MEDS: NICOTINE 21 MG/24 HOURS TOPICAL PATCH TD SCH (10:30)
[2022-01-10] MEDS: busPIRone HCL 10 MG TABLET (FP) PO SCH ×2 (10:30→21:16)
[2022-01-10] MEDS: NICOTINE POLACRILEX 2 MG GUM BC PRN ×2 (10:34→19:37)
[2022-01-10] MEDS: MELATONIN 5 MG TABLETS PO SCH (21:16)
[2022-01-10] MEDS: THIAMINE HCL 100 MG TABLET (FP) PO SCH (21:17)
[2022-01-10] MEDS: OLANZapine 10 MG TABLET PO SCH (21:17)
[2022-01-10] MEDS ORDERED: SUVOREXANT 10 MG TABLET PO PRN (22:00)
[2022-01-11] MEDS: CYPROHEPTADINE HCL 4 MG TABLET PO SCH (06:11)
[2022-01-11] MEDS: NICOTINE 10 MG CARTRIDGE (INHALER) IH PRN (07:09)
[2022-01-11 07:32] VITALS: BP 110/64; PULSE 82; TEMP 97.3
[2022-01-11] MEDS: SULFAMETHOXAZOLE/TRIMETHOPRIM 800MG/160MG D.S. TABLET PO SCH (09:47)
[2022-01-11] MEDS: PRENATAL VITAMINS W/ FOLIC ACID TABLET (FP) PO SCH (09:47)
[2022-01-11] MEDS: busPIRone HCL 10 MG TABLET (FP) PO SCH (09:47)
[2022-01-11] MEDS: NICOTINE 21 MG/24 HOURS TOPICAL PATCH TD SCH (09:47)
[2022-01-11] MEDS ORDERED: predniSONE 10 MG TABLET (UD) PO ONE (10:00)
[2022-01-12] MEDS ORDERED: predniSONE 5 MG TABLET (UD) PO ONE (10:00)
== END 2022-01-11 10:15 | disposition home or self-care (01) | DRG 772 ==
LOC: YASAS 12:00 → Y5N 17:15
PROVIDERS: ADMIT Allergy & Immunology; ATTEND Surgery
PROC: HZ42ZZZ Group Counseling for Substance Abuse Treatment, Cognitive-Behavioral (ICD-10-PCS; principal; 2021-12-31)
DX: F10.20 Alcohol dependence, uncomplicated (principal); F14.20 Cocaine dependence, uncomplicated; F17.210 Nicotine dependence, cigarettes, uncomplicated; F25.9 Schizoaffective disorder, unspecified; F19.282 Other psychoactive substance dependence with psychoactive substance-induced sleep disorder; F19.24 Other psychoactive substance dependence with psychoactive substance-induced mood disorder; F43.10 Post-traumatic stress disorder, unspecified; F32.A Depression, unspecified; I10 Essential (primary) hypertension; J44.9 Chronic obstructive pulmonary disease, unspecified; M32.9 Systemic lupus erythematosus, unspecified; M54.50 Low back pain, unspecified; N39.0 Urinary tract infection, site not specified; B96.20 Unspecified Escherichia coli [E. coli] as the cause of diseases classified elsewhere; R63.4 Abnormal weight loss; Z68.1 Body mass index [BMI] 19.9 or less, adult; Z86.19 Personal history of other infectious and parasitic diseases; Z88.0 Allergy status to penicillin; Z88.5 Allergy status to narcotic agent; Z91.040 Latex allergy status; Z86.718 Personal history of other venous thrombosis and embolism
CPT/HCPCS: 36415; 80053; 81003; 81025; 82962; 85027; 86593; 86780; 86803; 87086; 87186; 87389; C9803-CS; U0003; U0005